=== PATIENT | male | born 1965 | race Caucasian/White ===

== ENCOUNTER → 2016-08-07 | Outpatient (CLI) | payer OTHER ==
--- NOTE | 2016-08-07 12:56 | XR ---
EXAMINATION TYPE: XR chest 2V DATE OF EXAM: 08/07/2016 12:43 PM COMPARISON: 04/26/2016 HISTORY: 51-year-old male cough and intermittent fever TECHNIQUE: Frontal and lateral views FINDINGS: The cardiomediastinal silhouette, aorta, and pulmonary vasculature are within normal limits. There is hyperinflation and interstitial prominence similar to prior. No consolidation or pleural effusion. IMPRESSION: COPD and chronic changes. No acute process identified.
== END | disposition home or self-care (01) ==
LOC: RADXRMAIN 12:29
PROVIDERS: ATTEND Family Medicine
DX: J44.9 Chronic obstructive pulmonary disease, unspecified (principal)
CPT/HCPCS: 71020; 87502

== ENCOUNTER → 2016-12-11 | Outpatient (CLI) | payer OTHER ==
--- NOTE | 2016-12-11 14:25 | CT ---
EXAMINATION TYPE: CT chest wo con DATE OF EXAM: 12/11/2016 2:07 PM COMPARISON: Previous study dated 04/01/2016 HISTORY: Solitary pulmonary nodule CT DLP: 141.3 mGycm Automated exposure control for dose reduction was used. FINDINGS: There are diffuse emphysematous changes throughout the lungs. No parenchymal nodules are se en. The right paratracheal mass previously described compressing the IVC is not seen with certainty on th is examination due to the lack of contrast. There is no significant axillary, mediastinal or hilar ad enopathy. There is no pleural or pericardial fluid. There is coronary artery calcification. The heart is not enlarged. There is a 3 mm nonobstructing calculus in the posterior lower pole calyx of the right kidney. Visual ized portions of the upper abdomen are otherwise unremarkable. No bony destructive lesion is seen. IMPRESSION: 1. DIFFUSE EMPHYSEMATOUS CHANGE. 2. NO DEFINITE PARENCHYMAL NODULE. 3. LIMITED ASSESSMENT OF THE PATIENT'S KNOWN RIGHT PARATRACHEAL MASS DUE TO LACK OF CONTRAST. 4. NONOBSTRUCTING RIGHT-SIDED NEPHROLITHIASIS.
== END | disposition home or self-care (01) ==
LOC: RADCTMAIN 13:49
PROVIDERS: ATTEND Internal Medicine Sleep Medicine
DX: J43.9 Emphysema, unspecified (principal)
CPT/HCPCS: 71250

== ENCOUNTER → 2017-01-09 | Outpatient (CLI) | payer OTHER ==
[2017-01-09 08:17] LABS: ALT 33 U/L (21-72); AST 28 U/L (17-59); Cholesterol 123 mg/dL (<200); HDL Cholesterol 46 mg/dL (40-60); Triglycerides 93 mg/dL (<150)
== END | disposition home or self-care (01) ==
LOC: LABWHC1 07:46
PROVIDERS: ATTEND Internal Medicine Cardiovascular Disease
DX: I25.10 Atherosclerotic heart disease of native coronary artery without angina pectoris (principal); E78.5 Hyperlipidemia, unspecified
CPT/HCPCS: 36415; 80061; 84450; 84460

== ENCOUNTER 2017-02-28 01:49 | Observation (INO) | payer OTHER ==
[2017-02-28] MEDS ORDERED: ONDANSETRON 4 MG/2 ML VIAL IVP STA (01:59)
[2017-02-28] MEDS ORDERED: ASPIRIN 81 MG CHEW PO STA (01:59)
[2017-02-28] MEDS ORDERED: SODIUM CHLORIDE 0.9% 500 ML IV STA (01:59)
--- NOTE | 2017-02-28 02:18 | ED ---
General Adult HPI - General Source: patient, RN notes reviewed Mode of arrival: ambulatory Limitations: no limitations <Nisreen Logan - Last Filed: 02/28/17 03:39> <Ian Norwood - Last Filed: 02/28/17 07:30> - General Chief complaint: Nausea/Vomiting/Diarrhea Stated complaint: low BP Time Seen by Provider: 02/28/17 01:56 - History of Present Illness Initial comments: 51-year-old male presents to the emergency department with a chief complaint of lightheadedness. Patient states earlier today he had some testing done and there was a low blood pressure of 70s over 50s. Patient states he went home did not take much of it. Then he was sitting at home and he had this episode where he felt like he might pass out while he was sitting down. Patient states he didn't started to feel nauseous. Patient states this time he just still continues to have the nausea. There is no chest pain chronically a shortness of breath no different than normal with this. Patient denies diaphoresis. Patient does admit to history of COPD as well as history of heart attack in the past but states that this does not feel like that either. Patient was concerned due to his symptoms so he thought that he should be seen. Patient denies any recent fever, chills, shortness of breath, chest pain, back pain, abdominal pain, vomiting, numbness or tingling, dysuria or hematuria, constipation or diarrhea, headaches or visual changes, or any other current symptoms. (Nisreen Logan) - Related Data Home Medications Medication Instructions Recorded Confirmed Albuterol Inhaler [Ventolin Hfa 2 puff INHALATION RT-Q6H PRN 09/08/14 02/28/17 Inhaler] Pramipexole [Mirapex] 0.5 mg PO DAILY 08/23/15 02/28/17 Acetaminophen Tab [Tylenol Tab] 1,000 mg PO Q6HR PRN 02/28/17 02/28/17 Atorvastatin [Lipitor] 40 mg PO HS 02/28/17 02/28/17 Previous Rx's Medication Instructions Recorded Aspirin 81 mg PO DAILY #30 chew 08/26/15 Clopidogrel [Plavix] 75 mg PO DAILY #30 tab 08/26/15 Metoprolol Tartrate [Lopressor] 25 mg PO BID #60 tab 08/26/15 Nitroglycerin Sl Tabs [Nitrostat] 0.4 mg SUBLINGUAL Q5M PRN #25 tab 08/26/15 Allergies Allergy/AdvReac Type Severity Reaction Status Date / Time iodine Allergy Swelling Verified 02/28/17 07:12 shellfish derived [Shellfish] Allergy Swelling Verified 02/28/17 07:12 venom-honey bee Allergy Swelling Verified 02/28/17 07:12 [bee venom (honey bee)] Review of Systems ROS Other: All systems not noted in ROS Statement are negative. <Nisreen Logan - Last Filed: 02/28/17 03:39> ROS Other: All systems not noted in ROS Statement are negative. <Ian Norwood - Last Filed: 02/28/17 07:30> ROS Statement: Those systems with pertinent positive or pertinent negative responses have been documented in the HPI. 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 Also had some enlargement to lymph nodes upper chest no bx done-dr watching it., psoriasis, restless leg syndrome, 2 herniated disc in neck, 2 in lower back, scoliosis, enlarged prostate, hx. kidney stones, 3 lung masses per pt. Last Myocardial Infarction Date:: Aug 2015 History of Any Multi-Drug Resistant Organisms: None Reported Past Surgical History: Heart Catheterization With Stent, Orthopedic Surgery, Tonsillectomy Additional Past Surgical History / Comment(s): rhinoplasty, left tibial cyst with bone graft from the pelvis to the tibia(pins/screws, orif lt hip (pins) Past Anesthesia/Blood Transfusion Reactions: No Reported Reaction Additional Past Anesthesia/Blood Transfusion Reaction / Comment(s): claustrophobic Date of Last Stent Placement:: Aug 2015 Past Psychological History: Anxiety, Depression Smoking Status: Former smoker Past Alcohol Use History: None Reported Past Drug Use History: None Reported - Past Family History Father Family Medical History: No Reported History Mother Family Medical History: COPD, CVA/TIA Additional Family Medical History / Comment(s): Mother is alive at age 73 Brother(s) Additional Family Medical History / Comment(s): She has 2 brothers, one has metal health issues, one is an addict on crack and other street drugs. Sister(s) Family Medical History: Cancer, Liver Disease Additional Family Medical History / Comment(s): Patient had 2 sisters, one from breast cancer, one from cirrhosis at the age of 19 with history of heavy alcohol use and Crohn's disease. <Nisreen Logan - Last Filed: 02/28/17 03:39> General Exam Limitations: no limitations <Nisreen Logan - Last Filed: 02/28/17 03:39> <Ian Norwood - Last Filed: 02/28/17 07:30> - General Exam Comments Initial Comments: General: The patient is awake and alert, in no distress, and does not appear acutely ill. Eye: Pupils are equal, round and reactive to light, extra-ocular movements are intact; there is normal conjunctiva bilaterally. No signs of icterus. Ears, nose, mouth and throat: There are moist mucous membranes and no oral lesions. Neck: The neck is supple, there is no tenderness. Cardiovascular: There is a regular rate and rhythm. No murmur, rub or gallop is appreciated. Respiratory: Lungs are clear to auscultation, respirations are non-labored, breath sounds are equal. No wheezes, stridor, rales, or rhonchi. Gastrointestinal: Soft, non-distended, non-tender abdomen without masses or organomegaly noted. There is no rebound or guarding present. No CVA tenderness. Bowel sounds are unremarkable. Back: There is no tenderness to palpation in the midline. There is no obvious deformity. No rashes noted. Musculoskeletal: Normal ROM, no tenderness, There is no pedal edema. There is no calf tenderness or swelling. Sensation intact. Pulses equal bilaterally 2+. Neurological: CN II-XII intact, There are no obvious motor or sensory deficits. Coordination appears grossly intact. Speech is normal. Skin: Skin is warm and dry and no rashes or lesions are noted. Psychiatric: Cooperative, appropriate mood & affect, normal judgment. (Nisreen Logan) EKG Findings - EKG Comments: EKG Findings:: normal sinus rhythm 65 bpm, normal axis, no atopy, no S-T depressions or elevations, <Nisreen Logan - Last Filed: 02/28/17 03:39> Medical Decision Making - Lab Data Result diagrams: 02/28/17 02:20 02/28/17 02:20 <Nisreen Logan - Last Filed: 02/28/17 03:39> - Lab Data Result diagrams: 02/28/17 02:20 02/28/17 02:20 <Ian Norwood - Last Filed: 02/28/17 07:30> - Medical Decision Making 51-year-old male presents for near-syncope with nausea. At this time due to patient's symptoms and cardiac history there is suspicion for for cardiac origin. We will admit the patient for cardiac rule out. This is discussed with the patient is in agreement the plan. (Nisreen Logan) I saw this patient in conjunction with the physician assistant store director. I performed independent history and physical exam. Agree with case management. (Ian Norwood) - Lab Data Lab Results 02/28/17 02/28/17 02/28/17 Range/Units 02:20 02:20 02:20 WBC 5.9 (3.8-10.6) k/uL RBC 4.54 (4.30-5.90) m/uL Hgb 13.9 (13.0-17.5) gm/dL Hct 42.4 (39.0-53.0) % MCV 93.2 (80.0-100.0) fL MCH 30.6 (25.0-35.0) pg MCHC 32.8 (31.0-37.0) g/dL RDW 13.4 (11.5-15.5) % Plt Count 148 L (150-450) k/uL Neutrophils % 57 % Lymphocytes % 31 % Monocytes % 7 % Eosinophils % 3 % Basophils % 1 % Neutrophils # 3.4 (1.3-7.7) k/uL Lymphocytes # 1.8 (1.0-4.8) k/uL Monocytes # 0.4 (0-1.0) k/uL Eosinophils # 0.2 (0-0.7) k/uL Basophils # 0.0 (0-0.2) k/uL PT (9.0-12.0) sec INR (<1.2) APTT (22.0-30.0) sec D-Dimer (<0.60) mg/L FEU Sodium 141 (137-145) mmol/L Potassium 4.0 (3.5-5.1) mmol/L Chloride 107 (98-107) mmol/L Carbon Dioxide 26 (22-30) mmol/L Anion Gap 8 mmol/L BUN 25 H (9-20) mg/dL Creatinine 1.10 (0.66-1.25) mg/dL Est GFR (MDRD) Af Amer >60 (>60 ml/min/1.73 sqM) Est GFR (MDRD) Non-Af >60 (>60 ml/min/1.73 sqM) Glucose 104 H (74-99) mg/dL Calcium 9.1 (8.4-10.2) mg/dL Magnesium 1.8 (1.6-2.3) mg/dL Total Bilirubin 0.3 (0.2-1.3) mg/dL AST 21 (17-59) U/L ALT 37 (21-72) U/L Alkaline Phosphatase 54 (38-126) U/L Total Creatine Kinase 106 (55-170) U/L CK-MB (CK-2) 1.6 (0.0-2.4) ng/mL CK-MB (CK-2) Rel Index 1.5 Troponin I <0.012 (0.000-0.034) ng/mL Total Protein 5.7 L (6.3-8.2) g/dL Albumin 3.8 (3.5-5.0) g/dL 02/28/17 Range/Units 02:20 WBC (3.8-10.6) k/uL RBC (4.30-5.90) m/uL Hgb (13.0-17.5) gm/dL Hct (39.0-53.0) % MCV (80.0-100.0) fL MCH (25.0-35.0) pg MCHC (31.0-37.0) g/dL RDW (11.5-15.5) % Plt Count (150-450) k/uL Neutrophils % % Lymphocytes % % Monocytes % % Eosinophils % % Basophils % % Neutrophils # (1.3-7.7) k/uL Lymphocytes # (1.0-4.8) k/uL Monocytes # (0-1.0) k/uL Eosinophils # (0-0.7) k/uL Basophils # (0-0.2) k/uL PT 10.7 (9.0-12.0) sec INR 1.1 (<1.2) APTT 25.0 (22.0-30.0) sec D-Dimer 0.18 (<0.60) mg/L FEU Sodium (137-145) mmol/L Potassium (3.5-5.1) mmol/L Chloride (98-107) mmol/L Carbon Dioxide (22-30) mmol/L Anion Gap mmol/L BUN (9-20) mg/dL Creatinine (0.66-1.25) mg/dL Est GFR (MDRD) Af Amer (>60 ml/min/1.73 sqM) Est GFR (MDRD) Non-Af (>60 ml/min/1.73 sqM) Glucose (74-99) mg/dL Calcium (8.4-10.2) mg/dL Magnesium (1.6-2.3) mg/dL Total Bilirubin (0.2-1.3) mg/dL AST (17-59) U/L ALT (21-72) U/L Alkaline Phosphatase (38-126) U/L Total Creatine Kinase (55-170) U/L CK-MB (CK-2) (0.0-2.4) ng/mL CK-MB (CK-2) Rel Index Troponin I (0.000-0.034) ng/mL Total Protein (6.3-8.2) g/dL Albumin (3.5-5.0) g/dL Disposition Time of Disposition: 03:40 Decision Date: 02/28/17 Decision Time: 03:40 <Nisreen Logan - Last Filed: 02/28/17 03:39> <Ian Norwood - Last Filed: 02/28/17 07:30> Clinical Impression: Nausea, Near syncope Disposition: ADMITTED IP TO THIS [facility] Condition: Stable
[2017-02-28 02:43] LABS: Basophils % (A) 1 %; CH 31.5; CHCM 33.9; Eosinophils # (A) 0.2 k/uL (0-0.7); Eosinophils % (A) 3 %; HCT 42.4 % (39.0-53.0); HDW 2.33; HGB 13.9 gm/dL (13.0-17.5); Luc # (Auto) 0.09; Luc % (Auto) 2; Lymphocytes # (A) 1.8 k/uL (1.0-4.8); Lymphocytes % (A) 31 %; MCH 30.6 pg (25.0-35.0); MCHC 32.8 g/dL (31.0-37.0); MCV 93.2 fL (80.0-100.0); Mean Platelet Volume 8.5; Monocytes # (A) 0.4 k/uL (0-1.0); Monocytes % (A) 7 %; Neutrophils # (A) 3.4 k/uL (1.3-7.7); Neutrophils % (A) 57 %; RBC 4.54 m/uL (4.30-5.90); RDW 13.4 % (11.5-15.5); WBC 5.9 k/uL (3.8-10.6); WBC (Perox) 5.93
[2017-02-28 02:50] LABS: ALT 37 U/L (21-72); AST 21 U/L (17-59); Alkaline Phosphatase 54 U/L (38-126); Anion Gap 8 mmol/L; Blood Urea Nitrogen 25 mg/dL (9-20); Calcium 9.1 mg/dL (8.4-10.2); Carbon Dioxide 26 mmol/L (22-30); Chloride 107 mmol/L (98-107); Glucose 104 mg/dL (74-99); Magnesium 1.8 mg/dL (1.6-2.3); Non-African American GFR(MDRD) >60 (>60 ml/min/1.73 sqM); Sodium 141 mmol/L (137-145); Total Bilirubin 0.3 mg/dL (0.2-1.3); Total Protein 5.7 g/dL (6.3-8.2)
[2017-02-28 02:54] LABS: INR 1.1 (<1.2); Prothrombin Time 10.7 sec (9.0-12.0)
[2017-02-28 03:02] LABS: Creatine Kinase 106 U/L (55-170)
[2017-02-28 03:14] LABS: Creatine Kinase MB 1.6 ng/mL (0.0-2.4); Troponin I <0.012 ng/mL (0.000-0.034)
--- NOTE | 2017-02-28 03:22 | XR ---
EXAM: XR Chest, 2 Views CLINICAL HISTORY: Chest Pain. TECHNIQUE: Frontal and lateral views of the chest. COMPARISON: No relevant prior studies available. FINDINGS: Lungs: Hyperinflated lungs. Mild prominence of interstitial lung markings without airspace consolidation. Pleural space: No significant pleural effusion. No pneumothorax. Heart: Normal cardiac silhouette. Mediastinum: Unremarkable. Bones/joints: Mild thoracic kyphosis. IMPRESSION: No acute findings. No significant interval change.
[2017-02-28] MEDS ORDERED: HEPARIN SODIUM,PORCINE 5,000 UNIT/ML 1 ML VIAL IV ONE (03:40)
[2017-02-28] MEDS ORDERED: NITROGLYCERIN SL TABS 0.4 MG TAB SUBLINGUAL PRN (03:40)
[2017-02-28] MEDS ORDERED: SODIUM CHLORIDE 0.9% 1,000 ML IV SCH (03:45)
[2017-02-28] MEDS ORDERED: HEPARIN SODIUM,PORCINE/D5W PMX 25,000 UNIT in DEXTROSE/WATER 1 500ML.BAG IV SCH (03:45)
[2017-02-28 09:49] LABS: Creatine Kinase 87 U/L (55-170)
[2017-02-28 10:02] LABS: Creatine Kinase MB 1.2 ng/mL (0.0-2.4); Troponin I <0.012 ng/mL (0.000-0.034)
[2017-02-28 12:18] VITALS: RESP 16; TEMP 97.6
[2017-02-28 12:31] VITALS: BP 126/77
[2017-02-28 12:38] VITALS: PULSE 66
--- NOTE | 2017-02-28 14:23 | P.CRDCN ---
History of Present Illness History of present illness: This is a 51-year-old male who presented to the emergency department with complaints of dizziness. He states he was at his neurologist office earlier in the day and was hypotensive 70s over 50s. He presented to the emergency room later in the evening after this persisted and he became mildly nauseous. He says symptoms have since resolved He has a significant history of coronary artery disease with a stent to the circumflex in 2016, hyperlipidemia, COPD, GERD and osteoarthritis. He denies chest pain, shortness of breath, palpitations or diaphoresis. Blood pressure upon arrival was 113/70 with a heart rate is 65. Lipid values were unremarkable with a hemoglobin 13.9, d- dimer 0.18, potassium 4.0, BUN 25, creatinine 1.10, magnesium 1.8 troponin negative 2. EKG shows a normal sinus mechanism. Review of Systems REVIEW OF SYSTEMS: Patient denies any chest discomfort. No shortness of breath. No diaphoresis. Denies headache, dizziness, blurred vision, double vision. No dyspnea on exertion. Patient denies any stomach discomfort. No nausea, vomiting. No hematochezia. No hematemesis. Denies any black stools or blood in his stools. No syncope. No palpitations. No cough. No recent fever or chills. Denies dysuria or hematuria. No muscle weakness or numbness. 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 kidney stones, 3 lung masses per pt. Last Myocardial Infarction Date:: Aug 2015 History of Any Multi-Drug Resistant Organisms: None Reported Past Surgical History: Heart Catheterization With Stent, Orthopedic Surgery, Tonsillectomy Additional Past Surgical History / Comment(s): rhinoplasty, left tibial cyst with bone graft from the pelvis to the tibia(pins/screws, orif lt hip (pins) Past Anesthesia/Blood Transfusion Reactions: No Reported Reaction Additional Past Anesthesia/Blood Transfusion Reaction / Comment(s): claustrophobic Date of Last Stent Placement:: Aug 2015 Smoking Status: Current every day smoker - Past Family History Father Family Medical History: No Reported History Mother Family Medical History: COPD, CVA/TIA Additional Family Medical History / Comment(s): Mother is alive as far as pt knows and should be age 74. Pt does not have much contact with mother. Brother(s) Additional Family Medical History / Comment(s): He has 2 brothers, one has metal health issues, one is an addict on crack and other street drugs. Sister(s) Family Medical History: Cancer, Liver Disease Additional Family Medical History / Comment(s): Patient had 2 sisters, one from breast cancer, one from cirrhosis at the age of 19 with history of heavy alcohol use and Crohn's disease. Medications and Allergies Home Medications Medication Instructions Recorded Confirmed Type Albuterol Inhaler [Ventolin Hfa 2 puff INHALATION RT-Q6H PRN 09/08/14 02/28/17 History Inhaler] Pramipexole [Mirapex] 0.5 mg PO DAILY 08/23/15 02/28/17 History Acetaminophen Tab [Tylenol Tab] 1,000 mg PO Q6HR PRN 02/28/17 02/28/17 History Atorvastatin [Lipitor] 40 mg PO HS 02/28/17 02/28/17 History Allergies Allergy/AdvReac Type Severity Reaction Status Date / Time iodine Allergy Swelling Verified 02/28/17 07:12 shellfish derived [Shellfish] Allergy Swelling Verified 02/28/17 07:12 venom-honey bee Allergy Swelling Verified 02/28/17 07:12 [bee venom (honey bee)] Physical Exam Vitals: Vital Signs Temp Pulse Pulse Pulse Pulse Pulse Resp 02/28/17 12:30 61 65 62 02/28/17 12:00 66 62 72 63 16 02/28/17 11:30 97.6 F 66 16 02/28/17 11:28 97.9 F 63 14 02/28/17 09:50 60 17 02/28/17 08:33 60 16 02/28/17 07:27 64 17 02/28/17 04:52 62 16 02/28/17 03:53 64 16 02/28/17 03:15 65 02/28/17 02:31 62 72 63 02/28/17 01:52 97.2 F L 59 L 18 BP BP BP BP BP Pulse Ox 02/28/17 12:30 127/82 127/72 126/77 02/28/17 12:00 02/28/17 11:30 115/64 98 02/28/17 11:28 120/62 97 02/28/17 09:50 112/76 98 02/28/17 08:33 116/70 98 02/28/17 07:27 116/73 99 02/28/17 04:52 112/77 97 02/28/17 03:53 107/71 97 02/28/17 03:15 113/70 95 02/28/17 02:31 116/75 130/84 118/75 02/28/17 01:52 133/77 98 Intake and Output 02/27/17 02/28/17 02/28/17 22:59 06:59 14:59 Other: Voiding Method Toilet Weight 54.431 kg 54.5 kg Patient Weight 03/01/17 06:59 Weight 54.5 kg GENERAL: Well-appearing, well-nourished and in no acute distress. NECK: Supple without JVD or thyromegaly. LUNGS: Breath sounds clear to auscultation bilaterally. Diminished air entry. No wheezes, rales or rhonchi. HEART: Regular rate and rhythm without murmurs, rubs or gallops. S1 and S2 heard. ABDOMEN: Soft, nontender, normoactive bowel sounds. EXTREMITIES: Normal range of motion, no edema. No clubbing or cyanosis. Peripheral pulses intact and strong. Results 02/28/17 02:20 02/28/17 02:20 Cardiac Enzymes 02/28/17 02/28/17 02/28/17 Range/Units 02:20 02:20 08:56 AST 21 (17-59) U/L CK-MB (CK-2) 1.6 1.2 (0.0-2.4) ng/mL Troponin I <0.012 <0.012 (0.000-0.034) ng/mL Coagulation 02/28/17 Range/Units 02:20 PT 10.7 (9.0-12.0) sec APTT 25.0 (22.0-30.0) sec CBC 02/28/17 Range/Units 02:20 WBC 5.9 (3.8-10.6) k/uL RBC 4.54 (4.30-5.90) m/uL Hgb 13.9 (13.0-17.5) gm/dL Hct 42.4 (39.0-53.0) % Plt Count 148 L (150-450) k/uL Comprehensive Metabolic Panel 02/28/17 Range/Units 02:20 Sodium 141 (137-145) mmol/L Potassium 4.0 (3.5-5.1) mmol/L Chloride 107 (98-107) mmol/L Carbon Dioxide 26 (22-30) mmol/L BUN 25 H (9-20) mg/dL Creatinine 1.10 (0.66-1.25) mg/dL Glucose 104 H (74-99) mg/dL Calcium 9.1 (8.4-10.2) mg/dL AST 21 (17-59) U/L ALT 37 (21-72) U/L Alkaline Phosphatase 54 (38-126) U/L Total Protein 5.7 L (6.3-8.2) g/dL Albumin 3.8 (3.5-5.0) g/dL Current Medications Generic Name Dose Route Start Last Admin Trade Name Freq PRN Reason Stop Dose Admin Aspirin 325 mg 03/01/17 09:00 Aspirin PO DAILY EMILIANO Sodium Chloride 1,000 mls @ 100 mls/hr 02/28/17 03:45 02/28/17 04:06 Saline 0.9% IV 100 mls/hr .Q10H EMILIANO Administration Nitroglycerin 0.4 mg 02/28/17 03:40 Nitrostat SUBLINGUAL Q5M PRN Chest Pain Intake and Output 02/27/17 02/28/17 02/28/17 22:59 06:59 14:59 Other: Voiding Method Toilet Weight 54.431 kg 54.5 kg Patient Weight 03/01/17 06:59 Weight 54.5 kg 02/28/17 02:20 02/28/17 02:20 - EKG Interpretation EKG: sinus rhythm, normal axis, normal QRS, normal ST/T, no acute changes Assessment and Plan Plan: ASSESSMENT 1. Dizziness secondary to dehydration. Patient showed improvement with IV hydration. PLAN Orthostatic vital signs performed after IV hydration and indicated no change in blood pressure lying, sitting and standing. From a cardiac standpoint patient is stable for discharge home to follow with Dr. Dr. Mcrae in one week. This plan has been discussed with the patient and he is in agreement. Nurse Practitioner note has been reviewed, I agree with a documented findings and plan of care. Patient was seen and examined.
[2017-02-28 15:47] LABS: Creatine Kinase 101 U/L (55-170)
--- NOTE | 2017-02-28 15:48 | P.HPIM ---
History of Present Illness Patient is a 51-year-old female came in with complaints of chest pain presently 1 x 10 in severity was 4 x 10 in severity in the past, constant not associated shortness of breath denied any lightheadedness denied any diaphoresis nonpruritic in nature. Patient underwent a CAT scan of the chest which showed pulmonary nodules about 8 mm bilateral. Patient was evaluated by cardiology underwent stress test which is questionable and suspicious for inducible ischemia. Cardiology reevaluated and recommending outpatient stress test. Patient denied any diaphoresis denied any cough patient doesn't have any pneumonia on the CAT scan. Patient appeared to be noncompliant. Does smoke. I consulted pulmonary for pulmonary nodules. Patient doesn't need to stay in the hospital for pulmonary evaluation will be discharged to follow up with pulmonary as an outpatient. Patient was cleared from a cardiology perspective. His chest pain is constant. Review of Systems REVIEW OF SYSTEMS: CONSTITUTIONAL: No fever, no malaise, no fatigue. HEENT: No recent visual problems or hearing problems. Denied any sore throat. CARDIOVASCULAR: No orthopnea, PND, no palpitations, no syncope. PULMONARY: No shortness of breath, no cough, no hemoptysis. GASTROINTESTINAL: No diarrhea, no nausea, no vomiting, no abdominal pain. Normoactive bowel sounds. NEUROLOGICAL: No headaches, no weakness, no numbness. HEMATOLOGICAL: Denies any bleeding or petechiae. GENITOURINARY: Denies any burning micturition, frequency, or urgency. MUSCULOSKELETAL/RHEUMATOLOGICAL: Denies any joint pain, swelling, or any muscle pain. ENDOCRINE: Denies any polyuria or polydipsia. The rest of the 14-point review of systems is negative. 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 kidney stones, 3 lung masses per pt. Last Myocardial Infarction Date:: Aug 2015 History of Any Multi-Drug Resistant Organisms: None Reported Past Surgical History: Heart Catheterization With Stent, Orthopedic Surgery, Tonsillectomy Additional Past Surgical History / Comment(s): rhinoplasty, left tibial cyst with bone graft from the pelvis to the tibia(pins/screws, orif lt hip (pins) Past Anesthesia/Blood Transfusion Reactions: No Reported Reaction Additional Past Anesthesia/Blood Transfusion Reaction / Comment(s): claustrophobic Date of Last Stent Placement:: Aug 2015 Smoking Status: Current every day smoker - Past Family History Father Family Medical History: No Reported History Mother Family Medical History: COPD, CVA/TIA Additional Family Medical History / Comment(s): Mother is alive as far as pt knows and should be age 74. Pt does not have much contact with mother. Brother(s) Additional Family Medical History / Comment(s): He has 2 brothers, one has metal health issues, one is an addict on crack and other street drugs. Sister(s) Family Medical History: Cancer, Liver Disease Additional Family Medical History / Comment(s): Patient had 2 sisters, one from breast cancer, one from cirrhosis at the age of 19 with history of heavy alcohol use and Crohn's disease. Medications and Allergies Home Medications Medication Instructions Recorded Confirmed Type Albuterol Inhaler [Ventolin Hfa 2 puff INHALATION RT-Q6H PRN 09/08/14 02/28/17 History Inhaler] Pramipexole [Mirapex] 0.5 mg PO DAILY 08/23/15 02/28/17 History Acetaminophen Tab [Tylenol Tab] 1,000 mg PO Q6HR PRN 02/28/17 02/28/17 History Atorvastatin [Lipitor] 40 mg PO HS 02/28/17 02/28/17 History Allergies Allergy/AdvReac Type Severity Reaction Status Date / Time iodine Allergy Swelling Verified 02/28/17 07:12 shellfish derived [Shellfish] Allergy Swelling Verified 02/28/17 07:12 venom-honey bee Allergy Swelling Verified 02/28/17 07:12 [bee venom (honey bee)] Physical Exam Vitals: Vital Signs Temp Pulse Pulse Pulse Pulse Pulse Resp 02/28/17 12:30 61 65 62 02/28/17 12:00 66 62 72 63 16 02/28/17 11:30 97.6 F 66 16 02/28/17 11:28 97.9 F 63 14 02/28/17 09:50 60 17 02/28/17 08:33 60 16 02/28/17 07:27 64 17 02/28/17 04:52 62 16 02/28/17 03:53 64 16 02/28/17 03:15 65 16 02/28/17 02:31 62 72 63 02/28/17 01:52 97.2 F L 59 L 18 BP BP BP BP BP Pulse Ox 02/28/17 12:30 127/82 127/72 126/77 02/28/17 12:00 02/28/17 11:30 115/64 98 02/28/17 11:28 120/62 97 02/28/17 09:50 112/76 98 02/28/17 08:33 116/70 98 02/28/17 07:27 116/73 99 02/28/17 04:52 112/77 97 02/28/17 03:53 107/71 97 02/28/17 03:15 113/70 95 02/28/17 02:31 116/75 130/84 118/75 02/28/17 01:52 133/77 98 Intake and Output 02/28/17 02/28/17 02/28/17 06:59 14:59 22:59 Other: Voiding Method Toilet Weight 54.431 kg 54.5 kg Patient Weight 03/01/17 06:59 Weight 54.5 kg PHYSICAL EXAMINATION: GENERAL: The patient is alert and oriented x3, not in any acute distress. Well developed, well nourished. HEENT: Pupils are round and equally reacting to light. EOMI. No scleral icterus. No conjunctival pallor. Normocephalic, atraumatic. No pharyngeal erythema. No thyromegaly. CARDIOVASCULAR: S1 and S2 present. No murmurs, rubs, or gallops. PULMONARY: Chest is clear to auscultation, no wheezing or crackles. ABDOMEN: Soft, nontender, nondistended, normoactive bowel sounds. No palpable organomegaly. MUSCULOSKELETAL: No joint swelling or deformity. EXTREMITIES: No cyanosis, clubbing, or pedal edema. NEUROLOGICAL: Gross neurological examination did not reveal any focal deficits. SKIN: No rashes. Results CBC & Chem 7: 02/28/17 02:20 02/28/17 02:20 Labs: Abnormal Lab Results - Last 24 Hours (Table) 02/28/17 02/28/17 Range/Units 02:20 02:20 Plt Count 148 L (150-450) k/uL BUN 25 H (9-20) mg/dL Glucose 104 H (74-99) mg/dL Total Protein 5.7 L (6.3-8.2) g/dL Thrombosis Risk Factor Assmnt - Choose All That Apply Any of the Below Risk Factors Present?: Yes Each Factor Represents 1 point: Age 41-60 years Other Risk Factors: No Other congenital or acquired thrombophilia - If yes, enter type in comment: No Thrombosis Risk Factor Assessment Total Risk Factor Score: 1 Thrombosis Risk Factor Assessment Level: Low Risk Assessment and Plan Plan: #1 chest pain: Rule out acute coronary syndromes and unstable angina. Stresses as mentioned above further management as mentioned above. #2 bilateral pulmonary nodules: Follow-up with pulmonology as an outpatient. #3 continued nicotine abuse counseling was provided #4 gastro-dysphagia liver disease.
--- NOTE | 2017-02-28 15:49 | P.DS ---
Providers Date of admission: 02/28/17 03:40 Attending physician: Siri Cuenca Consults: 02/28/17 03:41 Consult Physician Urgent Consulting Provider: Gilma Pope Consult Reason/Comments: near syncope Do you want consulting provider notified?: Yes Primary care physician: [facility] Course: Refer to HPI Patient Condition at Discharge: Stable Plan - Discharge Summary New Discharge Prescriptions: New Budesonide-Formot 160-4.5 Mcg [Symbicort 160-4.5 Mcg Inhaler] 2 puff INHALATION BID #1 inhaler No Action Albuterol Inhaler [Ventolin Hfa Inhaler] 2 puff INHALATION RT-Q6H PRN PRN Reason: Difficulty Breathing Pramipexole [Mirapex] 0.5 mg PO DAILY Aspirin 81 mg PO DAILY #30 chew Clopidogrel [Plavix] 75 mg PO DAILY #30 tab Metoprolol Tartrate [Lopressor] 25 mg PO BID #60 tab Nitroglycerin Sl Tabs [Nitrostat] 0.4 mg SUBLINGUAL Q5M PRN #25 tab PRN Reason: Chest Pain Acetaminophen Tab [Tylenol Tab] 1,000 mg PO Q6HR PRN PRN Reason: Pain Atorvastatin [Lipitor] 40 mg PO HS Discharge Medication List Albuterol Inhaler [Ventolin Hfa Inhaler] 2 puff INHALATION RT-Q6H PRN 09/08/14 [ History] Pramipexole [Mirapex] 0.5 mg PO DAILY 08/23/15 [History] Aspirin 81 mg PO DAILY #30 chew 08/26/15 [Rx] Clopidogrel [Plavix] 75 mg PO DAILY #30 tab 08/26/15 [Rx] Metoprolol Tartrate [Lopressor] 25 mg PO BID #60 tab 08/26/15 [Rx] Nitroglycerin Sl Tabs [Nitrostat] 0.4 mg SUBLINGUAL Q5M PRN #25 tab 08/26/15 [Rx ] Acetaminophen Tab [Tylenol Tab] 1,000 mg PO Q6HR PRN 02/28/17 [History] Atorvastatin [Lipitor] 40 mg PO HS 02/28/17 [History] Budesonide-Formot 160-4.5 Mcg [Symbicort 160-4.5 Mcg Inhaler] 2 puff INHALATION BID #1 inhaler 02/28/17 [Rx] Follow up Appointment(s)/Referral(s): Indy Allen MD [Primary Care Provider] - 3 Days Neal Mcrae MD [STAFF PHYSICIAN] - 1 Week Discharge Disposition: HOME SELF-CARE
[2017-02-28 15:59] LABS: Creatine Kinase MB 1.5 ng/mL (0.0-2.4); Troponin I <0.012 ng/mL (0.000-0.034)
[2017-03-01] MEDS ORDERED: ASPIRIN 325 MG TAB PO SCH (09:00)
== END 2017-02-28 15:48 | disposition home or self-care (01) ==
LOC: EC 01:49 → 3OBS 03:40
PROVIDERS: ADMIT Internal Medicine; ATTEND Internal Medicine
DX: R07.9 Chest pain, unspecified (principal); R91.8 Other nonspecific abnormal finding of lung field; F17.200 Nicotine dependence, unspecified, uncomplicated; R13.10 Dysphagia, unspecified; K76.9 Liver disease, unspecified; E86.0 Dehydration; I25.2 Old myocardial infarction; Z79.899 Other long term (current) drug therapy; Z88.3 Allergy status to other anti-infective agents; Z91.030 Bee allergy status; Z91.013 Allergy to seafood; Z95.5 Presence of coronary angioplasty implant and graft; Z82.5 Family history of asthma and other chronic lower respiratory diseases; G25.81 Restless legs syndrome; J44.9 Chronic obstructive pulmonary disease, unspecified; E78.5 Hyperlipidemia, unspecified; I25.10 Atherosclerotic heart disease of native coronary artery without angina pectoris
CPT/HCPCS: 96375 ×2; 96374; 99285; 36415; 93005; 85379; 80053; 82550; 82553; 83735; 84484; 85025; 85610; 85730; 71020; G0378; J1644 ×2; J2405

== ENCOUNTER → 2017-05-13 | Outpatient (CLI) | payer OTHER ==
--- NOTE | 2017-05-13 12:29 | XR ---
EXAMINATION TYPE: XR chest 2V DATE OF EXAM: 05/13/2017 COMPARISON: Chest x-ray February 28, 2017. CT chest December 11, 2016. HISTORY: Cough and COPD. TECHNIQUE: Frontal and lateral views of the chest are obtained. FINDINGS: There is chronic parenchymal change without suspicious focal air space opacity, pleural ef fusion, or pneumothorax seen. The cardiac silhouette size remains within normal limits. Slight pectu s deformity is redemonstrated. The osseous structures are intact. IMPRESSION: Chronic changes without acute pulmonary process.
== END | disposition home or self-care (01) ==
LOC: RADXRMAIN 12:08
PROVIDERS: ATTEND Family Medicine
DX: J98.4 Other disorders of lung (principal); R05 Cough; R06.2 Wheezing
CPT/HCPCS: 71020

== ENCOUNTER → 2017-10-01 | Outpatient (CLI) | payer OTHER ==
--- NOTE | 2017-10-01 12:29 | XR ---
EXAMINATION TYPE: XR lumbosacral spine min 4V DATE OF EXAM: 10/01/2017 COMPARISON: NONE HISTORY: 52-year-old male lumbago, low back pain TECHNIQUE: 5 views FINDINGS: 5 lumbar type vertebral bodies. No pars interarticularis defect. Moderate degenerative disc height lo ss with endplate spurring, sclerosis, and vacuum phenomenon at L5-S1. Mild endplate spondylosis lower thoracic spine. Mild facet arthropathy lower lumbar spine. Vertebral body heights are preserved and alignment is maintained. IMPRESSION: Moderate degenerative disc disease L5-S1. Additional mild facet arthropathy lower lumbar spine. No ve rtebral compression collapse or malalignment.
== END | disposition home or self-care (01) ==
LOC: RADXRMAIN 12:02
PROVIDERS: ATTEND Family Medicine
DX: M51.17 Intervertebral disc disorders with radiculopathy, lumbosacral region (principal); M46.96 Unspecified inflammatory spondylopathy, lumbar region
CPT/HCPCS: 72110

== ENCOUNTER → 2017-11-07 | Outpatient (CLI) | payer OTHER ==
--- NOTE | 2017-11-07 10:30 | CT ---
EXAMINATION TYPE: CT chest wo con DATE OF EXAM: 11/07/2017 COMPARISON: 12/11/2016 HISTORY: Follow up to lung nodule CT DLP: 155.[address] of the chest was performed with lung and mediastinal window settings submitted. The la ck of contrast limits evaluation of the vascular, mediastinal and parenchymal structures including th e upper abdomen. LUNGS: Again noted is moderate diffuse emphysematous change. No evidence for pulmonary nodule or mass . No evidence for focal consolidation or volume loss. MEDIASTINUM/TRIPP: Thoracic aorta is of normal caliber with limited evaluation given lack of contrast . The heart is not enlarged. Coronary artery calcifications seen. No evidence for mediastinal mass. No lymph nodes greater than 1cm. UPPER ABDOMEN: Nonobstructing calculus right kidney measures 2 mm. OTHER: No significant other abnormality. IMPRESSION: 1. Emphysematous changes. 2. No distinct pulmonary nodule. 3. Subcentimeter paratracheal lymph nodes.
== END ==
LOC: RADCTMAIN 09:41
PROVIDERS: ATTEND Internal Medicine Sleep Medicine
DX: J43.9 Emphysema, unspecified (principal)
CPT/HCPCS: 71250

== ENCOUNTER → 2017-12-13 | Outpatient (CLI) | payer OTHER ==
--- NOTE | 2017-12-13 13:55 | MR ---
EXAMINATION TYPE: MR lumbar spine wo con DATE OF EXAM: 12/13/2017 COMPARISON: NONE HISTORY: Lumbago with sciatica, right side TECHNIQUE: Multiplanar, multisequence images of the lumbar spine were acquired. FINDINGS: There is straightening of usual lumbar lordosis. This could be related to patient positioni ng or muscular sprain/spasm. Bone marrow signal is within normal limits. Multilevel disc desiccation is seen. Conus medullaris unremarkable terminating at L1. At the left lateral aspect of the distal co rd on sagittal T2 weighted nonfat sat series image 7 there is focal hyperintensity that may relate to artifact from adjacent CSF or abnormal cord signal. Thoracic MRI is recommended for further evaluati on. This is above the [id number] on axial images. L1-L2: Disc desiccation. No herniation, protrusion or disc bulging. No canal stenosis is present. Foramina are patent bilaterally. L2-L3: Small broad-based disc bulge without neural foraminal narrowing or spinal canal stenosis. Disc desiccation is seen. Minimal facet arthropathy is present. L3-L4: There is a broad-based disc bulge without neural foraminal narrowing or spinal canal stenosis. Mild facet arthropathy and ligamentum flavum buckling are noted. L4-L5: There is a broad-based disc bulge without spinal canal stenosis or neural foraminal narrowing. This is slightly left eccentric. L5-S1: There is a central disc herniation with 2 mm caudal migration of the disc (extrusion). This ab uts the ventral subarachnoid space but creates no spinal canal stenosis. This is superimposed upon a broad-based disc bulge that in combination with facet arthropathy creates severe right neural foramin al narrowing and moderate left neural foraminal narrowing. IMPRESSION: 1. Central disc herniation with 2 mm caudal migration at L5-S1 that in combination with degenerative changes create severe right neural foraminal narrowing and moderate left neural foraminal narrowing. No spinal canal stenosis. 2. Abnormal distal spinal cord signal versus artifact seen on sagittal T2 weighted image only. Thorac ic spine MR is recommended for further evaluation. 3. Multilevel mild degenerative disc disease without additional levels of spinal canal stenosis nor n eural foraminal narrowing.
== END ==
LOC: RADMRIMAIN 11:25
PROVIDERS: ATTEND Family Medicine
DX: M51.16 Intervertebral disc disorders with radiculopathy, lumbar region (principal); M99.73 Connective tissue and disc stenosis of intervertebral foramina of lumbar region; M47.26 Other spondylosis with radiculopathy, lumbar region; R93.7 Abnormal findings on diagnostic imaging of other parts of musculoskeletal system
CPT/HCPCS: 72148

== ENCOUNTER 2018-01-27 19:59 | Emergency (ER) | payer OTHER ==
[2018-01-27 20:27] LABS: Basophils % (A) 0 %; Eosinophils # (A) 0.2 k/uL (0-0.7); Eosinophils % (A) 2 %; HCT 45.3 % (39.0-53.0); HGB 15.2 gm/dL (13.0-17.5); Lymphocytes # (A) 0.6 k/uL (1.0-4.8); Lymphocytes % (A) 6 %; MCH 30.6 pg (25.0-35.0); MCHC 33.5 g/dL (31.0-37.0); MCV 91.2 fL (80.0-100.0); Monocytes # (A) 0.4 k/uL (0-1.0); Monocytes % (A) 4 %; Neutrophils # (A) 9.4 k/uL (1.3-7.7); Neutrophils % (A) 88 %; Platelet Count 167 k/uL (150-450); RBC 4.97 m/uL (4.30-5.90); RDW 12.9 % (11.5-15.5); WBC 10.7 k/uL (3.8-10.6)
[2018-01-27 20:38] LABS: ALT 43 U/L (21-72); AST 29 U/L (17-59); Albumin 4.5 g/dL (3.5-5.0); Alkaline Phosphatase 51 U/L (38-126); Anion Gap 13 mmol/L; Blood Urea Nitrogen 17 mg/dL (9-20); Calcium 9.6 mg/dL (8.4-10.2); Carbon Dioxide 23 mmol/L (22-30); Chloride 102 mmol/L (98-107); Glucose 107 mg/dL (74-99); Potassium 4.2 mmol/L (3.5-5.1); Sodium 138 mmol/L (137-145); Total Protein 6.7 g/dL (6.3-8.2)
[2018-01-27] MEDS ORDERED: SODIUM CHLORIDE 0.9% 1,000 ML IV STA (20:50)
[2018-01-27 20:59] LABS: INR 1.1 (<1.2); Partial Thromboplastin Time 23.5 sec (22.0-30.0); Prothrombin Time 10.8 sec (9.0-12.0)
[2018-01-27] MEDS ORDERED: AZITHROMYCIN 500 MG in DEXTROSE 5% IN WATER 250 ML IVPB STA ×2 (21:06)
[2018-01-27] MEDS ORDERED: cefTRIAXone IN SWFI 1,000 MG/10 ML SYRINGE IVP STA (21:06)
[2018-01-27] MEDS ORDERED: IPRATROPIUM 0.5 MG/2.5 ML NEBU INHALATION STA (21:17)
[2018-01-27] MEDS ORDERED: ALBUTEROL NEBULIZED 2.5 MG/3 ML INHALATION STA (21:17)
[2018-01-27] MEDS ORDERED: DEXAMETHASONE 4 MG TAB PO STA (21:17)
[2018-01-27] MEDS ORDERED: ACETAMINOPHEN TAB 500 MG TAB PO STA (21:18)
[2018-01-27 21:20] LABS: Amorphous Sediment,Urine Occasional /hpf; Appearance,Urine Clear (Clear); Bilirubin,Urine Negative (Negative); Blood,Urine Small (Negative); Color,Urine Yellow; Glucose,Urine (UA) Negative (Negative); Ketones,Urine Negative (Negative); Leukocyte Esterase,Urine Negative (Negative); Mucus,Urine Rare /hpf; Nitrite,Urine Negative (Negative); PH, Urine 7.5 (5.0-8.0); Protein,Urine Negative (Negative); RBC,Urine 2 /hpf (0-5); Specific Gravity,Urine 1.016 (1.001-1.035); Squamous Epithelial Cell,Urine <1 /hpf (0-4)
--- NOTE | 2018-01-27 21:31 | XR ---
EXAMINATION: XR chest 2V DATE AND TIME: 01/27/2018 8:59 PM ORDERING PROVIDER: Judah Jefferson DO CLINICAL INDICATION: Pain TECHNIQUE: PA and lateral COMPARISON: 05/13/2017 DESCRIPTION: There is hyperlucency in the upper lung zones, particularly on the right. The lungs appear to be clear. The pleural spaces are negative. The cardiac silhouette is not enlarged. The mediastinal and pleural silhouettes are unremarkable. The skeletal structures are intact without focal findings. The soft tissues are unremarkable. IMPRESSION: NO ACUTE PROCESS.
--- NOTE | 2018-01-27 22:11 | ED ---
General Adult HPI - General Chief complaint: Shortness of Breath Stated complaint: poss bronchitis Source: patient Mode of arrival: ambulatory Limitations: no limitations - History of Present Illness Initial comments: Dictation was produced using [employer] dictation software. please excuse any grammatical, word or spelling errors. Chief Complaint: 22-year-old male past medical history of COPD, GERD, coronary artery disease presents with shortness of breath and cough. History of Present Illness: He states his symptoms began yesterday. Patient has past medical history of COPD for which she takes steroid containing inhaler. Yesterday began having some shortness of breath and fever. Denies any chest pain at this time. Denies any nausea, vomiting, abdominal pain. He does report feeling hot however unsure if he's had fevers. Denies any chills or night sweats. The ROS documented in this emergency department record has been reviewed and confirmed by me. Those systems with pertinent positive or negative responses have been documented in the HPI. All other systems are other negative and/or noncontributory. Severity scale (1-10): 0 - Related Data Home Medications Medication Instructions Recorded Confirmed Albuterol Inhaler [Ventolin Hfa 2 puff INHALATION RT-BID PRN 09/08/14 01/27/18 Inhaler] Atorvastatin [Lipitor] 40 mg PO HS 02/28/17 01/27/18 Pramipexole [Mirapex] 0.25 mg PO HS 01/27/18 01/27/18 Previous Rx's Medication Instructions Recorded Aspirin 81 mg PO DAILY #30 chew 08/26/15 Clopidogrel [Plavix] 75 mg PO DAILY #30 tab 08/26/15 Metoprolol Tartrate [Lopressor] 25 mg PO BID #60 tab 08/26/15 Nitroglycerin Sl Tabs [Nitrostat] 0.4 mg SUBLINGUAL Q5M PRN #25 tab 08/26/15 Budesonide-Formot 160-4.5 Mcg 2 puff INHALATION BID #1 inhaler 02/28/17 [Symbicort 160-4.5 Mcg Inhaler] Levofloxacin [Levaquin] 750 mg PO DAILY 5 Days #5 tab 01/27/18 methylPREDNISolone Dose Pack 4 mg PO DIRECTED #21 package 01/27/18 [Medrol Dose Pack] Allergies Allergy/AdvReac Type Severity Reaction Status Date / Time iodine Allergy Swelling Verified 01/27/18 20:30 shellfish derived [Shellfish] Allergy Swelling Verified 01/27/18 20:30 venom-honey bee Allergy Swelling Verified 01/27/18 20:30 [bee venom (honey bee)] Review of Systems ROS Statement: Those systems with pertinent positive or pertinent negative responses have been documented in the HPI. ROS Other: All systems not noted in ROS Statement are negative. Past Medical History Past Medical History: Chest Pain / Angina, COPD, GERD/Reflux, Myocardial Infarction ([place]), Osteoarthritis (OA), Prostate Disorder Additional Past Medical History / Comment(s): giant cell tumor pelvic/lt femoral head pt stated unable to bx it, enlargement to lymph nodes upper chest no bx done-dr watching it., psoriasis, restless leg syndrome, 2 herniated disc in neck, 2 in lower back, scoliosis, enlarged prostate, hx. kidney stones, 3 lung masses per pt. Last Myocardial Infarction Date:: Aug 2015 History of Any Multi-Drug Resistant Organisms: None Reported Past Surgical History: Heart Catheterization With Stent, Orthopedic Surgery, Tonsillectomy Additional Past Surgical History / Comment(s): rhinoplasty, left tibial cyst with bone graft from the pelvis to the tibia(pins/screws, orif lt hip (pins) Past Anesthesia/Blood Transfusion Reactions: No Reported Reaction Additional Past Anesthesia/Blood Transfusion Reaction / Comment(s): claustrophobic Date of Last Stent Placement:: Aug 2015 Past Psychological History: No Psychological Hx Reported Smoking Status: Current some day smoker Past Alcohol Use History: None Reported Past Drug Use History: None Reported - Past Family History Father Family Medical History: No Reported History Mother Family Medical History: COPD, CVA/TIA Additional Family Medical History / Comment(s): Mother is alive as far as pt knows and should be age 74. Pt does not have much contact with mother. Brother(s) Additional Family Medical History / Comment(s): He has 2 brothers, one has metal health issues, one is an addict on crack and other street drugs. Sister(s) Family Medical History: Cancer, Liver Disease Additional Family Medical History / Comment(s): Patient had 2 sisters, one from breast cancer, one from cirrhosis at the age of 19 with history of heavy alcohol use and Crohn's disease. General Exam - General Exam Comments Initial Comments: PHYSICAL EXAM: General Impression: Alert and oriented x3, not in acute distress HEENT: Normocephalic atraumatic, extra-ocular movements intact, pupils equal and reactive to light bilaterally, mucous membranes moist. Cardiovascular: Heart regular rate and rhythm, S1&S2 audible, no murmurs, rubs or gallops Chest: Egophony noted the right lung base Abdomen: Bowel sounds present, abdomen soft, non-tender, non-distended, no organomegaly Musculoskeletal: Pulses present and equal in all extremities, no peripheral edema Motor: Power 5/5 bilaterally, no focal deficits noted Neurological: CN II-XII grossly intact, no focal motor or sensory deficits noted Skin: Intact with no visualized rashes Psych: Normal affect and mood Limitations: no limitations Course Vital Signs 01/27/18 01/27/18 01/27/18 20:00 20:42 21:17 Temperature 100.2 F H Pulse Rate 108 H Pulse Rate [ 95 Right Sitting Pulse Oximetery ] Respiratory 26 H 20 22 Rate Blood Pressure 114/78 Blood Pressure 124/77 [Right Arm Sitting] O2 Sat by Pulse 94 L Oximetry 01/27/18 01/27/18 21:28 21:42 Temperature Pulse Rate 95 94 Pulse Rate [ Right Sitting Pulse Oximetery ] Respiratory Rate Blood Pressure Blood Pressure [Right Arm Sitting] O2 Sat by Pulse Oximetry Medical Decision Making - Medical Decision Making ED course: 52-year-old male with multiple comorbidities presents with chief complaint of cough and shortness of breath. He has past nuchal history of COPD. Vital signs upon arrival shows low-grade temperature 100.2 this performed orally. Heart rate is 108. Respiratory rate of 26. Patient is satting 94 L on room air. Laboratory evaluation obtained. Mild leukocytosis of 10.7. Rest of labs are unremarkable. X-ray obtained showing no acute processes. EKG is benign. Rectal presentation is consistent with pneumonia. Patient given ceftriaxone and azithromycin to cover for community acquired pneumonia. Patient given the option to be admitted to the hospital for IV antibiotics. Patient states that he does not feel that sick and is okay with discharge with outpatient antibiotics. He does report having good follow-up with primary care physician. Patient be discharged with antibiotic he has Tylenol to take when necessary fever. Patient has 151 puffs left on his albuterol inhaler. EKG Interpretation: A 12 lead EKG was obtained. It was interpreted by myself and attending physician. There is a P wave before every QRS complex. Rate is 97. Rhythm is sinus rhythm, AK interval 146, QS 82, QTC 411. QT is not prolonged. No ST segment depression or elevation. Overall, this EKG is unremarkable - Lab Data Result diagrams: 01/27/18 20:17 01/27/18 20:17 Lab Results 01/27/18 01/27/18 01/27/18 Range/Units 20:17 20:17 20:17 WBC 10.7 H (3.8-10.6) k/uL RBC 4.97 (4.30-5.90) m/uL Hgb 15.2 (13.0-17.5) gm/dL Hct 45.3 (39.0-53.0) % MCV 91.2 (80.0-100.0) fL MCH 30.6 (25.0-35.0) pg MCHC 33.5 (31.0-37.0) g/dL RDW 12.9 (11.5-15.5) % Plt Count 167 (150-450) k/uL Neutrophils % 88 % Lymphocytes % 6 % Monocytes % 4 % Eosinophils % 2 % Basophils % 0 % Neutrophils # 9.4 H (1.3-7.7) k/uL Lymphocytes # 0.6 L (1.0-4.8) k/uL Monocytes # 0.4 (0-1.0) k/uL Eosinophils # 0.2 (0-0.7) k/uL Basophils # 0.0 (0-0.2) k/uL PT (9.0-12.0) sec INR (<1.2) APTT (22.0-30.0) sec Sodium 138 (137-145) mmol/L Potassium 4.2 (3.5-5.1) mmol/L Chloride 102 (98-107) mmol/L Carbon Dioxide 23 (22-30) mmol/L Anion Gap 13 mmol/L BUN 17 (9-20) mg/dL Creatinine 0.90 (0.66-1.25) mg/dL Est GFR (CKD-EPI)AfAm >90 (>60 ml/min/1.73 sqM) Est GFR (CKD-EPI)NonAf >90 (>60 ml/min/1.73 sqM) Glucose 107 H (74-99) mg/dL Plasma Lactic Acid Obdulio 0.7 (0.7-2.0) mmol/L Calcium 9.6 (8.4-10.2) mg/dL Magnesium (1.6-2.3) mg/dL Total Bilirubin 1.0 (0.2-1.3) mg/dL AST 29 (17-59) U/L ALT 43 (21-72) U/L Alkaline Phosphatase 51 (38-126) U/L Troponin I (0.000-0.034) ng/mL Total Protein 6.7 (6.3-8.2) g/dL Albumin 4.5 (3.5-5.0) g/dL Urine Color Urine Appearance (Clear) Urine pH (5.0-8.0) Ur Specific Sweet (1.001-1.035) Urine Protein (Negative) Urine Glucose (UA) (Negative) Urine Ketones (Negative) Urine Blood (Negative) Urine Nitrite (Negative) Urine Bilirubin (Negative) Urine Urobilinogen (<2.0) mg/dL Ur Leukocyte Esterase (Negative) Urine RBC (0-5) /hpf Ur Squamous Epith Cells (0-4) /hpf Amorphous Sediment (None) /hpf Urine Mucus (None) /hpf 01/27/18 01/27/18 01/27/18 Range/Units 20:17 20:17 21:02 WBC (3.8-10.6) k/uL RBC (4.30-5.90) m/uL Hgb (13.0-17.5) gm/dL Hct (39.0-53.0) % MCV (80.0-100.0) fL MCH (25.0-35.0) pg MCHC (31.0-37.0) g/dL RDW (11.5-15.5) % Plt Count (150-450) k/uL Neutrophils % % Lymphocytes % % Monocytes % % Eosinophils % % Basophils % % Neutrophils # (1.3-7.7) k/uL Lymphocytes # (1.0-4.8) k/uL Monocytes # (0-1.0) k/uL Eosinophils # (0-0.7) k/uL Basophils # (0-0.2) k/uL PT 10.8 (9.0-12.0) sec INR 1.1 (<1.2) APTT 23.5 (22.0-30.0) sec Sodium (137-145) mmol/L Potassium (3.5-5.1) mmol/L Chloride (98-107) mmol/L Carbon Dioxide (22-30) mmol/L Anion Gap mmol/L BUN (9-20) mg/dL Creatinine (0.66-1.25) mg/dL Est GFR (CKD-EPI)AfAm (>60 ml/min/1.73 sqM) Est GFR (CKD-EPI)NonAf (>60 ml/min/1.73 sqM) Glucose (74-99) mg/dL Plasma Lactic Acid Obdulio (0.7-2.0) mmol/L Calcium (8.4-10.2) mg/dL Magnesium 1.7 (1.6-2.3) mg/dL Total Bilirubin (0.2-1.3) mg/dL AST (17-59) U/L ALT (21-72) U/L Alkaline Phosphatase (38-126) U/L Troponin I <0.012 (0.000-0.034) ng/mL Total Protein (6.3-8.2) g/dL Albumin (3.5-5.0) g/dL Urine Color Urine Appearance (Clear) Urine pH (5.0-8.0) Ur Specific Sweet (1.001-1.035) Urine Protein (Negative) Urine Glucose (UA) (Negative) Urine Ketones (Negative) Urine Blood (Negative) Urine Nitrite (Negative) Urine Bilirubin (Negative) Urine Urobilinogen (<2.0) mg/dL Ur Leukocyte Esterase (Negative) Urine RBC (0-5) /hpf Ur Squamous Epith Cells (0-4) /hpf Amorphous Sediment (None) /hpf Urine Mucus (None) /hpf 01/27/18 Range/Units 21:02 WBC (3.8-10.6) k/uL RBC (4.30-5.90) m/uL Hgb (13.0-17.5) gm/dL Hct (39.0-53.0) % MCV (80.0-100.0) fL MCH (25.0-35.0) pg MCHC (31.0-37.0) g/dL RDW (11.5-15.5) % Plt Count (150-450) k/uL Neutrophils % % Lymphocytes % % Monocytes % % Eosinophils % % Basophils % % Neutrophils # (1.3-7.7) k/uL Lymphocytes # (1.0-4.8) k/uL Monocytes # (0-1.0) k/uL Eosinophils # (0-0.7) k/uL Basophils # (0-0.2) k/uL PT (9.0-12.0) sec INR (<1.2) APTT (22.0-30.0) sec Sodium (137-145) mmol/L Potassium (3.5-5.1) mmol/L Chloride (98-107) mmol/L Carbon Dioxide (22-30) mmol/L Anion Gap mmol/L BUN (9-20) mg/dL Creatinine (0.66-1.25) mg/dL Est GFR (CKD-EPI)AfAm (>60 ml/min/1.73 sqM) Est GFR (CKD-EPI)NonAf (>60 ml/min/1.73 sqM) Glucose (74-99) mg/dL Plasma Lactic Acid Obdulio (0.7-2.0) mmol/L Calcium (8.4-10.2) mg/dL Magnesium (1.6-2.3) mg/dL Total Bilirubin (0.2-1.3) mg/dL AST (17-59) U/L ALT (21-72) U/L Alkaline Phosphatase (38-126) U/L Troponin I (0.000-0.034) ng/mL Total Protein (6.3-8.2) g/dL Albumin (3.5-5.0) g/dL Urine Color Yellow Urine Appearance Clear (Clear) Urine pH 7.5 (5.0-8.0) Ur Specific Sweet 1.016 (1.001-1.035) Urine Protein Negative (Negative) Urine Glucose (UA) Negative (Negative) Urine Ketones Negative (Negative) Urine Blood Small H (Negative) Urine Nitrite Negative (Negative) Urine Bilirubin Negative (Negative) Urine Urobilinogen 4.0 (<2.0) mg/dL Ur Leukocyte Esterase Negative (Negative) Urine RBC 2 (0-5) /hpf Ur Squamous Epith Cells <1 (0-4) /hpf Amorphous Sediment Occasional H (None) /hpf Urine Mucus Rare H (None) /hpf Disposition Clinical Impression: Pneumonia Disposition: HOME SELF-CARE Condition: Fair Instructions: Community Acquired Pneumonia (ED) Prescriptions: Levofloxacin [Levaquin] 750 mg PO DAILY 5 Days #5 tab methylPREDNISolone Dose Pack [Medrol Dose Pack] 4 mg PO DIRECTED #21 package Is patient prescribed a controlled substance at d/c from ED?: No Referrals: Indy Allen MD [Primary Care Provider] - 1-2 days Time of Disposition: 22:14
[2018-01-27 22:17] VITALS: RESP 20
[2018-01-27 22:52] VITALS: BP 110/68; PULSE 106; TEMP 98.7
== END 2018-01-27 22:51 | disposition home or self-care (01) ==
LOC: EC 19:59
DX: J18.9 Pneumonia, unspecified organism (principal); J44.0 Chronic obstructive pulmonary disease with (acute) lower respiratory infection; G25.81 Restless legs syndrome; F17.200 Nicotine dependence, unspecified, uncomplicated; Z95.5 Presence of coronary angioplasty implant and graft; Z98.890 Other specified postprocedural states; Z79.899 Other long term (current) drug therapy; Z91.013 Allergy to seafood; Z91.030 Bee allergy status; Z91.048 Other nonmedicinal substance allergy status
CPT/HCPCS: 36415; 94644; 93005; 83880; 80053; 83605; 83735; 84484; 85025; 85610; 85730; 81001; 87040; 87086; 71046; 99285; 96365; 96375; 96361; J8540; J0456; J0696

== ENCOUNTER → 2018-03-12 | Outpatient (CLI) | payer OTHER ==
[2018-03-12 13:28] VITALS: BP 120/79; PULSE 65; RESP 18
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
== END | disposition home or self-care (01) ==
LOC: PNWHC3 13:06
PROVIDERS: ATTEND Specialist
DX: G89.29 Other chronic pain (principal); M51.36 Other intervertebral disc degeneration, lumbar region; M47.816 Spondylosis without myelopathy or radiculopathy, lumbar region; M46.96 Unspecified inflammatory spondylopathy, lumbar region; Z79.899 Other long term (current) drug therapy; Z79.82 Long term (current) use of aspirin; Z91.048 Other nonmedicinal substance allergy status; Z91.013 Allergy to seafood; Z91.030 Bee allergy status
CPT/HCPCS: 99211

== ENCOUNTER 2018-03-30 09:27 | Day surgery (SDC) | payer OTHER ==
[2018-03-24 15:20] VITALS: BMI 21.3
[~2018-03-30 09:27] MED LIST: LACTATED RINGERS 1,000 ML IV SCH
[2018-03-30 10:51] VITALS: TEMP 98
[2018-03-30] MEDS ORDERED: LIDOCAINE 1% 20 ML VIAL (10MG/ML) FOR IV START INTRADERMA ONE (11:10)
--- NOTE | 2018-03-30 12:03 | P.PCN ---
Date of Procedure: 03/30/18 Surgeon: Ajith Perez Pathology: none sent Condition: stable Disposition: PACU Description of Procedure: PREOPERATIVE DIAGNOSIS : 1- Lumbar spondylosis with Facet Arthropathy without myelopathy . 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 2- Lumber degenerative disc disease PROCEDURE: Diagnostic bilateral L3 -4 , L4 -5 , and L5-S1 medial branch block under fluoroscopy ANESTHESIA: Local with 1% lidocaine; IV sedation with Versed 2 mg . EBL: Negligible COMPLICATION: None. PROCEDURE INDICATION: Chronic low back pain secondary to Facet arthropathy unresponsive to conservative treatment. PROCEDURE DESCRIPTION: the patient was seen and identified in the preop holding area , risks and benefits and possible complications of the procedure and alternatives were discussed with the patient, and the patient agreed to proceed with the procedure and signed the consent. IV was started and vital signs monitored during the procedure and fluoroscopy was used to maximize the benefit and accuracy of the needle placement, sedation was given to decrease patient anxiety, patient was taken to the procedure room and placed in prone position vital signs monitored. The patient was brought into the procedure room and placed in prone position. Skin was prepped with Chloraprep and draped in a sterile manner. Lidocaine 1 % was used to numb the skin up at the target points that were chosen as follows : at the L5-S1 level which corresponds to the dorsal ramus of L5 the target points were at the superior medial aspect of the sacral ala on each side of the spine on the AP view of fluoroscopy, and for theL2, L3 and L4 medial branches the target points were the connection between the transverse process and the superior to go process of L3, L4 and L5 respectively on the oblique views of fluoroscopy. I used 25-gauge 3-1/2 inch Quincke spinal needles for this procedure and after contacting bone at the target points mentioned above I injected 1 mL of a mixture of Depo-Medrol 40 mg +5 MLS of ropivacaine 0.5% PF . Patient tolerated procedure well. At the end of the procedure the needles removed and a bandage applied after the skin was cleaned the cleaning solution. patient was then taken to the recovery room in stable condition and monitored in the recovery room for 20-30 minutes and discharged home in stable condition after discharge criteria met .
--- NOTE | 2018-03-30 12:10 | FL ---
EXAMINATION TYPE: FL guided pain mgmt statistic DATE OF EXAM: 03/30/2018 HISTORY: Pain adama facets 11 sec fl time used
[2018-03-30 12:21] VITALS: RESP 16
[2018-03-30 12:35] VITALS: BP 131/81; PULSE 71
[2018-03-30] MEDS ORDERED: IV FLUID CONTINUATION 1,000 ML IV ONE (12:35)
== END 2018-03-30 12:40 | disposition home or self-care (01) ==
LOC: ORPAIN 09:27
PROVIDERS: ATTEND Anesthesiology
DX: G89.29 Other chronic pain (principal); M47.816 Spondylosis without myelopathy or radiculopathy, lumbar region; M51.36 Other intervertebral disc degeneration, lumbar region; I25.10 Atherosclerotic heart disease of native coronary artery without angina pectoris; Z91.048 Other nonmedicinal substance allergy status
CPT/HCPCS: 64493; 64494; 64495; J1030

== ENCOUNTER 2018-04-02 18:58 | Emergency (ER) | payer OTHER ==
[2018-04-02] MEDS ORDERED: PROPARACAINE 0.5% OPHTH DROPS 15 ML BTL RIGHT EYE STA (19:07)
[2018-04-02] MEDS ORDERED: DIPH,PERTUS(ACELL)TETVAC-LF 0.5 ML VIAL IM ONE (19:10)
[2018-04-02 19:13] VITALS: RESP 16
[2018-04-02] MEDS ORDERED: ERYTHROMYCIN 5 MG/GM OPHTH OINT 3.5 GM TUBE RIGHT EYE STA (19:28)
[2018-04-02] MEDS ORDERED: CIPROFLOXACIN 0.3% OPHTH OINT 3.5 GM TUBE RIGHT EYE STA (19:29)
--- NOTE | 2018-04-02 19:39 | ED ---
Eye Problem HPI - General Chief complaint: Eye Problems Stated complaint: FB eye Time Seen by Provider: 04/02/18 19:06 Source: patient, RN notes reviewed Mode of arrival: ambulatory Limitations: no limitations - History of Present Illness Initial comments: This is a 52-year-old male who presents to the emergency department with chief complaint of right eye foreign body. Patient states that he was working in his shop at home yesterday. He states that he was grinding metal. He states he took off his safety eyeglasses to blow the particles from his workbench. He states that he accidentally blew a particle into his right eye. Patient states that he did present to [facility] today and was told that he had a foreign body but they were uncomfortable removing it so suggested he present to the emergency department. Patient reports blurred vision and foreign body sensation. Denies any significant pain. He reports excessive tearing. He has no other complaints. Denies recent fevers or chills, chest pain or shortness of breath, abdominal pain, nausea or vomiting, dizziness or headache. - Related Data Home Medications Medication Instructions Recorded Confirmed Albuterol Inhaler [Ventolin Hfa 2 puff INHALATION RT-BID PRN 09/08/14 04/02/18 Inhaler] Pramipexole [Mirapex] 0.25 mg PO HS 01/27/18 04/02/18 Sertraline [Zoloft] 1 tab PO HS 03/12/18 04/02/18 Aspirin [Adult Low Dose Aspirin EC] 81 mg PO DAILY 03/24/18 04/02/18 Previous Rx's Medication Instructions Recorded Clopidogrel [Plavix] 75 mg PO DAILY #30 tab 08/26/15 Metoprolol Tartrate [Lopressor] 25 mg PO BID #60 tab 08/26/15 Nitroglycerin Sl Tabs [Nitrostat] 0.4 mg SUBLINGUAL Q5M PRN #25 tab 08/26/15 Budesonide-Formot 160-4.5 Mcg 2 puff INHALATION BID #1 inhaler 02/28/17 [Symbicort 160-4.5 Mcg Inhaler] Allergies Allergy/AdvReac Type Severity Reaction Status Date / Time iodine Allergy Swelling Verified 04/02/18 19:17 shellfish derived [Shellfish] Allergy Swelling Verified 04/02/18 19:17 venom-honey bee Allergy Swelling Verified 04/02/18 19:17 [bee venom (honey bee)] Review of Systems ROS Statement: Those systems with pertinent positive or pertinent negative responses have been documented in the HPI. ROS Other: All systems not noted in ROS Statement are negative. Past Medical History Past Medical History: Chest Pain / Angina, COPD, GERD/Reflux, Myocardial Infarction ([place]), Osteoarthritis (OA), Prostate Disorder Additional Past Medical History / Comment(s): giant cell tumor pelvic/lt femoral head pt stated unable to bx it, enlargement to lymph nodes upper chest no bx done-dr watching it., psoriasis, restless leg syndrome, 2 herniated disc in neck, 2 in lower back, scoliosis, enlarged prostate, hx. kidney stones, 3 lung masses per pt. Last Myocardial Infarction Date:: Aug 2015 History of Any Multi-Drug Resistant Organisms: None Reported Past Surgical History: Heart Catheterization With Stent, Orthopedic Surgery, Tonsillectomy Additional Past Surgical History / Comment(s): rhinoplasty, left tibial cyst with bone graft from the pelvis to the tibia(pins/screws, orif lt hip (pins) Past Anesthesia/Blood Transfusion Reactions: No Reported Reaction Additional Past Anesthesia/Blood Transfusion Reaction / Comment(s): claustrophobic Date of Last Stent Placement:: Aug 2015 Past Psychological History: No Psychological Hx Reported Smoking Status: Current every day smoker - Past Family History Father Family Medical History: No Reported History Mother Family Medical History: COPD, CVA/TIA Additional Family Medical History / Comment(s): Mother is alive as far as pt knows and should be age 74. Pt does not have much contact with mother. Brother(s) Additional Family Medical History / Comment(s): He has 2 brothers, one has metal health issues, one is an addict on crack and other street drugs. Sister(s) Family Medical History: Cancer, Liver Disease Additional Family Medical History / Comment(s): Patient had 2 sisters, one from breast cancer, one from cirrhosis at the age of 19 with history of heavy alcohol use and Crohn's disease. General Exam - General Exam Comments Initial Comments: General: Awake and alert, well-developed; in no apparent distress. HEENT: Head atraumatic, normocephalic. Pupils are equal, round and reactive to light. Extraocular movements intact. Metallic corneal foreign body at approximately 1:00 in relation to the pupil. After removal, fluorescein staining reveals a circular corneal abrasion as well as a small rust ring. No other foreign bodies are identified. Negative Niyah's test. Oropharynx moist without erythema or exudate. Neck: Supple. Normal ROM. Cardiovascular: Regular rate and rhythm. No murmurs, rubs or gallops. Chest symmetrical. Respiratory: Lungs clear to auscultation bilaterally. No wheezes, rales or rhonchi. Normal respiratory effort with no use of accessory muscles. Musculoskeletal: Normal ROM, no tenderness bilateral upper and lower extremities. Ambulating normally. Skin: [place], warm and dry without rashes or lesions. Neurological: Alert and oriented x3. CN II-XII grossly intact. Speech is fluent and answers are appropriate. No focal neuro deficits. Psychiatric: Normal mood and affect. No overt signs of depression or anxiety noted. Limitations: no limitations Course Vital Signs 04/02/18 19:06 Temperature 98.0 F Pulse Rate 63 Respiratory 16 Rate Blood Pressure 132/74 O2 Sat by Pulse 99 Oximetry Medical Decision Making - Medical Decision Making This is a 52-year-old male who presents to the emergency department with chief complaint of right eye foreign body. A metallic object is identified within the cornea. Proparacaine was instilled into the right eye and foreign body removed with an 18-gauge needle. Patient did tolerate this well. A remaining rust ring was noted. [place] brush removed most of the rust ring successfully, however not all of it was removed. Negative Niyah's test. Recommended following up with ophthalmology tomorrow. Patient will be started on Cipro ophthalmic ointment. Denies contact lens use. He was made up-to-date with tetanus vaccination. Patient's vital signs are stable and he is in acute distress. He will be discharged home at this time. Patient is in agreement with plan and voices understanding. All questions were answered. Disposition Clinical Impression: Corneal foreign body Disposition: HOME SELF-CARE Condition: Good Instructions: Eye Foreign Body (ED), Ciprofloxacin (Into the eye) Additional Instructions: Please apply a quarter ribbon of ciprofloxacin ophthalmic ointment to the affected eye every 6 hours. Please follow up with ophthalmology, Dr. Moreira tomorrow. Please follow up with primary care provider within 1-2 days. Return to emergency department if symptoms should worsen or any concerns arise. Is patient prescribed a controlled substance at d/c from ED?: No Referrals: Indy Allen MD [Primary Care Provider] - 1-2 days iRcky Moreira MD [STAFF PHYSICIAN] - 1-2 days Time of Disposition: 19:39
[2018-04-02 19:48] VITALS: BP 130/74; PULSE 64; TEMP 97.8
== END 2018-04-02 19:47 | disposition home or self-care (01) ==
LOC: EC 18:58
DX: T15.01XA Foreign body in cornea, right eye, initial encounter (principal); Z23 Encounter for immunization; J44.9 Chronic obstructive pulmonary disease, unspecified; I25.2 Old myocardial infarction; F17.200 Nicotine dependence, unspecified, uncomplicated; Z79.82 Long term (current) use of aspirin; Z79.899 Other long term (current) drug therapy; Z91.048 Other nonmedicinal substance allergy status; Z91.013 Allergy to seafood; Z91.030 Bee allergy status; Z95.1 Presence of aortocoronary bypass graft
CPT/HCPCS: 90471; 90715; 99283

== ENCOUNTER 2018-04-20 07:39 | Day surgery (SDC) | payer OTHER ==
[2018-04-20] MEDS ORDERED: LIDOCAINE 1% 20 ML VIAL (10MG/ML) FOR IV START INTRADERMA ONE (08:27)
[2018-04-20 08:34] VITALS: TEMP 97.7
--- NOTE | 2018-04-20 09:22 | P.PCN ---
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 2- Lumber degenerative disc disease PROCEDURE: Diagnostic bilateral L3 -4 , L4 -5 , and L5-S1 medial branch block under fluoroscopy ANESTHESIA: Local with Ropivacain 0.5 % 6 ml , moderate sedation with intravenous Versed 1 mg and Fentanyl 50 mcg. EBL: Minimal COMPLICATION: None. IV FLUIDS: 100 mL of normal saline. PROCEDURE INDICATION: Chronic low back pain secondary to Facet arthropathy unresponsive to conservative treatment. PROCEDURE DESCRIPTION: the patient was seen and identified in the preop holding area , risks and benefits and possible complications of the procedure and alternative were discussed with the patient, and the patient agreed to proceed with the procedure and signed the consent IV was started and vital signs monitored during the procedure and fluoroscopy was used to maximize the benefit and accuracy of the needle placement, and sedation was given to decrease patient anxiety, patient was taken to the procedure room and placed in prone position vital signs monitored in the back prepped with chlorhexidine X3 then under strict sterile technique using a right oblique fluoroscopy ,the junction of the transverse process and the superior articulating process of the right L3- 4 , L4- 5, and L5-S1 vertebra which corresponding to the fluoroscopy image of the eye of the Leo dog on the block side for the medial branches and subsequently , after local infiltration of skin and subcu tissuies with Ropivacaine 0.5 % , one mL at each level , then 22-gauge Quincke-type needles , 3 needle was used , each one of them placed at the junction of the base of the transverse process and the superior articular process at the appropriate level, and the needle was advanced until the periosteum contacted, needle placement confirmed with AP oblique and lateral view and after appropriate needle placement confirmed, and after negative aspiration for heme and CSF and there was no paresthesia 1-1/2 mL of Ropivacaine 0.5% mixed with 40 mg Kenalog , then half mL injected at each level after negative aspiration the needle subsequently removed and the same procedure repeated for the left side at left side at L3-4, L4- 5 and L5-S1 levels. At the end of the procedure and the needles removed and a bandage applied after the skin was cleaned the cleaning solution patient taken to recovery room in stable condition and monitors in the recovery room for 20-30 minutes and discharged home in stable condition after discharge criteria met and patient will follow up with the pain clinic in 2-4 weeks
[2018-04-20 09:29] VITALS: RESP 18
[2018-04-20 09:49] VITALS: BP 124/80; PULSE 70
[2018-04-20] MEDS ORDERED: IV FLUID CONTINUATION 500 ML IV ONE (09:51)
--- NOTE | 2018-04-20 10:17 | FL ---
EXAMINATION TYPE: FL guided pain mgmt statistic DATE OF EXAM: 04/20/2018 HISTORY: Pain bi-lateral lumbar facet block, 6 seconds fluoro time, [address] Hoffmann
== END 2018-04-20 10:01 | disposition home or self-care (01) ==
LOC: ORPAIN 07:39
PROVIDERS: ATTEND Specialist
DX: G89.29 Other chronic pain (principal); M47.816 Spondylosis without myelopathy or radiculopathy, lumbar region; I25.10 Atherosclerotic heart disease of native coronary artery without angina pectoris; J44.9 Chronic obstructive pulmonary disease, unspecified; D49.89 Neoplasm of unspecified behavior of other specified sites; Z79.82 Long term (current) use of aspirin; Z79.02 Long term (current) use of antithrombotics/antiplatelets; Z91.041 Radiographic dye allergy status; Z91.013 Allergy to seafood; Z91.030 Bee allergy status
CPT/HCPCS: 64493; 64494; 64495; J2250; J3301; J3010; 99152

== ENCOUNTER 2018-04-29 14:51 | Observation (INO) | payer OTHER ==
[2018-04-29] MEDS ORDERED: ASPIRIN 81 MG PO STA (15:21)
[2018-04-29] MEDS ORDERED: NITROGLYCERIN OINT 1 INCH/GM PACKET TOPICAL STA (15:21)
--- NOTE | 2018-04-29 15:24 | ED ---
General Adult HPI - General Chief complaint: Chest Pain Stated complaint: Chest pain Time Seen by Provider: 04/29/18 15:13 Source: patient, EMS, RN notes reviewed Mode of arrival: EMS Limitations: no limitations - History of Present Illness Initial comments: Patient is a pleasant 52-year-old male presenting to the emergency Department with complaints of chest discomfort. Onset of symptoms was prior to arrival. Discomfort felt sharp and then pressure-like. Discomfort did start in the left chest and radiates towards the center. Chest discomfort did start to become severe and then patient took nitroglycerin, to which resolved his symptoms. Patient does have a history of similar symptoms previously associated with previous cardiac disease. Patient did have associated dyspnea, nausea, and sweating. The symptoms have all resolved. Patient is currently symptom-free. Patient also admits to having some increased stress recently. - Related Data Home Medications Medication Instructions Recorded Confirmed Albuterol Inhaler [Ventolin Hfa 2 puff INHALATION RT-BID PRN 09/08/14 04/29/18 Inhaler] Pramipexole [Mirapex] 0.25 mg PO HS 01/27/18 04/29/18 Sertraline [Zoloft] 1 tab PO HS 03/12/18 04/29/18 Aspirin [Adult Low Dose Aspirin EC] 81 mg PO DAILY 03/24/18 04/29/18 Difluprednate [Durezol] 1 drop RIGHT EYE DAILY 04/20/18 04/29/18 Atorvastatin Calcium [Lipitor] 40 mg PO DAILY 04/29/18 04/29/18 Budesonide-Formot 160-4.5 Mcg 2 puff INHALATION RT-BID 04/29/18 04/29/18 [Symbicort 160-4.5 Mcg Inhaler] Pramipexole [Mirapex] 0.75 mg PO HS 04/29/18 04/29/18 Previous Rx's Medication Instructions Recorded Clopidogrel [Plavix] 75 mg PO DAILY #30 tab 08/26/15 Metoprolol Tartrate [Lopressor] 25 mg PO BID #60 tab 08/26/15 Nitroglycerin Sl Tabs [Nitrostat] 0.4 mg SUBLINGUAL Q5M PRN #25 tab 08/26/15 Allergies Allergy/AdvReac Type Severity Reaction Status Date / Time iodine Allergy Swelling Verified 04/29/18 15:36 shellfish derived [Shellfish] Allergy Swelling Verified 04/29/18 15:36 venom-honey bee Allergy Swelling Verified 04/29/18 15:36 [bee venom (honey bee)] Review of Systems ROS Statement: Those systems with pertinent positive or pertinent negative responses have been documented in the HPI. ROS Other: All systems not noted in ROS Statement are negative. Constitutional: Denies: fever Eyes: Denies: eye pain ENT: Denies: ear pain Respiratory: Reports: dyspnea. Denies: cough Cardiovascular: Reports: as per HPI, chest pain Endocrine: Denies: fatigue Gastrointestinal: Reports: nausea. Denies: abdominal pain Genitourinary: Denies: dysuria Musculoskeletal: Denies: back pain Skin: Denies: rash Neurological: Denies: weakness Past Medical History Past Medical History: Chest Pain / Angina, COPD, GERD/Reflux, Myocardial Infarction ([place]), Osteoarthritis (OA), Prostate Disorder Additional Past Medical History / Comment(s): giant cell tumor pelvic/lt femoral head pt stated unable to bx it, enlargement to lymph nodes upper chest no bx done-dr watching it., psoriasis, restless leg syndrome, 2 herniated disc in neck, 2 in lower back, scoliosis, enlarged prostate, hx. kidney stones, 3 lung masses per pt., RIGHT EYE - METAL REMOVED Last Myocardial Infarction Date:: Aug 2015 History of Any Multi-Drug Resistant Organisms: None Reported Past Surgical History: Heart Catheterization With Stent, Orthopedic Surgery, Tonsillectomy Additional Past Surgical History / Comment(s): rhinoplasty, left tibial cyst with bone graft from the pelvis to the tibia(pins/screws, orif lt hip (pins) Past Anesthesia/Blood Transfusion Reactions: No Reported Reaction Additional Past Anesthesia/Blood Transfusion Reaction / Comment(s): claustrophobic Date of Last Stent Placement:: Aug 2015 Past Psychological History: No Psychological Hx Reported Smoking Status: Current every day smoker Past Alcohol Use History: None Reported Past Drug Use History: None Reported - Past Family History Father Family Medical History: No Reported History Mother Family Medical History: COPD, CVA/TIA Additional Family Medical History / Comment(s): Mother is alive as far as pt knows and should be age 74. Pt does not have much contact with mother. Brother(s) Additional Family Medical History / Comment(s): He has 2 brothers, one has metal health issues, one is an addict on crack and other street drugs. Sister(s) Family Medical History: Cancer, Liver Disease Additional Family Medical History / Comment(s): Patient had 2 sisters, one from breast cancer, one from cirrhosis at the age of 19 with history of heavy alcohol use and Crohn's disease. General Exam Limitations: no limitations General appearance: alert, in no apparent distress Head exam: Present: atraumatic Eye exam: Present: normal appearance, PERRL ENT exam: Present: normal oropharynx Neck exam: Present: normal inspection Respiratory exam: Present: normal lung sounds bilaterally. Absent: chest wall tenderness Cardiovascular Exam: Present: regular rate, normal rhythm Expanded Peripheral pulses: 2+: Radial (R), Radial (L), Dorsalis Pedis (R), Dorsalis Pedis (L) GI/Abdominal exam: Present: soft. Absent: tenderness Extremities exam: Present: normal inspection. Absent: pedal edema, calf tenderness Neurological exam: Present: alert Psychiatric exam: Present: normal affect, normal mood Skin exam: Present: normal color Course Vital Signs 04/29/18 04/29/18 14:59 15:29 Temperature 98.7 F Pulse Rate 70 63 Respiratory 18 18 Rate Blood Pressure 115/72 121/72 O2 Sat by Pulse 98 98 Oximetry EKG Findings - EKG Comments: EKG Findings:: Normal sinus rhythm 63. OR 158. QRS 84. QT 382. QTC 401. Normal axis. Normal QRS. No acute ST change. Medical Decision Making - Medical Decision Making Patient reevaluated and resting comfortably in bed. No discomfort at this time. Patient and family updated on results and plan. Dr. Atwood has been paged for Dr. Lizzy Atwood for admission. - Lab Data Result diagrams: 04/29/18 15:06 04/29/18 15:06 Lab Results 04/29/18 04/29/18 04/29/18 Range/Units 15:06 15:06 15:06 WBC 7.9 (3.8-10.6) k/uL RBC 4.46 (4.30-5.90) m/uL Hgb 14.0 (13.0-17.5) gm/dL Hct 41.5 (39.0-53.0) % MCV 93.0 (80.0-100.0) fL MCH 31.4 (25.0-35.0) pg MCHC 33.7 (31.0-37.0) g/dL RDW 12.8 (11.5-15.5) % Plt Count 179 (150-450) k/uL Neutrophils % 71 % Lymphocytes % 21 % Monocytes % 6 % Eosinophils % 2 % Basophils % 0 % Neutrophils # 5.6 (1.3-7.7) k/uL Lymphocytes # 1.6 (1.0-4.8) k/uL Monocytes # 0.4 (0-1.0) k/uL Eosinophils # 0.1 (0-0.7) k/uL Basophils # 0.0 (0-0.2) k/uL PT (9.0-12.0) sec INR (<1.2) APTT (22.0-30.0) sec Sodium 139 (137-145) mmol/L Potassium 4.3 (3.5-5.1) mmol/L Chloride 109 H (98-107) mmol/L Carbon Dioxide 23 (22-30) mmol/L Anion Gap 7 mmol/L BUN 26 H (9-20) mg/dL Creatinine 0.76 (0.66-1.25) mg/dL Est GFR (CKD-EPI)AfAm >90 (>60 ml/min/1.73 sqM) Est GFR (CKD-EPI)NonAf >90 (>60 ml/min/1.73 sqM) Glucose 120 H (74-99) mg/dL Calcium 8.4 (8.4-10.2) mg/dL Magnesium 2.0 (1.6-2.3) mg/dL Total Bilirubin 0.7 (0.2-1.3) mg/dL AST 28 (17-59) U/L ALT 19 L (21-72) U/L Alkaline Phosphatase 49 (38-126) U/L Total Creatine Kinase 88 (55-170) U/L CK-MB (CK-2) 1.6 (0.0-2.4) ng/mL CK-MB (CK-2) Rel Index 1.8 Troponin I <0.012 (0.000-0.034) ng/mL Total Protein 5.7 L (6.3-8.2) g/dL Albumin 3.3 L (3.5-5.0) g/dL 10/10/18 Range/Units 15:06 WBC (3.8-10.6) k/uL RBC (4.30-5.90) m/uL Hgb (13.0-17.5) gm/dL Hct (39.0-53.0) % MCV (80.0-100.0) fL MCH (25.0-35.0) pg MCHC (31.0-37.0) g/dL RDW (11.5-15.5) % Plt Count (150-450) k/uL Neutrophils % % Lymphocytes % % Monocytes % % Eosinophils % % Basophils % % Neutrophils # (1.3-7.7) k/uL Lymphocytes # (1.0-4.8) k/uL Monocytes # (0-1.0) k/uL Eosinophils # (0-0.7) k/uL Basophils # (0-0.2) k/uL PT 10.1 (9.0-12.0) sec INR 1.0 (<1.2) APTT 20.8 L (22.0-30.0) sec Sodium (137-145) mmol/L Potassium (3.5-5.1) mmol/L Chloride (98-107) mmol/L Carbon Dioxide (22-30) mmol/L Anion Gap mmol/L BUN (9-20) mg/dL Creatinine (0.66-1.25) mg/dL Est GFR (CKD-EPI)AfAm (>60 ml/min/1.73 sqM) Est GFR (CKD-EPI)NonAf (>60 ml/min/1.73 sqM) Glucose (74-99) mg/dL Calcium (8.4-10.2) mg/dL Magnesium (1.6-2.3) mg/dL Total Bilirubin (0.2-1.3) mg/dL AST (17-59) U/L ALT (21-72) U/L Alkaline Phosphatase (38-126) U/L Total Creatine Kinase (55-170) U/L CK-MB (CK-2) (0.0-2.4) ng/mL CK-MB (CK-2) Rel Index Troponin I (0.000-0.034) ng/mL Total Protein (6.3-8.2) g/dL Albumin (3.5-5.0) g/dL - Radiology Data Radiology results: image reviewed (Chest x-ray shows no acute process) Disposition Clinical Impression: Chest pain Disposition: ADMITTED IP TO THIS HOSP Is patient prescribed a controlled substance at d/c from ED?: No Referrals: Indy Allen MD [Primary Care Provider] - 1-2 days Decision Time: 16:11
[2018-04-29 15:32] LABS: Basophils % (A) 0 %; Eosinophils # (A) 0.1 k/uL (0-0.7); Eosinophils % (A) 2 %; HCT 41.5 % (39.0-53.0); Lymphocytes # (A) 1.6 k/uL (1.0-4.8); Lymphocytes % (A) 21 %; MCH 31.4 pg (25.0-35.0); MCHC 33.7 g/dL (31.0-37.0); Mean Platelet Volume 7.5; Monocytes # (A) 0.4 k/uL (0-1.0); Monocytes % (A) 6 %; Neutrophils # (A) 5.6 k/uL (1.3-7.7); Neutrophils % (A) 71 %; Platelet Count 179 k/uL (150-450); RBC 4.46 m/uL (4.30-5.90); RDW 12.8 % (11.5-15.5); WBC 7.9 k/uL (3.8-10.6)
[2018-04-29 15:44] LABS: ALT 19 U/L (21-72); AST 28 U/L (17-59); Albumin 3.3 g/dL (3.5-5.0); Alkaline Phosphatase 49 U/L (38-126); Anion Gap 7 mmol/L; Blood Urea Nitrogen 26 mg/dL (9-20); Calcium 8.4 mg/dL (8.4-10.2); Carbon Dioxide 23 mmol/L (22-30); Chloride 109 mmol/L (98-107); Creatine Kinase 88 U/L (55-170); Glucose 120 mg/dL (74-99); Potassium 4.3 mmol/L (3.5-5.1); Sodium 139 mmol/L (137-145); Total Bilirubin 0.7 mg/dL (0.2-1.3); Total Protein 5.7 g/dL (6.3-8.2)
[2018-04-29 15:48] LABS: Prothrombin Time 10.1 sec (9.0-12.0)
--- NOTE | 2018-04-29 15:48 | XR ---
EXAMINATION TYPE: XR chest 2V DATE OF EXAM: 04/29/2018 COMPARISON: 01/27/2018 HISTORY: Chest pain with history of COPD TECHNIQUE: Frontal and lateral views of the chest are obtained. FINDINGS: There is no focal air space opacity, pleural effusion, or pneumothorax seen. Pulmonary hyp erinflation with underlying COPD is noted as there is flattening of the diaphragms on the lateral ace ge and increased anterior posterior diameter of the chest. The cardiac silhouette size is within norm al limits. The osseous structures are intact. Mild multilevel degenerative changes of the thoracic spine are noted. IMPRESSION: No acute cardiopulmonary process.
[2018-04-29 15:49] LABS: Partial Thromboplastin Time 20.8 sec (22.0-30.0)
[2018-04-29 15:56] LABS: Creatine Kinase MB 1.6 ng/mL (0.0-2.4); Troponin I <0.012 ng/mL (0.000-0.034)
[2018-04-29] MEDS ORDERED: NITROGLYCERIN SL TABS 0.4 MG TAB SUBLINGUAL PRN ×2 (16:11→16:54)
[2018-04-29] MEDS ORDERED: IPRATROPIUM-ALBUTEROL 3 ML NEB INHALATION PRN (16:57)
--- NOTE | 2018-04-29 17:48 | P.HPIM ---
History of Present Illness 52-year-old pleasant gentleman came in with complains of a severe sharp pain in the retrosternal area radiating to the left side of the chest along with diaphoresis lightheadedness, improved with the second dose of for sublingual nitroglycerin EKG showed normal sinus rhythm troponin is negative patient had some pleuritic competent of the chest pain as well because of which are pending a d-dimer which was negative chest x-ray did not show any pneumonic process patient has been coughing greenish phlegm patient does smoke about a pack of cigarettes per day does have wheezing on exam. Patient did complain of shortness of breath associated with this. Patient is supposed to get a stress test. Patient had a coronary artery disease with stents that were placed to the clinic 2 years ago-patient is going to be depressed because of which started smoking again Review of Systems REVIEW OF SYSTEMS: CONSTITUTIONAL: No fever, no malaise, no fatigue. HEENT: No recent visual problems or hearing problems. Denied any sore throat. CARDIOVASCULAR: No orthopnea, PND, no palpitations, no syncope. PULMONARY: no hemoptysis. GASTROINTESTINAL: No diarrhea, no nausea, no vomiting, no abdominal pain. Normoactive bowel sounds. NEUROLOGICAL: No headaches, no weakness, no numbness. HEMATOLOGICAL: Denies any bleeding or petechiae. GENITOURINARY: Denies any burning micturition, frequency, or urgency. MUSCULOSKELETAL/RHEUMATOLOGICAL: Denies any joint pain, swelling, or any muscle pain. ENDOCRINE: Denies any polyuria or polydipsia. The rest of the 14-point review of systems is negative. 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 kidney stones, 3 lung masses per pt., RIGHT EYE - METAL REMOVED Last Myocardial Infarction Date:: Aug 2015 History of Any Multi-Drug Resistant Organisms: None Reported Past Surgical History: Heart Catheterization With Stent, Orthopedic Surgery, Tonsillectomy Additional Past Surgical History / Comment(s): rhinoplasty, left tibial cyst with bone graft from the pelvis to the tibia(pins/screws, orif lt hip (pins) Past Anesthesia/Blood Transfusion Reactions: No Reported Reaction Additional Past Anesthesia/Blood Transfusion Reaction / Comment(s): claustrophobic Date of Last Stent Placement:: Aug 2015 Past Psychological History: No Psychological Hx Reported Smoking Status: Current every day smoker Past Alcohol Use History: None Reported Past Drug Use History: None Reported - Past Family History Father Family Medical History: No Reported History Mother Family Medical History: COPD, CVA/TIA Additional Family Medical History / Comment(s): Mother is alive as far as pt knows and should be age 74. Pt does not have much contact with mother. Brother(s) Additional Family Medical History / Comment(s): He has 2 brothers, one has metal health issues, one is an addict on crack and other street drugs. Sister(s) Family Medical History: Cancer, Liver Disease Additional Family Medical History / Comment(s): Patient had 2 sisters, one from breast cancer, one from cirrhosis at the age of 19 with history of heavy alcohol use and Crohn's disease. Medications and Allergies Home Medications Medication Instructions Recorded Confirmed Type Albuterol Inhaler [Ventolin Hfa 2 puff INHALATION RT-BID PRN 09/08/14 04/29/18 History Inhaler] Clopidogrel [Plavix] 75 mg PO DAILY #30 tab 08/26/15 04/29/18 Rx Metoprolol Tartrate [Lopressor] 25 mg PO BID #60 tab 08/26/15 04/29/18 Rx Nitroglycerin Sl Tabs [Nitrostat] 0.4 mg SUBLINGUAL Q5M PRN #25 tab 08/26/1505/07 Rx Pramipexole [Mirapex] 0.25 mg PO DAILY 01/27/18 04/29/18 History Sertraline [Zoloft] 1 tab PO HS 03/12/18 04/29/18 History Aspirin [Adult Low Dose Aspirin EC] 81 mg PO DAILY 03/24/18 04/29/18 History Difluprednate [Durezol] 1 drop RIGHT EYE DAILY 04/20/18 04/29/18 History Atorvastatin Calcium [Lipitor] 40 mg PO DAILY 04/29/18 04/29/18 History Budesonide-Formot 160-4.5 Mcg 2 puff INHALATION RT-BID 04/29/18 04/29/18 History [Symbicort 160-4.5 Mcg Inhaler] Pramipexole [Mirapex] 0.75 mg PO HS 04/29/18 04/29/18 History Allergies Allergy/AdvReac Type Severity Reaction Status Date / Time iodine Allergy Swelling Verified 04/29/18 15:36 shellfish derived [Shellfish] Allergy Swelling Verified 04/29/18 15:36 venom-honey bee Allergy Swelling Verified 04/29/18 15:36 [bee venom (honey bee)] Physical Exam Vitals: Vital Signs Temp Pulse Resp BP Pulse Ox 04/29/18 17:10 98.3 F 75 18 102/59 96 04/29/18 15:29 63 18 121/72 98 04/29/18 14:59 98.7 F 70 18 115/72 98 Intake and Output 04/29/18 04/29/18 04/29/18 06:59 14:59 22:59 Other: Weight 58.967 kg PHYSICAL EXAMINATION: GENERAL: The patient is alert and oriented x3, not in any acute distress. Well developed, well nourished. HEENT: Pupils are round and equally reacting to light. EOMI. No scleral icterus. No conjunctival pallor. Normocephalic, atraumatic. No pharyngeal erythema. No thyromegaly. CARDIOVASCULAR: S1 and S2 present. No murmurs, rubs, or gallops. PULMONARY: Does have expiratory wheezing decreased air entry into bilateral lung wang ABDOMEN: Soft, nontender, nondistended, normoactive bowel sounds. No palpable organomegaly. MUSCULOSKELETAL: No joint swelling or deformity. EXTREMITIES: No cyanosis, clubbing, or pedal edema. NEUROLOGICAL: Gross neurological examination did not reveal any focal deficits. SKIN: No rashes. Results CBC & Chem 7: 04/29/18 15:06 04/29/18 15:06 Labs: Abnormal Lab Results - Last 24 Hours (Table) 04/29/18 04/29/18 Range/Units 15:06 15:06 APTT 20.8 L (22.0-30.0) sec Chloride 109 H (98-107) mmol/L BUN 26 H (9-20) mg/dL Glucose 120 H (74-99) mg/dL ALT 19 L (21-72) U/L Total Protein 5.7 L (6.3-8.2) g/dL Albumin 3.3 L (3.5-5.0) g/dL Assessment and Plan Plan: -Chest pain: Patient does have some typical features of cardiac chest pain will at least need a stress test patient will be admitted to rule out a concurrent syndromes cardiology will evaluated the patient decision regarding cardiac catheterization versus stress test as per cardiology. -Shortness of breath: Probably secondary to mild COPD exacerbation patient is wheezing on exam patient will be started on inhaled steroids and inhalational treatments if it doesn't improve patient will require oral steroids patient will be started on doxepin for bronchitis nicotine cessation counseling was provided -Hyperlipidemia -Coronary artery disease -Depression -Gastroesophageal reflux disease For above-mentioned chronic medical problems patient will be resumed on appropriate home medications.
[2018-04-29] MEDS: NICOTINE 21MG/24HR PATCH TRANSDERM SCH (18:05)
[2018-04-29] MEDS ORDERED: INFLUENZA VACCINE (6 MOS+) 60 MCG/0.5 ML SYRINGE IM ONE (18:23)
[2018-04-29] MEDS ORDERED: ACETAMINOPHEN TAB 325 MG TAB PO PRN (19:08)
[2018-04-29] MEDS: SYMBICORT 160-4.5 MCG INHALER INHALATION SCH (19:41)
[2018-04-29] MEDS: METOPROLOL TARTRATE 25 MG TAB PO SCH (20:08)
[2018-04-29] MEDS: DOXYCYCLINE 100 MG CAP PO SCH ×2 (20:08→20:09)
[2018-04-29] MEDS: NITROGLYCERIN OINT 1 INCH/GM PACKET TOPICAL SCH ×2 (20:23→20:24)
[2018-04-29] MEDS ORDERED: SERTRALINE 100 MG TAB PO SCH (21:00)
[2018-04-29] MEDS ORDERED: PRAMIPEXOLE 0.25 MG TAB PO SCH (21:00)
[2018-04-29 21:51] LABS: Creatine Kinase 78 U/L (55-170)
[2018-04-29 22:03] LABS: Creatine Kinase MB 1.7 ng/mL (0.0-2.4); Troponin I <0.012 ng/mL (0.000-0.034)
[2018-04-30] MEDS: NITROGLYCERIN OINT 1 INCH/GM PACKET TOPICAL SCH ×2 (03:21→11:33)
[2018-04-30 04:25] LABS: Cholesterol 112 mg/dL (<200); HDL Cholesterol 39 mg/dL (40-60); LDL Cholesterol,Calculated 65 mg/dL (0-99); Triglycerides 40 mg/dL (<150)
[2018-04-30 04:48] LABS: Creatine Kinase 66 U/L (55-170)
[2018-04-30 05:00] LABS: Creatine Kinase MB 1.4 ng/mL (0.0-2.4); Troponin I <0.012 ng/mL (0.000-0.034)
[2018-04-30 07:59] VITALS: RESP 18
[2018-04-30] MEDS: SYMBICORT 160-4.5 MCG INHALER INHALATION SCH (08:05)
[2018-04-30] MEDS: NICOTINE 21MG/24HR PATCH TRANSDERM SCH (08:36)
[2018-04-30] MEDS: METOPROLOL TARTRATE 25 MG TAB PO SCH (08:36)
[2018-04-30] MEDS: DOXYCYCLINE 100 MG CAP PO SCH (08:36)
[2018-04-30] MEDS ORDERED: ASPIRIN 325 MG TAB PO SCH (09:00)
[2018-04-30] MEDS ORDERED: NON-FORMULARY DRUG (Difluprednate [Durezol] 1 DROP) RIGHT EYE SCH (09:00)
[2018-04-30] MEDS ORDERED: ATORVASTATIN 40 MG TAB PO SCH (09:00)
[2018-04-30] MEDS ORDERED: PRAMIPEXOLE 0.25 MG TAB PO SCH (09:00)
[2018-04-30] MEDS ORDERED: CLOPIDOGREL 75 MG TAB PO SCH (09:00)
[2018-04-30 11:50] VITALS: BP 126/77; PULSE 65; TEMP 97.8
[2018-04-30] MEDS ORDERED: predniSONE 20 MG TAB PO STA (12:30)
--- NOTE | 2018-04-30 13:59 | CONS ---
CONSULTATION This is a 52-year-old gentleman with a known history of acute inferior OH, status post circumflex PCI performed in 2016. He sees Dr. Mcrae and seen him recently and is scheduled to have a stress test in about a week. He had developed an episode of chest tightness and pressure and came into the hospital. The quality of the pain is very atypical. However, he is smoking a pack a day and he also has some underlying reactive airway disease and he has some rhonchi on examination. His troponins are normal. His EKG does not reveal any acute changes. He is resting comfortably without symptoms. PAST MEDICAL HISTORY: 1. Hyperlipidemia. 2. CAD with prior OH and PCI of circumflex. 3. History of smoking and COPD. 4. Hyperlipidemia. PHYSICAL EXAMINATION: Blood pressure is 128/70, pulse rate is 70 per minute, regular. HEENT: Unremarkable. Fundus was not examined by me. Neck is supple. There is no JVD. I do not hear a carotid bruit. Heart exam reveals S1, S2 heard normally. No significant murmurs or gallops are noted. Lungs reveal bilateral scattered rhonchi. Abdomen is soft, nontender. Lower extremities reveal normal pulses. No edema. Central nervous system is normal. EKG revealed sinus mechanism, no acute changes. LABORATORY DATA: Revealed unremarkable troponins. IMPRESSION: 1. Atypical chest pain. 2. Smoking and chronic obstructive pulmonary disease with some reactive airway disease component. 3. Hyperlipidemia. 4. History of prior PCI of circumflex about 2-1/2 years ago. RECOMMENDATIONS: Given patient's atypical nature of chest pain and that he is already scheduled for stress test in one week, I am recommending, that he can be discharged after a breathing treatment with increased activity if he has no further symptoms and he will follow up with Dr. Mcrae in one week and he already has a stress test scheduled. I discussed my thoughts in detail with the patient and I also talked to Dr. Vaz. Patient can be discharged today. MMODL / IJN: [id number] /
--- NOTE | 2018-04-30 16:01 | P.DS ---
Providers Date of admission: 04/29/18 16:12 Attending physician: Mike Atwood Consults: 04/29/18 16:12 Consult Physician Urgent Consulting Provider: Neal Mcrae Consult Reason/Comments: cp Do you want consulting provider notified?: Yes Primary care physician: [facility] Hospital Course: 52-year-old pleasant gentleman came in with complains of a severe sharp pain in the retrosternal area radiating to the left side of the chest along with diaphoresis lightheadedness, improved with the second dose of for sublingual nitroglycerin EKG showed normal sinus rhythm troponin is negative patient had some pleuritic competent of the chest pain as well because of which are pending a d-dimer which was negative chest x-ray did not show any pneumonic process patient has been coughing greenish phlegm patient does smoke about a pack of cigarettes per day does have wheezing on exam. Patient did complain of shortness of breath associated with this. Patient is supposed to get a stress test. Patient had a coronary artery disease with stents that were placed to the clinic 2 years ago-patient is going to be depressed because of which started smoking again. 04/30/2018 Patient is still wheezing will discharge him a short course of prednisone patient will undergo stress test tomorrow please refer to cardiology dictation for further details patient's chest pain resolved patient is clinically doing well wanted to be discharged patient was given doxepin for bronchitis. We ruled out acute coronary syndromes patient will undergo stress us as an outpatient. PHYSICAL EXAMINATION: GENERAL: The patient is alert and oriented x3, not in any acute distress. Well developed, well nourished. HEENT: Pupils are round and equally reacting to light. EOMI. No scleral icterus. No conjunctival pallor. Normocephalic, atraumatic. No pharyngeal erythema. No thyromegaly. CARDIOVASCULAR: S1 and S2 present. No murmurs, rubs, or gallops. PULMONARY: Does have expiratory wheezing decreased air entry into bilateral lung wang ABDOMEN: Soft, nontender, nondistended, normoactive bowel sounds. No palpable organomegaly. MUSCULOSKELETAL: No joint swelling or deformity. EXTREMITIES: No cyanosis, clubbing, or pedal edema. NEUROLOGICAL: Gross neurological examination did not reveal any focal deficits. SKIN: No rashes. Assessment and Plan Plan: -Chest pain: Rule out acute Syndromes Stress Test As an Outpatient -Shortness of breath: Probably secondary to mild COPD exacerbation -Hyperlipidemia -Coronary artery disease -Depression -Gastroesophageal reflux disease Plan - Discharge Summary Discharge Rx Participant: Yes New Discharge Prescriptions: New predniSONE 10 mg PO DAILY #10 tab Doxycycline Monohydrate [Monodox] 100 mg PO BID 3 Days #6 cap No Action Albuterol Inhaler [Ventolin Hfa Inhaler] 2 puff INHALATION RT-BID PRN PRN Reason: Difficulty Breathing Clopidogrel [Plavix] 75 mg PO DAILY #30 tab Metoprolol Tartrate [Lopressor] 25 mg PO BID #60 tab Nitroglycerin Sl Tabs [Nitrostat] 0.4 mg SUBLINGUAL Q5M PRN #25 tab PRN Reason: Chest Pain Pramipexole [Mirapex] 0.25 mg PO DAILY Sertraline [Zoloft] 1 tab PO HS Aspirin [Adult Low Dose Aspirin EC] 81 mg PO DAILY Difluprednate [Durezol] 1 drop RIGHT EYE DAILY Budesonide-Formot 160-4.5 Mcg [Symbicort 160-4.5 Mcg Inhaler] 2 puff INHALATION RT-BID Pramipexole [Mirapex] 0.75 mg PO HS Atorvastatin Calcium [Lipitor] 40 mg PO DAILY Discharge Medication List Albuterol Inhaler [Ventolin Hfa Inhaler] 2 puff INHALATION RT-BID PRN 09/08/14 [ History] Clopidogrel [Plavix] 75 mg PO DAILY #30 tab 08/26/15 [Rx] Metoprolol Tartrate [Lopressor] 25 mg PO BID #60 tab 08/26/15 [Rx] Nitroglycerin Sl Tabs [Nitrostat] 0.4 mg SUBLINGUAL Q5M PRN #25 tab 08/26/15 [Rx ] Pramipexole [Mirapex] 0.25 mg PO DAILY 01/27/18 [History] Sertraline [Zoloft] 1 tab PO HS 03/12/18 [History] Aspirin [Adult Low Dose Aspirin EC] 81 mg PO DAILY 03/24/18 [History] Difluprednate [Durezol] 1 drop RIGHT EYE DAILY 04/20/18 [History] Atorvastatin Calcium [Lipitor] 40 mg PO DAILY 04/29/18 [History] Budesonide-Formot 160-4.5 Mcg [Symbicort 160-4.5 Mcg Inhaler] 2 puff INHALATION RT-BID 04/29/18 [History] Pramipexole [Mirapex] 0.75 mg PO HS 04/29/18 [History] Doxycycline Monohydrate [Monodox] 100 mg PO BID 3 Days #6 cap 04/30/18 [Rx] predniSONE 10 mg PO DAILY #10 tab 04/30/18 [Rx] Follow up Appointment(s)/Referral(s): Indy Allen MD [Primary Care Provider] - 3 Days (Office was closed please call and schedule an appointment.) Neal Mcrae MD [STAFF PHYSICIAN] - 05/07/18 3:30 pm (Stress test scheduled already for next week. ) Patient Instructions/Handouts: Influenza Virus Vaccine (By injection), Chest Pain (DC), How to Stop Smoking (DC) Activity/Diet/Wound Care/Special Instructions: Patient to have scheduled stress test with his patient relations representative in one week. Discharge Disposition: HOME SELF-CARE
== END 2018-04-30 13:21 | disposition home or self-care (01) ==
LOC: EC 14:51 → 3OBS 16:12
PROVIDERS: ADMIT Hospitalist; ATTEND Hospitalist
DX: R07.89 Other chest pain (principal); R11.0 Nausea; R61 Generalized hyperhidrosis; R42 Dizziness and giddiness; J40 Bronchitis, not specified as acute or chronic; J44.1 Chronic obstructive pulmonary disease with (acute) exacerbation; E78.5 Hyperlipidemia, unspecified; F32.9 Major depressive disorder, single episode, unspecified; K21.9 Gastro-esophageal reflux disease without esophagitis; I25.10 Atherosclerotic heart disease of native coronary artery without angina pectoris; F17.210 Nicotine dependence, cigarettes, uncomplicated; Z95.5 Presence of coronary angioplasty implant and graft; Z79.82 Long term (current) use of aspirin; Z79.899 Other long term (current) drug therapy; Z79.51 Long term (current) use of inhaled steroids; Z91.030 Bee allergy status; Z91.013 Allergy to seafood; Z91.048 Other nonmedicinal substance allergy status; I25.2 Old myocardial infarction; M19.90 Unspecified osteoarthritis, unspecified site; G25.81 Restless legs syndrome; Z87.442 Personal history of urinary calculi; Z82.3 Family history of stroke; Z81.8 Family history of other mental and behavioral disorders; Z80.3 Family history of malignant neoplasm of breast; Z81.1 Family history of alcohol abuse and dependence; Z83.79 Family history of other diseases of the digestive system; Z79.02 Long term (current) use of antithrombotics/antiplatelets; Z23 Encounter for immunization
CPT/HCPCS: 99285; 36415; 94640 ×3; 94760; 93005; 85379; 80061; 80053; 82550 ×2; 82553 ×2; 83735; 84484 ×2; 85025; 85610; 85730; 71046; 90686; G0378 ×2; G0008; S4990 ×2; J7512

== ENCOUNTER 2018-06-02 16:43 | Emergency (ER) | payer OTHER ==
[2018-06-02] MEDS ORDERED: KETOROLAC 60 MG/2 ML VIAL IM STA (19:13)
--- NOTE | 2018-06-02 20:25 | XR ---
PROCEDURE: XR lumbar spine - 3V DATE AND TIME: 06/02/2018 7:35 PM CLINICAL INDICATION: H Pain TECHNIQUE: Department protocol. COMPARISON: 10/01/2017 FINDINGS: There is no malalignment. The vertebral segments have normal morphology. The previously seen lumbosacral spine degenerative dis c and facet changes are redemonstrated, similar in appearance. There is no fracture or focal skeletal findings. The soft tissues are unremarkable. IMPRESSION: NO ACUTE PROCESS.
--- NOTE | 2018-06-02 20:51 | US ---
EXAMINATION TYPE: US venous doppler duplex LE DATE OF EXAM: 06/02/2018 8:33 PM COMPARISON: US 2013 CLINICAL HISTORY: Pain. Bilateral leg pain x 2 days, patient on blood thinners SIDE PERFORMED: Bilateral TECHNIQUE: The lower extremity deep venous system is examined utilizing real time linear array sonog bela with graded compression, doppler sonography and color-flow sonography. VESSELS IMAGED: External Iliac Vein (EIV) Common Femoral Vein Deep Femoral Vein Greater Saphenous Vein * Femoral Vein Popliteal Vein Small Saphenous Vein * Proximal Calf Veins (* superficial vessels) Findings: Grayscale, color doppler, spectral doppler imaging performed of the deep veins of the lowe r extremities. There is normal flow, compressibility, vascular waveforms. IMPRESSION: NEGATIVE FOR DVT BILATERAL LOWER EXTREMITIES.
[2018-06-02] MEDS ORDERED: DIAZEPAM 5 MG/ML 2 ML INJ IM ONE (20:54)
--- NOTE | 2018-06-02 21:37 | ED ---
General Adult HPI - General Chief complaint: Back Pain/Injury Stated complaint: Leg pain Source: patient, RN notes reviewed, old records reviewed Mode of arrival: ambulatory Limitations: no limitations - History of Present Illness Initial comments: 53 y/o male pt presents to ED w/ back pain. Patient has a long history of back pain, degenerative disc disease. Patient returned to work yesterday for the first time in over a year, was doing physical labor. Patient denies fall or trauma. Patient has lumbar back pain that radiates times both his legs, worse in his right leg. Patient additionally has separate complaint of pain behind his right calf. Patient was sent by his PCP to rule out a right DVT. Patient denies fever/chills, weakness in his lower extremities, saddle anesthesia, new paresthesias, loss of bowel or bladder control. Patient states that this pain is consistent with the back pain he has had no past. Patient denies any complaints including abdominal pain, chest pain, shortness of breath , heart palpitations. Systemic: Pt denies fatigue, myalgia, fever/chills, rash. Pt denies weakness, night sweats, weight loss. Neuro: Pt denies headache, visual disturbances, syncope or pre-syncope. HEENT: Pt denies ocular discharge or irritation, otalgia, rhinorrhea, pharyngitis or notable lymphadenopathy. Cardiopulmonary: Pt denies chest pain, SOB, heart palpitations, dyspnea on exertion. Abdominal/GI: Pt denies abdominal pain, n/v/d. : Pt denies dysuria, burning w/ urination, frequency/urgency. Denies new onset urinary or bowel incontinence. MSK: Pt denies myalgia, loss of strength or function in extremities. - Related Data Home Medications Medication Instructions Recorded Confirmed Albuterol Inhaler [Ventolin Hfa 2 puff INHALATION RT-BID PRN 09/08/14 06/02/18 Inhaler] Pramipexole [Mirapex] 0.25 mg PO DAILY 01/27/18 06/02/18 Sertraline [Zoloft] 1 tab PO HS 03/12/18 06/02/18 Aspirin [Adult Low Dose Aspirin EC] 81 mg PO DAILY 03/24/18 06/02/18 Difluprednate [Durezol] 1 drop RIGHT EYE DAILY 04/20/18 06/02/18 Atorvastatin Calcium [Lipitor] 40 mg PO DAILY 04/29/18 06/02/18 Budesonide-Formot 160-4.5 Mcg 2 puff INHALATION RT-BID 04/29/18 06/02/18 [Symbicort 160-4.5 Mcg Inhaler] Pramipexole [Mirapex] 0.75 mg PO HS 04/29/18 06/02/18 Previous Rx's Medication Instructions Recorded Clopidogrel [Plavix] 75 mg PO DAILY #30 tab 08/26/15 Metoprolol Tartrate [Lopressor] 25 mg PO BID #60 tab 08/26/15 Nitroglycerin Sl Tabs [Nitrostat] 0.4 mg SUBLINGUAL Q5M PRN #25 tab 08/26/15 Doxycycline Monohydrate [Monodox] 100 mg PO BID 3 Days #6 cap 04/30/18 predniSONE 10 mg PO DAILY #10 tab 04/30/18 Allergies Allergy/AdvReac Type Severity Reaction Status Date / Time iodine Allergy Swelling Verified 06/02/18 17:03 shellfish derived [Shellfish] Allergy Swelling Verified 06/02/18 17:03 venom-honey bee Allergy Swelling Verified 06/02/18 17:03 [bee venom (honey bee)] Review of Systems ROS Statement: Those systems with pertinent positive or pertinent negative responses have been documented in the HPI. ROS Other: All systems not noted in ROS Statement are negative. Past Medical History Past Medical History: Chest Pain / Angina, COPD, GERD/Reflux, Myocardial Infarction ([place]), Osteoarthritis ([place]), Prostate Disorder Additional Past Medical History / Comment(s): ?2005 giant cell tumor pelvic/lt femoral head pt stated unable to bx it, enlargement to lymph nodes upper chest no bx done-dr watching it., psoriasis, restless leg syndrome,ddd spondylosis, 2 herniated disc in neck, 2 in lower back, scoliosis, enlarged prostate, kidney stones, 3 lung masses per pt., RIGHT EYE - METAL REMOVED Last Myocardial Infarction Date:: Aug 2015 History of Any Multi-Drug Resistant Organisms: None Reported Past Surgical History: Heart Catheterization With Stent, Orthopedic Surgery, Tonsillectomy Additional Past Surgical History / Comment(s): rhinoplasty, left tibial cyst with bone graft from the pelvis to the tibia(pins/screws, orif lt hip (pins) Past Anesthesia/Blood Transfusion Reactions: No Reported Reaction Additional Past Anesthesia/Blood Transfusion Reaction / Comment(s): claustrophobic Date of Last Stent Placement:: Aug 2015 Past Psychological History: No Psychological Hx Reported Smoking Status: Current every day smoker Past Alcohol Use History: None Reported Past Drug Use History: None Reported - Past Family History Father Family Medical History: No Reported History Mother Family Medical History: COPD, CVA/TIA Additional Family Medical History / Comment(s): Mother is alive as far as pt knows and should be age 74. Pt does not have much contact with mother. Brother(s) Additional Family Medical History / Comment(s): He has 2 brothers, one has metal health issues, one is an addict on crack and other street drugs. Sister(s) Family Medical History: Cancer, Liver Disease Additional Family Medical History / Comment(s): Patient had 2 sisters, one from breast cancer, one from cirrhosis at the age of 19 with history of heavy alcohol use and Crohn's disease. General Exam - General Exam Comments Initial Comments: Constitutional: NAD, AOX3, Pt has pleasant affect. HEENT: NC/AT, trachea midline, neck supple, no lymphadenopathy. Posterior pharynx non erythematous, without exudates. External ears appear normal, without discharge. Mucous membranes moist. Eyes PERRLA, EOM intact. There is no scleral icterus. No pallor noted. Cardiopulmonary: RRR, no murmurs, rubs or gallops, no JVD noted. Lungs CTAB in anterior and posterior wang. No peripheral edema. Abdominal exam: Abdomen soft and non-distended. Abdomen non-tender to palpation in all 4 quadrants. Bowel sounds active in LLQ. No hepatosplenomegaly. Neuro: CN II-XII grossly intact. MSK: Flexion of back moderately decreased due to pain. Psoas and quadriceps strength 5 out of 5 bilaterally. Patient distal pulses are intact, posterior tibialis, dorsalis pedis pulse is 2 bilaterally. Patient sensation intact. No saddle anesthesia. Heel toe walking intact. Patellar and Achilles reflex 2 out of 4. Patient has full active range of motion and legs. Patient has moderate right paraspinal lumbar tenderness. No midline tenderness. Mild pain to palpation of right calf, Homans sign negative bilaterally left calf nontender to palpation. Limitations: no limitations Course Vital Signs 06/02/18 06/02/18 17:01 21:47 Temperature 98.3 F 97.5 F L Pulse Rate 80 69 Respiratory 20 18 Rate Blood Pressure 126/77 104/64 O2 Sat by Pulse 99 98 Oximetry Medical Decision Making - Medical Decision Making 51-year-old male patient presents to ED with back pain after doing physical exertion for first time in 1 year. Patient states that the back pain is similar to the back pain he has experienced in past. Patient does not have any alarm signs, no new weakness, no IV drug use, no saddle anesthesia, no loss of bowel/bladder control, intact reflexes, normal strength, heel toe walking intact. Patient did not have any trauma. Patient given Toradol in ED. Patient 's symptoms resolved after Toradol. Patient was no longer experiencing any back pain after receiving Toradol. Plain film of patient's lumbar spine did not display any acute fracture. Bilateral lower extremity ultrasound did not display any DVT. Patient declined by mouth analgesic and muscle relaxer. Patient states that he'll take nonsteroidal anti-inflammatories as needed for pain. Discussed with patient signs symptoms worsen return to the ED these include but not limited to, lower extremity weakness, new paresthesias, loss of bowel or bladder control, or any other new symptom. Pt to f/u with PCP in 1-2 days. Case discussed with Dr. Melara. Disposition Clinical Impression: Mechanical back pain Disposition: HOME SELF-CARE Condition: Good Instructions: Chronic Back Pain (ED) Additional Instructions: Patient to adhere to previously discussed treatment plan and will take medication(s) as directed. Patient to follow up with PCP in 1-2 days. Patient to return to ED if symptoms do not improve. Is patient prescribed a controlled substance at d/c from ED?: No Referrals: Indy Allen MD [Primary Care Provider] - 1-2 days Time of Disposition: 21:37
[2018-06-02 21:50] VITALS: BP 104/64; PULSE 69; RESP 18; TEMP 97.5
== END 2018-06-02 21:49 | disposition home or self-care (01) ==
LOC: EC 16:43
DX: M54.5 Low back pain (principal); M79.605 Pain in left leg; M79.604 Pain in right leg; J44.9 Chronic obstructive pulmonary disease, unspecified; I25.2 Old myocardial infarction; G25.81 Restless legs syndrome; M41.9 Scoliosis, unspecified; Z95.5 Presence of coronary angioplasty implant and graft; F17.200 Nicotine dependence, unspecified, uncomplicated; Z87.39 Personal history of other diseases of the musculoskeletal system and connective tissue; Z98.890 Other specified postprocedural states; Z53.29 Procedure and treatment not carried out because of patient's decision for other reasons; Z79.82 Long term (current) use of aspirin; Z79.51 Long term (current) use of inhaled steroids; Z79.899 Other long term (current) drug therapy; Z91.048 Other nonmedicinal substance allergy status; Z91.013 Allergy to seafood; Z91.030 Bee allergy status
CPT/HCPCS: 72100; 93970; 99284; 96372; J1885

== ENCOUNTER → 2018-06-15 | Outpatient (CLI) | payer OTHER ==
[2018-06-15 12:07] VITALS: BP 122/68; PULSE 72; RESP 18
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
== END | disposition home or self-care (01) ==
LOC: PNWHC3 11:52
PROVIDERS: ATTEND Specialist
DX: G89.29 Other chronic pain (principal); M54.5 Low back pain; M51.36 Other intervertebral disc degeneration, lumbar region; M47.816 Spondylosis without myelopathy or radiculopathy, lumbar region; M46.86 Other specified inflammatory spondylopathies, lumbar region; F17.200 Nicotine dependence, unspecified, uncomplicated; Z71.6 Tobacco abuse counseling; Z79.82 Long term (current) use of aspirin; Z79.899 Other long term (current) drug therapy
CPT/HCPCS: 99211

== ENCOUNTER → 2018-06-16 | Outpatient (CLI) | payer OTHER ==
--- NOTE | 2018-06-16 16:26 | MR ---
EXAMINATION TYPE: MR thoracic spine wo con DATE OF EXAM: 06/16/2018 COMPARISON: HISTORY: Abnormal MRI, lumbar spine CONTRAST: Performed utilizing 0 mL intravenous Gadavist gadolinium contrast. TECHNIQUE: Multiplanar, multiecho imaging on a 3.0 Anu magnet is performed through the thoracic spi ne. Spinal cord maintains normal signal through its visualized course. Vertebral body alignment is normal. Vertebral body heights are preserved. Disc heights are preserved. Disc hydration levels are preserved. No spinal canal stenosis is evident. Minimal right paracentral thecal sac compression from disc bulging may be present T9-T10 region. No c ord contact or spinal canal stenosis is present. There is a tiny T3-4 region Central disc protrusion with mild anterior thecal sac compression. This c lose approximation with the spinal cord. Cord deformity is not identified. No spinal canal stenosis p resent. IMPRESSIONS: 1. Tiny central protrusion in the region of T3-4 and tiny right paracentral disc bulge T9-T10 region. No stenosis or cord contact is evident.
== END ==
LOC: RADMRIMAIN 11:06
PROVIDERS: ATTEND Family Medicine
DX: R93.7 Abnormal findings on diagnostic imaging of other parts of musculoskeletal system (principal); M51.24 Other intervertebral disc displacement, thoracic region
CPT/HCPCS: 72146

== ENCOUNTER 2018-06-30 09:50 | Day surgery (SDC) | payer OTHER ==
[2018-06-29 08:54] VITALS: BMI 20.9
[~2018-06-30 09:50] MED LIST changes: -LACTATED RINGERS 1,000 ML IV SCH; +SODIUM CHLORIDE 0.9% 500 ML 500 ML IV SCH
[2018-06-30 10:47] VITALS: RESP 16; TEMP 98.4
[2018-06-30] MEDS ORDERED: LIDOCAINE 1% 20 ML VIAL (10MG/ML) FOR IV START INTRADERMA ONE (11:02)
[2018-06-30] MEDS ORDERED: IV FLUID CONTINUATION 1,000 ML IV ONE (11:02)
[2018-06-30] MEDS ORDERED: LACTATED RINGERS 1,000 ML IV ONE (11:02)
--- NOTE | 2018-06-30 12:16 | P.PCN ---
Date of Procedure: 06/30/18 Surgeon: Ajith Perez Pathology: none sent Condition: stable Disposition: PACU Description of Procedure: PREOPERATIVE DIAGNOSIS: Lumbar spondylosis without myelopathy, morbid obesity POSTOPERATIVE DIAGNOSIS: Lumbar spondylosis without myelopathy,morbid obesity PROCEDURES : Radiofrequency thermocoagulation L3-L4, L4-L5, and L5-S1 medial branch, with fluoroscopic guidance ANESTHESIA: IV moderate conscious sedation with versed and fentanyl and local infiltration with lidocaine 1% 5 ml EBL: Minimal PROCEDURE INDICATION: The patient with low back pain secondary to lumbar facet arthropathy who had more than 50% relief of her pain with previous diagnostic lumbar medial branch block with bupivacaine. PROCEDURE DESCRIPTION / TECHNIQUE: The patient was seen and identified in the preoperative area. Risks, benefits, complications, including but not limited to risk of infection ,bleeding , allergic reactions to the medications and no complete pain relief , and alternatives were discussed with the patient, the patient agreed to proceed with the procedure and signed the consent. IV was started. Vital signs remained stable throughout the procedure. Patient was taken to the OR and time out was completed. The patient was placed in the prone position on the procedure table. The lumber area was prepped and draped in the usual sterile fashion. . Vital signs were closely monitored during the procedure .IV sedation was used during the procedure to decrease patients anxiety. The target points were identified as follows: For the L5-S1 level which corresponds to the dorsal ramus of L5 the target point was at the superior medial aspect of the sacral ala on the -left--- side of the spine on the AP view of fluoroscopy and for the L2, L3, and L4 medial branches the target points were at the connection between the transverse process and the superior articular process of L3, L4, and L5 vertebra respectively on the ---left- oblique view of fluoroscopy. skin was marked, and localized with 1% lidocaineat these points. Subsequently, an 18 -gi radiofrequency needles with a 10 -mm curved active tips were advanced guided by fluoroscopy to each of the target points mentioned above in a superior medial direction to get the active tips as parallel as possible to the medial branches tracks. AP, oblique, and lateral views of fluoroscopy were used to verify needle tips position. Each level then underwent motor testing at 2.5 Hz and 0 to 3 volt with local stimulation, but no radicular symptoms down the legs. Thereafter radiofrequency thermocoagulation at 80 degrees celsius for 90 seconds after injecting 1 ml of PF Ropivacaine 0.5%(3 mls) with 40 mg of Kenalog. At the end of the procedure, the skin was cleansed and bandages were applied. COMPLICATIONS: No acute complications. DISPOSITION / PLANS: The patient was placed in a supine position and transferred to the recovery area in a stable condition for observation and was discharged from the recovery room after meeting discharge criteria. Home discharge instructions given to the patient by the staff. The patient was reexamined prior to discharge. The patient will schedule a follow up in the clinic in 2-4 weeks.
[2018-06-30] MEDS ORDERED: IV FLUID CONTINUATION 450 ML IV ONE (12:21)
[2018-06-30 12:40] VITALS: BP 131/73; PULSE 72
--- NOTE | 2018-06-30 12:54 | FL ---
EXAMINATION TYPE: FL guided pain mgmt statistic DATE OF EXAM: 06/30/2018 CLINICAL HISTORY: Low back pain. TECHNIQUE: Fluoroscopy. COMPARISON: None. FINDINGS: Fluoroscopic guidance was provided during pain relief procedure performed by Dr. Perez . A total of 18 seconds of fluoroscopic time was utilized during the procedure and two spot images ar e acquired. Images acquired shows needle localization at several levels in the lower lumbar spine of f the midline. IMPRESSION: As Above.
== END 2018-06-30 13:00 | disposition home or self-care (01) ==
LOC: ORPAIN 09:50
PROVIDERS: ATTEND Anesthesiology
DX: G89.29 Other chronic pain (principal); M47.816 Spondylosis without myelopathy or radiculopathy, lumbar region; E66.01 Morbid (severe) obesity due to excess calories; M51.36 Other intervertebral disc degeneration, lumbar region; Z68.43 Body mass index [BMI] 50.0-59.9, adult; F17.200 Nicotine dependence, unspecified, uncomplicated; Z79.02 Long term (current) use of antithrombotics/antiplatelets; Z79.82 Long term (current) use of aspirin; Z79.52 Long term (current) use of systemic steroids; Z79.899 Other long term (current) drug therapy
CPT/HCPCS: 64635; 64636 ×2; J2250; J3301; J3010; 99152

== ENCOUNTER 2018-07-27 09:37 | Day surgery (SDC) | payer OTHER ==
[2018-07-27 09:53] VITALS: TEMP 97.2
[2018-07-27] MEDS ORDERED: LACTATED RINGERS 1,000 ML IV ONE (09:57)
--- NOTE | 2018-07-27 10:35 | P.PCN ---
Date of Procedure: 07/27/18 Procedure(s) Performed: PREOPERATIVE DIAGNOSIS: 1-Lumbar Spondylosis with Facet Arthropathy without myelopathy. POSTOPERATIVE DIAGNOSIS: 1- Lumbar Spondylosis with Facet Arthropathy without myelopathy. PROCEDURES : Right Radiofrequency thermocoagulation, L3-L4, L4-L5, and L5-S1 medial branch, with fluoroscopic guidance ANESTHESIA: Moderate sedation with intravenous versed 1 mg and fentaneyl 100 mcg, and local infiltration with Ropivacaine 0.5 % . EBL: Minimal PROCEDURE INDICATION: The patient with low back pain secondary to lumbar facet arthropathy who had more than 50% relief of her pain with previous diagnostic lumbar medial branch block with bupivacaine. PROCEDURE DESCRIPTION / TECHNIQUE: The patient was seen and identified in the preoperative area. Risks, benefits, complications, including but not limited to risk of infection ,bleeding , allergic reactions to the medications and no complete pain releife , and alternatives were discussed with the patient, the patient agreed to proceed with the procedure and signed the consent. IV was started. Vital signs remained stable throughout the procedure. Patient was taken to the OR and time out was completed. The patient was placed in the prone position on the procedure table. The lumber area was prepped and draped in the usual sterile fashion. . Vital signs were closely monitored during the procedure .IV sedation was used during the procedure to decrease patients anxiety. Using AP and then oblique fluoroscopy, the ``eye of the Leo dog corresponding to the connection between the superior and transverse articular processes of right L3, L4, and L5 were identified, marked, and localized with 1% lidocaine. Subsequently, a 18 [id number] radiofrequency cannula with a 10- mm active tip was advanced guided by fluoroscopy to each of the``eyes of the Leo dog at right L3, L4, and L5. Each site then underwent sensory testing at 50 Hz and 0 to 1 volt and motor testing at 2.5 Hz and 0 to 3 volt with local stimulation, but no radicular symptoms down the legs. Thereafter the right L3-4, L4-5, and L5-S1 sites underwent radiofrequency thermocoagulation at 80 degrees celsius for 90 seconds after injecting 0.5 ml of PF Ropivacaine 1ml, then after the thermocoagulation done , 1 ml of the block solution containing Kenalog 40 mg and 3 ml of Ropivacaine 0.5% was injected at the right L3-4 , L4-5 , and L5-S1, levels after negative aspiration of CSF and blood and with no paresthesias. Cannulas were retracted while injecting lidocaine 1% until the needle is out. At the end of the procedure, the skin was cleansed and bandages were applied. COMPLICATIONS: No acute complications. DISPOSITION / PLANS: The patient was placed in a supine position and transferred to the recovery area in a stable condition for observation and was discharged from the recovery room after meeting discharge criteria. Home discharge instructions given to the patient by the staff. The patient was reexamined prior to discharge. The patient will schedule a follow up in the clinic in 2-4 weeks.
[2018-07-27] MEDS ORDERED: IV FLUID CONTINUATION 1,000 ML IV ONE (10:38)
[2018-07-27 10:40] VITALS: RESP 16
--- NOTE | 2018-07-27 10:41 | FL ---
EXAMINATION TYPE: FL guided pain mgmt statistic DATE OF EXAM: 07/27/2018 CLINICAL HISTORY: Low back pain. TECHNIQUE: Fluoroscopy. COMPARISON: None. FINDINGS: Fluoroscopic guidance was provided during pain relief procedure performed by Dr. Hoffmann . A total of 11 seconds of fluoroscopic time was utilized during the procedure and 3 spot images are acquired. Images acquired shows needle localization off the midline in the lower lumbar spine at se veral levels. IMPRESSION: As Above.
[2018-07-27 10:52] VITALS: BP 112/63; PULSE 78
== END 2018-07-27 11:05 | disposition home or self-care (01) ==
LOC: ORPAIN 09:37
PROVIDERS: ATTEND Specialist
DX: M47.816 Spondylosis without myelopathy or radiculopathy, lumbar region (principal); I25.10 Atherosclerotic heart disease of native coronary artery without angina pectoris; G25.81 Restless legs syndrome; D48.9 Neoplasm of uncertain behavior, unspecified; Z79.02 Long term (current) use of antithrombotics/antiplatelets; Z91.030 Bee allergy status; Z91.041 Radiographic dye allergy status
CPT/HCPCS: 64635; 64636 ×2; J2250; J1030; J3010; 99152

== ENCOUNTER 2018-10-01 16:00 | Emergency (ER) | payer OTHER ==
[2018-10-01] MEDS ORDERED: methylPREDNISolone SOD SUCCI 125 MG/2 ML VIAL IV STA (16:25)
[2018-10-01] MEDS ORDERED: SODIUM CHLORIDE 0.9% 500 ML 500 ML IV STA (16:25)
[2018-10-01] MEDS ORDERED: IPRATROPIUM-ALBUTEROL 3 ML NEB INHALATION STA (16:26)
--- NOTE | 2018-10-01 16:40 | ED ---
General Adult HPI - General Chief complaint: Upper Respiratory Infection Stated complaint: pneumonia Time Seen by Provider: 10/01/18 16:18 Source: patient, RN notes reviewed Mode of arrival: ambulatory Limitations: no limitations - History of Present Illness Initial comments: 53-year-old male presents to the emergency department for chief of cough and s hortness of breath 2 days. Patient states he saw his primary care provider yesterday and was put on steroids and antibiotics but it is not helping. Patient states he has a history of COPD and this is consistent with previous episodes of pneumonia and COPD exacerbations. Patient also complaining of a productive cough with green mucus. He admits to feeling febrile and having body aches. Patient does admit to continued smoking history. Patient has no other complaints at this time including abdominal pain, nausea or vomiting, headache, or visual changes. - Related Data Home Medications Medication Instructions Recorded Confirmed Albuterol Inhaler [Ventolin Hfa 2 puff INHALATION RT-BID PRN 09/08/14 10/01/18 Inhaler] Sertraline [Zoloft] 100 mg PO DAILY 03/12/18 10/01/18 Aspirin [Adult Low Dose Aspirin EC] 81 mg PO DAILY 03/24/18 10/01/18 Atorvastatin Calcium [Lipitor] 40 mg PO DAILY 04/29/18 10/01/18 Budesonide-Formot 160-4.5 Mcg 2 puff INHALATION RT-BID 04/29/18 10/01/18 [Symbicort 160-4.5 Mcg Inhaler] Albuterol Nebulized [Ventolin 2.5 mg INHALATION RT-BID PRN 10/01/18 10/01/18 Nebulized] Amoxic-Pot Clav 875-125Mg 1 tab PO BID 10/01/18 10/01/18 [Augmentin 875-125] Magnesium(Unknown) 1 tab PO DAILY 10/01/18 10/01/18 Vitamin D3(Unknown) 1 tab PO DAILY 10/01/18 10/01/18 predniSONE 10 mg PO BID 10/01/18 10/01/18 rOPINIRole HCL [Requip] 0.25 mg PO HS 10/01/18 10/01/18 Previous Rx's Medication Instructions Recorded Clopidogrel [Plavix] 75 mg PO DAILY #30 tab 08/26/15 Metoprolol Tartrate [Lopressor] 25 mg PO BID #60 tab 08/26/15 Nitroglycerin Sl Tabs [Nitrostat] 0.4 mg SUBLINGUAL Q5M PRN #25 tab 08/26/15 Oseltamivir [Tamiflu] 75 mg PO Q12HR #10 cap 10/01/18 Allergies Allergy/AdvReac Type Severity Reaction Status Date / Time iodine Allergy Swelling Verified 10/01/18 17:00 shellfish derived [Shellfish] Allergy Swelling Verified 10/01/18 17:00 venom-honey bee Allergy Swelling Verified 10/01/18 17:00 [bee venom (honey bee)] Review of Systems ROS Statement: Those systems with pertinent positive or pertinent negative responses have been documented in the HPI. ROS Other: All systems not noted in ROS Statement are negative. 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 bx it, enlargement to lymph nodes upper chest no bx done-dr watching it., psoriasis, restless leg syndrome,ddd spondylosis, 2 herniated disc in neck, 2 in lower back, scoliosis, enlarged prostate, kidney stones, 3 lung masses per pt., RIGHT EYE - METAL REMOVED Last Myocardial Infarction Date:: Aug 2015 History of Any Multi-Drug Resistant Organisms: None Reported Past Surgical History: Heart Catheterization With Stent, Orthopedic Surgery, Tonsillectomy Additional Past Surgical History / Comment(s): rhinoplasty, left tibial cyst with bone graft from the pelvis to the tibia(pins/screws, orif lt hip (pins) Past Anesthesia/Blood Transfusion Reactions: No Reported Reaction Additional Past Anesthesia/Blood Transfusion Reaction / Comment(s): claustrophobic Date of Last Stent Placement:: Aug 2015 Past Psychological History: No Psychological Hx Reported Smoking Status: Current every day smoker - Past Family History Father Family Medical History: No Reported History Mother Family Medical History: COPD, CVA/TIA Additional Family Medical History / Comment(s): Mother is alive as far as pt knows and should be age 74. Pt does not have much contact with mother. Brother(s) Additional Family Medical History / Comment(s): He has 2 brothers, one has metal health issues, one is an addict on crack and other street drugs. Sister(s) Family Medical History: Cancer, Liver Disease Additional Family Medical History / Comment(s): Patient had 2 sisters, one from breast cancer, one from cirrhosis at the age of 19 with history of heavy alcohol use and Crohn's disease. General Exam Limitations: no limitations General appearance: alert, in no apparent distress Head exam: Present: atraumatic, normocephalic, normal inspection Eye exam: Present: normal appearance, PERRL, EOMI. Absent: scleral icterus, conjunctival injection, periorbital swelling ENT exam: Present: normal exam, mucous membranes moist Course Vital Signs 10/01/18 10/01/18 10/01/18 16:09 16:34 16:52 Temperature 99.9 F H Pulse Rate 69 99 102 H Respiratory 20 20 20 Rate Blood Pressure 104/66 O2 Sat by Pulse 95 Oximetry 10/01/18 10/01/18 17:38 17:45 Temperature 100.1 F H Pulse Rate 85 Respiratory 22 22 Rate Blood Pressure 120/78 O2 Sat by Pulse 98 Oximetry - Reevaluation(s) Reevaluation #1: 10/01/18 16:40 Counseled patient for greater than 3 minutes on smoking cessation Medical Decision Making - Medical Decision Making 63-year-old male with a past medical history of angina, COPD, GERD, GA presents to the emergency department for a chief complaint of productive cough 2 days. Patient was also short of breath. Patient was given steroids and antibiotics by his primary care provider 2 days ago. Patient is also febrile with a temperature of 99.9, heart rate within acceptable limits. Mildly tachycardic at times likely due to fever. CBC CMP unremarkable. Troponin negative. EKG unchanged. Chest x-ray shows emphysematous changes. Influenza A is positive. Patient was given 2 breathing treatments and steroids, feeling much better at this time. Shortness of breath has improved significantly. Discussed with patient and he would rather go home then be admitted. He states he will return if he develops shortness of breath again. He will take Tamiflu as he has had symptoms for less than 48 hours. He will return here if he has any worsening symptoms. - Lab Data Result diagrams: 10/01/18 16:30 10/01/18 16:30 Lab Results 10/01/18 10/01/18 10/01/18 Range/Units 16:30 16:30 16:30 WBC 6.6 (3.8-10.6) k/uL RBC 4.98 (4.30-5.90) m/uL Hgb 14.8 (13.0-17.5) gm/dL Hct 46.4 (39.0-53.0) % MCV 93.2 (80.0-100.0) fL MCH 29.7 (25.0-35.0) pg MCHC 31.9 (31.0-37.0) g/dL RDW 12.9 (11.5-15.5) % Plt Count 180 (150-450) k/uL Neutrophils % 76 % Lymphocytes % 12 % Monocytes % 9 % Eosinophils % 1 % Basophils % 0 % Neutrophils # 5.0 (1.3-7.7) k/uL Lymphocytes # 0.8 L (1.0-4.8) k/uL Monocytes # 0.6 (0-1.0) k/uL Eosinophils # 0.1 (0-0.7) k/uL Basophils # 0.0 (0-0.2) k/uL PT (9.0-12.0) sec INR (<1.2) APTT (22.0-30.0) sec Sodium 138 (137-145) mmol/L Potassium 4.0 (3.5-5.1) mmol/L Chloride 104 (98-107) mmol/L Carbon Dioxide 26 (22-30) mmol/L Anion Gap 8 mmol/L BUN 17 (9-20) mg/dL Creatinine 0.95 (0.66-1.25) mg/dL Est GFR (CKD-EPI)AfAm >90 (>60 ml/min/1.73 sqM) Est GFR (CKD-EPI)NonAf >90 (>60 ml/min/1.73 sqM) Glucose 103 H (74-99) mg/dL Plasma Lactic Acid Obdulio (0.7-2.0) mmol/L Calcium 8.7 (8.4-10.2) mg/dL Magnesium 1.8 (1.6-2.3) mg/dL Total Bilirubin 0.4 (0.2-1.3) mg/dL AST 26 (17-59) U/L ALT 40 (21-72) U/L Alkaline Phosphatase 39 (38-126) U/L Troponin I (0.000-0.034) ng/mL NT-Pro-B Natriuret Pep 239 pg/mL Total Protein 6.2 L (6.3-8.2) g/dL Albumin 3.9 (3.5-5.0) g/dL Influenza Type A RNA (Not Detectd) Influenza Type B (PCR) (Not Detectd) 10/01/18 10/01/18 10/01/18 Range/Units 16:30 16:30 17:05 WBC (3.8-10.6) k/uL RBC (4.30-5.90) m/uL Hgb (13.0-17.5) gm/dL Hct (39.0-53.0) % MCV (80.0-100.0) fL MCH (25.0-35.0) pg MCHC (31.0-37.0) g/dL RDW (11.5-15.5) % Plt Count (150-450) k/uL Neutrophils % % Lymphocytes % % Monocytes % % Eosinophils % % Basophils % % Neutrophils # (1.3-7.7) k/uL Lymphocytes # (1.0-4.8) k/uL Monocytes # (0-1.0) k/uL Eosinophils # (0-0.7) k/uL Basophils # (0-0.2) k/uL PT 9.9 (9.0-12.0) sec INR 0.9 (<1.2) APTT 24.4 (22.0-30.0) sec Sodium (137-145) mmol/L Potassium (3.5-5.1) mmol/L Chloride (98-107) mmol/L Carbon Dioxide (22-30) mmol/L Anion Gap mmol/L BUN (9-20) mg/dL Creatinine (0.66-1.25) mg/dL Est GFR (CKD-EPI)AfAm (>60 ml/min/1.73 sqM) Est GFR (CKD-EPI)NonAf (>60 ml/min/1.73 sqM) Glucose (74-99) mg/dL Plasma Lactic Acid Obdulio (0.7-2.0) mmol/L Calcium (8.4-10.2) mg/dL Magnesium (1.6-2.3) mg/dL Total Bilirubin (0.2-1.3) mg/dL AST (17-59) U/L ALT (21-72) U/L Alkaline Phosphatase (38-126) U/L Troponin I <0.012 (0.000-0.034) ng/mL NT-Pro-B Natriuret Pep pg/mL Total Protein (6.3-8.2) g/dL Albumin (3.5-5.0) g/dL Influenza Type A RNA Detected H (Not Detectd) Influenza Type B (PCR) Not Detected (Not Detectd) 10/01/18 Range/Units 17:20 WBC (3.8-10.6) k/uL RBC (4.30-5.90) m/uL Hgb (13.0-17.5) gm/dL Hct (39.0-53.0) % MCV (80.0-100.0) fL MCH (25.0-35.0) pg MCHC (31.0-37.0) g/dL RDW (11.5-15.5) % Plt Count (150-450) k/uL Neutrophils % % Lymphocytes % % Monocytes % % Eosinophils % % Basophils % % Neutrophils # (1.3-7.7) k/uL Lymphocytes # (1.0-4.8) k/uL Monocytes # (0-1.0) k/uL Eosinophils # (0-0.7) k/uL Basophils # (0-0.2) k/uL PT (9.0-12.0) sec INR (<1.2) APTT (22.0-30.0) sec Sodium (137-145) mmol/L Potassium (3.5-5.1) mmol/L Chloride (98-107) mmol/L Carbon Dioxide (22-30) mmol/L Anion Gap mmol/L BUN (9-20) mg/dL Creatinine (0.66-1.25) mg/dL Est GFR (CKD-EPI)AfAm (>60 ml/min/1.73 sqM) Est GFR (CKD-EPI)NonAf (>60 ml/min/1.73 sqM) Glucose (74-99) mg/dL Plasma Lactic Acid Obdulio 1.2 (0.7-2.0) mmol/L Calcium (8.4-10.2) mg/dL Magnesium (1.6-2.3) mg/dL Total Bilirubin (0.2-1.3) mg/dL AST (17-59) U/L ALT (21-72) U/L Alkaline Phosphatase (38-126) U/L Troponin I (0.000-0.034) ng/mL NT-Pro-B Natriuret Pep pg/mL Total Protein (6.3-8.2) g/dL Albumin (3.5-5.0) g/dL Influenza Type A RNA (Not Detectd) Influenza Type B (PCR) (Not Detectd) Disposition Clinical Impression: Influenza A Disposition: HOME SELF-CARE Condition: Good Instructions (If sedation given, give patient instructions): Influenza (ED) Additional Instructions: Please take Tamiflu as directed. Continue medications from your primary care provider in 1-2 days. Follow-up with primary care in 1-2 days. Return here immediately to the emergency department if you develop worsening shortness of breath Prescriptions: Oseltamivir [Tamiflu] 75 mg PO Q12HR #10 cap Is patient prescribed a controlled substance at d/c from ED?: No Referrals: Indy Allen MD [Primary Care Provider] - 1-2 days Time of Disposition: 18:06
[2018-10-01] MEDS ORDERED: ACETAMINOPHEN TAB 500 MG TAB PO STA (16:41)
[2018-10-01 16:50] LABS: Basophils % (A) 0 %; Eosinophils # (A) 0.1 k/uL (0-0.7); Eosinophils % (A) 1 %; HCT 46.4 % (39.0-53.0); HGB 14.8 gm/dL (13.0-17.5); Lymphocytes # (A) 0.8 k/uL (1.0-4.8); Lymphocytes % (A) 12 %; MCH 29.7 pg (25.0-35.0); MCHC 31.9 g/dL (31.0-37.0); MCV 93.2 fL (80.0-100.0); Mean Platelet Volume 7.3; Monocytes # (A) 0.6 k/uL (0-1.0); Monocytes % (A) 9 %; Neutrophils % (A) 76 %; Platelet Count 180 k/uL (150-450); RBC 4.98 m/uL (4.30-5.90); RDW 12.9 % (11.5-15.5); WBC 6.6 k/uL (3.8-10.6)
[2018-10-01 16:59] LABS: INR 0.9 (<1.2); Partial Thromboplastin Time 24.4 sec (22.0-30.0); Prothrombin Time 9.9 sec (9.0-12.0)
[2018-10-01 17:00] LABS: ALT 40 U/L (21-72); AST 26 U/L (17-59); Albumin 3.9 g/dL (3.5-5.0); Alkaline Phosphatase 39 U/L (38-126); Anion Gap 8 mmol/L; Blood Urea Nitrogen 17 mg/dL (9-20); Calcium 8.7 mg/dL (8.4-10.2); Carbon Dioxide 26 mmol/L (22-30); Chloride 104 mmol/L (98-107); Glucose 103 mg/dL (74-99); Sodium 138 mmol/L (137-145); Total Bilirubin 0.4 mg/dL (0.2-1.3); Total Protein 6.2 g/dL (6.3-8.2)
--- NOTE | 2018-10-01 17:02 | XR ---
EXAMINATION TYPE: XR chest 2V DATE OF EXAM: 10/01/2018 COMPARISON: 04/29/2018 HISTORY: Chest pain TECHNIQUE: Frontal and lateral views of the chest are obtained. FINDINGS: There is no heart failure nor confluent pneumonic infiltrate. Costophrenic angles are bentley r. There is mild pulmonary hyperinflation. There are emphysematous changes in the right upper lobe. B jairon thorax is intact. IMPRESSION: Emphysema. No acute lung disease. No change.
[2018-10-01 17:16] LABS: Magnesium 1.8 mg/dL (1.6-2.3)
[2018-10-01 17:46] VITALS: TEMP 100.1
[2018-10-01] MEDS ORDERED: OSELTAMIVIR 75 MG CAP PO STA (18:05)
[2018-10-01 18:31] VITALS: BP 100/64; PULSE 89; RESP 20
[2018-10-01] MEDS ORDERED: OSELTAMIVIR 75 MG CAP PO SCH (21:00)
== END 2018-10-01 18:31 | disposition home or self-care (01) ==
LOC: EC 16:00
DX: J10.1 Influenza due to other identified influenza virus with other respiratory manifestations (principal); R00.0 Tachycardia, unspecified; J44.9 Chronic obstructive pulmonary disease, unspecified; I25.2 Old myocardial infarction; I20.9 Angina pectoris, unspecified; G25.81 Restless legs syndrome; Z71.6 Tobacco abuse counseling; F17.200 Nicotine dependence, unspecified, uncomplicated; Z87.442 Personal history of urinary calculi; Z95.5 Presence of coronary angioplasty implant and graft; Z98.890 Other specified postprocedural states; Z79.51 Long term (current) use of inhaled steroids; Z79.52 Long term (current) use of systemic steroids; Z79.82 Long term (current) use of aspirin; Z79.899 Other long term (current) drug therapy; Z91.013 Allergy to seafood; Z91.030 Bee allergy status; Z91.048 Other nonmedicinal substance allergy status
CPT/HCPCS: 36415; 94640; 93005; 83880; 80053; 83605; 83735; 84484; 85025; 85610; 85730; 87040; 87502; 71046; 99285; 96374; 96361; 99406; J2930

== ENCOUNTER → 2019-01-06 | Outpatient (CLI) | payer OTHER ==
--- NOTE | 2019-01-06 14:49 | US ---
EXAMINATION TYPE: US venous doppler duplex LE DATE OF EXAM: 01/06/2019 2:34 PM COMPARISON: US CLINICAL HISTORY: R25.2 Juancho lateral leg pain, R20.0 Numbness of legs. Pt states bilateral leg pain an d swelling SIDE PERFORMED: Bilateral TECHNIQUE: The lower extremity deep venous system is examined utilizing real time linear array sonog bela with graded compression, doppler sonography and color-flow sonography. VESSELS IMAGED: External Iliac Vein (EIV) Common Femoral Vein Deep Femoral Vein Greater Saphenous Vein * Femoral Vein Popliteal Vein Small Saphenous Vein * Proximal Calf Veins (* superficial vessels) Right Leg: Negative for DVT Left Leg: Negative for DVT Results called to Dr. Putnam at time of exam IMPRESSION: 1. No diagnostic evidence of DVT
== END | disposition home or self-care (01) ==
LOC: RADUSWWP 14:11
PROVIDERS: ATTEND Family Medicine
DX: R25.2 Cramp and spasm (principal); R20.0 Anesthesia of skin
CPT/HCPCS: 93970

== ENCOUNTER → 2019-01-28 | Outpatient (CLI) | payer OTHER ==
[2019-01-28 14:03] VITALS: BP 123/78; PULSE 69; RESP 16
--- NOTE | 2019-01-29 12:56 | P.PAINPG ---
Subjective Progress Note Date: 01/28/19 This is a follow-up visit for this 53 years old male who we last saw in July 2018 when he underwent a right lumbar radiofrequency ablation. He had undergone a left lumbar radiofrequency ablation in June 2018. He reports ongoing benefit from these procedures, and his primary pain complaint today is his bilateral calves. This has been ongoing for about 2 months. He describes this pain as a constant dull ache and notes pulsating in bilateral heels. Pain is worse with standing, walking better with putting his feet up. He is been evaluated by his PCP and underwent a lower extremity ultrasound which did not show any evidence of DVT. His primary care physician recommended that he follow up with us to rule out lumbar cause for his pain. He is also scheduled to be evaluated by a fern cutter within a week to rule out a vascular cause for his pain. Of note, the patient states that this pain does not originate in his lumbar spine, and is confined to his calves. He is a long-time smoker. GENERAL: Well appearing, in no acute distress PSYCH: Mood and affect is appropriate. Awake, alert, and oriented SKIN: Skin color, texture, turgor normal, no rashes or lesions HEENT: Normocephalic, atraumatic. EOM intact CV: No pedal edema RESP: Respirations are unlabored, no audible wheezing GI: Abdomen non-distended MUSCULOSKELETAL: Bilateral upper and lower extremity strength is normal and symmetric. No atrophy or tone abnormalities are noted. Lumbar spine: Straight leg raising in the sitting position is positive for radicular pain bilaterally, however does not reproduce current pain complaint. No pain to palpation over the lumbar spine and paraspinous muscles. Positive for pain with facet loading and back extension/rotation. Buttocks: No pain to palpation over the PSIS, Aga test is positive on right Extremities: Peripheral joint ROM is full and pain free without obvious instability or laxity in all four extremities. No edema or skin discolorations noted. Deep palpation of bilateral calves reproduces current pain complaint. Gait: Gait is normal NEUR: Bilateral lower extremity coordination and muscle stretch reflexes are physiologic and symmetric. Negative clonus. No loss of sensation is noted. Cranial nerves are grossly intact. Results Comments: MRI of the lumbar spine done 12/13/2017 at [facility]= multilevel bulging disc disease and multilevel facet arthropathy, moderate to severe bilateral neural foraminal narrowing at L5-S1. Assessment and Plan Plan: Assessment and plan= Bilateral calf pain without associated low back pain. This could be claudication due to vascular compromise as patient is a long-time smoker or neurogenic claudication due to lumbar spinal canal stenosis, although this is less likely due to absence of back pain. Patient was counseled extensively on importance of smoking cessation as it relates to Gen. health and chronic pain. We will obtain MRI lumbar spine to rule out spinal canal stenosis. Patient was instructed to follow up with fern cutter and bring the fern cutter's report with him to his next visit. Follow-up will be in 2 weeks following MRI and cardiology visit. Patient also has a component of lumbar radiculopathy as evidenced by positive straight leg raising on physical exam and MRI evidence of moderate to severe neuroforaminal narrowing. Patient has a history of chronic severe low back pain secondary to lumbar spondylosis with lumbar facet arthropathy, lumbar degenerative disc disease Patient has continued pain relief from prior lumbar radiofrequency ablation. Objective - Vital Signs Vital signs: Vital Signs Temp Pulse 69 01/28/19 13:56 Resp 16 01/28/19 13:56 BP 123/78 01/28/19 13:56 Pulse Ox 98 01/28/19 13:56 Intake & Output 01/28/19 01/29/19 01/29/19 18:59 06:59 18:59 Weight 53.07 kg PQRS Measure Charge Sheet Measure #130: Documentation of Current Meds in Medical Chart: Patient's medications documented in chart Measure #226: Tobacco Use: Screen & Cessation Intervention: Pt screened for tobacco use AND intervention given Measure #47: Advance Care Plan: Advance care planning discussed & documented, pt chose/unable to give Measure #412: Opioid Treatment Agreement: No documentation of signed opioid treatment agreement Measure #317: Preventitive Care & Scrn High Bld Press & F/U: Normal blood pressure, f/u not required Measure #131: Pain Assessment & Follow-up: Pain positive & plan documented, Follow-up scheduled Measure #431: Unhealthy Alcohol Use Preventative Care & Scrn: Patient not identified as an unhealthy alcohol user PQRS Narrative: Smoking Status Current every day smoker Blood Pressure 123/78 Pain Intensity [Calf] 5 Scale Used Numeric (1 - 10) Hx Alcohol Use (MH) Yes Home Medications: Ambulatory Orders Albuterol Inhaler [Ventolin Hfa Inhaler] 2 puff INHALATION RT-BID PRN 09/08/14 Clopidogrel [Plavix] 75 mg PO DAILY #30 tab 08/26/15 Metoprolol Tartrate [Lopressor] 25 mg PO BID #60 tab 08/26/15 Nitroglycerin Sl Tabs [Nitrostat] 0.4 mg SUBLINGUAL Q5M PRN #25 tab 08/26/15 Sertraline [Zoloft] 100 mg PO DAILY 03/12/18 Aspirin [Adult Low Dose Aspirin EC] 81 mg PO DAILY 03/24/18 Atorvastatin Calcium [Lipitor] 40 mg PO DAILY 04/29/18 Budesonide-Formot 160-4.5 Mcg [Symbicort 160-4.5 Mcg Inhaler] 2 puff INHALATION RT-BID 04/29/18 Albuterol Nebulized [Ventolin Nebulized] 2.5 mg INHALATION RT-BID PRN 10/01/18 Amoxic-Pot Clav 875-125Mg [Augmentin 875-125] 1 tab PO BID 10/01/18 Magnesium(Unknown) 1 tab PO DAILY 10/01/18 Oseltamivir [Tamiflu] 75 mg PO Q12HR #10 cap 10/01/18 Vitamin D3(Unknown) 1 tab PO DAILY 10/01/18 predniSONE 10 mg PO BID 10/01/18 rOPINIRole HCL [Requip] 0.25 mg PO HS 10/01/18 Controlled Substance Measures - Controlled Substance Measures Is patient prescribed a controlled substance at discharge?: No
== END ==
LOC: PNWHC3 01-20 14:21
PROVIDERS: ATTEND Anesthesiology
DX: G89.29 Other chronic pain (principal); M79.662 Pain in left lower leg; M79.661 Pain in right lower leg; M51.36 Other intervertebral disc degeneration, lumbar region; M46.96 Unspecified inflammatory spondylopathy, lumbar region; F17.200 Nicotine dependence, unspecified, uncomplicated; Z79.899 Other long term (current) drug therapy; Z79.82 Long term (current) use of aspirin; Z79.2 Long term (current) use of antibiotics
CPT/HCPCS: 99211

== ENCOUNTER → 2019-02-09 | Outpatient (CLI) | payer OTHER ==
--- NOTE | 2019-02-11 08:08 | MR ---
EXAMINATION TYPE: MR lumbar spine wo con DATE OF EXAM: 02/09/2019 COMPARISON: 12/13/2017 HISTORY: 53-year-old male Lumbar radiculopathy TECHNIQUE: Multiplanar, multisequence images of the lumbar spine were acquired. FINDINGS: Vertebral body heights are preserved and alignment is maintained. Mild heterogeneity of marrow signal without suspicious bone marrow replacement. There is Modic type I edematous endplate change towards the right at L5-S1 associated with degenerative disc disease. Additional Modic type I endplate change anteriorly at T12-L1 similar to prior. Conus medullaris is normal. No prevertebral or paravertebral soft tissue abnormality. At T12-L1, no spinal canal or foraminal stenosis. At L1-L2, no spinal canal or foraminal stenosis. At L2-L3, no spinal canal or foraminal stenosis. At L3-L4, minimal bulging disc and mild facet arthropathy. No significant canal or foraminal stenosis . At L4-L5, mild facet arthropathy. No significant canal or foraminal stenosis. At L5-S1, redemonstrated facet arthropathy and diffuse disc bulge eccentric towards the right. Change s continue to cause moderate to severe right and [id number] left neural foraminal stenosis. Dis c material also closely approaches and may abut the bilateral traversing S1 nerve roots at this level . No significant change from prior exam. No spinal canal stenosis. IMPRESSION: 1. Redemonstrated moderate to advanced degenerative disc disease at L5-S1 with bulging disc eccentric towards the right and associated edematous Modic type I endplate change. 2. Findings result in similar moderate to severe right and [id number] left neuroforaminal steno sis. Disc material also closely approaches and may abut the bilateral traversing S1 nerve roots at th is level. 3. No spinal canal stenosis.
== END | disposition home or self-care (01) ==
LOC: RADMRIMAIN 11:26
PROVIDERS: ATTEND Anesthesiology
DX: M48.061 Spinal stenosis, lumbar region without neurogenic claudication (principal); M51.16 Intervertebral disc disorders with radiculopathy, lumbar region; M47.26 Other spondylosis with radiculopathy, lumbar region; M51.86 Other intervertebral disc disorders, lumbar region
CPT/HCPCS: 72148

== ENCOUNTER → 2019-03-01 | Outpatient (CLI) | payer OTHER | END | disposition home or self-care (01) | LOC: LABWHC1 10:55 | PROVIDERS: ATTEND Nurse Practitioner Family | DX: G25.0 Essential tremor (principal) | CPT/HCPCS: 36415; 82542 ==

== ENCOUNTER 2019-04-07 16:06 | Emergency (ER) | payer OTHER ==
[2019-04-07 16:17] VITALS: RESP 18
[2019-04-07] MEDS ORDERED: PROPARACAINE 0.5% OPHTH DROPS 15 ML BTL BOTH EYES STA (16:36)
--- NOTE | 2019-04-07 17:46 | ED ---
General Adult HPI - General Chief complaint: Eye Problems Stated complaint: FB in eye Time Seen by Provider: 04/07/19 16:20 Source: patient, RN notes reviewed, old records reviewed Mode of arrival: ambulatory Limitations: no limitations - History of Present Illness Initial comments: 53-year-old male patient presents to ED chief complaint of possible stye in left eye. Patient reports that feels similar to when he sat a stye in the past. Patient was worse he has a foreign body sensation left eye. Patient has a secondary complaint of a possible new floater in his right eye. Patient reports that he has had floaters, reports that he has what appears be a new floater in his right eye which is translucent and close his wang of vision. Patient reports that his visual acuity is otherwise at baseline. Patient reports that he does not having glasses currently. Patient denies any pain in his right eye, patient denies any flashes of light. Patient denies acute onset of many floaters in either eye. Systemic: Pt denies fatigue, fever/chills, rash. Pt denies weakness, night sweats, weight loss. Neuro: Pt denies headache, visual disturbances, syncope or pre-syncope. HEENT: Pt denies rhinorrhea, pharyngitis or notable lymphadenopathy. Cardiopulmonary: Pt denies chest pain, SOB, heart palpitations, dyspnea on exertion. Abdominal/GI: Pt denies abdominal pain, n/v/d. : Pt denies dysuria, burning w/ urination, frequency/urgency. Denies new onset urinary or bowel incontinence. MSK: Pt denies myalgia, loss of strength or function in extremities. Neuro: Pt denies new onset weakness, paresthesias. - Related Data Home Medications Medication Instructions Recorded Confirmed Albuterol Inhaler [Ventolin Hfa 2 puff INHALATION RT-BID PRN 09/08/14 01/28/19 Inhaler] Sertraline [Zoloft] 100 mg PO DAILY 03/12/18 01/28/19 Aspirin [Adult Low Dose Aspirin EC] 81 mg PO DAILY 03/24/18 01/28/19 Atorvastatin Calcium [Lipitor] 40 mg PO DAILY 04/29/18 01/28/19 Budesonide-Formot 160-4.5 Mcg 2 puff INHALATION RT-BID 04/29/18 01/28/19 [Symbicort 160-4.5 Mcg Inhaler] Albuterol Nebulized [Ventolin 2.5 mg INHALATION RT-BID PRN 10/01/18 01/28/19 Nebulized] Amoxic-Pot Clav 875-125Mg 1 tab PO BID 10/01/18 01/28/19 [Augmentin 875-125] Magnesium(Unknown) 1 tab PO DAILY 10/01/18 01/28/19 Vitamin D3(Unknown) 1 tab PO DAILY 10/01/18 01/28/19 predniSONE 10 mg PO BID 10/01/18 01/28/19 rOPINIRole HCL [Requip] 0.25 mg PO HS 10/01/18 01/28/19 Previous Rx's Medication Instructions Recorded Clopidogrel [Plavix] 75 mg PO DAILY #30 tab 08/26/15 Metoprolol Tartrate [Lopressor] 25 mg PO BID #60 tab 08/26/15 Nitroglycerin Sl Tabs [Nitrostat] 0.4 mg SUBLINGUAL Q5M PRN #25 tab 08/26/15 Oseltamivir [Tamiflu] 75 mg PO Q12HR #10 cap 10/01/18 Erythromycin Ophth Oint [Romycin 1 applic LEFT EYE QID 5 Days #1 04/07/19 Ophth Oint] tube Allergies Allergy/AdvReac Type Severity Reaction Status Date / Time iodine Allergy Swelling Verified 04/07/19 16:14 shellfish derived [Shellfish] Allergy Swelling Verified 04/07/19 16:14 venom-honey bee Allergy Swelling Verified 04/07/19 16:14 [bee venom (honey bee)] Review of Systems ROS Statement: Those systems with pertinent positive or pertinent negative responses have been documented in the HPI. ROS Other: All systems not noted in ROS Statement are negative. 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 pt stated unable to bx it, enlargement to lymph nodes upper chest no bx done-dr watching it., psoriasis, restless leg syndrome,ddd spondylosis, 2 herniated disc in neck, 2 in lower back, scoliosis, enlarged prostate, kidney stones, 3 lung masses per pt., RIGHT EYE - METAL REMOVED Last Myocardial Infarction Date:: Aug 2015 History of Any Multi-Drug Resistant Organisms: None Reported Past Surgical History: Heart Catheterization With Stent, Orthopedic Surgery, Tonsillectomy Additional Past Surgical History / Comment(s): rhinoplasty, left tibial cyst with bone graft from the pelvis to the tibia(pins/screws, orif lt hip (pins) Past Anesthesia/Blood Transfusion Reactions: No Reported Reaction Additional Past Anesthesia/Blood Transfusion Reaction / Comment(s): claustrophobic Date of Last Stent Placement:: Aug 2015 Past Psychological History: No Psychological Hx Reported Smoking Status: Current every day smoker Past Alcohol Use History: None Reported Past Drug Use History: None Reported - Past Family History Father Family Medical History: No Reported History Mother Family Medical History: COPD, CVA/TIA Additional Family Medical History / Comment(s): Mother is alive as far as pt knows and should be age 74. Pt does not have much contact with mother. Brother(s) Additional Family Medical History / Comment(s): He has 2 brothers, one has metal health issues, one is an addict on crack and other street drugs. Sister(s) Family Medical History: Cancer, Liver Disease Additional Family Medical History / Comment(s): Patient had 2 sisters, one from breast cancer, one from cirrhosis at the age of 19 with history of h eavy alcohol use and Crohn's disease. General Exam - General Exam Comments Initial Comments: Constitutional: NAD, AOX3, Pt has pleasant affect. HEENT: NC/AT, trachea midline, neck supple, no lymphadenopathy. Posterior pharynx non erythematous, without exudates. External ears appear normal, without discharge. Mucous membranes moist. Eyes PERRLA, EOM intact. There is no scleral icterus. Hordeolum noted in left upper lid. Intraocular pressure average of 14 bilaterally. Fluorescein stain did not reveal any corneal abrasions bilaterally. No pallor noted. Cardiopulmonary: RRR, no murmurs, rubs or gallops, no JVD noted. Lungs CTAB in anterior and posterior wang. No peripheral edema. Abdominal exam: Abdomen soft and non-distended. Abdomen non-tender to palpation in all 4 quadrants. Bowel sounds active in LLQ. No hepatosplenomegaly. No ecchymosis Neuro: CN II-XII grossly intact. No nuchal rigidity. No raccon eyes, no zimmerman sign, no hemotympanum. No cervical spinal tenderness. MSK: No posterior calf tenderness bilaterally, homans sign negative bilaterally. Posterior tibialis and radial pulse +2 bilaterally. Sensation intact in upper and lower extremities. Full active ROM in upper and lower extremities, 5/5 stregnth. Limitations: no limitations Course Vital Signs 04/07/19 16:14 Temperature 97.5 F L Pulse Rate 63 Respiratory 18 Rate Blood Pressure 134/84 O2 Sat by Pulse 100 Oximetry Medical Decision Making - Medical Decision Making 53-year-old male patient presents to ED chief complaint of possible stye in left eye. Patient reports that feels similar to when he sat a stye in the past. Patient was worse he has a foreign body sensation left eye. Patient has a secondary complaint of a possible new floater in his right eye. Patient reports that he has had floaters, reports that he has what appears be a new floater in his right eye which is translucent and close his wang of vision. Patient reports that his visual acuity is otherwise at baseline. Patient reports that he does not having glasses currently. Patient denies any pain in his right eye, patient denies any flashes of light. Patient denies acute onset of many floaters in either eye. Pt VSS, afebrile. Physical exam displayed: Eyes PERRLA, EOM intact. There is no scleral icterus. Hordeolum noted in left upper lid. Intraocular pressure average of 14 bilaterally. Fluorescein stain did not reveal any corneal abrasions bilaterally. Visual acuity decreased slightly secondary to not wearing glasses. Patient is not a contact lens user. Patient discharged with erythromycin for left hordeolum. Patient will follow-up with camera repair technician tomorrow. Return precautions discussed. Pt advised to have ride home due to decreased visual acuity and not having glasses. Case discussed with Dr. Lyle. Disposition Clinical Impression: Hordeolum externum (stye) Disposition: HOME SELF-CARE Condition: Stable Instructions (If sedation given, give patient instructions): Stye (ED) Additional Instructions: Patient to adhere to previously discussed treatment plan and will take medication(s) as directed. Patient to follow up with PCP in 1-2 days. Patient to return to ED if symptoms do not improve. Take antibiotics as directed. Follow-up with camera repair technician tomorrow. Return to ER if condition worsens. Prescriptions: Erythromycin Ophth Oint [Romycin Ophth Oint] 1 applic LEFT EYE QID 5 Days #1 tube Is patient prescribed a controlled substance at d/c from ED?: No Referrals: Indy Allen MD [Primary Care Provider] - 1-2 days Ricky Moreira MD [STAFF PHYSICIAN] - 1-2 days
[2019-04-07 17:52] VITALS: BP 158/90; PULSE 64; TEMP 97.2
== END 2019-04-07 17:50 | disposition home or self-care (01) ==
LOC: EC 16:06
DX: H00.016 Hordeolum externum left eye, unspecified eyelid (principal); J44.9 Chronic obstructive pulmonary disease, unspecified; I25.2 Old myocardial infarction; M19.90 Unspecified osteoarthritis, unspecified site; N40.0 Benign prostatic hyperplasia without lower urinary tract symptoms; F17.200 Nicotine dependence, unspecified, uncomplicated; Z79.51 Long term (current) use of inhaled steroids; Z79.52 Long term (current) use of systemic steroids; Z79.82 Long term (current) use of aspirin; Z79.899 Other long term (current) drug therapy; Z91.013 Allergy to seafood; Z91.041 Radiographic dye allergy status; Z91.030 Bee allergy status; Z87.821 Personal history of retained foreign body fully removed; Z95.5 Presence of coronary angioplasty implant and graft
CPT/HCPCS: 99283

== ENCOUNTER → 2019-05-11 | Outpatient (CLI) | payer OTHER ==
--- NOTE | 2019-05-11 14:35 | CT ---
EXAMINATION TYPE: CT chest wo con DATE OF EXAM: 05/11/2019 COMPARISON: 11/07/2017 HISTORY: 53-year-old male Pulmonary nodule TECHNIQUE: Contiguous axial scanning of the chest without IV contrast. Coronal and sagittal reconstru ctions performed. CT DLP: 174.1 mGycm Automated exposure control for dose reduction was used. FINDINGS: Heart normal size without pericardial effusion. Scattered coronary vessel calcifications are present. Aorta normal caliber with conventional arch vessel branching anatomy. Stable prominent but nonenlarge d 8 mm precarinal lymph node. No thoracic lymphadenopathy by CT size criteria. Moderate to advanced centrilobular emphysema. Mild diffuse bronchial wall thickening. Strandy scarrin g at the posterior left base and within the basilar right middle lobe. No consolidation or pleural effusion. No suspicious pulmonary nodule or mass. Visualized upper abdomen shows no gross abnormality by noncontrast CT. Bones: No osseous destructive process. IMPRESSION: 1. COPD WITH MODERATE TO ADVANCED EMPHYSEMA. 2. NO SUSPICIOUS PULMONARY NODULE OR MASS.
== END | disposition home or self-care (01) ==
LOC: RADCTMAIN 12:05
PROVIDERS: ATTEND Internal Medicine Sleep Medicine
DX: J43.9 Emphysema, unspecified (principal); R91.1 Solitary pulmonary nodule
CPT/HCPCS: 71250

== ENCOUNTER → 2019-05-18 | Outpatient (CLI) | payer OTHER ==
[~2019-05-18] MED LIST changes: +IODINE/POTASS IOD (LUGOLS) 8 ML BTL TOPICAL ONE; -SODIUM CHLORIDE 0.9% 500 ML 500 ML IV SCH
--- NOTE | 2019-05-18 15:55 | NM ---
EXAMINATION TYPE: NM DatScan Brain SPECT DATE OF EXAM: 05/18/2019 COMPARISON: NONE HISTORY: Tremor TECHNIQUE: 10 drops of Lugol's solution was administered 1 hour prior to injection as a thyroid bloc shady agent. After the administration of 4.56 mCi I-123 Ioflupane DaTscan. Images obtained 3 hours p ost injection. SPECT images of the brain were acquired with axial and coronal reconstructions. FINDINGS: The DaTSCAN demonstrates normal uptake of tracer throughout the striata. Consequently there is no lyndon dence of loss of the pre-synaptic dopaminergic terminals on this investigation. IMPRESSION: This normal appearance is against a diagnosis of idiopathic Parkinson's?s disease (PD) or a Parkinson janell syndrome (PS) and is seen in healthy individuals and also patients with essential tremor (ET), drug induced parkinsonism, and vascular pseudo-parkinsonism.
== END ==
LOC: RADNMMAIN 10:21
PROVIDERS: ATTEND Psychiatry & Neurology Neurology
DX: G21.19 Other drug induced secondary parkinsonism (principal); G20 Parkinson's disease; G25.0 Essential tremor
CPT/HCPCS: 78607; A9584

== ENCOUNTER 2019-08-04 19:04 | Emergency (ER) | payer OTHER ==
[2019-08-04 19:08] VITALS: TEMP 97.5
[2019-08-04] MEDS ORDERED: IPRATROPIUM-ALBUTEROL 3 ML NEB INHALATION STA (19:19)
[2019-08-04] MEDS ORDERED: methylPREDNISolone SOD SUCCI 125 MG/2 ML VIAL IV STA (19:33)
--- NOTE | 2019-08-04 19:36 | ED ---
General Adult HPI - General Chief complaint: Shortness of Breath Stated complaint: Dyspnea Time Seen by Provider: 08/04/19 19:30 Source: patient, RN notes reviewed Mode of arrival: ambulatory Limitations: no limitations - History of Present Illness Initial comments: Patient is a pleasant 54-year-old male presenting to the emergency Department with complaints of dyspnea. Onset of symptoms was today. Symptoms has worsened throughout the day. Patient does have history of similar symptoms previously associated with COPD. Patient does have cough and chest congestion. Cough is been nonproductive however. Patient questions if he had a fever today. No leg pain or leg swelling. Patient also has some associated chest tightness that has resolved with nebulizer treatment in the emergency department. Patient does have previous chest tightness associated with his COPD as well. - Related Data Home Medications Medication Instructions Recorded Confirmed Albuterol Inhaler [Ventolin Hfa 2 puff INHALATION RT-BID PRN 09/08/14 01/28/19 Inhaler] Sertraline [Zoloft] 100 mg PO DAILY 03/12/18 01/28/19 Aspirin [Adult Low Dose Aspirin EC] 81 mg PO DAILY 03/24/18 01/28/19 Atorvastatin Calcium [Lipitor] 40 mg PO DAILY 04/29/18 01/28/19 Budesonide-Formot 160-4.5 Mcg 2 puff INHALATION RT-BID 04/29/18 01/28/19 [Symbicort 160-4.5 Mcg Inhaler] Albuterol Nebulized [Ventolin 2.5 mg INHALATION RT-BID PRN 10/01/18 01/28/19 Nebulized] Amoxic-Pot Clav 875-125Mg 1 tab PO BID 10/01/18 01/28/19 [Augmentin 875-125] Magnesium(Unknown) 1 tab PO DAILY 10/01/18 01/28/19 Vitamin D3(Unknown) 1 tab PO DAILY 10/01/18 01/28/19 predniSONE 10 mg PO BID 10/01/18 01/28/19 rOPINIRole HCL [Requip] 0.25 mg PO HS 10/01/18 01/28/19 Previous Rx's Medication Instructions Recorded Clopidogrel [Plavix] 75 mg PO DAILY #30 tab 08/26/15 Metoprolol Tartrate [Lopressor] 25 mg PO BID #60 tab 08/26/15 Nitroglycerin Sl Tabs [Nitrostat] 0.4 mg SUBLINGUAL Q5M PRN #25 tab 08/26/15 Oseltamivir [Tamiflu] 75 mg PO Q12HR #10 cap 10/01/18 Erythromycin Ophth Oint [Romycin 1 applic LEFT EYE QID 5 Days #1 04/07/19 Ophth Oint] tube Azithromycin [Zithromax Z-pack] 250 mg PO DIRECTED #6 tab 08/04/19 predniSONE 20 mg PO BID #10 tab 08/04/19 Allergies Allergy/AdvReac Type Severity Reaction Status Date / Time iodine Allergy Swelling Verified 08/04/19 19:08 shellfish derived [Shellfish] Allergy Swelling Verified 08/04/19 19:08 venom-honey bee Allergy Swelling Verified 08/04/19 19:08 [bee venom (honey bee)] Review of Systems ROS Statement: Those systems with pertinent positive or pertinent negative responses have been documented in the HPI. ROS Other: All systems not noted in ROS Statement are negative. 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 pt stated unable to bx it, enlargement to lymph nodes upper chest no bx done-dr watching it., psoriasis, restless leg syndrome,ddd spondylosis, 2 herniated disc in neck, 2 in lower back, scoliosis, enlarged prostate, kidney stones, 3 lung masses per pt., RIGHT EYE - METAL REMOVED Last Myocardial Infarction Date:: Aug 2015 History of Any Multi-Drug Resistant Organisms: None Reported Past Surgical History: Heart Catheterization With Stent, Orthopedic Surgery, Tonsillectomy Additional Past Surgical History / Comment(s): rhinoplasty, left tibial cyst with bone graft from the pelvis to the tibia(pins/screws, orif lt hip (pins) Past Anesthesia/Blood Transfusion Reactions: No Reported Reaction Additional Past Anesthesia/Blood Transfusion Reaction / Comment(s): claustrophobic Date of Last Stent Placement:: Aug 2015 Past Psychological History: No Psychological Hx Reported Smoking Status: Current every day smoker Past Alcohol Use History: None Reported Past Drug Use History: None Reported - Past Family History Father Family Medical History: No Reported History Mother Family Medical History: COPD, CVA/TIA Additional Family Medical History / Comment(s): Mother is alive as far as pt knows and should be age 74. Pt does not have much contact with mother. Brother(s) Additional Family Medical History / Comment(s): He has 2 brothers, one has metal health issues, one is an addict on crack and other street drugs. Sister(s) Family Medical History: Cancer, Liver Disease Additional Family Medical History / Comment(s): Patient had 2 sisters, one from breast cancer, one from cirrhosis at the age of 19 with history of heavy alcohol use and Crohn's disease. General Exam Limitations: no limitations General appearance: alert Head exam: Present: normocephalic Eye exam: Present: normal appearance, PERRL ENT exam: Present: normal oropharynx Neck exam: Present: normal inspection Respiratory exam: Present: wheezes, decreased breath sounds Cardiovascular Exam: Present: regular rate, normal rhythm Expanded Peripheral pulses: 2+: Dorsalis Pedis (R), Dorsalis Pedis (L) GI/Abdominal exam: Present: soft. Absent: tenderness Extremities exam: Present: normal inspection. Absent: pedal edema, calf tenderness Back exam: Present: normal inspection Neurological exam: Present: alert Psychiatric exam: Present: normal affect, normal mood Skin exam: Present: normal color Course Vital Signs 08/04/19 08/04/19 08/04/19 19:06 19:20 19:24 Temperature 97.5 F L Pulse Rate 86 88 Respiratory 20 33 H Rate Blood Pressure 121/56 O2 Sat by Pulse 99 Oximetry 08/04/19 08/04/19 08/04/19 19:40 20:18 20:56 Temperature Pulse Rate 77 97 96 Respiratory 16 20 Rate Blood Pressure 129/87 119/89 O2 Sat by Pulse 99 98 Oximetry EKG Findings - EKG Comments: EKG Findings:: Normal sinus rhythm 80. VA 16. QRS 82. QT 352. QTC 45. Normal axis. Normal QRS. No acute ST change. Medical Decision Making - Medical Decision Making Patient reevaluated and resting comfortably in bed, symptom-free. Mild wheezin g. Patient able to ambulate without difficulty, pulse ox following this was 98%. Patient offered admission however refuses. Patient requests discharge. - Lab Data Result diagrams: 08/04/19 20:12 08/04/19 20:12 Lab Results 08/04/19 08/04/19 08/04/19 Range/Units 20:12 20:12 20:12 WBC 7.0 (3.8-10.6) k/uL RBC 4.87 (4.30-5.90) m/uL Hgb 15.1 (13.0-17.5) gm/dL Hct 44.5 (39.0-53.0) % MCV 91.4 (80.0-100.0) fL MCH 31.0 (25.0-35.0) pg MCHC 33.9 (31.0-37.0) g/dL RDW 12.5 (11.5-15.5) % Plt Count 161 (150-450) k/uL Neutrophils % 65 % Lymphocytes % 24 % Monocytes % 6 % Eosinophils % 2 % Basophils % 2 % Neutrophils # 4.6 (1.3-7.7) k/uL Lymphocytes # 1.7 (1.0-4.8) k/uL Monocytes # 0.5 (0-1.0) k/uL Eosinophils # 0.1 (0-0.7) k/uL Basophils # 0.1 (0-0.2) k/uL PT 10.5 (9.0-12.0) sec INR 1.0 (<1.2) APTT 23.5 (22.0-30.0) sec Sodium 138 (137-145) mmol/L Potassium 4.2 (3.5-5.1) mmol/L Chloride 105 (98-107) mmol/L Carbon Dioxide 26 (22-30) mmol/L Anion Gap 7 mmol/L BUN 16 (9-20) mg/dL Creatinine 0.90 (0.66-1.25) mg/dL Est GFR (CKD-EPI)AfAm >90 (>60 ml/min/1.73 sqM) Est GFR (CKD-EPI)NonAf >90 (>60 ml/min/1.73 sqM) Glucose 96 (74-99) mg/dL Calcium 9.2 (8.4-10.2) mg/dL Total Bilirubin 0.8 (0.2-1.3) mg/dL AST 27 (17-59) U/L ALT 21 (4-49) U/L Alkaline Phosphatase 51 (38-126) U/L Creatine Kinase 181 H (55-170) U/L Troponin I (0.000-0.034) ng/mL Total Protein 6.5 (6.3-8.2) g/dL Albumin 4.2 (3.5-5.0) g/dL 08/04/19 Range/Units 20:12 WBC (3.8-10.6) k/uL RBC (4.30-5.90) m/uL Hgb (13.0-17.5) gm/dL Hct (39.0-53.0) % MCV (80.0-100.0) fL MCH (25.0-35.0) pg MCHC (31.0-37.0) g/dL RDW (11.5-15.5) % Plt Count (150-450) k/uL Neutrophils % % Lymphocytes % % Monocytes % % Eosinophils % % Basophils % % Neutrophils # (1.3-7.7) k/uL Lymphocytes # (1.0-4.8) k/uL Monocytes # (0-1.0) k/uL Eosinophils # (0-0.7) k/uL Basophils # (0-0.2) k/uL PT (9.0-12.0) sec INR (<1.2) APTT (22.0-30.0) sec Sodium (137-145) mmol/L Potassium (3.5-5.1) mmol/L Chloride (98-107) mmol/L Carbon Dioxide (22-30) mmol/L Anion Gap mmol/L BUN (9-20) mg/dL Creatinine (0.66-1.25) mg/dL Est GFR (CKD-EPI)AfAm (>60 ml/min/1.73 sqM) Est GFR (CKD-EPI)NonAf (>60 ml/min/1.73 sqM) Glucose (74-99) mg/dL Calcium (8.4-10.2) mg/dL Total Bilirubin (0.2-1.3) mg/dL AST (17-59) U/L ALT (4-49) U/L Alkaline Phosphatase (38-126) U/L Creatine Kinase (55-170) U/L Troponin I <0.012 (0.000-0.034) ng/mL Total Protein (6.3-8.2) g/dL Albumin (3.5-5.0) g/dL - Radiology Data Radiology results: image reviewed (X-ray shows COPD) Disposition Clinical Impression: Acute exacerbation of chronic obstructive pulmonary disease Disposition: HOME SELF-CARE Condition: Stable Instructions (If sedation given, give patient instructions): COPD (Chronic Obstructive Pulmonary Disease) (ED) Additional Instructions: Prescriptions sent to [facility] pharmacy. Please follow-up with primary care physician in the next day or 2 for recheck. Return for difficulty in breathing, chest pain, fevers, worsening symptoms or other concerns. Prescriptions: predniSONE 20 mg PO BID #10 tab Azithromycin [Zithromax Z-pack] 250 mg PO DIRECTED #6 tab Is patient prescribed a controlled substance at d/c from ED?: No Referrals: Indy Allen MD [Primary Care Provider] - 1-2 days Time of Disposition: 20:59
[2019-08-04 20:25] LABS: Basophils # (A) 0.1 k/uL (0-0.2); Basophils % (A) 2 %; Eosinophils # (A) 0.1 k/uL (0-0.7); Eosinophils % (A) 2 %; HCT 44.5 % (39.0-53.0); HGB 15.1 gm/dL (13.0-17.5); Lymphocytes # (A) 1.7 k/uL (1.0-4.8); Lymphocytes % (A) 24 %; MCHC 33.9 g/dL (31.0-37.0); MCV 91.4 fL (80.0-100.0); Mean Platelet Volume 8.4; Monocytes # (A) 0.5 k/uL (0-1.0); Monocytes % (A) 6 %; Neutrophils # (A) 4.6 k/uL (1.3-7.7); Neutrophils % (A) 65 %; Platelet Count 161 k/uL (150-450); RBC 4.87 m/uL (4.30-5.90); RDW 12.5 % (11.5-15.5)
[2019-08-04 20:30] LABS: ALT 21 U/L (4-49); AST 27 U/L (17-59); African American GFR (CKD) >90 (>60 ml/min/1.73 sqM); Albumin 4.2 g/dL (3.5-5.0); Alkaline Phosphatase 51 U/L (38-126); Anion Gap 7 mmol/L; Blood Urea Nitrogen 16 mg/dL (9-20); Calcium 9.2 mg/dL (8.4-10.2); Carbon Dioxide 26 mmol/L (22-30); Chloride 105 mmol/L (98-107); Creatine Kinase 181 U/L (55-170); Glucose 96 mg/dL (74-99); Non-African American GFR(CKD) >90 (>60 ml/min/1.73 sqM); Potassium 4.2 mmol/L (3.5-5.1); Sodium 138 mmol/L (137-145); Total Bilirubin 0.8 mg/dL (0.2-1.3); Total Protein 6.5 g/dL (6.3-8.2)
[2019-08-04 20:34] LABS: Partial Thromboplastin Time 23.5 sec (22.0-30.0); Prothrombin Time 10.5 sec (9.0-12.0)
--- NOTE | 2019-08-04 20:36 | XR ---
EXAMINATION TYPE: XR chest 2V DATE OF EXAM: 08/04/2019 COMPARISON: 10/01/2018 HISTORY: Cough TECHNIQUE: 2 views FINDINGS: Heart and mediastinum are normal. Lungs are clear of infiltrate. There is some flattening o f the diaphragm. There are no hilar masses. Bony thorax is intact. IMPRESSION: There is some COPD. Right upper lobe emphysema. No change compared to old exam.
[2019-08-04 20:57] VITALS: BP 119/89; PULSE 96; RESP 20
== END 2019-08-04 21:06 | disposition home or self-care (01) ==
LOC: EC 19:04
DX: J44.1 Chronic obstructive pulmonary disease with (acute) exacerbation (principal); I20.9 Angina pectoris, unspecified; I25.2 Old myocardial infarction; M19.90 Unspecified osteoarthritis, unspecified site; G25.81 Restless legs syndrome; F17.200 Nicotine dependence, unspecified, uncomplicated; Z91.013 Allergy to seafood; Z91.030 Bee allergy status; Z91.048 Other nonmedicinal substance allergy status; Z79.51 Long term (current) use of inhaled steroids; Z79.52 Long term (current) use of systemic steroids; Z79.82 Long term (current) use of aspirin; Z79.899 Other long term (current) drug therapy; Z95.5 Presence of coronary angioplasty implant and graft; Z90.89 Acquired absence of other organs; Z87.2 Personal history of diseases of the skin and subcutaneous tissue; Z82.5 Family history of asthma and other chronic lower respiratory diseases; Z53.20 Procedure and treatment not carried out because of patient's decision for unspecified reasons
CPT/HCPCS: 36415; 94640; 93005; 80053; 82550; 84484; 85025; 85610; 85730; 87502; 71046; 99285; 96374; J2930

== ENCOUNTER 2019-09-29 18:43 | Emergency (ER) | payer OTHER ==
[2019-09-29] MEDS ORDERED: methylPREDNISolone SOD SUCCI 125 MG/2 ML VIAL IV STA (19:46)
[2019-09-29] MEDS ORDERED: IPRATROPIUM-ALBUTEROL 3 ML NEB INHALATION STA (19:46)
[2019-09-29] MEDS ORDERED: SODIUM CHLORIDE 0.9% 500 ML 500 ML IV STA (20:07)
--- NOTE | 2019-09-29 20:49 | XR ---
EXAMINATION TYPE: XR chest 2V DATE OF EXAM: 09/29/2019 COMPARISON: Prior chest x-ray 08/04/2019 HISTORY: Difficulty breathing TECHNIQUE: Frontal and lateral views of the chest are obtained. FINDINGS: There is no focal air space opacity, pleural effusion, or pneumothorax seen. The cardiac silhouette size is within normal limits. There are prominent lung volumes. The osseous structures ar e intact. There are overlying cardiac leads. IMPRESSION: No acute cardiopulmonary process. Emphysema.
[2019-09-29 21:08] LABS: Basophils % (A) 1 %; Eosinophils # (A) 0.1 k/uL (0-0.7); Eosinophils % (A) 3 %; HGB 14.9 gm/dL (13.0-17.5); Lymphocytes # (A) 1.8 k/uL (1.0-4.8); Lymphocytes % (A) 43 %; MCH 29.9 pg (25.0-35.0); MCV 90.5 fL (80.0-100.0); Mean Platelet Volume 9.3; Monocytes # (A) 0.3 k/uL (0-1.0); Monocytes % (A) 7 %; Neutrophils # (A) 1.9 k/uL (1.3-7.7); Neutrophils % (A) 45 %; Platelet Count 111 k/uL (150-450); RBC 4.98 m/uL (4.30-5.90); RDW 12.5 % (11.5-15.5); WBC 4.3 k/uL (3.8-10.6)
[2019-09-29 21:14] LABS: ALT 29 U/L (4-49); AST 31 U/L (17-59); African American GFR (CKD) >90 (>60 ml/min/1.73 sqM); Albumin 4.2 g/dL (3.5-5.0); Alkaline Phosphatase 51 U/L (38-126); Anion Gap 6 mmol/L; Blood Urea Nitrogen 26 mg/dL (9-20); Calcium 8.7 mg/dL (8.4-10.2); Carbon Dioxide 27 mmol/L (22-30); Chloride 104 mmol/L (98-107); Glucose 87 mg/dL (74-99); Magnesium 2.1 mg/dL (1.6-2.3); Non-African American GFR(CKD) 89 (>60 ml/min/1.73 sqM); Potassium 4.3 mmol/L (3.5-5.1); Sodium 137 mmol/L (137-145); Total Bilirubin 0.6 mg/dL (0.2-1.3); Total Protein 6.6 g/dL (6.3-8.2)
[2019-09-29 21:15] LABS: INR 0.9 (<1.2); Partial Thromboplastin Time 26.2 sec (22.0-30.0); Prothrombin Time 9.8 sec (9.0-12.0)
[2019-09-29 21:46] VITALS: BP 119/77; PULSE 78; RESP 18; TEMP 97.5
--- NOTE | 2019-09-29 21:53 | ED ---
General Adult HPI - General Chief complaint: Shortness of Breath Stated complaint: fever, SOB Time Seen by Provider: 09/29/19 19:43 Source: patient, RN notes reviewed Mode of arrival: ambulatory Limitations: no limitations - History of Present Illness Initial comments: 54-year-old male with a complicated past medical history including COPD with a [id number] smoking history presents for shortness of breath. Patient states that for the past 5 days he has had a cough and shortness of breath. States this feels like a COPD flare. Patient does state that he tried his breathing treatment one time today but has not taken it otherwise. Patient states he feels warm at home but has not checked for a fever. Patient denies any chest pain associated with this.Patient has no other complaints at this time including chest pain, abdominal pain, nausea or vomiting, headache, or visual changes. - Related Data Home Medications Medication Instructions Recorded Confirmed Albuterol Inhaler [Ventolin Hfa 2 puff INHALATION RT-BID PRN 09/08/14 01/28/19 Inhaler] Sertraline [Zoloft] 100 mg PO DAILY 03/12/18 01/28/19 Aspirin [Adult Low Dose Aspirin EC] 81 mg PO DAILY 03/24/18 01/28/19 Atorvastatin Calcium [Lipitor] 40 mg PO DAILY 04/29/18 01/28/19 Budesonide-Formot 160-4.5 Mcg 2 puff INHALATION RT-BID 04/29/18 01/28/19 [Symbicort 160-4.5 Mcg Inhaler] Albuterol Nebulized [Ventolin 2.5 mg INHALATION RT-BID PRN 10/01/18 01/28/19 Nebulized] Amoxic-Pot Clav 875-125Mg 1 tab PO BID 10/01/18 01/28/19 [Augmentin 875-125] Magnesium(Unknown) 1 tab PO DAILY 10/01/18 01/28/19 Vitamin D3(Unknown) 1 tab PO DAILY 10/01/18 01/28/19 predniSONE 10 mg PO BID 10/01/18 01/28/19 rOPINIRole HCL [Requip] 0.25 mg PO HS 10/01/18 01/28/19 Previous Rx's Medication Instructions Recorded Clopidogrel [Plavix] 75 mg PO DAILY #30 tab 08/26/15 Metoprolol Tartrate [Lopressor] 25 mg PO BID #60 tab 08/26/15 Nitroglycerin Sl Tabs [Nitrostat] 0.4 mg SUBLINGUAL Q5M PRN #25 tab 08/26/15 Oseltamivir [Tamiflu] 75 mg PO Q12HR #10 cap 10/01/18 Erythromycin Ophth Oint [Romycin 1 applic LEFT EYE QID 5 Days #1 04/07/19 Ophth Oint] tube Azithromycin [Zithromax Z-pack] 250 mg PO DIRECTED #6 tab 08/04/19 predniSONE [Deltasone] 20 mg PO BID #10 tab 08/04/19 Albuterol Inhaler [Ventolin Hfa 1 - 2 puff INHALATION Q6HR PRN #1 09/29/19 Inhaler] inhaler Azithromycin [Zithromax Z-pack] 250 mg PO DIRECTED #6 tab 09/29/19 predniSONE 50 mg PO DAILY #5 tablet 09/29/19 Allergies Allergy/AdvReac Type Severity Reaction Status Date / Time iodine Allergy Swelling Verified 08/04/19 19:08 shellfish derived [Shellfish] Allergy Swelling Verified 08/04/19 19:08 venom-honey bee Allergy Swelling Verified 08/04/19 19:08 [bee venom (honey bee)] Review of Systems ROS Statement: Those systems with pertinent positive or pertinent negative responses have been documented in the HPI. ROS Other: All systems not noted in ROS Statement are negative. 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 pt stated unable to bx it, enlargement to lymph nodes upper chest no bx done-dr watching it., psoriasis, restless leg syndrome,ddd spondylosis, 2 herniated disc in neck, 2 in lower back, scoliosis, enlarged prostate, kidney stones, 3 lung masses per pt., RIGHT EYE - METAL REMOVED Last Myocardial Infarction Date:: Aug 2015 History of Any Multi-Drug Resistant Organisms: None Reported Past Surgical History: Heart Catheterization With Stent, Orthopedic Surgery, Tonsillectomy Additional Past Surgical History / Comment(s): rhinoplasty, left tibial cyst with bone graft from the pelvis to the tibia(pins/screws, orif lt hip (pins) Past Anesthesia/Blood Transfusion Reactions: No Reported Reaction Additional Past Anesthesia/Blood Transfusion Reaction / Comment(s): claustrophobic Date of Last Stent Placement:: Aug 2015 Past Psychological History: No Psychological Hx Reported Smoking Status: Current every day smoker Past Alcohol Use History: None Reported Past Drug Use History: None Reported - Past Family History Father Family Medical History: No Reported History Mother Family Medical History: COPD, CVA/TIA Additional Family Medical History / Comment(s): Mother is alive as far as pt knows and should be age 74. Pt does not have much contact with mother. Brother(s) Additional Family Medical History / Comment(s): He has 2 brothers, one has metal health issues, one is an addict on crack and other street drugs. Sister(s) Family Medical History: Cancer, Liver Disease Additional Family Medical History / Comment(s): Patient had 2 sisters, one from breast cancer, one from cirrhosis at the age of 19 with history of heavy alcohol use and Crohn's disease. General Exam Limitations: no limitations General appearance: alert, in no apparent distress Head exam: Present: atraumatic, normocephalic, normal inspection Eye exam: Present: normal appearance, PERRL, EOMI. Absent: scleral icterus, conjunctival injection, periorbital swelling ENT exam: Present: normal exam, normal oropharynx, mucous membranes moist, normal external ear exam Neck exam: Present: normal inspection, full ROM. Absent: tenderness, meningismus, lymphadenopathy Respiratory exam: Present: wheezes (Wheezing noted bilaterally), decreased breath sounds (Diminished breath sounds bilaterally). Absent: accessory muscle use (No accessory muscle use) Cardiovascular Exam: Present: regular rate, normal rhythm, normal heart sounds. Absent: systolic murmur, diastolic murmur, rubs, gallop, clicks GI/Abdominal exam: Present: soft, normal bowel sounds. Absent: distended, tenderness, guarding, rebound, rigid Course Vital Signs 09/29/19 09/29/19 09/29/19 19:14 20:03 20:10 Temperature 97.8 F Pulse Rate 61 59 L Respiratory 20 24 Rate Blood Pressure 126/72 O2 Sat by Pulse 97 Oximetry 09/29/19 20:25 Temperature Pulse Rate 71 Respiratory Rate Blood Pressure O2 Sat by Pulse Oximetry EKG Findings - EKG Comments: EKG Findings:: Normal sinus rhythm, ventricular rate 61, MA interval 144, QTC 420, no evidence of ST elevation or depression. Also reviewed by Dr. Norwood. Procedures - Smoking Cessation Time Spent Discussing Smoking Cessation w/Patient (Minutes): 3 Patient Acknowledges Need for Cessation: Yes Medical Decision Making - Medical Decision Making Vitals are stable. Patient is satting between 97-98% on room air when I am in and out of the room. EKG shows a normal sinus rhythm without ST elevation or depression. CBC CMP unremarkable. Mild dehydration, patient given fluids. Influenza negative. Chest x-ray shows no acute pulmonary process. Emphysema is evident. Patient was given 2 breathing treatments and steroids. He did have significant improvement in symptoms. He does still have wheezing however he is moving much more air. I did discuss admission with patient however he prefers to go home. I directed him to use his nebulizer every 4 hours and to take steroid as directed. He will also be given rescue inhaler. He is instructed to return for any worsening symptoms. I discussed this case with attending Dr. Norwood who agrees with this assessment and treatment plan. - Lab Data Result diagrams: 09/29/19 20:23 09/29/19 20:23 Lab Results 09/29/19 09/29/19 09/29/19 Range/Units 20:23 20:23 20:23 WBC 4.3 (3.8-10.6) k/uL RBC 4.98 (4.30-5.90) m/uL Hgb 14.9 (13.0-17.5) gm/dL Hct 45.0 (39.0-53.0) % MCV 90.5 (80.0-100.0) fL MCH 29.9 (25.0-35.0) pg MCHC 33.0 (31.0-37.0) g/dL RDW 12.5 (11.5-15.5) % Plt Count 111 L (150-450) k/uL Neutrophils % 45 % Lymphocytes % 43 % Monocytes % 7 % Eosinophils % 3 % Basophils % 1 % Neutrophils # 1.9 (1.3-7.7) k/uL Lymphocytes # 1.8 (1.0-4.8) k/uL Monocytes # 0.3 (0-1.0) k/uL Eosinophils # 0.1 (0-0.7) k/uL Basophils # 0.0 (0-0.2) k/uL PT 9.8 (9.0-12.0) sec INR 0.9 (<1.2) APTT 26.2 (22.0-30.0) sec Sodium 137 (137-145) mmol/L Potassium 4.3 (3.5-5.1) mmol/L Chloride 104 (98-107) mmol/L Carbon Dioxide 27 (22-30) mmol/L Anion Gap 6 mmol/L BUN 26 H (9-20) mg/dL Creatinine 0.98 (0.66-1.25) mg/dL Est GFR (CKD-EPI)AfAm >90 (>60 ml/min/1.73 sqM) Est GFR (CKD-EPI)NonAf 89 (>60 ml/min/1.73 sqM) Glucose 87 (74-99) mg/dL Plasma Lactic Acid Obdulio (0.7-2.0) mmol/L Calcium 8.7 (8.4-10.2) mg/dL Magnesium 2.1 (1.6-2.3) mg/dL Total Bilirubin 0.6 (0.2-1.3) mg/dL AST 31 (17-59) U/L ALT 29 (4-49) U/L Alkaline Phosphatase 51 (38-126) U/L Troponin I (0.000-0.034) ng/mL Total Protein 6.6 (6.3-8.2) g/dL Albumin 4.2 (3.5-5.0) g/dL Influenza Type A RNA (Not Detectd) Influenza Type B (PCR) (Not Detectd) 09/29/19 09/29/19 09/29/19 Range/Units 20:23 20:23 20:23 WBC (3.8-10.6) k/uL RBC (4.30-5.90) m/uL Hgb (13.0-17.5) gm/dL Hct (39.0-53.0) % MCV (80.0-100.0) fL MCH (25.0-35.0) pg MCHC (31.0-37.0) g/dL RDW (11.5-15.5) % Plt Count (150-450) k/uL Neutrophils % % Lymphocytes % % Monocytes % % Eosinophils % % Basophils % % Neutrophils # (1.3-7.7) k/uL Lymphocytes # (1.0-4.8) k/uL Monocytes # (0-1.0) k/uL Eosinophils # (0-0.7) k/uL Basophils # (0-0.2) k/uL PT (9.0-12.0) sec INR (<1.2) APTT (22.0-30.0) sec Sodium (137-145) mmol/L Potassium (3.5-5.1) mmol/L Chloride (98-107) mmol/L Carbon Dioxide (22-30) mmol/L Anion Gap mmol/L BUN (9-20) mg/dL Creatinine (0.66-1.25) mg/dL Est GFR (CKD-EPI)AfAm (>60 ml/min/1.73 sqM) Est GFR (CKD-EPI)NonAf (>60 ml/min/1.73 sqM) Glucose (74-99) mg/dL Plasma Lactic Acid Obdulio 0.9 (0.7-2.0) mmol/L Calcium (8.4-10.2) mg/dL Magnesium (1.6-2.3) mg/dL Total Bilirubin (0.2-1.3) mg/dL AST (17-59) U/L ALT (4-49) U/L Alkaline Phosphatase (38-126) U/L Troponin I <0.012 (0.000-0.034) ng/mL Total Protein (6.3-8.2) g/dL Albumin (3.5-5.0) g/dL Influenza Type A RNA Not Detected (Not Detectd) Influenza Type B (PCR) Not Detected (Not Detectd) Disposition Clinical Impression: COPD (chronic obstructive pulmonary disease) Disposition: HOME SELF-CARE Condition: Good Instructions (If sedation given, give patient instructions): COPD (Chronic Obstructive Pulmonary Disease) (ED) Additional Instructions: Please use nebulizer every 4 hours. Take steroid as directed. Take antibiotic as directed. Follow-up with primary care in 1 - 2 days. If you have any worsening symptoms whatsoever return to the emergency department. Prescriptions: predniSONE 50 mg PO DAILY #5 tablet Albuterol Inhaler [Ventolin Hfa Inhaler] 1 - 2 puff INHALATION Q6HR PRN #1 inhaler PRN Reason: Shortness Of Breath Azithromycin [Zithromax Z-pack] 250 mg PO DIRECTED #6 tab Is patient prescribed a controlled substance at d/c from ED?: No Referrals: Indy Allen MD [Primary Care Provider] - 1-2 days Time of Disposition: 21:50
== END 2019-09-29 21:58 | disposition home or self-care (01) ==
LOC: EC 18:43
DX: J43.9 Emphysema, unspecified (principal); E86.0 Dehydration; I20.9 Angina pectoris, unspecified; I25.2 Old myocardial infarction; M19.90 Unspecified osteoarthritis, unspecified site; G25.81 Restless legs syndrome; F17.210 Nicotine dependence, cigarettes, uncomplicated; Z91.013 Allergy to seafood; Z91.030 Bee allergy status; Z91.048 Other nonmedicinal substance allergy status; Z79.51 Long term (current) use of inhaled steroids; Z79.52 Long term (current) use of systemic steroids; Z79.82 Long term (current) use of aspirin; Z79.899 Other long term (current) drug therapy; Z95.5 Presence of coronary angioplasty implant and graft; Z90.89 Acquired absence of other organs; Z96.698 Presence of other orthopedic joint implants; Z82.5 Family history of asthma and other chronic lower respiratory diseases
CPT/HCPCS: 36415; 94640; 93005; 80053; 83605; 83735; 84484; 85025; 85610; 85730; 87040; 87502; 71046; 99285; 96374; 96361; J2930

== ENCOUNTER 2020-02-07 16:58 | Emergency (ER) | payer OTHER ==
[2020-02-07 17:06] VITALS: RESP 18
--- NOTE | 2020-02-07 18:07 | XR ---
EXAMINATION TYPE: XR elbow complete RT DATE OF EXAM: 02/07/2020 COMPARISON: NONE HISTORY: Elbow pain TECHNIQUE: 3 views FINDINGS: I see no fracture nor dislocation. Joint spaces are normal. There is no sign of elbow joint effusion. IMPRESSION: Negative right elbow exam.
--- NOTE | 2020-02-07 18:11 | ED ---
Extremity Problem HPI - General Chief complaint: Extremity Problem,Nontraumatic Stated complaint: Rt Arm problem Time Seen by Provider: 02/07/20 17:13 Source: patient Mode of arrival: ambulatory Limitations: no limitations - History of Present Illness Initial comments: 54-year-old male presenting today for chief complaint of right lateral elbow pain he states it feels similar to a sedative denies the past denies any redness he was sent pain to palpation and raised area. He denies any ventral aspect pain, denies hand or forearm swelling. Denies history of DVT. Patient denies fevers, general malaise or swellin gat the elbow joint. Denies decreased ROM. patient has no additional complaints. appears well on arrival. - Related Data Home Medications Medication Instructions Recorded Confirmed Albuterol Inhaler (Mhu) [Ventolin 2 puff INHALATION RT-BID PRN 09/08/14 01/28/19 Hfa Inhaler (Mhu)] Sertraline [Zoloft] 100 mg PO DAILY 03/12/18 01/28/19 Aspirin [Adult Low Dose Aspirin EC] 81 mg PO DAILY 03/24/18 01/28/19 Atorvastatin Calcium [Lipitor] 40 mg PO DAILY 04/29/18 01/28/19 Budesonide-Formot 160-4.5 Mcg 2 puff INHALATION RT-BID 04/29/18 01/28/19 [Symbicort 160-4.5 Mcg Inhaler] Albuterol Nebulized [Ventolin 2.5 mg INHALATION RT-BID PRN 10/01/18 01/28/19 Nebulized] Amoxic-Pot Clav 875-125Mg 1 tab PO BID 10/01/18 01/28/19 [Augmentin 875-125] Magnesium(Unknown) 1 tab PO DAILY 10/01/18 01/28/19 Vitamin D3(Unknown) 1 tab PO DAILY 10/01/18 01/28/19 predniSONE 10 mg PO BID 10/01/18 01/28/19 rOPINIRole HCL [Requip] 0.25 mg PO HS 10/01/18 01/28/19 Previous Rx's Medication Instructions Recorded Clopidogrel [Plavix] 75 mg PO DAILY #30 tab 08/26/15 Metoprolol Tartrate [Lopressor] 25 mg PO BID #60 tab 08/26/15 Nitroglycerin Sl Tabs [Nitrostat] 0.4 mg SUBLINGUAL Q5M PRN #25 tab 08/26/15 Oseltamivir [Tamiflu] 75 mg PO Q12HR #10 cap 10/01/18 Erythromycin Ophth Oint [Romycin 1 applic LEFT EYE QID 5 Days #1 04/07/19 Ophth Oint] tube Azithromycin [Zithromax Z-pack] 250 mg PO DIRECTED #6 tab 08/04/19 predniSONE [Deltasone] 20 mg PO BID #10 tab 08/04/19 Albuterol Inhaler (Mhu) [Ventolin 1 - 2 puff INHALATION Q6HR PRN #1 09/29/19 Hfa Inhaler (Mhu)] inhaler Azithromycin [Zithromax Z-pack] 250 mg PO DIRECTED #6 tab 09/29/19 predniSONE 50 mg PO DAILY #5 tablet 09/29/19 Allergies Allergy/AdvReac Type Severity Reaction Status Date / Time iodine Allergy Swelling Verified 02/07/20 17:06 shellfish derived [Shellfish] Allergy Swelling Verified 02/07/20 17:06 venom-honey bee Allergy Swelling Verified 02/07/20 17:06 [bee venom (honey bee)] Review of Systems ROS Statement: Those systems with pertinent positive or pertinent negative responses have been documented in the HPI. ROS Other: All systems not noted in ROS Statement are negative. 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 pt stated unable to bx it, enlargement to lymph nodes upper chest no bx done-dr watching it., psoriasis, restless leg syndrome,ddd spondylosis, 2 herniated disc in neck, 2 in lower back, scoliosis, enlarged prostate, kidney stones, 3 lung masses per pt., RIGHT EYE - METAL REMOVED Last Myocardial Infarction Date:: Aug 2015 History of Any Multi-Drug Resistant Organisms: None Reported Past Surgical History: Heart Catheterization With Stent, Orthopedic Surgery, Tonsillectomy Additional Past Surgical History / Comment(s): rhinoplasty, left tibial cyst with bone graft from the pelvis to the tibia(pins/screws, orif lt hip (pins) Past Anesthesia/Blood Transfusion Reactions: No Reported Reaction Additional Past Anesthesia/Blood Transfusion Reaction / Comment(s): claustrophobic Date of Last Stent Placement:: Aug 2015 Past Psychological History: No Psychological Hx Reported Past Alcohol Use History: None Reported Past Drug Use History: None Reported - Past Family History Father Family Medical History: No Reported History Mother Family Medical History: COPD, CVA/TIA Additional Family Medical History / Comment(s): Mother is alive as far as pt knows and should be age 74. Pt does not have much contact with mother. Brother(s) Additional Family Medical History / Comment(s): He has 2 brothers, one has metal health issues, one is an addict on crack and other street drugs. Sister(s) Family Medical History: Cancer, Liver Disease Additional Family Medical History / Comment(s): Patient had 2 sisters, one from breast cancer, one from cirrhosis at the age of 19 with history of heavy alcohol use and Crohn's disease. General Exam - General Exam Comments Initial Comments: General: The patient is awake and alert, in no distress, and does not appear acutely ill. Eye: Pupils are equal, round and reactive to light, extra-ocular movements are intact. No nystagmus. There is normal conjunctiva bilaterally. No signs of icterus. Musculoskeletal: Upon inspection of the upper aspect laterally there is pain t o palpation with flexion/extension of the wrist at the elbow. Full and Normal ROM, with some mild tenderness on the lateral external aspect of elbow. Strength 5/5. Sensation intact. No swelling of forearm/hand. no ventral pain. Radial pulses equal bilaterally 2+. Neurological: A&O x 3. CN II-XII intact grossly, There are no obvious motor or sensory deficits. Coordination appears grossly intact. Speech is normal. Skin: Skin is warm and dry and no rashes or lesions are noted. Psychiatric: Cooperative, appropriate mood & affect, normal judgment. Limitations: no limitations Course Vital Signs 02/07/20 17:02 Temperature 98.2 F Pulse Rate 73 Respiratory 18 Rate Blood Pressure 117/68 O2 Sat by Pulse 98 Oximetry Medical Decision Making - Medical Decision Making findings consistent for a tendonitis on PE and XR/ Patient has had this in the past and states symptoms are identical. No redness no pain in the joint. Patient is a jarquin to this correlates clinically at this time feel he stated for discharge with rest icing and NSAIDs. Patient is agreeable to this Plan discharge at this time discussed case attempt by Dr. Andrade who is also agreeable to Plan discharge Disposition Clinical Impression: Right elbow pain Disposition: HOME SELF-CARE Condition: Good Instructions (If sedation given, give patient instructions): Tennis Elbow (ED), Tendinitis (ED) Additional Instructions: Please use medication as discussed. Please follow-up with family doctor in the next 2 days. REST, ICE elbow. Please return to emergency room if the symptoms increase or worsen or for any other concerns. Is patient prescribed a controlled substance at d/c from ED?: No Referrals: Indy Allen MD [Primary Care Provider] - 1-2 days Time of Disposition: 18:11
[2020-02-07 18:41] VITALS: BP 119/99; PULSE 72; TEMP 97.4
== END 2020-02-07 18:39 | disposition home or self-care (01) ==
LOC: EC 16:58
DX: M25.521 Pain in right elbow (principal); I25.2 Old myocardial infarction; J44.9 Chronic obstructive pulmonary disease, unspecified; M19.90 Unspecified osteoarthritis, unspecified site; G25.81 Restless legs syndrome; N40.0 Benign prostatic hyperplasia without lower urinary tract symptoms; Z79.02 Long term (current) use of antithrombotics/antiplatelets; Z79.51 Long term (current) use of inhaled steroids; Z79.82 Long term (current) use of aspirin; Z79.899 Other long term (current) drug therapy; Z91.048 Other nonmedicinal substance allergy status; Z91.013 Allergy to seafood; Z91.030 Bee allergy status; Z95.5 Presence of coronary angioplasty implant and graft
CPT/HCPCS: 99283

== ENCOUNTER 2020-03-02 15:55 | Emergency (ER) | payer OTHER ==
[2020-03-02 16:03] VITALS: BP 110/67; PULSE 68; RESP 18; TEMP 98.3
--- NOTE | 2020-03-02 16:17 | ED ---
Wound/Laceration HPI - General Chief Complaint: Wound/Laceration Stated Complaint: Finger Injury Time Seen by Provider: 03/02/20 16:04 Source: patient Mode of arrival: ambulatory Limitations: no limitations - History of Present Illness Initial Comments: Patient is 54-year-old male presenting to emergency department with chief complaint of a finger injury. Patient states she was using a drill and accidentally controlled to his left index finger. Patient reports there is minimal plain. States he has continues bleeding because he is on a novel antic oagulant. Patient reports his tetanus is up-to-date. States the pain is minimal. He states there is full range of motion in his left second digit. Denies any numbness or tingling. - Related Data Home Medications Medication Instructions Recorded Confirmed Albuterol Inhaler (Mhu) [Ventolin 2 puff INHALATION RT-BID PRN 09/08/14 01/28/19 Hfa Inhaler (Mhu)] Sertraline [Zoloft] 100 mg PO DAILY 03/12/18 01/28/19 Aspirin [Adult Low Dose Aspirin EC] 81 mg PO DAILY 03/24/18 01/28/19 Atorvastatin Calcium [Lipitor] 40 mg PO DAILY 04/29/18 01/28/19 Budesonide-Formot 160-4.5 Mcg 2 puff INHALATION RT-BID 04/29/18 01/28/19 [Symbicort 160-4.5 Mcg Inhaler] Albuterol Nebulized [Ventolin 2.5 mg INHALATION RT-BID PRN 10/01/18 01/28/19 Nebulized] Amoxic-Pot Clav 875-125Mg 1 tab PO BID 10/01/18 01/28/19 [Augmentin 875-125] Magnesium(Unknown) 1 tab PO DAILY 10/01/18 01/28/19 Vitamin D3(Unknown) 1 tab PO DAILY 10/01/18 01/28/19 predniSONE 10 mg PO BID 10/01/18 01/28/19 rOPINIRole HCL [Requip] 0.25 mg PO HS 10/01/18 01/28/19 Previous Rx's Medication Instructions Recorded Clopidogrel [Plavix] 75 mg PO DAILY #30 tab 08/26/15 Metoprolol Tartrate [Lopressor] 25 mg PO BID #60 tab 08/26/15 Nitroglycerin Sl Tabs [Nitrostat] 0.4 mg SUBLINGUAL Q5M PRN #25 tab 08/26/15 Oseltamivir [Tamiflu] 75 mg PO Q12HR #10 cap 10/01/18 Erythromycin Ophth Oint [Romycin 1 applic LEFT EYE QID 5 Days #1 04/07/19 Ophth Oint] tube Azithromycin [Zithromax Z-pack] 250 mg PO DIRECTED #6 tab 08/04/19 predniSONE [Deltasone] 20 mg PO BID #10 tab 08/04/19 Albuterol Inhaler (Mhu) [Ventolin 1 - 2 puff INHALATION Q6HR PRN #1 09/29/19 Hfa Inhaler (Mhu)] inhaler Azithromycin [Zithromax Z-pack] 250 mg PO DIRECTED #6 tab 09/29/19 predniSONE 50 mg PO DAILY #5 tablet 09/29/19 Allergies Allergy/AdvReac Type Severity Reaction Status Date / Time iodine Allergy Swelling Verified 03/02/20 16:04 shellfish derived [Shellfish] Allergy Swelling Verified 03/02/20 16:04 venom-honey bee Allergy Swelling Verified 03/02/20 16:04 [bee venom (honey bee)] Review of Systems ROS Statement: Those systems with pertinent positive or pertinent negative responses have been documented in the HPI. ROS Other: All systems not noted in ROS Statement are negative. 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 pt stated unable to bx it, enlargement to lymph nodes upper chest no bx done-dr watching it., psoriasis, restless leg syndrome,ddd spondylosis, 2 herniated disc in neck, 2 in lower back, scoliosis, enlarged prostate, kidney stones, 3 lung masses per pt., RIGHT EYE - METAL REMOVED Last Myocardial Infarction Date:: Aug 2015 History of Any Multi-Drug Resistant Organisms: None Reported Past Surgical History: Heart Catheterization With Stent, Orthopedic Surgery, Tonsillectomy Additional Past Surgical History / Comment(s): rhinoplasty, left tibial cyst with bone graft from the pelvis to the tibia(pins/screws, orif lt hip (pins) Past Anesthesia/Blood Transfusion Reactions: No Reported Reaction Additional Past Anesthesia/Blood Transfusion Reaction / Comment(s): claustrophobic Date of Last Stent Placement:: Aug 2015 Past Psychological History: Anxiety, Depression Smoking Status: Current every day smoker Past Alcohol Use History: None Reported Past Drug Use History: None Reported - Past Family History Father Family Medical History: No Reported History Mother Family Medical History: COPD, CVA/TIA Additional Family Medical History / Comment(s): Mother is alive as far as pt knows and should be age 74. Pt does not have much contact with mother. Brother(s) Additional Family Medical History / Comment(s): He has 2 brothers, one has metal health issues, one is an addict on crack and other street drugs. Sister(s) Family Medical History: Cancer, Liver Disease Additional Family Medical History / Comment(s): Patient had 2 sisters, one from breast cancer, one from cirrhosis at the age of 19 with history of heavy alcohol use and Crohn's disease. General Exam Limitations: no limitations General appearance: alert, in no apparent distress Head exam: Present: atraumatic, normocephalic, normal inspection Eye exam: Present: normal appearance, PERRL, EOMI Pupils: Present: normal accommodation ENT exam: Present: normal exam, normal oropharynx Neck exam: Present: normal inspection, full ROM Respiratory exam: Present: normal lung sounds bilaterally. Absent: respiratory distress, wheezes Cardiovascular Exam: Present: regular rate, normal rhythm, normal heart sounds Extremities exam: Present: full ROM, tenderness (Very mild tenderness at the site of injury), normal capillary refill. Absent: normal inspection (Puncture wound approximately 5 mm in diameter on the palmar aspect of the left distal second digit.), pedal edema, joint swelling, calf tenderness Back exam: Present: normal inspection, full ROM Neurological exam: Present: alert, oriented X3 Psychiatric exam: Present: normal affect, normal mood Skin exam: Present: warm, dry, intact, normal color Course Vital Signs 03/02/20 16:00 Temperature 98.3 F Pulse Rate 68 Respiratory 18 Rate Blood Pressure 110/67 O2 Sat by Pulse 100 Oximetry Medical Decision Making - Medical Decision Making Patient is a 54-year-old male presenting to emergency Department with chief complaint of a laceration. His tetanus is up-to-date. On exam patient has a small puncture wound palmar aspect of his digit. X-rays unremarkable. Some bleeding from the region. Gelfoam applied with tube gauze. Patient advised to follow-up with primary care physician. Case discussed with physician. Disposition Clinical Impression: Laceration Disposition: HOME SELF-CARE Condition: Stable Instructions (If sedation given, give patient instructions): Laceration (DC) Additional Instructions: Return to emergency department if symptoms worsen. Is patient prescribed a controlled substance at d/c from ED?: No Referrals: Indy Allen MD [Primary Care Provider] - 1-2 days Time of Disposition: 17:17
[2020-03-02] MEDS ORDERED: GELATIN SPONGE,ABSORB (SMALL) 1 EACH SPONGE TOPICAL STA (16:24)
--- NOTE | 2020-03-02 16:29 | XR ---
EXAMINATION TYPE: XR finger LT DATE OF EXAM: 03/02/2020 Comparison: None Clinical History: 54-year-old male left index finger TECHNIQUE: 3 views coned down left index finger Findings: No radiopaque foreign body material is identified. No underlying acute fracture, subluxation, or disl ocation seen. Impression: No acute osseous abnormality identified involving the left index finger.
== END 2020-03-02 17:31 | disposition home or self-care (01) ==
LOC: EC 15:55
DX: S61.231A Puncture wound without foreign body of left index finger without damage to nail, initial encounter (principal); F17.200 Nicotine dependence, unspecified, uncomplicated; F41.9 Anxiety disorder, unspecified; F32.9 Major depressive disorder, single episode, unspecified; J44.9 Chronic obstructive pulmonary disease, unspecified; I25.2 Old myocardial infarction; M19.90 Unspecified osteoarthritis, unspecified site; I20.9 Angina pectoris, unspecified; G25.81 Restless legs syndrome; Z79.51 Long term (current) use of inhaled steroids; Z79.82 Long term (current) use of aspirin; Z79.899 Other long term (current) drug therapy; Z91.013 Allergy to seafood; Z91.030 Bee allergy status; Z91.041 Radiographic dye allergy status; Z95.5 Presence of coronary angioplasty implant and graft; W31.0XXA Contact with mining and earth-drilling machinery, initial encounter; Y93.89 Activity, other specified
CPT/HCPCS: 99283

== ENCOUNTER 2020-04-10 10:28 | Emergency (ER) | payer OTHER ==
[2020-04-10] MEDS ORDERED: methylPREDNISolone SOD SUCCI 125 MG/2 ML VIAL IV STA (10:38)
[2020-04-10] MEDS ORDERED: IPRATROPIUM-ALBUTEROL 3 ML NEB INHALATION STA (10:38)
[2020-04-10 11:00] LABS: Basophils # (A) 0.1 k/uL (0-0.2); Basophils % (A) 1 %; Eosinophils # (A) 0.2 k/uL (0-0.7); Eosinophils % (A) 3 %; HCT 46.1 % (39.0-53.0); HGB 15.1 gm/dL (13.0-17.5); Lymphocytes # (A) 1.9 k/uL (1.0-4.8); Lymphocytes % (A) 26 %; MCH 30.2 pg (25.0-35.0); MCHC 32.7 g/dL (31.0-37.0); MCV 92.3 fL (80.0-100.0); Mean Platelet Volume 8.1; Monocytes # (A) 0.4 k/uL (0-1.0); Monocytes % (A) 5 %; Neutrophils # (A) 4.6 k/uL (1.3-7.7); Neutrophils % (A) 64 %; Platelet Count 172 k/uL (150-450); RBC 4.99 m/uL (4.30-5.90); RDW 12.2 % (11.5-15.5); WBC 7.3 k/uL (3.8-10.6)
[2020-04-10 11:06] LABS: Partial Thromboplastin Time 24.7 sec (22.0-30.0); Prothrombin Time 10.3 sec (9.0-12.0)
--- NOTE | 2020-04-10 11:55 | XR ---
EXAMINATION TYPE: XR chest 2V DATE OF EXAM: 04/10/2020 COMPARISON: 09/29/2019 HISTORY: 54-year-old male with chest pain and difficulty breathing. TECHNIQUE: PA and lateral views FINDINGS: Heart normal size. Aorta and pulmonary vasculature within normal limits. Upper lung lucencies and hyp erinflation with flattening of hemidiaphragms. Similar blunting posterior costophrenic angle suggesti ng pleural parenchymal scarring. Some focal left perihilar opacity appears increased. Otherwise, no a cute consolidation or pleural effusion. IMPRESSION: COPD. Increased left perihilar opacity, possible early pneumonia. Follow-up after treatment or in 6-8 weeks to assess for clearance and exclude underlying nodule.
[2020-04-10 12:05] LABS: Albumin 4.2 g/dL (3.5-5.0); Calcium 9.1 mg/dL (8.4-10.2); Magnesium 1.8 mg/dL (1.6-2.3); Potassium 4.5 mmol/L (3.5-5.1); Total Bilirubin 0.8 mg/dL (0.2-1.3); Total Protein 6.3 g/dL (6.3-8.2)
[2020-04-10] MEDS ORDERED: cefTRIAXone IN SWFI 1,000 MG/10 ML SYRINGE IVP STA (12:23)
--- NOTE | 2020-04-10 12:23 | ED ---
General Adult HPI - General Chief complaint: Chest Pain Stated complaint: SOB/chest tightness Time Seen by Provider: 04/10/20 10:34 Source: patient, RN notes reviewed Mode of arrival: wheelchair Limitations: no limitations - History of Present Illness Initial comments: This a 54-year-old male presents emergency Department chief complaint of shortness breath, chest tightness. 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 Patient states that he uses inhaler which helped some. Patient states has not have chest pain. Patient denies any fevers or chills no headache no dizziness no back pain no abdominal pain. - Related Data Home Medications Medication Instructions Recorded Confirmed Albuterol Inhaler (Mhu) [Ventolin 2 puff INHALATION RT-BID PRN 09/08/14 01/28/19 Hfa Inhaler (Mhu)] Sertraline [Zoloft] 100 mg PO DAILY 03/12/18 01/28/19 Aspirin [Adult Low Dose Aspirin EC] 81 mg PO DAILY 03/24/18 01/28/19 Atorvastatin Calcium [Lipitor] 40 mg PO DAILY 04/29/18 01/28/19 Budesonide-Formot 160-4.5 Mcg 2 puff INHALATION RT-BID 04/29/18 01/28/19 [Symbicort 160-4.5 Mcg Inhaler] Albuterol Nebulized [Ventolin 2.5 mg INHALATION RT-BID PRN 10/01/18 01/28/19 Nebulized] Amoxic-Pot Clav 875-125Mg 1 tab PO BID 10/01/18 01/28/19 [Augmentin 875-125] Magnesium(Unknown) 1 tab PO DAILY 10/01/18 01/28/19 Vitamin D3(Unknown) 1 tab PO DAILY 10/01/18 01/28/19 predniSONE 10 mg PO BID 10/01/18 01/28/19 rOPINIRole HCL [Requip] 0.25 mg PO HS 10/01/18 01/28/19 Previous Rx's Medication Instructions Recorded Clopidogrel [Plavix] 75 mg PO DAILY #30 tab 08/26/15 Metoprolol Tartrate [Lopressor] 25 mg PO BID #60 tab 08/26/15 Nitroglycerin Sl Tabs [Nitrostat] 0.4 mg SUBLINGUAL Q5M PRN #25 tab 08/26/15 Oseltamivir [Tamiflu] 75 mg PO Q12HR #10 cap 10/01/18 Erythromycin Ophth Oint [Romycin 1 applic LEFT EYE QID 5 Days #1 04/07/19 Ophth Oint] tube Azithromycin [Zithromax Z-pack] 250 mg PO DIRECTED #6 tab 08/04/19 predniSONE [Deltasone] 20 mg PO BID #10 tab 08/04/19 Albuterol Inhaler (Mhu) [Ventolin 1 - 2 puff INHALATION Q6HR PRN #1 09/29/19 Hfa Inhaler (Mhu)] inhaler Azithromycin [Zithromax Z-pack] 250 mg PO DIRECTED #6 tab 09/29/19 predniSONE 50 mg PO DAILY #5 tablet 09/29/19 Azithromycin [Zithromax Z-pack] 0 mg PO DIRECTED #1 pack 04/10/20 predniSONE 50 mg PO DAILY #5 tab 04/10/20 Allergies Allergy/AdvReac Type Severity Reaction Status Date / Time iodine Allergy Swelling Verified 04/10/20 10:31 shellfish derived [Shellfish] Allergy Swelling Verified 04/10/20 10:31 venom-honey bee Allergy Swelling Verified 04/10/20 10:31 [bee venom (honey bee)] Review of Systems ROS Statement: Those systems with pertinent positive or pertinent negative responses have been documented in the HPI. ROS Other: All systems not noted in ROS Statement are negative. 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 pt stated unable to bx it, enlargement to lymph nodes upper chest no bx done-dr watching it., psoriasis, restless leg syndrome,ddd spondylosis, 2 herniated disc in neck, 2 in lower back, scoliosis, enlarged prostate, kidney stones, 3 lung masses per pt., RIGHT EYE - METAL REMOVED Last Myocardial Infarction Date:: Aug 2015 History of Any Multi-Drug Resistant Organisms: None Reported Past Surgical History: Heart Catheterization With Stent, Orthopedic Surgery, Tonsillectomy Additional Past Surgical History / Comment(s): rhinoplasty, left tibial cyst with bone graft from the pelvis to the tibia(pins/screws, orif lt hip (pins) Past Anesthesia/Blood Transfusion Reactions: No Reported Reaction Additional Past Anesthesia/Blood Transfusion Reaction / Comment(s): claustrophobic Date of Last Stent Placement:: Aug 2015 Past Psychological History: Anxiety, Depression Smoking Status: Current every day smoker Past Alcohol Use History: None Reported Past Drug Use History: None Reported - Past Family History Father Family Medical History: No Reported History Mother Family Medical History: COPD, CVA/TIA Additional Family Medical History / Comment(s): Mother is alive as far as pt knows and should be age 74. Pt does not have much contact with mother. Brother(s) Additional Family Medical History / Comment(s): He has 2 brothers, one has metal health issues, one is an addict on crack and other street drugs. Sister(s) Family Medical History: Cancer, Liver Disease Additional Family Medical History / Comment(s): Patient had 2 sisters, one from breast cancer, one from cirrhosis at the age of 19 with history of heavy alcohol use and Crohn's disease. General Exam Limitations: no limitations General appearance: alert, in no apparent distress Head exam: Present: atraumatic, normocephalic, normal inspection Eye exam: Present: normal appearance, PERRL, EOMI. Absent: scleral icterus, conjunctival injection, periorbital swelling ENT exam: Present: normal exam, mucous membranes moist Neck exam: Present: normal inspection, full ROM. Absent: tenderness, meningismus, lymphadenopathy Respiratory exam: Present: respiratory distress (Mild), wheezes (Diffuse), decreased breath sounds. Absent: normal lung sounds bilaterally, rales, rhonchi, stridor Cardiovascular Exam: Present: regular rate, normal rhythm, normal heart sounds. Absent: systolic murmur, diastolic murmur, rubs, gallop, clicks Neurological exam: Present: alert, oriented X3 Skin exam: Present: warm, dry, intact, normal color. Absent: rash Course Vital Signs 04/10/20 04/10/20 04/10/20 10:31 11:05 11:22 Temperature 97.4 F L Pulse Rate 74 69 68 Respiratory 16 Rate Blood Pressure 131/77 O2 Sat by Pulse 99 Oximetry EKG Findings - EKG Comments: EKG Findings:: EKG performed at 10:52 normal sinus rhythm rate of 68 WA 164 QRS 80 QT/QTC 378/401 Medical Decision Making - Medical Decision Making Patient's labs, EKG and chest x-ray were reviewed. There is possible early pneumonia. Patient will given Rocephin, discharged on azithromycin. I did offer and recommend patient be admitted for IV steroids, breathing complaints, antibiotics and transformer builder evaluation. Patient states that he is comfortable being discharged from for first be discharged follow-up with with his PCP and transformer builder Dr. Jasso. Return parameters were discussed. - Lab Data Result diagrams: 04/10/20 10:47 04/10/20 10:47 Lab Results 04/10/20 04/10/20 04/10/20 Range/Units 10:47 10:47 10:47 WBC 7.3 (3.8-10.6) k/uL RBC 4.99 (4.30-5.90) m/uL Hgb 15.1 (13.0-17.5) gm/dL Hct 46.1 (39.0-53.0) % MCV 92.3 (80.0-100.0) fL MCH 30.2 (25.0-35.0) pg MCHC 32.7 (31.0-37.0) g/dL RDW 12.2 (11.5-15.5) % Plt Count 172 (150-450) k/uL Neutrophils % 64 % Lymphocytes % 26 % Monocytes % 5 % Eosinophils % 3 % Basophils % 1 % Neutrophils # 4.6 (1.3-7.7) k/uL Lymphocytes # 1.9 (1.0-4.8) k/uL Monocytes # 0.4 (0-1.0) k/uL Eosinophils # 0.2 (0-0.7) k/uL Basophils # 0.1 (0-0.2) k/uL PT 10.3 (9.0-12.0) sec INR 1.0 (<1.2) APTT 24.7 (22.0-30.0) sec Sodium 137 (137-145) mmol/L Potassium 4.5 (3.5-5.1) mmol/L Chloride 106 (98-107) mmol/L Carbon Dioxide 25 (22-30) mmol/L Anion Gap 6 mmol/L BUN 21 H (9-20) mg/dL Creatinine 1.33 H (0.66-1.25) mg/dL Est GFR (CKD-EPI)AfAm 71 (>60 ml/min/1.73 sqM) Est GFR (CKD-EPI)NonAf 61 (>60 ml/min/1.73 sqM) Glucose 97 (74-99) mg/dL Calcium 9.1 (8.4-10.2) mg/dL Magnesium 1.8 (1.6-2.3) mg/dL Total Bilirubin 0.8 (0.2-1.3) mg/dL AST 30 (17-59) U/L ALT 26 (4-49) U/L Alkaline Phosphatase 46 (38-126) U/L Troponin I (0.000-0.034) ng/mL NT-Pro-B Natriuret Pep pg/mL Total Protein 6.3 (6.3-8.2) g/dL Albumin 4.2 (3.5-5.0) g/dL 04/10/20 04/10/20 Range/Units 10:47 10:47 WBC (3.8-10.6) k/uL RBC (4.30-5.90) m/uL Hgb (13.0-17.5) gm/dL Hct (39.0-53.0) % MCV (80.0-100.0) fL MCH (25.0-35.0) pg MCHC (31.0-37.0) g/dL RDW (11.5-15.5) % Plt Count (150-450) k/uL Neutrophils % % Lymphocytes % % Monocytes % % Eosinophils % % Basophils % % Neutrophils # (1.3-7.7) k/uL Lymphocytes # (1.0-4.8) k/uL Monocytes # (0-1.0) k/uL Eosinophils # (0-0.7) k/uL Basophils # (0-0.2) k/uL PT (9.0-12.0) sec INR (<1.2) APTT (22.0-30.0) sec Sodium (137-145) mmol/L Potassium (3.5-5.1) mmol/L Chloride (98-107) mmol/L Carbon Dioxide (22-30) mmol/L Anion Gap mmol/L BUN (9-20) mg/dL Creatinine (0.66-1.25) mg/dL Est GFR (CKD-EPI)AfAm (>60 ml/min/1.73 sqM) Est GFR (CKD-EPI)NonAf (>60 ml/min/1.73 sqM) Glucose (74-99) mg/dL Calcium (8.4-10.2) mg/dL Magnesium (1.6-2.3) mg/dL Total Bilirubin (0.2-1.3) mg/dL AST (17-59) U/L ALT (4-49) U/L Alkaline Phosphatase (38-126) U/L Troponin I <0.012 (0.000-0.034) ng/mL NT-Pro-B Natriuret Pep 127 pg/mL Total Protein (6.3-8.2) g/dL Albumin (3.5-5.0) g/dL Disposition Clinical Impression: COPD (chronic obstructive pulmonary disease) Disposition: HOME SELF-CARE Condition: Stable Instructions (If sedation given, give patient instructions): COPD (Chronic Obstructive Pulmonary Disease) ([place]) Additional Instructions: Continue breathing treatment as directed.Please return to the Emergency Department if symptoms worsen or any other concerns. Prescriptions: predniSONE 50 mg PO DAILY #5 tab Azithromycin [Zithromax Z-pack] 0 mg PO DIRECTED #1 pack Is patient prescribed a controlled substance at d/c from ED?: No Referrals: Indy Allen MD [Primary Care Provider] - 1-2 days Time of Disposition: 12:23
[2020-04-10 12:33] VITALS: BP 118/75; PULSE 75; RESP 18; TEMP 98
== END 2020-04-10 12:31 | disposition home or self-care (01) ==
LOC: EC 10:28
DX: J44.9 Chronic obstructive pulmonary disease, unspecified (principal); K21.9 Gastro-esophageal reflux disease without esophagitis; I25.2 Old myocardial infarction; M19.90 Unspecified osteoarthritis, unspecified site; F41.9 Anxiety disorder, unspecified; I20.9 Angina pectoris, unspecified; N40.0 Benign prostatic hyperplasia without lower urinary tract symptoms; G25.81 Restless legs syndrome; F32.9 Major depressive disorder, single episode, unspecified; Z79.51 Long term (current) use of inhaled steroids; F17.200 Nicotine dependence, unspecified, uncomplicated; Z79.82 Long term (current) use of aspirin; Z79.899 Other long term (current) drug therapy; Z95.5 Presence of coronary angioplasty implant and graft; Z91.013 Allergy to seafood; Z91.030 Bee allergy status; Z91.041 Radiographic dye allergy status
CPT/HCPCS: 36415; 94640; 93005; 83880; 80053; 83735; 84484; 85025; 85610; 85730; 71046; 99285; 96374; J2930

== ENCOUNTER 2020-04-16 10:13 | Emergency (ER) | payer OTHER ==
[2020-04-16 11:28] LABS: Appearance,Urine Clear (Clear); Bilirubin,Urine Negative (Negative); Blood,Urine Negative (Negative); Color,Urine Yellow; Glucose,Urine (UA) Negative (Negative); Ketones,Urine Negative (Negative); Leukocyte Esterase,Urine Negative (Negative); Nitrite,Urine Negative (Negative); PH, Urine 6.5 (5.0-8.0); Protein,Urine Negative (Negative); Specific Gravity,Urine 1.018 (1.001-1.035)
--- NOTE | 2020-04-16 11:32 | ED ---
Male Urogenital HPI - General Chief complaint: Urogenital Stated complaint: Possible hernia Time Seen by Provider: 04/16/20 10:29 Source: patient Mode of arrival: ambulatory Limitations: no limitations - History of Present Illness Initial comments: 54-year-old male presenting today for chief complaint of left groin pain he states that increases with coughing. Patient denies any pain at rest. He denies any nausea vomiting diarrhea constipation bloody or dark stools. Patient states he noticed some darker color to his urine this morning he states is now normally is not sure if his blood. Denies any back or flank pain denies history of kidney stones. Denies leg swelling chest pain short of breath or abdominal pain. Patient is no additional combines upon arrival he appears well nontoxic in no acute distress - Related Data Home Medications Medication Instructions Recorded Confirmed Albuterol Inhaler (Mhu) [Ventolin 2 puff INHALATION RT-BID PRN 09/08/14 01/28/19 Hfa Inhaler (Mhu)] Sertraline [Zoloft] 100 mg PO DAILY 03/12/18 01/28/19 Aspirin [Adult Low Dose Aspirin EC] 81 mg PO DAILY 03/24/18 01/28/19 Atorvastatin Calcium [Lipitor] 40 mg PO DAILY 04/29/18 01/28/19 Budesonide-Formot 160-4.5 Mcg 2 puff INHALATION RT-BID 04/29/18 01/28/19 [Symbicort 160-4.5 Mcg Inhaler] Albuterol Nebulized [Ventolin 2.5 mg INHALATION RT-BID PRN 10/01/18 01/28/19 Nebulized] Amoxic-Pot Clav 875-125Mg 1 tab PO BID 10/01/18 01/28/19 [Augmentin 875-125] Magnesium(Unknown) 1 tab PO DAILY 10/01/18 01/28/19 Vitamin D3(Unknown) 1 tab PO DAILY 10/01/18 01/28/19 predniSONE 10 mg PO BID 10/01/18 01/28/19 rOPINIRole HCL [Requip] 0.25 mg PO HS 10/01/18 01/28/19 Previous Rx's Medication Instructions Recorded Clopidogrel [Plavix] 75 mg PO DAILY #30 tab 08/26/15 Metoprolol Tartrate [Lopressor] 25 mg PO BID #60 tab 08/26/15 Nitroglycerin Sl Tabs [Nitrostat] 0.4 mg SUBLINGUAL Q5M PRN #25 tab 08/26/15 Oseltamivir [Tamiflu] 75 mg PO Q12HR #10 cap 10/01/18 Erythromycin Ophth Oint [Romycin 1 applic LEFT EYE QID 5 Days #1 04/07/19 Ophth Oint] tube Azithromycin [Zithromax Z-pack (6 250 mg PO DIRECTED #6 tab 08/04/19 tabs)] predniSONE [Deltasone] 20 mg PO BID #10 tab 08/04/19 Albuterol Inhaler (Mhu) [Ventolin 1 - 2 puff INHALATION Q6HR PRN #1 09/29/19 Hfa Inhaler (Mhu)] inhaler Azithromycin [Zithromax Z-pack (6 250 mg PO DIRECTED #6 tab 09/29/19 tabs)] predniSONE 50 mg PO DAILY #5 tablet 09/29/19 Azithromycin [Zithromax Z-pack (6 0 mg PO DIRECTED #1 pack 04/10/20 tabs)] predniSONE 50 mg PO DAILY #5 tab 04/10/20 Allergies Allergy/AdvReac Type Severity Reaction Status Date / Time iodine Allergy Swelling Verified 04/16/20 10:18 shellfish derived [Shellfish] Allergy Swelling Verified 04/16/20 10:18 venom-honey bee Allergy Swelling Verified 04/16/20 10:18 [bee venom (honey bee)] Review of Systems ROS Statement: Those systems with pertinent positive or pertinent negative responses have been documented in the HPI. ROS Other: All systems not noted in ROS Statement are negative. 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 pt stated unable to bx it, enlargement to lymph nodes upper chest no bx done-dr watching it., psoriasis, restless leg syndrome,ddd spondylosis, 2 herniated disc in neck, 2 in lower back, scoliosis, enlarged prostate, kidney stones, 3 lung masses per pt., RIGHT EYE - METAL REMOVED Last Myocardial Infarction Date:: Aug 2015 History of Any Multi-Drug Resistant Organisms: None Reported Past Surgical History: Heart Catheterization With Stent, Orthopedic Surgery, Tonsillectomy Additional Past Surgical History / Comment(s): rhinoplasty, left tibial cyst with bone graft from the pelvis to the tibia(pins/screws, orif lt hip (pins) Past Anesthesia/Blood Transfusion Reactions: No Reported Reaction Additional Past Anesthesia/Blood Transfusion Reaction / Comment(s): claustrophobic Date of Last Stent Placement:: Aug 2015 Past Psychological History: Anxiety, Depression Smoking Status: Current every day smoker Past Alcohol Use History: None Reported Past Drug Use History: None Reported - Past Family History Father Family Medical History: No Reported History Mother Family Medical History: COPD, CVA/TIA Additional Family Medical History / Comment(s): Mother is alive as far as pt knows and should be age 74. Pt does not have much contact with mother. Brother(s) Additional Family Medical History / Comment(s): He has 2 brothers, one has metal health issues, one is an addict on crack and other street drugs. Sister(s) Family Medical History: Cancer, Liver Disease Additional Family Medical History / Comment(s): Patient had 2 sisters, one from breast cancer, one from cirrhosis at the age of 19 with history of heavy alcohol use and Crohn's disease. General Exam - General Exam Comments Initial Comments: General: The patient is awake and alert, in no distress Eye: Pupils are equal, round and reactive to light, extra-ocular movements are intact. No nystagmus. There is normal conjunctiva bilaterally. No signs of icterus. Cardiovascular: There is a regular rate and rhythm. No murmur, rub or gallop is appreciated. Respiratory: Lungs are clear to auscultation, respirations are non-labored, breath sounds are equal. No wheezes, stridor, rales, or rhonchi. Gastrointestinal: Soft, non-distended, non-tender abdomen without masses or organomegaly noted. There is no rebound or guarding present : No scrotal swelling or pain. There is a palpable reducible left inguinal hernia. Minimal pain to palpation. Musculoskeletal: Normal ROM, no tenderness. Strength 5/5. Sensation intact. Radial pulses equal bilaterally 2+. Neurological: A&O x 3. CN II-XII intact grossly, There are no obvious motor or sensory deficits. Coordination appears grossly intact. Speech is normal. Skin: Skin is warm and dry and no rashes or lesions are noted. Psychiatric: Cooperative, appropriate mood & affect, normal judgment. Limitations: no limitations Course Vital Signs 04/16/20 04/16/20 04/16/20 10:15 11:18 11:53 Temperature 97.8 F 97.6 F Pulse Rate 65 67 Respiratory 16 18 18 Rate Blood Pressure 145/80 130/88 O2 Sat by Pulse 98 98 Oximetry Medical Decision Making - Medical Decision Making Exam reducible inguinal hernia. Minimal pain. Pain increases wtih cough. UA no RBC. Patient appears well nontoxic no current tenderness. Discussed weight lifting/activity restrictions, risk/symptoms of incarceration/strangulation. Patient verbalized understanding and was discharged appearing well. - Lab Data Lab Results 04/16/20 Range/Units 10:41 Urine Color Yellow Urine Appearance Clear (Clear) Urine pH 6.5 (5.0-8.0) Ur Specific [place] 1.018 (1.001-1.035) Urine Protein Negative (Negative) Urine Glucose (UA) Negative (Negative) Urine Ketones Negative (Negative) Urine Blood Negative (Negative) Urine Nitrite Negative (Negative) Urine Bilirubin Negative (Negative) Urine Urobilinogen 2.0 (<2.0) mg/dL Ur Leukocyte Esterase Negative (Negative) Disposition Clinical Impression: Inguinal hernia, left Disposition: HOME SELF-CARE Condition: Good Instructions (If sedation given, give patient instructions): Inguinal Hernia (ED) Additional Instructions: Please use medication as discussed. Please follow-up with family doctor in the next 2 days, please follow-up with general surgery Please return to emergency room if the symptoms increase or worsen or for any other concerns. Is patient prescribed a controlled substance at d/c from ED?: No Referrals: Indy Allen MD [Primary Care Provider] - 1-2 days Galen Crockett DO [Doctor of Osteopathic Medicine] - 1-2 days Time of Disposition: 11:32
[2020-04-16 11:44] VITALS: RESP 18
[2020-04-16 11:54] VITALS: BP 130/88; PULSE 67; TEMP 97.6
== END 2020-04-16 11:54 | disposition home or self-care (01) ==
LOC: EC 10:13
DX: K40.90 Unilateral inguinal hernia, without obstruction or gangrene, not specified as recurrent (principal); F32.9 Major depressive disorder, single episode, unspecified; F41.9 Anxiety disorder, unspecified; F17.200 Nicotine dependence, unspecified, uncomplicated; J44.9 Chronic obstructive pulmonary disease, unspecified; I25.2 Old myocardial infarction; M19.90 Unspecified osteoarthritis, unspecified site; G25.81 Restless legs syndrome; I20.9 Angina pectoris, unspecified; Z79.51 Long term (current) use of inhaled steroids; Z79.82 Long term (current) use of aspirin; Z79.899 Other long term (current) drug therapy; Z91.013 Allergy to seafood; Z91.030 Bee allergy status; Z91.041 Radiographic dye allergy status; Z95.5 Presence of coronary angioplasty implant and graft
CPT/HCPCS: 81003; 99283

== ENCOUNTER → 2020-05-11 | Outpatient (CLI) | payer OTHER ==
--- NOTE | 2020-05-11 18:10 | CT ---
EXAMINATION TYPE: CT abdomen pelvis w con DATE OF EXAM: 05/11/2020 COMPARISON: NONE HISTORY: 54-year-old male Cramping/spasm, ripping sensation when coughing. Possible hernia TECHNIQUE: Contiguous axial scanning of the abdomen and pelvis following administration of 100 ml Iso abraham 300 IV contrast. Delayed images through the kidneys and coronal/sagittal reconstructions perform ed. CT DLP: 609 mGycm Automated exposure control for dose reduction was used. FINDINGS: Heart normal size without pericardial effusion. Some scattered emphysematous change in the visualized lower lungs. No pleural effusion. No focal liver lesion or biliary ductal dilatation. Portal venous system is patent. Gallbladder, adrenal glands, left kidney, spleen, and pancreas appear within normal limits. Punctate 3 mm nonobstructive right lower pole renal calculus. No dilated small bowel, free fluid, or free air. No mesenteric or retroperitoneal lymphadenopathy. Scattered mild stool. No pericolonic inflammatory change. Oral contrast has progressed to the hepatic flexure of the colon. Bladder is prominently urine distended. Prostate gland measures enlarged at 5.2 cm wide. No abnormal fluid collection in the pelvis or pelvic lymphadenopathy. Bones: Mild degenerative change at the right hip and right SI joint. Moderate degenerative disc disea se L5-S1. Facet arthropathy in the lower lumbar spine. There may be moderate to severe neuroforaminal stenoses on both sides at L5-S1. IMPRESSION: 1. A PUNCTATE 3 MM NONOBSTRUCTIVE RIGHT RENAL CALCULUS. 2. SOME SCATTERED EMPHYSEMATOUS CHANGE IN THE VISUALIZED LOWER LUNGS. 3. NO ABDOMINAL WALL HERNIA.
== END | disposition home or self-care (01) ==
LOC: RADCTMAIN 15:44
PROVIDERS: ATTEND Family Medicine
DX: N20.0 Calculus of kidney (principal)
CPT/HCPCS: 74177; Q9967

== ENCOUNTER → 2020-05-15 | Outpatient (CLI) | payer OTHER ==
--- NOTE | 2020-05-17 13:38 | P.ARTDOP ---
Arterial Doppler LOWER EXTREMITY ARTERIAL DOPPLER: DATE OF SERVICE: 05/15/2020 Reason for study: Bilateral leg pain. Doppler waveforms: Multiphasic bilaterally throughout.. Pulse volume recording: []. Pressure gradients: Minimal gradients at the toe level. Ankle-brachial indices: Greater than 1 bilaterally. Toe brachial indices: 0.65 on the right, 0.50 on the left Impression: Normal study. Suspect decreased toe pressures related to vasospastic phenomenon..
== END | disposition home or self-care (01) ==
LOC: RADUSWWP 12:08
PROVIDERS: ATTEND Family Medicine
DX: R25.2 Cramp and spasm (principal)
CPT/HCPCS: 93922; 93923

== ENCOUNTER 2020-05-27 21:55 | Emergency (ER) | payer OTHER ==
--- NOTE | 2020-05-27 22:24 | ED ---
Abdominal Pain HPI - General Chief Complaint: Abdominal Pain Stated Complaint: Groin Pain,Hernia Time Seen by Provider: 05/27/20 22:04 Source: patient Mode of arrival: ambulatory Limitations: no limitations - History of Present Illness Initial Comments: 's patient is a [id number] with history of left inguinal hernia, who presents with a flareup of the pain associated with his hernia. The patient states that he had a coughing spell and then felt like maybe something tore in that location. He has had some pain that is somewhat sharp, somewhat burning since that time. Patient states that he is able to reduce the hernia himself, but was told that he should be reevaluated if he has increased pain. He did have some nausea earlier. No vomiting. No change in bowel movements or urination. No testicular or scrotal pain or mass MD Complaint: abdominal pain -: week(s) Location: LLQ Radiation: none Migration to: no migration Severity: moderate Quality: sharp, burning Consistency: constant Improves With: nothing Worsens With: other (cough) - Related Data Home Medications Medication Instructions Recorded Confirmed Aspirin [Adult Low Dose Aspirin EC] 81 mg PO DAILY 03/24/18 05/27/20 Atorvastatin Calcium [Lipitor] 40 mg PO DAILY 04/29/18 05/27/20 Albuterol Inhaler [Ventolin Hfa 1 - 2 puff INHALATION RT-Q4H PRN 05/27/20 05/27/20 Inhaler] Fluticasone/Salmeterol 1 puff INHALATION RT-BID 05/27/20 05/27/20 [Fluticasone-Salmeterol 113-14] Ipratropium-Albuterol Nebulize 3 ml INHALATION RT-TID PRN 05/27/20 05/27/20 [Duoneb 0.5 mg-3 mg/3 ml Soln] Losartan [Cozaar] 25 mg PO DAILY 05/27/20 05/27/20 Montelukast Sodium [Singulair] 10 mg PO HS 05/27/20 05/27/20 Pramipexole [Mirapex] 0.125 mg PO HS 05/27/20 05/27/20 Previous Rx's Medication Instructions Recorded Clopidogrel [Plavix] 75 mg PO DAILY #30 tab 08/26/15 Metoprolol Tartrate [Lopressor] 25 mg PO BID #60 tab 08/26/15 Allergies Allergy/AdvReac Type Severity Reaction Status Date / Time iodine Allergy Swelling Verified 05/27/20 23:00 shellfish derived [Shellfish] Allergy Swelling Verified 05/27/20 23:00 venom-honey bee Allergy Swelling Verified 05/27/20 23:00 [bee venom (honey bee)] Review of Systems ROS Statement: Those systems with pertinent positive or pertinent negative responses have been documented in the HPI. ROS Other: All systems not noted in ROS Statement are negative. Constitutional: Denies: fever, chills Respiratory: Denies: cough, dyspnea Cardiovascular: Denies: chest pain, palpitations, edema Gastrointestinal: Reports: as per HPI, abdominal pain, nausea. 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 pt stated unable to bx it, enlargement to lymph nodes upper chest no bx done-dr watching it., psoriasis, restless leg syndrome,ddd spondylosis, 2 herniated disc in neck, 2 in lower back, scoliosis, enlarged prostate, kidney stones, 3 lung masses per pt., RIGHT EYE - METAL REMOVED Last Myocardial Infarction Date:: Aug 2015 History of Any Multi-Drug Resistant Organisms: None Reported Past Surgical History: Heart Catheterization With Stent, Orthopedic Surgery, Tonsillectomy Additional Past Surgical History / Comment(s): rhinoplasty, left tibial cyst with bone graft from the pelvis to the tibia(pins/screws, orif lt hip (pins) Past Anesthesia/Blood Transfusion Reactions: No Reported Reaction Additional Past Anesthesia/Blood Transfusion Reaction / Comment(s): claustrophobic Date of Last Stent Placement:: Aug 2015 Past Psychological History: Anxiety, Depression Smoking Status: Current every day smoker Past Alcohol Use History: Occasional Past Drug Use History: None Reported - Past Family History Father Family Medical History: No Reported History Mother Family Medical History: COPD, CVA/TIA Additional Family Medical History / Comment(s): Mother is alive as far as pt knows and should be age 74. Pt does not have much contact with mother. Brother(s) Additional Family Medical History / Comment(s): He has 2 brothers, one has metal health issues, one is an addict on crack and other street drugs. Sister(s) Family Medical History: Cancer, Liver Disease Additional Family Medical History / Comment(s): Patient had 2 sisters, one from breast cancer, one from cirrhosis at the age of 19 with history of heavy alcohol use and Crohn's disease. General Exam Limitations: no limitations General appearance: alert, in no apparent distress Head exam: Present: atraumatic, normocephalic Eye exam: Present: normal appearance. Absent: scleral icterus, conjunctival injection ENT exam: Present: normal oropharynx Neck exam: Present: normal inspection Respiratory exam: Present: normal lung sounds bilaterally. Absent: respiratory distress, wheezes, rales, rhonchi, stridor Cardiovascular Exam: Present: regular rate, normal rhythm, normal heart sounds. Absent: systolic murmur, diastolic murmur, rubs, gallop GI/Abdominal exam: Present: soft, tenderness (left inguinal), normal bowel sounds, hernia (there is a left inguinal hernia which is easily reduced. The a bdominal wall at that location is mildly tender). Absent: distended, guarding, rebound, rigid, mass, pulsatile mass Extremities exam: Present: normal inspection, normal capillary refill. Absent: pedal edema, calf tenderness Back exam: Present: normal inspection. Absent: CVA tenderness (R), CVA tenderness (L) Neurological exam: Present: alert Skin exam: Present: warm, dry, intact, normal color. Absent: rash Course Vital Signs 05/27/20 21:58 Temperature 97 F L Pulse Rate 72 Respiratory 20 Rate Blood Pressure 130/80 O2 Sat by Pulse 99 Oximetry Medical Decision Making - Medical Decision Making shouldn't is 55-year-old man with episode of abdominal pain that has resolved. There is no further tenderness. He states that he feels well and does want to go home. He did request to have follow-up information for a different surgeon,so that he may obtain a second opinion. - Lab Data Result diagrams: 05/27/20 22:34 05/27/20 22:34 Lab Results 05/27/20 05/27/20 05/27/20 Range/Units 22:34 22:34 22:34 WBC 7.2 (3.8-10.6) k/uL RBC 4.78 (4.30-5.90) m/uL Hgb 15.0 (13.0-17.5) gm/dL Hct 45.5 (39.0-53.0) % MCV 95.3 (80.0-100.0) fL MCH 31.3 (25.0-35.0) pg MCHC 32.9 (31.0-37.0) g/dL RDW 12.4 (11.5-15.5) % Plt Count 163 (150-450) k/uL Neutrophils % 55 % Lymphocytes % 33 % Monocytes % 6 % Eosinophils % 4 % Basophils % 1 % Neutrophils # 4.0 (1.3-7.7) k/uL Lymphocytes # 2.4 (1.0-4.8) k/uL Monocytes # 0.4 (0-1.0) k/uL Eosinophils # 0.3 (0-0.7) k/uL Basophils # 0.1 (0-0.2) k/uL Sodium 136 L (137-145) mmol/L Potassium 4.3 (3.5-5.1) mmol/L Chloride 105 (98-107) mmol/L Carbon Dioxide 25 (22-30) mmol/L Anion Gap 6 mmol/L BUN 28 H (9-20) mg/dL Creatinine 0.86 (0.66-1.25) mg/dL Est GFR (CKD-EPI)AfAm >90 (>60 ml/min/1.73 sqM) Est GFR (CKD-EPI)NonAf >90 (>60 ml/min/1.73 sqM) Glucose 104 H (74-99) mg/dL Plasma Lactic Acid Obdulio (0.7-2.0) mmol/L Calcium 9.3 (8.4-10.2) mg/dL Total Bilirubin 0.5 (0.2-1.3) mg/dL AST 25 (17-59) U/L ALT 24 (4-49) U/L Alkaline Phosphatase 51 (38-126) U/L Total Protein 6.3 (6.3-8.2) g/dL Albumin 4.0 (3.5-5.0) g/dL Amylase 35 (30-110) U/L Lipase 113 (23-300) U/L Urine Color Yellow Urine Appearance Clear (Clear) Urine pH 6.0 (5.0-8.0) Ur Specific [place] 1.024 (1.001-1.035) Urine Protein Negative (Negative) Urine Glucose (UA) Negative (Negative) Urine Ketones Negative (Negative) Urine Blood Trace H (Negative) Urine Nitrite Negative (Negative) Urine Bilirubin Negative (Negative) Urine Urobilinogen 6.0 (<2.0) mg/dL Ur Leukocyte Esterase Negative (Negative) Urine RBC 5 (0-5) /hpf Urine WBC 1 (0-5) /hpf 05/27/20 Range/Units 22:34 WBC (3.8-10.6) k/uL RBC (4.30-5.90) m/uL Hgb (13.0-17.5) gm/dL Hct (39.0-53.0) % MCV (80.0-100.0) fL MCH (25.0-35.0) pg MCHC (31.0-37.0) g/dL RDW (11.5-15.5) % Plt Count (150-450) k/uL Neutrophils % % Lymphocytes % % Monocytes % % Eosinophils % % Basophils % % Neutrophils # (1.3-7.7) k/uL Lymphocytes # (1.0-4.8) k/uL Monocytes # (0-1.0) k/uL Eosinophils # (0-0.7) k/uL Basophils # (0-0.2) k/uL Sodium (137-145) mmol/L Potassium (3.5-5.1) mmol/L Chloride (98-107) mmol/L Carbon Dioxide (22-30) mmol/L Anion Gap mmol/L BUN (9-20) mg/dL Creatinine (0.66-1.25) mg/dL Est GFR (CKD-EPI)AfAm (>60 ml/min/1.73 sqM) Est GFR (CKD-EPI)NonAf (>60 ml/min/1.73 sqM) Glucose (74-99) mg/dL Plasma Lactic Acid Obdulio 0.8 (0.7-2.0) mmol/L Calcium (8.4-10.2) mg/dL Total Bilirubin (0.2-1.3) mg/dL AST (17-59) U/L ALT (4-49) U/L Alkaline Phosphatase (38-126) U/L Total Protein (6.3-8.2) g/dL Albumin (3.5-5.0) g/dL Amylase (30-110) U/L Lipase (23-300) U/L Urine Color Urine Appearance (Clear) Urine pH (5.0-8.0) Ur Specific [place] (1.001-1.035) Urine Protein (Negative) Urine Glucose (UA) (Negative) Urine Ketones (Negative) Urine Blood (Negative) Urine Nitrite (Negative) Urine Bilirubin (Negative) Urine Urobilinogen (<2.0) mg/dL Ur Leukocyte Esterase (Negative) Urine RBC (0-5) /hpf Urine WBC (0-5) /hpf Disposition Clinical Impression: Hernia Disposition: HOME SELF-CARE Condition: Good Instructions (If sedation given, give patient instructions): Inguinal Hernia (ED) Additional Instructions: as we discussed, there were a few red blood cells and your urine, follow-up to ensure that that resolves. Is patient prescribed a controlled substance at d/c from ED?: No Referrals: Indy Allen MD [Primary Care Provider] - 1-2 days Stephan Valdes MD [STAFF PHYSICIAN] - 1-2 days
[2020-05-27 22:45] LABS: Appearance,Urine Clear (Clear); Basophils # (A) 0.1 k/uL (0-0.2); Basophils % (A) 1 %; Bilirubin,Urine Negative (Negative); Blood,Urine Trace (Negative); Color,Urine Yellow; Eosinophils # (A) 0.3 k/uL (0-0.7); Eosinophils % (A) 4 %; Glucose,Urine (UA) Negative (Negative); HCT 45.5 % (39.0-53.0); Ketones,Urine Negative (Negative); Leukocyte Esterase,Urine Negative (Negative); Lymphocytes # (A) 2.4 k/uL (1.0-4.8); Lymphocytes % (A) 33 %; MCH 31.3 pg (25.0-35.0); MCHC 32.9 g/dL (31.0-37.0); MCV 95.3 fL (80.0-100.0); Mean Platelet Volume 8.4; Monocytes # (A) 0.4 k/uL (0-1.0); Monocytes % (A) 6 %; Neutrophils % (A) 55 %; Nitrite,Urine Negative (Negative); Platelet Count 163 k/uL (150-450); Protein,Urine Negative (Negative); RBC 4.78 m/uL (4.30-5.90); RBC,Urine 5 /hpf (0-5); RDW 12.4 % (11.5-15.5); Specific Gravity,Urine 1.024 (1.001-1.035); WBC 7.2 k/uL (3.8-10.6); WBC,Urine 1 /hpf (0-5)
[2020-05-27 22:51] LABS: ALT 24 U/L (4-49); AST 25 U/L (17-59); African American GFR (CKD) >90 (>60 ml/min/1.73 sqM); Alkaline Phosphatase 51 U/L (38-126); Amylase 35 U/L (30-110); Anion Gap 6 mmol/L; Blood Urea Nitrogen 28 mg/dL (9-20); Calcium 9.3 mg/dL (8.4-10.2); Carbon Dioxide 25 mmol/L (22-30); Chloride 105 mmol/L (98-107); Glucose 104 mg/dL (74-99); Lipase 113 U/L (23-300); Non-African American GFR(CKD) >90 (>60 ml/min/1.73 sqM); Potassium 4.3 mmol/L (3.5-5.1); Sodium 136 mmol/L (137-145); Total Bilirubin 0.5 mg/dL (0.2-1.3); Total Protein 6.3 g/dL (6.3-8.2)
[2020-05-27 23:31] VITALS: BP 121/75; PULSE 71; RESP 18; TEMP 98.2
== END 2020-05-27 23:31 | disposition home or self-care (01) ==
LOC: EC 21:55
DX: K40.90 Unilateral inguinal hernia, without obstruction or gangrene, not specified as recurrent (principal); G25.81 Restless legs syndrome; M19.90 Unspecified osteoarthritis, unspecified site; J44.9 Chronic obstructive pulmonary disease, unspecified; I20.9 Angina pectoris, unspecified; I25.2 Old myocardial infarction; F17.200 Nicotine dependence, unspecified, uncomplicated; Z79.51 Long term (current) use of inhaled steroids; Z79.899 Other long term (current) drug therapy; Z79.82 Long term (current) use of aspirin; Z91.048 Other nonmedicinal substance allergy status; Z91.013 Allergy to seafood; Z91.030 Bee allergy status; Z87.442 Personal history of urinary calculi
CPT/HCPCS: 36415; 80053; 81001; 82150; 83605; 83690; 85025; 99284

== ENCOUNTER 2020-07-17 12:01 | Observation (INO) | payer OTHER ==
[2020-07-17] MEDS ORDERED: ACETAMINOPHEN TAB 500 MG TAB PO PRN (12:23)
[2020-07-17] MEDS ORDERED: ACETAMINOPHEN TAB 500 MG TAB PO STA (12:23)
[2020-07-17] MEDS ORDERED: ALBUTEROL HFA INHALER INHALATION STA (12:23)
[2020-07-17] MEDS ORDERED: ALBUTEROL HFA INHALER INHALATION PRN (12:23)
--- NOTE | 2020-07-17 12:26 | ED ---
General Adult HPI - General Chief complaint: Shortness of Breath Stated complaint: SOB Time Seen by Provider: 07/17/20 12:10 Source: patient, RN notes reviewed Mode of arrival: ambulatory Limitations: no limitations - History of Present Illness Initial comments: Patient is a pleasant 55-year-old male presenting to the emergency Department with complaints of shortness of breath. Onset of symptoms was just the past hour or 2. Patient does have history of similar symptoms previously associated with COPD and bronchitis. Patient does have cough with occasional white sputum. Patient does feel warm. No leg pain or leg swelling. No specific trigger for his dyspnea today. - Related Data Home Medications Medication Instructions Recorded Confirmed Aspirin [Adult Low Dose Aspirin EC] 81 mg PO DAILY 03/24/18 07/17/20 Atorvastatin Calcium [Lipitor] 40 mg PO DAILY 04/29/18 07/17/20 Albuterol Inhaler [Ventolin Hfa 1 - 2 puff INHALATION RT-Q4H PRN 05/27/20 07/17/20 Inhaler] Fluticasone/Salmeterol 1 puff INHALATION RT-BID 05/27/20 07/17/20 [Fluticasone-Salmeterol 113-14] Ipratropium-Albuterol Nebulize 3 ml INHALATION RT-TID PRN 05/27/20 07/17/20 [Duoneb 0.5 mg-3 mg/3 ml Soln] Losartan [Cozaar] 25 mg PO DAILY 05/27/20 07/17/20 Montelukast Sodium [Singulair] 10 mg PO HS 05/27/20 07/17/20 Pramipexole [Mirapex] 0.125 mg PO HS 05/27/20 07/17/20 Previous Rx's Medication Instructions Recorded Clopidogrel [Plavix] 75 mg PO DAILY #30 tab 08/26/15 Metoprolol Tartrate [Lopressor] 25 mg PO BID #60 tab 08/26/15 Allergies Allergy/AdvReac Type Severity Reaction Status Date / Time iodine Allergy Swelling Verified 07/17/20 13:36 salmon oil Allergy Unknown Verified 07/17/20 13:36 shellfish derived [Shellfish] Allergy Swelling Verified 07/17/20 13:36 venom-honey bee Allergy Swelling Verified 07/17/20 13:36 [bee venom (honey bee)] Review of Systems ROS Statement: Those systems with pertinent positive or pertinent negative responses have been documented in the HPI. ROS Other: All systems not noted in ROS Statement are negative. 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 unable to bx it, enlargement to lymph nodes upper chest no bx done-dr watching it., psoriasis, restless leg syndrome,ddd spondylosis, 2 herniated disc in neck, 2 in lower back, scoliosis, enlarged prostate, kidney stones, 3 lung masses per pt., RIGHT EYE - METAL REMOVED Last Myocardial Infarction Date:: Aug 2015 History of Any Multi-Drug Resistant Organisms: None Reported Past Surgical History: Heart Catheterization With Stent, Orthopedic Surgery, Tonsillectomy Additional Past Surgical History / Comment(s): rhinoplasty, left tibial cyst with bone graft from the pelvis to the tibia(pins/screws, orif lt hip (pins) Past Anesthesia/Blood Transfusion Reactions: No Reported Reaction Additional Past Anesthesia/Blood Transfusion Reaction / Comment(s): claustrophobic Date of Last Stent Placement:: Aug 2015 Past Psychological History: Anxiety, Depression Smoking Status: Current every day smoker Past Alcohol Use History: Occasional Past Drug Use History: None Reported - Past Family History Father Family Medical History: No Reported History Mother Family Medical History: COPD, CVA/TIA Additional Family Medical History / Comment(s): Mother is alive as far as pt knows and should be age 74. Pt does not have much contact with mother. Brother(s) Additional Family Medical History / Comment(s): He has 2 brothers, one has metal health issues, one is an addict on crack and other street drugs. Sister(s) Family Medical History: Cancer, Liver Disease Additional Family Medical History / Comment(s): Patient had 2 sisters, one from breast cancer, one from cirrhosis at the age of 19 with history of heavy alcohol use and Crohn's disease. General Exam Limitations: no limitations General appearance: alert, in no apparent distress Head exam: Present: normocephalic Eye exam: Present: normal appearance Neck exam: Present: normal inspection Respiratory exam: Present: rhonchi Cardiovascular Exam: Present: regular rate, normal rhythm GI/Abdominal exam: Present: soft. Absent: tenderness Extremities exam: Present: normal inspection. Absent: pedal edema, calf tenderness Neurological exam: Present: alert Psychiatric exam: Present: normal affect, normal mood Skin exam: Present: normal color Course Vital Signs 07/17/20 07/17/20 07/17/20 12:03 12:05 12:33 Temperature 97.6 F Pulse Rate 61 75 Respiratory 22 18 16 Rate Blood Pressure 112/72 100/69 O2 Sat by Pulse 94 L 98 Oximetry 07/17/20 13:54 Temperature Pulse Rate 82 Respiratory 16 Rate Blood Pressure 114/82 O2 Sat by Pulse 99 Oximetry EKG Findings - EKG Comments: EKG Findings:: Normal sinus rhythm 66. OH 160. QRS 80. QT 386. QTc 404. Normal axis. Normal QRS. No acute ST change. Medical Decision Making - Medical Decision Making Patient reevaluated and still has some accessory muscle use. Lung sounds have improved. Patient updated on results and plan. Case was discussed with Dr. sampson, who will admit covering for Dr. Hastings. - Lab Data Result diagrams: 07/17/20 12:26 07/17/20 12:25 Lab Results 07/17/20 07/17/20 07/17/20 Range/Units 12:25 12:25 12:25 WBC (3.8-10.6) k/uL RBC (4.30-5.90) m/uL Hgb (13.0-17.5) gm/dL Hct (39.0-53.0) % MCV (80.0-100.0) fL MCH (25.0-35.0) pg MCHC (31.0-37.0) g/dL RDW (11.5-15.5) % Plt Count (150-450) k/uL MPV Neutrophils % % Lymphocytes % % Monocytes % % Eosinophils % % Basophils % % Neutrophils # (1.3-7.7) k/uL Lymphocytes # (1.0-4.8) k/uL Monocytes # (0-1.0) k/uL Eosinophils # (0-0.7) k/uL Basophils # (0-0.2) k/uL PT 10.9 (9.0-12.0) sec INR 1.1 (<1.2) APTT 24.9 (22.0-30.0) sec Sodium 137 (137-145) mmol/L Potassium 5.1 (3.5-5.1) mmol/L Chloride 105 (98-107) mmol/L Carbon Dioxide 28 (22-30) mmol/L Anion Gap 4 mmol/L BUN 22 H (9-20) mg/dL Creatinine 0.95 (0.66-1.25) mg/dL Est GFR (CKD-EPI)AfAm >90 (>60 ml/min/1.73 sqM) Est GFR (CKD-EPI)NonAf >90 (>60 ml/min/1.73 sqM) Glucose 98 (74-99) mg/dL Plasma Lactic Acid Obdulio 0.8 (0.7-2.0) mmol/L Calcium 9.8 (8.4-10.2) mg/dL Magnesium 1.8 (1.6-2.3) mg/dL Total Bilirubin 0.8 (0.2-1.3) mg/dL AST 33 (17-59) U/L ALT 38 (4-49) U/L Alkaline Phosphatase 47 (38-126) U/L Lactate Dehydrogenase 432 (313-618) U/L C-Reactive Protein <5.0 (<10.0) mg/L Total Protein 7.4 (6.3-8.2) g/dL Albumin 4.8 (3.5-5.0) g/dL Coronavirus (PCR) (Not Detectd) 07/17/20 07/17/20 Range/Units 12:26 12:26 WBC 8.0 (3.8-10.6) k/uL RBC 5.33 (4.30-5.90) m/uL Hgb 16.9 (13.0-17.5) gm/dL Hct 49.2 (39.0-53.0) % MCV 92.3 (80.0-100.0) fL MCH 31.6 (25.0-35.0) pg MCHC 34.3 (31.0-37.0) g/dL RDW 12.3 (11.5-15.5) % Plt Count 193 (150-450) k/uL MPV 7.7 Neutrophils % 65 % Lymphocytes % 25 % Monocytes % 5 % Eosinophils % 2 % Basophils % 1 % Neutrophils # 5.2 (1.3-7.7) k/uL Lymphocytes # 2.0 (1.0-4.8) k/uL Monocytes # 0.4 (0-1.0) k/uL Eosinophils # 0.2 (0-0.7) k/uL Basophils # 0.1 (0-0.2) k/uL PT (9.0-12.0) sec INR (<1.2) APTT (22.0-30.0) sec Sodium (137-145) mmol/L Potassium (3.5-5.1) mmol/L Chloride (98-107) mmol/L Carbon Dioxide (22-30) mmol/L Anion Gap mmol/L BUN (9-20) mg/dL Creatinine (0.66-1.25) mg/dL Est GFR (CKD-EPI)AfAm (>60 ml/min/1.73 sqM) Est GFR (CKD-EPI)NonAf (>60 ml/min/1.73 sqM) Glucose (74-99) mg/dL Plasma Lactic Acid Obdulio (0.7-2.0) mmol/L Calcium (8.4-10.2) mg/dL Magnesium (1.6-2.3) mg/dL Total Bilirubin (0.2-1.3) mg/dL AST (17-59) U/L ALT (4-49) U/L Alkaline Phosphatase (38-126) U/L Lactate Dehydrogenase (313-618) U/L C-Reactive Protein (<10.0) mg/L Total Protein (6.3-8.2) g/dL Albumin (3.5-5.0) g/dL Coronavirus (PCR) Not Detected (Not Detectd) - Radiology Data Radiology results: image reviewed (Chest x-ray reported as no acute process. I have some concern for increased interstitial markings.) Disposition Clinical Impression: COPD (chronic obstructive pulmonary disease) Disposition: ADMITTED IP TO THIS HOSP Is patient prescribed a controlled substance at d/c from ED?: No Referrals: Indy Allen MD [Primary Care Provider] - 1-2 days Decision Time: 15:06
[2020-07-17 12:36] LABS: Basophils # (A) 0.1 k/uL (0-0.2); Basophils % (A) 1 %; Eosinophils # (A) 0.2 k/uL (0-0.7); Eosinophils % (A) 2 %; HCT 49.2 % (39.0-53.0); HGB 16.9 gm/dL (13.0-17.5); Lymphocytes % (A) 25 %; MCH 31.6 pg (25.0-35.0); MCHC 34.3 g/dL (31.0-37.0); MCV 92.3 fL (80.0-100.0); Mean Platelet Volume 7.7; Monocytes # (A) 0.4 k/uL (0-1.0); Monocytes % (A) 5 %; Neutrophils # (A) 5.2 k/uL (1.3-7.7); Neutrophils % (A) 65 %; Platelet Count 193 k/uL (150-450); RBC 5.33 m/uL (4.30-5.90); RDW 12.3 % (11.5-15.5)
[2020-07-17 12:48] LABS: ALT 38 U/L (4-49); AST 33 U/L (17-59); African American GFR (CKD) >90 (>60 ml/min/1.73 sqM); Albumin 4.8 g/dL (3.5-5.0); Alkaline Phosphatase 47 U/L (38-126); Anion Gap 4 mmol/L; Blood Urea Nitrogen 22 mg/dL (9-20); C Reactive Protein <5.0 mg/L (<10.0); Calcium 9.8 mg/dL (8.4-10.2); Carbon Dioxide 28 mmol/L (22-30); Chloride 105 mmol/L (98-107); Glucose 98 mg/dL (74-99); LDH 432 U/L (313-618); Magnesium 1.8 mg/dL (1.6-2.3); Non-African American GFR(CKD) >90 (>60 ml/min/1.73 sqM); Potassium 5.1 mmol/L (3.5-5.1); Sodium 137 mmol/L (137-145); Total Bilirubin 0.8 mg/dL (0.2-1.3); Total Protein 7.4 g/dL (6.3-8.2)
--- NOTE | 2020-07-17 12:50 | XR ---
EXAMINATION TYPE: XR chest 1V portable DATE OF EXAM: 07/17/2020 COMPARISON: CXR from 04/10/2020. HISTORY: History of COPD with cough and shortness of breath. TECHNIQUE: Single frontal view of the chest is obtained. FINDINGS: There is chronic emphysematous change without suspicious new focal air space opacity, pleu ral effusion, or pneumothorax seen bilaterally. The cardiac silhouette size remains within normal li mits. The osseous structures are intact. IMPRESSION: Chronic emphysematous changes without acute pulmonary process.
[2020-07-17 12:56] LABS: INR 1.1 (<1.2); Partial Thromboplastin Time 24.9 sec (22.0-30.0); Prothrombin Time 10.9 sec (9.0-12.0)
[2020-07-17] MEDS: ALBUTEROL HFA INHALER INHALATION SCH ×3 (13:18→20:16)
[2020-07-17] MEDS ORDERED: IPRATROPIUM-ALBUTEROL 3 ML NEB INHALATION STA (15:04)
[2020-07-17] MEDS ORDERED: IPRATROPIUM-ALBUTEROL 3 ML NEB INHALATION PRN (15:07)
[2020-07-17] MEDS ORDERED: methylPREDNISolone SOD SUCCI 125 MG/2 ML VIAL IV STA (15:07)
[2020-07-17] MEDS: IPRATROPIUM-ALBUTEROL 3 ML NEB INHALATION SCH ×2 (15:38→20:16)
[2020-07-17] MEDS: methylPREDNISolone SOD SUCCI 125 MG/2 ML VIAL IV SCH ×2 (17:11→23:48)
--- NOTE | 2020-07-17 17:38 | P.HPIM ---
History of Present Illness This is a pleasant 55 years old male with past medical history of COPD and he follows up with Dr. Jasso wax specialist, GERD, hyperlipidemia, hypertension, osteoarthritis, herniated cervical disc, scoliosis, BPH, kidney stone, psoriasi s, restless legs syndrome. He is a patient of Dr. kaufman. Also he follows up with Dr. Gomez for his CAD status post 2 stents and hypertension. Also goes up with the patient positioned. patient presents because of progressive dyspnea of one-day duration associated with cough and white phlegm but no chest pain Yesterday he had diarrhea but not stopped He is not on home oxygen, and he does not use steroids chronically Patient smokes about 4-6 cigarettes per day occasional alcohol use drugs. Vitas looks stable and he is saturating 98% and 2 L/m of oxygen. Labs are unremarkable CBC, INR, BMP, liver enzymes. Cardiovascular detected. Inflammatory markers/lactate dehydrogenase and C- reactive protein are unremarkable and negative. EKG showing normal sinus rhythm at [address]-T changes. Physical showing chronic emphysematous changes without acute pulmonary process. By radiologist Review of Systems CONSTITUTIONAL: No fever, no malaise, no fatigue. HEENT: No recent visual problems or hearing problems. Denied any sore throat. CARDIOVASCULAR: No orthopnea, PND, no palpitations, no syncope. PULMONARY: No chest wall tenderness, no hemoptysis. GASTROINTESTINAL: No diarrhea, no nausea, no vomiting, no abdominal pain. Normoactive bowel sounds. NEUROLOGICAL: No headaches, no weakness, no numbness. HEMATOLOGICAL: Denies any bleeding or petechiae. GENITOURINARY: Denies any burning micturition, frequency, or urgency. MUSCULOSKELETAL/RHEUMATOLOGICAL: Denies any joint pain, swelling, or any muscle pain. ENDOCRINE: Denies any polyuria or polydipsia. 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, enlarged lymph nodes in chest, pt states he has 3 masses in between lungs that were monitored for years-no change, bronchitis, DDD, spondylosis, 2 herniated cervical discs, 2 lumbar herniated discs, scoliosis, BPH, kidney stones, psoriasis, RLS Last Myocardial Infarction Date:: Aug 2015 History of Any Multi-Drug Resistant Organisms: None Reported Past Surgical History: Heart Catheterization With Stent, Orthopedic Surgery, Tonsillectomy Additional Past Surgical History / Comment(s): ORIF L hip/pins, L tibial cyst removed/bone graft from pelvis to tibia, pain clinic procedures, rhinoplasty, colonoscopy, Past Anesthesia/Blood Transfusion Reactions: No Reported Reaction Additional Past Anesthesia/Blood Transfusion Reaction / Comment(s): claust rophobic Date of Last Stent Placement:: Aug 2015 Smoking Status: Current every day smoker - Past Family History Father History Unknown: Yes Family Medical History: No Reported History Additional Family Medical History / Comment(s): Pt does not know his father. Mother Family Medical History: COPD, CVA/TIA Additional Family Medical History / Comment(s): Mother is 80yrs old. Pt does not have much contact with mother. Brother(s) Additional Family Medical History / Comment(s): He has 2 brothers, one has metal health issues, one is an addict on crack and other street drugs. Sister(s) Family Medical History: Cancer, Liver Disease Additional Family Medical History / Comment(s): Patient had 2 sisters, one from breast cancer, one from cirrhosis at the age of 19 with history of heavy alcohol use and Crohn's disease. Medications and Allergies Home Medications Medication Instructions Recorded Confirmed Type Clopidogrel [Plavix] 75 mg PO DAILY #30 tab 08/26/15 07/17/20 Rx Metoprolol Tartrate [Lopressor] 25 mg PO BID #60 tab 08/26/15 07/17/20 Rx Aspirin [Adult Low Dose Aspirin EC] 81 mg PO DAILY 03/24/18 07/17/20 History Atorvastatin Calcium [Lipitor] 40 mg PO DAILY 04/29/18 07/17/20 History Albuterol Inhaler [Ventolin Hfa 1 - 2 puff INHALATION RT-Q4H PRN 05/27/20 07/17/20 History Inhaler] Fluticasone/Salmeterol 1 puff INHALATION RT-BID 05/27/20 07/17/20 History [Fluticasone-Salmeterol 113-14] Ipratropium-Albuterol Nebulize 3 ml INHALATION RT-TID PRN 05/27/20 07/17/20 History [Duoneb 0.5 mg-3 mg/3 ml Soln] Losartan [Cozaar] 25 mg PO DAILY 05/27/20 07/17/20 History Montelukast Sodium [Singulair] 10 mg PO HS 05/27/20 07/17/20 History Pramipexole [Mirapex] 0.125 mg PO HS 05/27/20 07/17/20 History Allergies Allergy/AdvReac Type Severity Reaction Status Date / Time iodine Allergy Swelling Verified 07/17/20 13:36 salmon oil Allergy Unknown Verified 07/17/20 13:36 shellfish derived [Shellfish] Allergy Swelling Verified 07/17/20 13:36 venom-honey bee Allergy Swelling Verified 07/17/20 13:36 [bee venom (honey bee)] Physical Exam Vitals: Vital Signs Temp Pulse Resp BP Pulse Ox 07/17/20 15:26 73 16 116/73 98 07/17/20 13:54 82 16 114/82 99 07/17/20 12:33 75 16 100/69 98 07/17/20 12:05 97.6 F 61 18 112/72 94 L 07/17/20 12:03 22 Intake and Output 07/17/20 07/17/20 07/17/20 06:59 14:59 22:59 Other: # Voids 1 Weight 56.245 kg 56.245 kg GENERAL: The patient is alert and oriented x3, not in any acute distress. Well developed, well nourished. HEENT: Pupils are round and equally reacting to light. EOMI. No scleral icterus. No conjunctival pallor. Normocephalic, atraumatic. No pharyngeal erythema. No thyromegaly. CARDIOVASCULAR: S1 and S2 present. No murmurs, rubs, or gallops. -PULMONARY: Chest is clear to auscultation, bilateral expiratory wheezing wheezing with harsh breath sounds. ABDOMEN: Soft, nontender, nondistended, normoactive bowel sounds. No palpable organomegaly. MUSCULOSKELETAL: No joint swelling or deformity. EXTREMITIES: No cyanosis, clubbing, or pedal edema. NEUROLOGICAL: Gross neurological examination did not reveal any focal deficits. SKIN: No rashes. No petechiae Results CBC & Chem 7: 07/17/20 12:26 12/28/20 12:25 Labs: Abnormal Lab Results - Last 24 Hours (Table) 07/17/20 Range/Units 12:25 BUN 22 H (9-20) mg/dL Thrombosis Risk Factor Assmnt - Choose All That Apply Any of the Below Risk Factors Present?: Yes Each Factor Represents 1 point: Abnormal pulmonary function (COPD), Age 41-60 years Other Risk Factors: No Other congenital or acquired thrombophilia - If yes, enter type in comment: No Thrombosis Risk Factor Assessment Total Risk Factor Score: 2 Thrombosis Risk Factor Assessment Level: Low Risk Assessment and Plan Assessment: Acute COPD exacerbation Hypertension Hyperlipidemia History of coronary artery disease Osteoarthritis History of GERD The prostatic hypertrophy History of spondylosis History of herniated cervical and lumbar disc Scoliosis History of kidney stones History of psoriasis Restless leg syndrome Plan: This is a pleasant 55 years old male who presents with acute COPD exacerbation. Continue with antibiotic, steroids, bronchodilators, oxygen as needed. Pulmonary consult with Dr. Jasso Labs and medication were reviewed.. Continue same treatment. Continue with symptomatic treatment. Resume home medication. Monitor lytes and vitals. DVT and GI prophylaxis. Further recommendations depends on the clinical course of the patient DVT prophylaxis: Subcutaneous heparin GI Prophylaxis: Pepcid
[2020-07-17] MEDS ORDERED: MONTELUKAST 10 MG TAB PO SCH (21:00)
[2020-07-17] MEDS ORDERED: PRAMIPEXOLE 0.125 MG TAB PO SCH (21:00)
[2020-07-17] MEDS: METOPROLOL TARTRATE 25 MG TAB PO SCH (21:02)
[2020-07-17] MEDS: FAMOTIDINE 20 MG/2 ML VIAL IV SCH (21:03)
[2020-07-17] MEDS: HEPARIN SODIUM,PORCINE 5,000 UNIT/ML 1 ML VIAL SQ SCH (21:03)
[2020-07-18] MEDS: ALBUTEROL HFA INHALER INHALATION SCH ×3 (01:14→11:50)
[2020-07-18] MEDS: methylPREDNISolone SOD SUCCI 125 MG/2 ML VIAL IV SCH (05:11)
[2020-07-18] MEDS: FAMOTIDINE 20 MG/2 ML VIAL IV SCH (08:42)
[2020-07-18] MEDS: METOPROLOL TARTRATE 25 MG TAB PO SCH (08:42)
[2020-07-18] MEDS: HEPARIN SODIUM,PORCINE 5,000 UNIT/ML 1 ML VIAL SQ SCH (08:42)
[2020-07-18 08:46] VITALS: BP 106/56; PULSE 73; RESP 20; TEMP 97.4
[2020-07-18] MEDS ORDERED: CLOPIDOGREL 75 MG TAB PO SCH (09:00)
[2020-07-18] MEDS ORDERED: LOSARTAN 25 MG TAB PO SCH (09:00)
[2020-07-18] MEDS ORDERED: AZITHROMYCIN 500 MG TAB PO SCH (09:00)
[2020-07-18] MEDS ORDERED: ASPIRIN 81 MG PO SCH (09:00)
[2020-07-18] MEDS ORDERED: ATORVASTATIN 40 MG TAB PO SCH (09:00)
--- NOTE | 2020-07-19 09:09 | P.DS ---
Providers Date of admission: 07/17/20 15:07 Expected date of discharge: 07/18/20 Attending physician: Will Gotti MD Consults: 07/17/20 17:38 Consult Physician Routine Consulting Provider: Fazal Jasso Consult Reason/Comments: COPD Do you want consulting provider notified?: Yes [facility] Course: Final diagnosis Acute COPD exacerbation Covid 19 ruled out, testing was negative Hypertension Hyperlipidemia History of coronary artery disease Osteoarthritis History of GERD The prostatic hypertrophy History of spondylosis History of herniated cervical and lumbar disc Scoliosis History of kidney stones History of psoriasis Restless leg syndrome DVT prophylaxis GI prophylaxis Discharge disposition Patient is being discharged in a stable condition with guarded prognosis to home. Patient will follow-up with Dr. Allen in the outpatient setting upon discharge. Patient will continue with oral antibiotics in the form of Zithromax IV 100 mg daily for the next 5 days to complete the course along with a prednisone taper. Total time taken is greater than 35 minutes. History of present illness This is a 55-year-old male who was recently admitted with worsening shortness of breath along with cough and sputum production and was being closely monitored. Patient does have a history of COPD and follows with Dr. Jasso in the outpatient setting. Patient continues to use tobacco as well and is on room air at home. Upon admission patient was placed on 2 L of oxygen although saturating well and bronchodilators along with IV steroids and Zithromax. Covid 19 testing was found to be negative. Patient will continue with Zithromax 500 mg daily for the next 5 days to complete the course along with a prednisone taper. Patient instructed to follow-up with primary care provider along with Dr. Jasso pulmonary in the outpatient setting. Educated the patient on avoiding tobacco use. Currently no reports of chest pain, worsening shortness of breath, or palpitations. Patient is afebrile. No reports of nausea or vomiting and patient is tolerating diet. Patient will be discharged today. On exam vital signs are stable. Temp is 97.4F, pulse is 73, respirations are 20, blood pressure is 106/56, oxygen saturation is 99% on room air. Cardio S1, S2 are muffled. Respiratory system shows diminished breath sounds at the bases with no wheezing or rhonchi noted. Abdomen is soft and nontender. Nervous system shows no focal deficits. Please refer to medication reconciliation sheet for a list of medications. Patient Condition at Discharge: Good Plan - Discharge Summary Discharge Rx Participant: No New Discharge Prescriptions: New Ipratropium-Albuterol Nebulize [Duoneb 0.5 mg-3 mg/3 ml Soln] 3 ml INHALATION RT-Q4H PRN 30 Days #120 ml PRN Reason: Shortness Of Breath Or Wheezing predniSONE 10 mg PO DIRECTED #30 tab Acetaminophen Tab [Tylenol] 1,000 mg PO Q6HR PRN tab PRN Reason: Fever>101 Azithromycin [Zithromax] 500 mg PO DAILY 5 Days #5 tab Continue Clopidogrel [Plavix] 75 mg PO DAILY #30 tab Metoprolol Tartrate [Lopressor] 25 mg PO BID #60 tab Aspirin [Adult Low Dose Aspirin EC] 81 mg PO DAILY Atorvastatin Calcium [Lipitor] 40 mg PO DAILY Pramipexole [Mirapex] 0.125 mg PO HS Montelukast Sodium [Singulair] 10 mg PO HS Losartan [Cozaar] 25 mg PO DAILY Ipratropium-Albuterol Nebulize [Duoneb 0.5 mg-3 mg/3 ml Soln] 3 ml INHALATION RT-TID PRN PRN Reason: Shortness Of Breath Fluticasone/Salmeterol [Fluticasone-Salmeterol 113-14] 1 puff INHALATION RT- BID Albuterol Inhaler [Ventolin Hfa Inhaler] 1 - 2 puff INHALATION RT-Q4H PRN PRN Reason: Shortness Of Breath Discharge Medication List Clopidogrel [Plavix] 75 mg PO DAILY #30 tab 08/26/15 [Rx] Metoprolol Tartrate [Lopressor] 25 mg PO BID #60 tab 08/26/15 [Rx] Aspirin [Adult Low Dose Aspirin EC] 81 mg PO DAILY 03/24/18 [History] Atorvastatin Calcium [Lipitor] 40 mg PO DAILY 04/29/18 [History] Albuterol Inhaler [Ventolin Hfa Inhaler] 1 - 2 puff INHALATION RT-Q4H PRN 05/27/20 [History] Fluticasone/Salmeterol [Fluticasone-Salmeterol 113-14] 1 puff INHALATION RT-BID 05/27/20 [History] Ipratropium-Albuterol Nebulize [Duoneb 0.5 mg-3 mg/3 ml Soln] 3 ml INHALATION RT-TID PRN 05/27/20 [History] Losartan [Cozaar] 25 mg PO DAILY 05/27/20 [History] Montelukast Sodium [Singulair] 10 mg PO HS 05/27/20 [History] Pramipexole [Mirapex] 0.125 mg PO HS 05/27/20 [History] Acetaminophen Tab [Tylenol] 1,000 mg PO Q6HR PRN tab 07/18/20 [Rx] Azithromycin [Zithromax] 500 mg PO DAILY 5 Days #5 tab 07/18/20 [Rx] Ipratropium-Albuterol Nebulize [Duoneb 0.5 mg-3 mg/3 ml Soln] 3 ml INHALATION RT-Q4H PRN 30 Days #120 ml 07/18/20 [Rx] predniSONE 10 mg PO DIRECTED #30 tab 07/18/20 [Rx] Follow up Appointment(s)/Referral(s): Indy Allen MD [Primary Care Provider] - 08/01/20 2:30 pm Activity/Diet/Wound Care/Special Instructions: Activity Limited until follow-up Follow-up with primary care provider upon discharge Continue current diet Continue with antibiotics for the next 5 days Continue with prednisone taper Discharge Disposition: HOME SELF-CARE
== END 2020-07-18 12:28 | disposition home or self-care (01) ==
LOC: EC 12:01 → 4SSUR 15:07 → INTOOBSV 15:07 → 4SSUR 15:46
PROVIDERS: ADMIT Internal Medicine; ATTEND Internal Medicine
DX: J44.1 Chronic obstructive pulmonary disease with (acute) exacerbation (principal); I10 Essential (primary) hypertension; E78.5 Hyperlipidemia, unspecified; I25.10 Atherosclerotic heart disease of native coronary artery without angina pectoris; M19.90 Unspecified osteoarthritis, unspecified site; K21.9 Gastro-esophageal reflux disease without esophagitis; N40.0 Benign prostatic hyperplasia without lower urinary tract symptoms; M47.899 Other spondylosis, site unspecified; M50.20 Other cervical disc displacement, unspecified cervical region; M51.27 Other intervertebral disc displacement, lumbosacral region; M41.9 Scoliosis, unspecified; L40.9 Psoriasis, unspecified; G25.81 Restless legs syndrome; I25.2 Old myocardial infarction; R59.0 Localized enlarged lymph nodes; M51.9 Unspecified thoracic, thoracolumbar and lumbosacral intervertebral disc disorder; F40.240 Claustrophobia; F41.9 Anxiety disorder, unspecified; F32.9 Major depressive disorder, single episode, unspecified; F17.210 Nicotine dependence, cigarettes, uncomplicated; R91.8 Other nonspecific abnormal finding of lung field; Z20.828 Contact with and (suspected) exposure to other viral communicable diseases; Z79.82 Long term (current) use of aspirin; Z79.899 Other long term (current) drug therapy; Z79.51 Long term (current) use of inhaled steroids; Z79.02 Long term (current) use of antithrombotics/antiplatelets; Z91.048 Other nonmedicinal substance allergy status; Z91.013 Allergy to seafood; Z91.030 Bee allergy status; Z87.09 Personal history of other diseases of the respiratory system; Z87.442 Personal history of urinary calculi; Z87.828 Personal history of other (healed) physical injury and trauma; Z98.890 Other specified postprocedural states; Z95.5 Presence of coronary angioplasty implant and graft; Z90.89 Acquired absence of other organs; Z87.39 Personal history of other diseases of the musculoskeletal system and connective tissue; Z87.81 Personal history of (healed) traumatic fracture; Z87.01 Personal history of pneumonia (recurrent); Z86.018 Personal history of other benign neoplasm; Z82.5 Family history of asthma and other chronic lower respiratory diseases; Z82.3 Family history of stroke; Z81.8 Family history of other mental and behavioral disorders; Z81.3 Family history of other psychoactive substance abuse and dependence; Z80.3 Family history of malignant neoplasm of breast; Z81.1 Family history of alcohol abuse and dependence; Z83.79 Family history of other diseases of the digestive system
CPT/HCPCS: 96376 ×2; 96372 ×2; 96374; 96375; 99285; 36415; 94640 ×4; 93005; 80053; 82728; 83605; 83615; 83735; 85025; 85610; 85730; 86140; 84145; 87635; 71045; G0378 ×2; J1644 ×2; J2930 ×2

== ENCOUNTER → 2020-11-14 | Outpatient (CLI) | payer OTHER | END | disposition home or self-care (01) | LOC: LABWHC1 15:33 | PROVIDERS: ATTEND Family Medicine | DX: Z20.822 Contact with and (suspected) exposure to COVID-19 (principal); J44.9 Chronic obstructive pulmonary disease, unspecified; R05 Cough | CPT/HCPCS: U0003; C9803; U0005 ==

== ENCOUNTER 2020-11-22 14:28 | Emergency (ER) | payer OTHER ==
[2020-11-22 14:46] VITALS: BP 128/83; PULSE 74; RESP 16; TEMP 98.3
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
--- NOTE | 2020-11-22 15:41 | XR ---
EXAMINATION TYPE: XR shoulder complete LT, XR humerus LT DATE OF EXAM: 11/22/2020 CLINICAL HISTORY: Injury with pain. TECHNIQUE: Three views of the left shoulder are obtained. 2 views left humerus. COMPARISON: None. FINDINGS: There is no acute fracture/dislocation evident in the left shoulder. The acromioclavicula r and glenohumeral joint spaces appear within normal limits. The visualized ribs are intact and unre markable. Images of the left humerus show no acute fracture or dislocation. Visualized left elbow joint appears within normal limits. Overlying soft tissue is unremarkable. IMPRESSION: There is no acute fracture or dislocation in the left humerus or shoulder.
== END 2020-11-22 16:08 | disposition home or self-care (01) ==
LOC: EC 14:28
DX: S46.912A Strain of unspecified muscle, fascia and tendon at shoulder and upper arm level, left arm, initial encounter (principal); J44.9 Chronic obstructive pulmonary disease, unspecified; E78.5 Hyperlipidemia, unspecified; K21.9 Gastro-esophageal reflux disease without esophagitis; M19.90 Unspecified osteoarthritis, unspecified site; I10 Essential (primary) hypertension; I25.2 Old myocardial infarction; F41.9 Anxiety disorder, unspecified; F32.9 Major depressive disorder, single episode, unspecified; F17.200 Nicotine dependence, unspecified, uncomplicated; Z79.52 Long term (current) use of systemic steroids; Z79.02 Long term (current) use of antithrombotics/antiplatelets; Z79.82 Long term (current) use of aspirin; Z79.51 Long term (current) use of inhaled steroids; W22.8XXA Striking against or struck by other objects, initial encounter
CPT/HCPCS: 99283

== ENCOUNTER → 2021-01-29 | Outpatient (CLI) | payer OTHER ==
[2021-01-29 11:45] LABS: Chol/HDL Ratio 2.4; LDL Cholesterol,Calculated 58.8 mg/dL (0.0-131.0); VLDL Calculation 14.2 mg/dL (5.00-40.00)
== END | disposition home or self-care (01) ==
LOC: LABWHC1 07:38
PROVIDERS: ATTEND Internal Medicine Cardiovascular Disease
DX: E78.5 Hyperlipidemia, unspecified (principal); I25.10 Atherosclerotic heart disease of native coronary artery without angina pectoris
CPT/HCPCS: 36415; 80061; 84450; 84460

== ENCOUNTER 2021-02-19 06:56 | Day surgery (SDC) | payer OTHER ==
[2021-02-16 08:38] VITALS: BMI 19.8
--- NOTE | 2021-02-18 11:15 | P.GSHP ---
History of Present Illness H&P Date: 02/19/21 Chief Complaint: Left inguinal hernia 55-year-old male last seen in July. Patient had been told he had bilateral hernias at one point. Notices a bulge in the left groin. Mild pain at time. Increasing size over the last year and a half or so. 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, enlarged lymph nodes in chest, pt state s he has 3 masses in between lungs that were monitored for years-no change, bronchitis, DDD, spondylosis, 2 herniated cervical discs, 2 lumbar herniated discs, scoliosis, BPH, kidney stones, psoriasis, RLS Last Myocardial Infarction Date:: Aug 2015 History of Any Multi-Drug Resistant Organisms: None Reported Past Surgical History: Heart Catheterization With Stent, Orthopedic Surgery, Tonsillectomy Additional Past Surgical History / Comment(s): ORIF L hip/pins, L tibial cyst removed/bone graft from pelvis to tibia, pain clinic procedures, rhinoplasty, colonoscopy, Past Anesthesia/Blood Transfusion Reactions: No Reported Reaction Additional Past Anesthesia/Blood Transfusion Reaction / Comment(s): claustrophobic Date of Last Stent Placement:: Aug 2015 Smoking Status: Current every day smoker - Past Family History Father History Unknown: Yes Family Medical History: No Reported History Additional Family Medical History / Comment(s): Pt does not know his father. Mother Family Medical History: COPD, CVA/TIA Additional Family Medical History / Comment(s): Mother is 80yrs old. Pt does not have much contact with mother. Brother(s) Additional Family Medical History / Comment(s): He has 2 brothers, one has metal health issues, one is an addict on crack and other street drugs. Sister(s) Family Medical History: Cancer, Liver Disease Additional Family Medical History / Comment(s): Patient had 2 sisters, one from breast cancer, one from cirrhosis at the age of 19 with history of heavy alcohol use and Crohn's disease. Medications and Allergies Home Medications Medication Instructions Recorded Confirmed Type Metoprolol Tartrate [Lopressor] 25 mg PO BID #60 tab 08/26/15 02/16/21 Rx Aspirin [Adult Low Dose Aspirin EC] 81 mg PO DAILY 03/24/18 02/16/21 History Atorvastatin Calcium [Lipitor] 40 mg PO DAILY 04/29/18 02/16/21 History Albuterol Inhaler [Ventolin Hfa 1 - 2 puff INHALATION RT-Q4H PRN 05/27/20 02/16/21 History Inhaler] Fluticasone/Salmeterol 1 puff INHALATION RT-BID 05/27/20 02/16/21 History [Fluticasone-Salmeterol 113-14] Ipratropium-Albuterol Nebulize 3 ml INHALATION RT-TID PRN 05/27/20 02/16/21 History [Duoneb 0.5 mg-3 mg/3 ml Soln] Losartan [Cozaar] 25 mg PO DAILY 05/27/20 02/16/21 History Pramipexole [Mirapex] 0.125 mg PO HS 05/27/20 02/16/21 History Acetaminophen Tab [Tylenol] 1,000 mg PO Q6HR PRN tab 07/18/20 02/16/21 Rx Ipratropium-Albuterol Nebulize 3 ml INHALATION RT-Q4H PRN 30 Days 07/18/20 02/16/21 Rx [Duoneb 0.5 mg-3 mg/3 ml Soln] #120 ml Nicotine 14Mg/24Hr Patch [Habitrol 1 patch TRANSDERM DAILY 02/16/21 02/16/21 History 14Mg/24Hr Patch] Allergies Allergy/AdvReac Type Severity Reaction Status Date / Time iodine Allergy Swelling Verified 02/16/21 08:17 salmon oil Allergy Unknown Verified 02/16/21 08:17 shellfish derived [Shellfish] Allergy Swelling Verified 02/16/21 08:17 venom-honey bee Allergy Swelling Verified 02/16/21 08:17 [bee venom (honey bee)] Surgical - Exam Physical exam: General: Well-developed, well-nourished HEENT: Normocephalic, sclerae nonicteric Abdomen: Nontender, nondistended, small to moderate sized reducible left inguinal hernia, no palpable hernia on right Extremities: No edema Neuro: Alert and oriented Assessment and Plan (1) Left inguinal hernia Narrative/Plan: Will proceed with laparoscopic da Kristyn assisted repair left inguinal hernia with mesh, possible open, possible bilateral. Risks of bleeding, infection, recurrence, bladder and bowel injury, numbness, nerve injury, conversion to an open procedure were discussed with the patient. The patient understands and wishes to proceed. Status: Acute Code(s): K40.90 - UNIL INGUINAL HERNIA, W/O OBST OR GANGR, NOT SPCF RECUR OMED Code(s): 688880568
[~2021-02-19 06:56] MED LIST changes: +ACETAMINOPHEN TAB 500 MG TAB PO PRN; +DEXAMETHASONE SOD PHOSPHATE 4 MG/ML 1 ML VIAL IV ONE; +HEPARIN SODIUM,PORCINE/PF 5,000 UNIT/0.5 ML SYRINGE SQ PRN; -IODINE/POTASS IOD (LUGOLS) 8 ML BTL TOPICAL ONE; +LACTATED RINGERS 1,000 ML IV SCH; +MIDAZOLAM 2 MG/2 ML VIAL IV PRN; +ONDANSETRON 4 MG/2 ML VIAL IVP ONE; +SCOPOLAMINE 1.5MG/72HR PATCH TRANSDERM ONE
[2021-02-19] MEDS ORDERED: HYDROmorphone 0.5 MG/0.5 ML SYRINGE IVP PRN (07:00)
[2021-02-19] MEDS ORDERED: LIDOCAINE 1% (10MG/ML) FOR IV START INTRADERMA ONE (07:25)
[2021-02-19 07:54] LABS: HCT 44.5 % (39.0-53.0); HGB 15.4 gm/dL (13.0-17.5); MCH 32.3 pg (25.0-35.0); MCHC 34.7 g/dL (31.0-37.0); MCV 93.2 fL (80.0-100.0); Mean Platelet Volume 7.9; Platelet Count 178 k/uL (150-450); RBC 4.78 m/uL (4.30-5.90); RDW 12.6 % (11.5-15.5); WBC 7.2 k/uL (3.8-10.6)
[2021-02-19] MEDS ORDERED: ROCURONIUM 10 MG/ML (5 ML VIAL) IV ONE (08:12)
[2021-02-19] MEDS ORDERED: PHENYLEPHRINE-0.9% NACL SYG 1,000 MCG/10 ML SYRINGE ONE (08:12)
[2021-02-19] MEDS ORDERED: PROPOFOL 10 MG/ML 20 ML VIAL IV ONE (08:12)
[2021-02-19] MEDS ORDERED: NEOSTIGMINE 1 MG/ML 10 ML VIAL ONE (08:12)
[2021-02-19] MEDS ORDERED: LIDOCAINE 1% INJ 10MG/ML (20 ML MDV) ONE (08:12)
[2021-02-19] MEDS ORDERED: fentaNYL (PF) 50 MCG/ML 2 ML AMP ONE (08:12)
[2021-02-19] MEDS ORDERED: GLYCOPYRROLATE 0.2 MG/ML 2 ML VIAL ONE (08:12)
[2021-02-19] MEDS ORDERED: MIDAZOLAM 2 MG/2 ML VIAL ONE (08:12)
[2021-02-19] MEDS ORDERED: SUCCINYLCHOLINE CHLORIDE 100 MG/5 ML SYR IV ONE (08:12)
[2021-02-19] MEDS ORDERED: LIDOCAINE 1%-EPI 1:100,000 20 ML VIAL SQ ONE (08:36)
[2021-02-19] MEDS ORDERED: LACTATED RINGERS 1,000 ML IV ONE (08:57)
--- NOTE | 2021-02-19 10:23 | P.OP ---
Date of Procedure: 02/19/21 Procedure(s) Performed: PREOPERATIVE DIAGNOSIS: Left inguinal hernia POSTOPERATIVE DIAGNOSIS: Left indirect inguinal and right femoral hernia PROCEDURE: Laparoscopic da Kristyn assisted repair bilateral inguinal hernia with mesh SURGEON: Dr. Santiago ANESTHESIA: General OPERATIVE PROCEDURE DETAILS: Patient was placed in the operating table in the supine position. The patient was placed under general anesthesia. The abdomen was prepped and draped in usual sterile fashion. A small curvilinear supraumbilical incision was made. The fascia was retracted anteriorly with Penn forceps. The Veress needle was inserted. The saline drop test was normal. Insufflation took place to 15 mmHg. An 8 mm trocar was placed into the peritoneal cavity. 2 additional 8 mm trochars were placed in the right upper quadrant and left upper quadrant under visualization. The robotic arms were then brought in and docked into place. The fenestrated bipolar was used in the left arm and the laparoscopic camelia was utilized in the right arm. A 30 8 mm scope was used in the up position. The peritoneal cavity was inspected. The patient had a moderate sized left indirect inguinal hernia. On the right side the patient had what was initially thought to represent a direct inguinal hernia however during our preperitoneal dissection turned out to be a femoral hernia. The right side was first addressed. The peritoneum was incised in a horizontal fashion cephalad to the internal inguinal ring. Following that careful dissection of the preperitoneal space took place. This took place using both electrocautery, sharp dissection but primarily blunt dissection. Visualization of the pubic tubercle and Te's ligament took place medially. Full dissection took place laterally as well. The femoral hernia sac was fully dissected. The left side was then addressed in an identical fashion. A peritoneal incision was again created. The preperitoneal space was fully dissected dissecting out the large indirect hernia sac. Once we had adequate space the extra-large Bard 3-D mid mesh was advanced into the preperitoneal space and flattened out appropriately to cover all potential hernia sites bilaterally. No sutures were used. The peritoneal defect was then closed bilaterally using a absorbable 2-0 VLok suture. The hernia sacs were incorporated into the peritoneal closure to help prevent future recurrence. The pneumoperitoneum was then evacuated. The skin of all 3 sites was closed using a 4-0 Monocryl stitch. Skin glue was then applied. TYPE OF MESH USED: Bard XL 3-D mesh LOCATION OF MESH: Preperitoneal/sub-lay FIXATION: None DISPOSITION: Stable to recovery room
[2021-02-19 11:04] VITALS: TEMP 98.1
[2021-02-19 11:07] VITALS: RESP 16
[2021-02-19 11:52] VITALS: BP 118/74; PULSE 74
[2021-02-19] MEDS ORDERED: ACETAMINOPHEN TAB 325 MG TAB PO SCH (12:00)
[2021-02-19] MEDS ORDERED: IBUPROFEN 600 MG TAB PO SCH (15:00)
== END 2021-02-19 12:39 | disposition home or self-care (01) ==
LOC: OR 06:56
PROVIDERS: ATTEND Surgery
DX: K40.90 Unilateral inguinal hernia, without obstruction or gangrene, not specified as recurrent (principal); K41.90 Unilateral femoral hernia, without obstruction or gangrene, not specified as recurrent; I25.2 Old myocardial infarction; I20.9 Angina pectoris, unspecified; I10 Essential (primary) hypertension; E78.5 Hyperlipidemia, unspecified; J44.9 Chronic obstructive pulmonary disease, unspecified; F17.200 Nicotine dependence, unspecified, uncomplicated; M51.36 Other intervertebral disc degeneration, lumbar region; K21.9 Gastro-esophageal reflux disease without esophagitis; Z79.82 Long term (current) use of aspirin
CPT/HCPCS: 49650; S2900; 85027

== ENCOUNTER 2021-03-03 20:50 | Emergency (ER) | payer OTHER ==
[2021-03-03 20:56] VITALS: BP 123/78; PULSE 71; RESP 20; TEMP 98.6
[2021-03-03] MEDS ORDERED: FAMOTIDINE 20 MG TAB PO STA (21:35)
[2021-03-03] MEDS ORDERED: hydrOXYzine HCL 25 MG TAB PO STA (21:35)
[2021-03-03] MEDS ORDERED: DEXAMETHASONE SOD PHOSPHATE 10 MG/ML 1 ML VIAL IM STA (21:35)
--- NOTE | 2021-03-03 21:41 | ED ---
Skin/Abscess/FB HPI - General Chief complaint: Skin/Abscess/Foreign Body Stated complaint: Bee sting reaction Time Seen by Provider: 03/03/21 21:10 Source: patient, RN notes reviewed, old records reviewed Mode of arrival: ambulatory Limitations: no limitations - History of Present Illness Initial comments: This is a 55-year-old male who presents today for evaluation regards to significant right upper extremity pain and swelling right hand swelling and right forearm swelling. She does have full range of motion of the hand and arm but does have bee sting with noted area with OB bit him. Patient does have a history of ALLERGIC reactions to bees has no other complaints or shortness of breath no swelling of his throat. Patient has medical history significant for COPD high blood pressure VT multiple other comorbidities MD complaint: rash, insect bite/sting -: hour(s) Tetanus Up to Date: unsure Location: R hand Severity: moderate Severity scale (1-10): 7 Quality: burning, other (Itching) Consistency: constant Improves with: none Worsens with: none Context: witnessed insect bite Associated symptoms: denies other symptoms Treatments Prior to Arrival: none - Related Data Home Medications Medication Instructions Recorded Confirmed Aspirin [Adult Low Dose Aspirin EC] 81 mg PO DAILY 03/24/18 02/19/21 Atorvastatin Calcium [Lipitor] 40 mg PO DAILY 04/29/18 02/16/21 Albuterol Inhaler [Ventolin Hfa 1 - 2 puff INHALATION RT-Q4H PRN 05/27/20 02/16/21 Inhaler] Fluticasone/Salmeterol 1 puff INHALATION RT-BID 05/27/20 02/16/21 [Fluticasone-Salmeterol 113-14] Ipratropium-Albuterol Nebulize 3 ml INHALATION RT-TID PRN 05/27/20 02/16/21 [Duoneb 0.5 mg-3 mg/3 ml Soln] Losartan [Cozaar] 25 mg PO DAILY 05/27/20 02/16/21 Pramipexole [Mirapex] 0.125 mg PO HS 05/27/20 02/16/21 Nicotine 14Mg/24Hr Patch [Habitrol 1 patch TRANSDERM DAILY 02/16/21 02/16/21 14Mg/24Hr Patch] Previous Rx's Medication Instructions Recorded Metoprolol Tartrate [Lopressor] 25 mg PO BID #60 tab 08/26/15 Acetaminophen Tab [Tylenol] 1,000 mg PO Q6HR PRN tab 07/18/20 Ipratropium-Albuterol Nebulize 3 ml INHALATION RT-Q4H PRN 30 Days 07/18/20 [Duoneb 0.5 mg-3 mg/3 ml Soln] #120 ml oxyCODONE HCL [OxyIR] 5 mg PO Q6H PRN 3 Days #6 tab 02/19/21 Famotidine [Pepcid] 40 mg PO BID #28 tablet 03/03/21 hydrOXYzine HCL [Atarax] 25 mg PO TID PRN #15 tab 03/03/21 predniSONE 50 mg PO DAILY #5 tab 03/03/21 Allergies Allergy/AdvReac Type Severity Reaction Status Date / Time iodine Allergy Swelling Verified 03/03/21 20:56 salmon oil Allergy Swelling Verified 03/03/21 20:56 shellfish derived [Shellfish] Allergy Swelling Verified 03/03/21 20:56 venom-honey bee Allergy Swelling Verified 03/03/21 20:56 [bee venom (honey bee)] Review of Systems ROS Statement: Those systems with pertinent positive or pertinent negative responses have been documented in the HPI. ROS Other: All systems not noted in ROS Statement are negative. 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, enlarged lymph nodes in chest, pt states he has 3 masses in between lungs that were monitored for years-no change, bronchitis, DDD, spondylosis, 2 herniated cervical discs, 2 lumbar herniated discs, scoliosis, BPH, kidney stones, psoriasis, RLS Last Myocardial Infarction Date:: Aug 2015 History of Any Multi-Drug Resistant Organisms: None Reported Past Surgical History: Heart Catheterization With Stent, Hernia Repair, Orthopedic Surgery, Tonsillectomy Additional Past Surgical History / Comment(s): ORIF L hip/pins, L tibial cyst removed/bone graft from pelvis to tibia, pain clinic procedures, rhinoplasty, co lonoscopy, Past Anesthesia/Blood Transfusion Reactions: No Reported Reaction Additional Past Anesthesia/Blood Transfusion Reaction / Comment(s): artur trophobic Date of Last Stent Placement:: Aug 2015 Past Psychological History: Anxiety, Depression Smoking Status: Current every day smoker Past Alcohol Use History: None Reported Past Drug Use History: None Reported - Past Family History Father History Unknown: Yes Family Medical History: No Reported History Additional Family Medical History / Comment(s): Pt does not know his father. Mother Family Medical History: COPD, CVA/TIA Additional Family Medical History / Comment(s): Mother is 80yrs old. Pt does not have much contact with mother. Brother(s) Additional Family Medical History / Comment(s): He has 2 brothers, one has metal health issues, one is an addict on crack and other street drugs. Sister(s) Family Medical History: Cancer, Liver Disease Additional Family Medical History / Comment(s): Patient had 2 sisters, one from breast cancer, one from cirrhosis at the age of 19 with history of heavy alcohol use and Crohn's disease. General Exam Limitations: no limitations General appearance: alert, in no apparent distress Head exam: Present: atraumatic, normocephalic, normal inspection Eye exam: Present: normal appearance, PERRL, EOMI. Absent: scleral icterus, conjunctival injection, periorbital swelling ENT exam: Present: normal exam, mucous membranes moist Neck exam: Present: normal inspection. Absent: tenderness, meningismus, lymphadenopathy Respiratory exam: Present: normal lung sounds bilaterally. Absent: respiratory distress, wheezes, rales, rhonchi, stridor Cardiovascular Exam: Present: regular rate, normal rhythm, normal heart sounds. Absent: systolic murmur, diastolic murmur, rubs, gallop, clicks GI/Abdominal exam: Present: soft, normal bowel sounds. Absent: distended, tenderness, guarding, rebound, rigid Extremities exam: Present: normal inspection, full ROM, normal capillary refill, other (Right hand and forearm are significant for swollen erythematous). Absent: tenderness, pedal edema, joint swelling, calf tenderness Back exam: Present: normal inspection Neurological exam: Present: alert, oriented X3, CN II-XII intact Psychiatric exam: Present: normal affect, normal mood Skin exam: Present: warm, dry, intact, normal color. Absent: rash Course Vital Signs 03/03/21 20:53 Temperature 98.6 F Pulse Rate 71 Respiratory 20 Rate Blood Pressure 123/78 O2 Sat by Pulse 99 Oximetry - Reevaluation(s) Reevaluation #1: 03/04/21 00:02 Medical record is reviewed Reevaluation #2: 03/04/21 00:02 Patient symptoms are improved Reevaluation #3: 03/04/21 00:02 Patient is informed of results and questions have been answered Medical Decision Making - Medical Decision Making 25 male to the ER for evaluation of bee sting. Patient has history of ALLERGIC reaction to be, the swelling is significant and has been spreading but he is without shortness of breath or other complaint. Patient given treatment for bee sting and can be discharged home Disposition Clinical Impression: Bee sting, Hymenoptera reaction, Swelling of right hand Disposition: HOME SELF-CARE Condition: Good Instructions (If sedation given, give patient instructions): Insect Bite or Sting (ED) Prescriptions: hydrOXYzine HCL [Atarax] 25 mg PO TID PRN #15 tab PRN Reason: Itching Famotidine [Pepcid] 40 mg PO BID #28 tablet predniSONE 50 mg PO DAILY #5 tab Is patient prescribed a controlled substance at d/c from ED?: No Referrals: Indy Allen MD [Primary Care Provider] - 1-2 days
== END 2021-03-03 22:06 | disposition home or self-care (01) ==
LOC: EC 20:50
DX: T63.441A Toxic effect of venom of bees, accidental (unintentional), initial encounter (principal); I10 Essential (primary) hypertension; I25.2 Old myocardial infarction; J44.9 Chronic obstructive pulmonary disease, unspecified; E78.5 Hyperlipidemia, unspecified; K21.9 Gastro-esophageal reflux disease without esophagitis; M19.90 Unspecified osteoarthritis, unspecified site; F41.9 Anxiety disorder, unspecified; F32.9 Major depressive disorder, single episode, unspecified; F17.200 Nicotine dependence, unspecified, uncomplicated; Z79.51 Long term (current) use of inhaled steroids; Z79.52 Long term (current) use of systemic steroids; Z79.82 Long term (current) use of aspirin; Z79.899 Other long term (current) drug therapy; Z80.3 Family history of malignant neoplasm of breast
CPT/HCPCS: 96372; 99282; J1100

== ENCOUNTER 2021-03-15 21:54 | Emergency (ER) | payer OTHER ==
[2021-03-15 22:18] VITALS: TEMP 98.4
[2021-03-15] MEDS ORDERED: MORPHINE SULFATE 4 MG/ML SYRINGE IV STA (22:55)
--- NOTE | 2021-03-15 23:00 | ED ---
Abdominal Pain HPI - General Chief Complaint: Abdominal Pain Stated Complaint: ABD Pain Time Seen by Provider: 03/15/21 22:34 Source: patient Mode of arrival: ambulatory Limitations: no limitations - History of Present Illness Initial Comments: This patient is a 55-year-old man who presents with complaint of left groin pain is been going on for the past few weeks, worse tonight. He does report having bilateral inguinal hernia repair on February 19 of this year, Dr. Santiago. The patient had routine follow-up and at that point was noted to have a hematoma at the left groin. The patient states that he started having pain a couple of days ago and it has worsened. He phoned his physician and was told to come emergency department if worsened. The pain has worsened over the course of the past few hours. Patient denies straining though he did have some constipation following surgery that resolved with magnesium citrate. The patient states that he does smoke and does have chronic smoker's cough. MD Complaint: abdominal pain -: days(s) Location: LLQ Radiation: none Migration to: no migration Severity: severe Quality: aching, sharp Consistency: constant Improves With: nothing Worsens With: nothing Associated Symptoms: denies other symptoms - Related Data Home Medications Medication Instructions Recorded Confirmed Aspirin [Adult Low Dose Aspirin EC] 81 mg PO DAILY 03/24/18 03/15/21 Atorvastatin Calcium [Lipitor] 40 mg PO DAILY 04/29/18 03/15/21 Albuterol Inhaler [Ventolin Hfa 1 - 2 puff INHALATION RT-Q4H PRN 05/27/20 03/15/21 Inhaler] Losartan [Cozaar] 25 mg PO DAILY 05/27/20 03/15/21 Nicotine 14Mg/24Hr Patch [Habitrol 1 patch TRANSDERM DAILY PRN 02/16/21 03/15/21 14Mg/24Hr Patch] Budesonide/Formoterol Fumarate 2 puff INHALATION RT-BID 03/15/21 03/15/21 [Symbicort 160-4.5 Mcg Inhaler] Pramipexole [Mirapex] 1 mg PO HS 03/15/21 03/15/21 Previous Rx's Medication Instructions Recorded Metoprolol Tartrate [Lopressor] 25 mg PO BID #60 tab 08/26/15 Acetaminophen Tab [Tylenol] 1,000 mg PO Q6HR PRN tab 07/18/20 traMADol HCl [Ultram] 50 mg PO Q6H PRN #20 tab 03/16/21 Allergies Allergy/AdvReac Type Severity Reaction Status Date / Time iodine Allergy Swelling Verified 03/15/21 23:18 salmon oil Allergy Swelling Verified 03/15/21 23:18 shellfish derived [Shellfish] Allergy Swelling Verified 03/15/21 23:18 venom-honey bee Allergy Swelling Verified 03/15/21 23:18 [bee venom (honey bee)] Review of Systems ROS Statement: Those systems with pertinent positive or pertinent negative responses have been documented in the HPI. ROS Other: All systems not noted in ROS Statement are negative. Constitutional: Denies: fever, chills Respiratory: Reports: as per HPI, cough. Denies: dyspnea, wheezes Cardiovascular: Denies: chest pain, palpitations, edema Gastrointestinal: Reports: as per HPI, abdominal pain. Denies: nausea, vomiting, diarrhea, constipation, hematemesis Genitourinary: Reports: testicular pain. 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, enlarged lymph nodes in chest, pt states he has 3 masses in between lungs that were monitored for years-no change, bronchitis, DDD, spondylosis, 2 herniated cervical discs, 2 lumbar herniated discs, scoliosis, BPH, kidney stones, psoriasis, RLS Last Myocardial Infarction Date:: Aug 2015 History of Any Multi-Drug Resistant Organisms: None Reported Past Surgical History: Heart Catheterization With Stent, Hernia Repair, Orthopedic Surgery, Tonsillectomy Additional Past Surgical History / Comment(s): ORIF L hip/pins, L tibial cyst removed/bone graft from pelvis to tibia, pain clinic procedures, rhinoplasty, colonoscopy, Past Anesthesia/Blood Transfusion Reactions: No Reported Reaction Additional Past Anesthesia/Blood Transfusion Reaction / Comment(s): claustrophobic Date of Last Stent Placement:: Aug 2015 Past Psychological History: Anxiety, Depression Smoking Status: Current every day smoker Past Alcohol Use History: None Reported Past Drug Use History: None Reported - Past Family History Father History Unknown: Yes Family Medical History: No Reported History Additional Family Medical History / Comment(s): Pt does not know his father. Mother Family Medical History: COPD, CVA/TIA Additional Family Medical History / Comment(s): Mother is 80yrs old. Pt does not have much contact with mother. Brother(s) Additional Family Medical History / Comment(s): He has 2 brothers, one has metal health issues, one is an addict on crack and other street drugs. Sister(s) Family Medical History: Cancer, Liver Disease Additional Family Medical History / Comment(s): Patient had 2 sisters, one from breast cancer, one from cirrhosis at the age of 19 with history of heavy alcohol use and Crohn's disease. General Exam Limitations: no limitations General appearance: alert, in no apparent distress Head exam: Present: atraumatic, normocephalic Eye exam: Present: normal appearance. Absent: scleral icterus, conjunctival injection Neck exam: Present: normal inspection Respiratory exam: Present: wheezes (Trace expiratory wheeze.), other (Relatively frequent cough, nonproductive). Absent: respiratory distress, rales, rhonchi, stridor, accessory muscle use, decreased breath sounds Cardiovascular Exam: Present: regular rate, normal rhythm, normal heart sounds. Absent: systolic murmur, diastolic murmur, rubs, gallop GI/Abdominal exam: Present: soft. Absent: distended, tenderness, guarding, rebound, rigid, mass Extremities exam: Present: normal inspection, normal capillary refill. Absent: pedal edema, calf tenderness Back exam: Present: normal inspection. Absent: CVA tenderness (R), CVA tenderness (L) Neurological exam: Present: alert Skin exam: Present: warm, dry, intact, normal color. Absent: rash Course Vital Signs 03/15/21 22:16 Temperature 98.4 F Pulse Rate 70 Respiratory 18 Rate Blood Pressure 130/82 O2 Sat by Pulse 99 Oximetry Medical Decision Making - Lab Data Result diagrams: 03/15/21 22:43 03/15/21 22:43 Lab Results 03/15/21 03/15/21 03/15/21 Range/Units 22:43 22:43 22:43 WBC 9.3 (3.8-10.6) k/uL RBC 4.65 (4.30-5.90) m/uL Hgb 15.2 (13.0-17.5) gm/dL Hct 45.2 (39.0-53.0) % MCV 97.1 (80.0-100.0) fL MCH 32.6 (25.0-35.0) pg MCHC 33.5 (31.0-37.0) g/dL RDW 13.4 (11.5-15.5) % Plt Count 201 (150-450) k/uL MPV 7.8 Neutrophils % 60 % Lymphocytes % 29 % Monocytes % 6 % Eosinophils % 4 % Basophils % 1 % Neutrophils # 5.6 (1.3-7.7) k/uL Lymphocytes # 2.7 (1.0-4.8) k/uL Monocytes # 0.5 (0-1.0) k/uL Eosinophils # 0.3 (0-0.7) k/uL Basophils # 0.1 (0-0.2) k/uL Sodium 136 L (137-145) mmol/L Potassium 4.0 (3.5-5.1) mmol/L Chloride 106 (98-107) mmol/L Carbon Dioxide 25 (22-30) mmol/L Anion Gap 5 mmol/L BUN 21 H (9-20) mg/dL Creatinine 0.84 (0.66-1.25) mg/dL Est GFR (CKD-EPI)AfAm >90 (>60 ml/min/1.73 sqM) Est GFR (CKD-EPI)NonAf >90 (>60 ml/min/1.73 sqM) Glucose 121 H (74-99) mg/dL Calcium 9.4 (8.4-10.2) mg/dL Total Bilirubin 0.3 (0.2-1.3) mg/dL AST 25 (17-59) U/L ALT 21 (4-49) U/L Alkaline Phosphatase 52 (38-126) U/L Total Protein 6.1 L (6.3-8.2) g/dL Albumin 4.0 (3.5-5.0) g/dL Amylase 40 (30-110) U/L Lipase 92 (23-300) U/L Urine Color Yellow Urine Appearance Clear (Clear) Urine pH 5.5 (5.0-8.0) Ur Specific Maxwell 1.020 (1.001-1.035) Urine Protein Negative (Negative) Urine Glucose (UA) Negative (Negative) Urine Ketones Negative (Negative) Urine Blood Small H (Negative) Urine Nitrite Negative (Negative) Urine Bilirubin Negative (Negative) Urine Urobilinogen 2.0 (<2.0) mg/dL Ur Leukocyte Esterase Negative (Negative) Urine RBC 3 (0-5) /hpf Urine WBC <1 (0-5) /hpf Urine Mucus Rare H (None) /hpf Disposition Clinical Impression: Seroma after procedure Disposition: HOME SELF-CARE Condition: Good Instructions (If sedation given, give patient instructions): Seroma (DC) Prescriptions: traMADol HCl [Ultram] 50 mg PO Q6H PRN #20 tab PRN Reason: Pain Is patient prescribed a controlled substance at d/c from ED?: No Referrals: Indy Allen MD [Primary Care Provider] - 1-2 days Martínez Santiago MD [Medical Doctor] - 1-2 days
[2021-03-15 23:12] LABS: Appearance,Urine Clear (Clear); Basophils # (A) 0.1 k/uL (0-0.2); Basophils % (A) 1 %; Bilirubin,Urine Negative (Negative); Blood,Urine Small (Negative); Color,Urine Yellow; Eosinophils # (A) 0.3 k/uL (0-0.7); Eosinophils % (A) 4 %; Glucose,Urine (UA) Negative (Negative); HCT 45.2 % (39.0-53.0); HGB 15.2 gm/dL (13.0-17.5); Ketones,Urine Negative (Negative); Leukocyte Esterase,Urine Negative (Negative); Lymphocytes # (A) 2.7 k/uL (1.0-4.8); Lymphocytes % (A) 29 %; MCH 32.6 pg (25.0-35.0); MCHC 33.5 g/dL (31.0-37.0); MCV 97.1 fL (80.0-100.0); Mean Platelet Volume 7.8; Monocytes # (A) 0.5 k/uL (0-1.0); Monocytes % (A) 6 %; Mucus,Urine Rare /hpf; Neutrophils # (A) 5.6 k/uL (1.3-7.7); Neutrophils % (A) 60 %; Nitrite,Urine Negative (Negative); PH, Urine 5.5 (5.0-8.0); Platelet Count 201 k/uL (150-450); Protein,Urine Negative (Negative); RBC 4.65 m/uL (4.30-5.90); RBC,Urine 3 /hpf (0-5); RDW 13.4 % (11.5-15.5); WBC 9.3 k/uL (3.8-10.6); WBC,Urine <1 /hpf (0-5)
[2021-03-15 23:23] LABS: ALT 21 U/L (4-49); AST 25 U/L (17-59); African American GFR (CKD) >90 (>60 ml/min/1.73 sqM); Alkaline Phosphatase 52 U/L (38-126); Amylase 40 U/L (30-110); Anion Gap 5 mmol/L; Blood Urea Nitrogen 21 mg/dL (9-20); Calcium 9.4 mg/dL (8.4-10.2); Carbon Dioxide 25 mmol/L (22-30); Chloride 106 mmol/L (98-107); Glucose 121 mg/dL (74-99); Lipase 92 U/L (23-300); Non-African American GFR(CKD) >90 (>60 ml/min/1.73 sqM); Sodium 136 mmol/L (137-145); Total Bilirubin 0.3 mg/dL (0.2-1.3); Total Protein 6.1 g/dL (6.3-8.2)
[2021-03-15] MEDS ORDERED: diphenhydrAMINE 50 MG/ML 1 ML VIAL IVP STA (23:30)
[2021-03-15] MEDS ORDERED: FAMOTIDINE 20 MG/2 ML VIAL IV STA (23:30)
--- NOTE | 2021-03-16 00:08 | CT ---
EXAMINATION TYPE: CT abdomen pelvis wo con DATE OF EXAM: 03/15/2021 COMPARISON: 05/11/2020 HISTORY: bilateral inguial surgery. pt now has left side pain with hematoma CT DLP: 337.9 mGycm Automated exposure control for dose reduction was used. There are some emphysematous changes at the lung bases. Heart size is normal. There is no pericardial effusion. Liver spleen stomach pancreas gallbladder appear normal. The bile ducts are not dilated. There is no adrenal mass. Kidneys have normal size. There is 3 mm calculus posterior right kidney. Th ere is no hydronephrosis. Ureters are not dilated. There is no retroperitoneal adenopathy. The bladde r distends smoothly. There is sharply marginated rounded low-density fluid collection measuring 4.7 x 3.5 cm in the left inguinal region. The location of the left testicle is not clear. This has density of 17 and consistent with fluid. There is no free fluid in the pelvis. There is no mesenteric edema. There is no ascites or free air. There is no evidence of a bowel obstruction. There is probably 1 mm calculus in the left kidney. Appe ndix appears normal. There is narrowing at L5-S1 disc space. Lumbar vertebra have normal alignment. There is no compressio n fracture. The bony pelvis is intact. Hip joints are intact. IMPRESSION: Left inguinal and upper scrotal rounded fluid collection appears new compared to old exam. This could be a hematoma or seroma. This does not appear to contain any bowel. There is no surrounding inflamma tion seen. This appears new compared to old exam.
[2021-03-16 00:46] VITALS: BP 125/77; PULSE 83; RESP 16
== END 2021-03-16 01:09 | disposition home or self-care (01) ==
LOC: EC 21:54
DX: K91.872 Postprocedural seroma of a digestive system organ or structure following a digestive system procedure (principal); N50.819 Testicular pain, unspecified; I10 Essential (primary) hypertension; E78.5 Hyperlipidemia, unspecified; K21.9 Gastro-esophageal reflux disease without esophagitis; J44.9 Chronic obstructive pulmonary disease, unspecified; I25.2 Old myocardial infarction; N40.0 Benign prostatic hyperplasia without lower urinary tract symptoms; M19.90 Unspecified osteoarthritis, unspecified site; F32.9 Major depressive disorder, single episode, unspecified; F41.9 Anxiety disorder, unspecified; F17.200 Nicotine dependence, unspecified, uncomplicated; Z79.51 Long term (current) use of inhaled steroids; Z79.82 Long term (current) use of aspirin
CPT/HCPCS: 36415; 80053; 82150; 83690; 85025; 81001; 74176; 99284; 96374; J2270

== ENCOUNTER 2021-05-22 08:57 | Day surgery (SDC) | payer OTHER ==
[2021-05-22 09:28] VITALS: TEMP 98.4
[2021-05-22 11:23] VITALS: BP 137/83; PULSE 69; RESP 18
--- NOTE | 2021-05-22 11:49 | US ---
EXAMINATION TYPE: US guided soft tissue drainage DATE OF EXAM: 05/22/2021 HISTORY: Seroma left groin FINDINGS: Maximal barrier technique was utilized. The skin overlying a suitable path to the fluid wa s localized with ultrasound and the overlying skin prepped and draped. Lidocaine was used for local anesthesia. A skin summer made with a scalpel. Access was gained under direct ultrasound guidance to the fluid with a 21-gauge needle. Ultrasound was utilized using sterile technique. A 0.018 inch wire was advanced. Access site was dilated and a 6-Icelandic catheter advanced into the seroma. Sanguinous serous fluid returned. Catheter fixed to the skin. Hemostasis achieved. No immediate complication and the patient remained in stable condition. IMPRESSION: STATUS POST ULTRASOUND GUIDED SEROMA DRAINAGE, THIS PROCEDURE WAS PERFORMED BY THE UNDERS IGNED.
== END 2021-05-22 11:05 | disposition home or self-care (01) ==
LOC: RADPROMAIN 08:57
PROVIDERS: ATTEND Surgery
DX: T79.2XXA Traumatic secondary and recurrent hemorrhage and seroma, initial encounter (principal)
CPT/HCPCS: 10030; 76942

== ENCOUNTER 2021-07-04 22:34 | Emergency (ER) | payer OTHER ==
[2021-07-04 22:39] VITALS: TEMP 98.4
[2021-07-04] MEDS ORDERED: ASPIRIN 81 MG PO STA (23:11)
[2021-07-04] MEDS ORDERED: NITROGLYCERIN SL TABS 0.4 MG TAB SUBLINGUAL STA (23:11)
--- NOTE | 2021-07-04 23:12 | ED ---
Chest Pain HPI - General Chief Complaint: Chest Pain Stated Complaint: Chest Pain Time Seen by Provider: 07/04/21 22:46 Source: patient Mode of arrival: wheelchair Limitations: no limitations - History of Present Illness Initial Comments: Jamil is a 56-year-old male with a history of coronary artery disease status post stenting 6 years ago. Patient presents to ER today for evaluation of sudden onset of retrosternal chest pain radiating to the right side of his neck. Pain began while he was driving. Pain was associated with some lightheadedness and diaphoresis. No nausea or vomiting. No shortness of breath. Patient went home and laid down hoping that this pain would past but it persisted which prompted him come to the ER for evaluation. - Related Data Home Medications Medication Instructions Recorded Confirmed Aspirin [Adult Low Dose Aspirin EC] 81 mg PO HS 03/24/18 07/04/21 Atorvastatin Calcium [Lipitor] 40 mg PO HS 04/29/18 07/04/21 Albuterol Inhaler [Ventolin Hfa 1 - 2 puff INHALATION RT-Q4H PRN 05/27/20 07/04/21 Inhaler] Losartan [Cozaar] 25 mg PO HS 05/27/20 07/04/21 Pramipexole [Mirapex] 1 mg PO HS 03/15/21 07/04/21 Fluticasone/Umeclidin/Vilanter 1 puff INHALATION RT-BID 05/11/21 07/04/21 [Trelegy Ellipta 200-62.5-25] Fluticasone Nasal [place] [Flonase 1 spray EA NOSTRIL DAILY 07/04/21 07/04/21 Nasal [place]] Previous Rx's Medication Instructions Recorded Metoprolol Tartrate [Lopressor] 25 mg PO BID #60 tab 08/26/15 Allergies Allergy/AdvReac Type Severity Reaction Status Date / Time iodine Allergy Swelling Verified 07/04/21 23:23 salmon oil Allergy Swelling Verified 07/04/21 23:23 shellfish derived [Shellfish] Allergy Swelling Verified 07/04/21 23:23 venom-honey bee Allergy Swelling Verified 07/04/21 23:23 [bee venom (honey bee)] Review of Systems ROS Statement: Those systems with pertinent positive or pertinent negative responses have been documented in the HPI. ROS Other: All systems not noted in ROS Statement are negative. EKG Findings - EKG Comments: EKG Findings:: EKG was obtained due to chest pain, EKG was obtained at 2243, rate 70 to rhythm sinus there is normal axis, there are normal intervals are no acute ST elevations or depressions are no evidence of ischemia or infarction Past Medical History Past Medical History: Chest Pain / Angina, COPD, GERD/Reflux, Hyperlipidemia, Hypertension, Myocardial Infarction (DE), Osteoarthritis (OA), Pneumonia, Prostate Disorder, Skin Disorder Additional Past Medical History / Comment(s): 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, enlarged lymph nodes in chest, pt states he has 3 masses in between lungs that were monitored for years-no change, bronchitis, DDD, spondylosis, 2 herniated cervical discs, 2 lumbar herniated discs, scoliosis, BPH, RLS Last Myocardial Infarction Date:: Aug 2015 History of Any Multi-Drug Resistant Organisms: None Reported Past Surgical History: Heart Catheterization With Stent, Hernia Repair, Orthopedic Surgery, Tonsillectomy Additional Past Surgical History / Comment(s): ORIF L hip/pins, L tibial cyst removed/bone graft from pelvis to tibia, pain clinic procedures, rhinoplasty, colonoscopy, Past Anesthesia/Blood Transfusion Reactions: No Reported Reaction Additional Past Anesthesia/Blood Transfusion Reaction / Comment(s): claustrophobic Date of Last Stent Placement:: Aug 2015 Past Psychological History: Anxiety, Depression Smoking Status: Current every day smoker Past Alcohol Use History: None Reported Past Drug Use History: None Reported - Past Family History Father History Unknown: Yes Family Medical History: No Reported History Additional Family Medical History / Comment(s): Pt does not know his father. Mother Family Medical History: COPD, CVA/TIA Additional Family Medical History / Comment(s): Mother is 80yrs old. Pt does not have much contact with mother. Brother(s) Additional Family Medical History / Comment(s): He has 2 brothers, one has metal health issues, one is an addict on crack and other street drugs. Sister(s) Family Medical History: Cancer, Liver Disease Additional Family Medical History / Comment(s): Patient had 2 sisters, one from breast cancer, one from cirrhosis at the age of 19 with history of heavy alcohol use and Crohn's disease. General Exam - General Exam Comments Initial Comments: Physical Exam GENERAL: Patient is well-developed and well-nourished. Patient is nontoxic and well- hydrated and is in no distress. HENT: Normocephalic, Atraumatic. EYES: PERRL, EOMI PULMONARY: Unlabored respirations. No audible rales rhonchi or wheezing was noted. CARDIOVASCULAR: There is a regular rate and rhythm without any murmurs gallops or rubs. ABDOMEN: Soft and nontender with normal bowel sounds. SKIN: Skin is clear with no lesions or rashes and otherwise unremarkable. : Deferred NEUROLOGIC: Patient is alert and oriented x3. Moving all extremities spontaneously MUSCULOSKELETAL: Normal extremities with adequate strength and full range of motion. No lower extremity swelling or edema. No calf tenderness. PSYCHIATRIC: Normal psychiatric evaluation. Limitations: no limitations Course Vital Signs 07/04/21 07/04/21 07/05/21 22:37 23:28 01:32 Temperature 98.4 F Pulse Rate 72 71 72 Respiratory 20 17 17 Rate Blood Pressure 112/69 120/72 96/42 O2 Sat by Pulse 97 99 99 Oximetry Chest Pain MDM - MDM The patient was seen and evaluated upon arrival, patient with high risk cardiac history presenting with chest pain worse seems to be cardiac in nature, she'll EKG nonischemic, patient was given aspirin and nitro had some improvement in his discomfort. Labs were unremarkable. Given the patient's significant history recommend admission to the hospital. Initially the patient was agreeable and this plan was discussed with Soledad Cortes practitioner for [facility], however patient then decided he did not want to remain in the hospital due to concern about exposure to COVID-19. Patient for discharge home. Patient states that he will contact Dr. Mcrae in the morning for follow- up. Did discuss with the patient and my recommendation is that he stay, choosing to leave will be leaving AGAINST MEDICAL ADVICE The patient has decided to leave against medical advice because concern for exposure to COVID The patient has adequate capacity to make medical decisions. The patient refuses hospital admission and wants to be discharged. The risks have been explained to the patient, including heart attack, worsening illness, chronic pain, permanent disability and . The benefits of workup/admission have also been explained, including the availability and proximity of nurses, physicians, monitoring, diagnostic testing, treatment and evaluation by cardiology The patient was able to understand and state the risks and benefits of hospital admission. This was witnessed by nurse Faviola and me. The patient the opportunity to ask questions about their medical condition. The patient was treated to the extent that they would allow and knows that they may return for care at any time. Disposition Clinical Impression: Chest pain Disposition: Left Against Medical Advice Condition: Stable Is patient prescribed a controlled substance at d/c from ED?: No
--- NOTE | 2021-07-04 23:17 | XR ---
EXAMINATION TYPE: XR chest 2V DATE OF EXAM: 07/04/2021 COMPARISON: 07/17/2020 HISTORY: Chest pain TECHNIQUE: FINDINGS: Heart and mediastinum are normal. Lungs are clear. Diaphragm is normal. Bony thorax is inta ct. There are chest leads. There is pulmonary hyperinflation and flattening of the diaphragm. IMPRESSION: No active cardiopulmonary disease. Normal heart. No adverse change. There is probably EXPLOSION WELDER D.
[2021-07-04 23:28] VITALS: RESP 17
[2021-07-04 23:47] LABS: Basophils # (A) 0.1 k/uL (0-0.2); Basophils % (A) 1 %; Eosinophils # (A) 0.3 k/uL (0-0.7); Eosinophils % (A) 3 %; HCT 45.9 % (39.0-53.0); HGB 14.9 gm/dL (13.0-17.5); Lymphocytes # (A) 2.4 k/uL (1.0-4.8); Lymphocytes % (A) 29 %; MCH 30.2 pg (25.0-35.0); MCHC 32.5 g/dL (31.0-37.0); MCV 92.9 fL (80.0-100.0); Mean Platelet Volume 8.5; Monocytes # (A) 0.5 k/uL (0-1.0); Monocytes % (A) 6 %; Neutrophils % (A) 60 %; Platelet Count 207 k/uL (150-450); RBC 4.94 m/uL (4.30-5.90); RDW 12.1 % (11.5-15.5); WBC 8.3 k/uL (3.8-10.6)
[2021-07-04 23:59] LABS: INR 0.9 (<1.2); Partial Thromboplastin Time 23.5 sec (22.0-30.0); Prothrombin Time 10.1 sec (9.0-12.0)
[2021-07-05 00:23] LABS: ALT 20 U/L (4-49); AST 23 U/L (17-59); African American GFR (CKD) >90 (>60 ml/min/1.73 sqM); Alkaline Phosphatase 48 U/L (38-126); Anion Gap 8 mmol/L; Blood Urea Nitrogen 20 mg/dL (9-20); Calcium 9.1 mg/dL (8.4-10.2); Carbon Dioxide 26 mmol/L (22-30); Chloride 101 mmol/L (98-107); Glucose 118 mg/dL (74-99); Non-African American GFR(CKD) >90 (>60 ml/min/1.73 sqM); Potassium 4.2 mmol/L (3.5-5.1); Sodium 135 mmol/L (137-145); Total Bilirubin 0.2 mg/dL (0.2-1.3); Total Protein 6.4 g/dL (6.3-8.2)
[2021-07-05] MEDS ORDERED: NITROGLYCERIN SL TABS 0.4 MG TAB SUBLINGUAL PRN (00:37)
[2021-07-05] MEDS ORDERED: METOPROLOL TARTRATE 25 MG TAB PO SCH (01:30)
[2021-07-05 01:34] VITALS: BP 96/42; PULSE 72
[2021-07-05] MEDS ORDERED: IPRATROPIUM 0.5 MG/2.5 ML NEBU INHALATION SCH (08:00)
[2021-07-05] MEDS ORDERED: SYMBICORT 80-4.5 MCG INHALER INHALATION SCH (08:00)
[2021-07-05] MEDS ORDERED: FLUTICASONE 50MCG/SPRAY NASAL 16GM EA NOSTRIL SCH (09:00)
[2021-07-05] MEDS ORDERED: PRAMIPEXOLE 1 MG TAB PO SCH (21:00)
[2021-07-05] MEDS ORDERED: ASPIRIN 81 MG PO SCH (21:00)
[2021-07-05] MEDS ORDERED: LOSARTAN 25 MG TAB PO SCH (21:00)
[2021-07-05] MEDS ORDERED: ATORVASTATIN 40 MG TAB PO SCH (21:00)
[2021-07-06] MEDS ORDERED: ASPIRIN 325 MG TAB PO SCH (09:00)
== END 2021-07-05 01:33 | disposition left against medical advice (07) ==
LOC: EC 22:34 → 6NMEDSUR 07-05 00:37 → UNDOADMOB 07-05 00:37
DX: R07.89 Other chest pain (principal); I10 Essential (primary) hypertension; I25.2 Old myocardial infarction; E78.5 Hyperlipidemia, unspecified; J44.9 Chronic obstructive pulmonary disease, unspecified; K21.9 Gastro-esophageal reflux disease without esophagitis; M19.90 Unspecified osteoarthritis, unspecified site; F32.A Depression, unspecified; F41.9 Anxiety disorder, unspecified; F17.200 Nicotine dependence, unspecified, uncomplicated; Z79.82 Long term (current) use of aspirin; Z79.51 Long term (current) use of inhaled steroids; Z79.899 Other long term (current) drug therapy; Z95.5 Presence of coronary angioplasty implant and graft
CPT/HCPCS: 36415; 71046; 80053; 83735; 83880; 84484; 85025; 85610; 85730; 93005; 99285

== ENCOUNTER 2021-12-24 07:27 | Observation (INO) | payer OTHER ==
[2021-12-24] MEDS ORDERED: NITROGLYCERIN OINT 1 INCH/GM PACKET TOPICAL STA (07:43)
[2021-12-24] MEDS ORDERED: ASPIRIN 81 MG PO STA (07:43)
[2021-12-24 08:08] LABS: Partial Thromboplastin Time 23.6 sec (22.0-30.0); Prothrombin Time 10.5 sec (9.0-12.0)
[2021-12-24 08:13] LABS: ALT 22 U/L (4-49); AST 26 U/L (17-59); African American GFR (CKD) >90 (>60 ml/min/1.73 sqM); Albumin 4.5 g/dL (3.5-5.0); Alkaline Phosphatase 48 U/L (38-126); Anion Gap 7 mmol/L; Blood Urea Nitrogen 22 mg/dL (9-20); Calcium 9.1 mg/dL (8.4-10.2); Carbon Dioxide 27 mmol/L (22-30); Chloride 103 mmol/L (98-107); Glucose 101 mg/dL (74-99); Magnesium 1.9 mg/dL (1.6-2.3); Non-African American GFR(CKD) 87 (>60 ml/min/1.73 sqM); Potassium 3.9 mmol/L (3.5-5.1); Sodium 137 mmol/L (137-145); Total Bilirubin 0.8 mg/dL (0.2-1.3); Total Protein 6.9 g/dL (6.3-8.2)
[2021-12-24 08:22] LABS: Basophils # (A) 0.1 k/uL (0-0.2); Basophils % (A) 1 %; Eosinophils # (A) 0.1 k/uL (0-0.7); Eosinophils % (A) 2 %; HCT 49.6 % (39.0-53.0); HGB 16.2 gm/dL (13.0-17.5); Lymphocytes # (A) 1.7 k/uL (1.0-4.8); Lymphocytes % (A) 22 %; MCH 31.5 pg (25.0-35.0); MCHC 32.7 g/dL (31.0-37.0); MCV 96.3 fL (80.0-100.0); Monocytes # (A) 0.5 k/uL (0-1.0); Monocytes % (A) 7 %; Neutrophils # (A) 5.1 k/uL (1.3-7.7); Neutrophils % (A) 67 %; Platelet Count 204 k/uL (150-450); RBC 5.15 m/uL (4.30-5.90); RDW 12.8 % (11.5-15.5); WBC 7.7 k/uL (3.8-10.6)
--- NOTE | 2021-12-24 08:24 | XR ---
EXAMINATION TYPE: XR chest 2V DATE OF EXAM: 12/24/2021 COMPARISON: 08/16/2021 HISTORY: 56-year-old male with chest pain TECHNIQUE: PA and lateral views FINDINGS: Heart normal size. Aorta and pulmonary vasculature within normal limits. Hyperinflation. Mild interst itial prominence mid and lower lungs unchanged. No increasing consolidation or pleural effusion. IMPRESSION: COPD with hyperinflation. Chronic appearing interstitial change. No definite acute process.
[2021-12-24] MEDS ORDERED: NITROGLYCERIN SL TABS 0.4 MG TAB SUBLINGUAL PRN (08:43)
--- NOTE | 2021-12-24 08:43 | ED ---
Chest Pain HPI - General Chief Complaint: Chest Pain Stated Complaint: chest pain Time Seen by Provider: 12/24/21 07:34 Source: patient, RN notes reviewed Mode of arrival: ambulatory Limitations: no limitations - History of Present Illness Initial Comments: 56-year-old male presents emergency Department chief complaint chest pain. Patient states that overnight. Patient states nitro which alleviated his symptoms. It sharp pain and some pressure. He does have a 9 COPD. Patient states that he has to prior cardiac stents, hyperlipidemia, hypertension. Patient states he does have a mild cough. - Related Data Home Medications Medication Instructions Recorded Confirmed Aspirin [Adult Low Dose Aspirin EC] 81 mg PO HS 03/24/18 07/04/21 Atorvastatin Calcium [Lipitor] 40 mg PO HS 04/29/18 07/04/21 Albuterol Inhaler [Ventolin Hfa 1 - 2 puff INHALATION RT-Q4H PRN 05/27/20 07/04/21 Inhaler] Losartan [Cozaar] 25 mg PO HS 05/27/20 07/04/21 Pramipexole [Mirapex] 1 mg PO HS 03/15/21 07/04/21 Fluticasone/Umeclidin/Vilanter 1 puff INHALATION RT-BID 05/11/21 07/04/21 [Trelegy Ellipta 200-62.5-25] Fluticasone Nasal [place] [Flonase 1 spray EA NOSTRIL DAILY 07/04/21 07/04/21 Nasal [place]] Previous Rx's Medication Instructions Recorded Metoprolol Tartrate [Lopressor] 25 mg PO BID #60 tab 08/26/15 Albuterol Inhaler [Ventolin Hfa 2 puff INHALATION Q4HR PRN #8 gm 08/16/21 Inhaler] predniSONE 60 mg PO DAILY #30 tab 08/16/21 Allergies Allergy/AdvReac Type Severity Reaction Status Date / Time iodine Allergy Swelling Verified 07/04/21 23:23 salmon oil Allergy Swelling Verified 07/04/21 23:23 shellfish derived [Shellfish] Allergy Swelling Verified 07/04/21 23:23 venom-honey bee Allergy Swelling Verified 07/04/21 23:23 [bee venom (honey bee)] Review of Systems ROS Statement: Those systems with pertinent positive or pertinent negative responses have been documented in the HPI. ROS Other: All systems not noted in ROS Statement are negative. 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, enlarged lymph nodes in chest, pt states he has 3 masses in between lungs that were monitored for years-no change, bronchitis, DDD, spondylosis, 2 herniated cervical discs, 2 lumbar herniated discs, scoliosis, BPH, RLS Last Myocardial Infarction Date:: Aug 2015 History of Any Multi-Drug Resistant Organisms: None Reported Past Surgical History: Heart Catheterization With Stent, Hernia Repair, Orthopedic Surgery, Tonsillectomy Additional Past Surgical History / Comment(s): ORIF L hip/pins, L tibial cyst removed/bone graft from pelvis to tibia, pain clinic procedures, rhinoplasty, colonoscopy, Past Anesthesia/Blood Transfusion Reactions: No Reported Reaction Additional Past Anesthesia/Blood Transfusion Reaction / Comment(s): claustrophobic Date of Last Stent Placement:: Aug 2015 Past Psychological History: Anxiety, Depression Smoking Status: Current every day smoker Past Alcohol Use History: None Reported Past Drug Use History: None Reported - Past Family History Father History Unknown: Yes Family Medical History: No Reported History Additional Family Medical History / Comment(s): Pt does not know his father. Mother Family Medical History: COPD, CVA/TIA Additional Family Medical History / Comment(s): Mother is 80yrs old. Pt does not have much contact with mother. Brother(s) Additional Family Medical History / Comment(s): He has 2 brothers, one has metal health issues, one is an addict on crack and other street drugs. Sister(s) Family Medical History: Cancer, Liver Disease Additional Family Medical History / Comment(s): Patient had 2 sisters, one from breast cancer, one from cirrhosis at the age of 19 with history of heavy alcohol use and Crohn's disease. General Exam Limitations: no limitations General appearance: alert, in no apparent distress Head exam: Present: atraumatic, normocephalic, normal inspection Eye exam: Present: normal appearance, PERRL, EOMI. Absent: scleral icterus, conjunctival injection, periorbital swelling ENT exam: Present: normal exam, mucous membranes moist Neck exam: Present: normal inspection. Absent: tenderness, meningismus, lymphadenopathy Respiratory exam: Present: normal lung sounds bilaterally. Absent: respiratory distress, wheezes, rales, rhonchi, stridor Cardiovascular Exam: Present: regular rate, normal rhythm, normal heart sounds. Absent: systolic murmur, diastolic murmur, rubs, gallop, clicks Course Vital Signs 12/24/21 07:29 Temperature 98.1 F Pulse Rate 75 Respiratory 18 Rate Blood Pressure 111/66 O2 Sat by Pulse 100 Oximetry Chest Pain MDM - MDM 56-year-old presented for chest pain. Patient symptomatically relief with nitro. Patient does have significant history will be admitted for cardiac rule out. Disposition Clinical Impression: Chest pain Disposition: ADMITTED IP TO THIS HOSP Referrals: Indy Allen MD [Primary Care Provider] - 1-2 days Time of Disposition: 08:43
[2021-12-24] MEDS ORDERED: CAFFEINE CITRATE 60 MG/3 ML VIAL IV PRN (12:51)
[2021-12-24] MEDS ORDERED: AMINOPHYLLINE 500 MG/20 ML VIAL IV PRN (12:51)
--- NOTE | 2021-12-24 12:53 | P.CRDCN ---
History of Present Illness Consult date: 12/24/21 History of present illness: HISTORY OF PRESENT ILLNESS: This is a 56-year-old male with a past medical history significant for coronary artery disease with previous stenting to the RCA and circumflex, hypertension, hyperlipidemia, COPD, and nicotine dependence. Patient follows in the office with Dr. Mcrae. We have been asked to see the patient in consultation for chest pain. Patient examined at the bedside. Patient states he woke up at 5am and was having mild chest discomfort. He also report having SOB. He decided to come to the ER for further evaluation. He received nitro paste which he states helped his pain. He currently denies chest pain at the time of examination. * EKG reveals sinus mechanism with no signs of acute ischemia * Chest xray COPD with hyperinflation. Chronic appearing interstitial changes. No definite acute process. * Laboratory data: CBC 7.7. Hemoglobin 16.2. Platelet count 204. Sodium 137. Potassium 3.9. BUN 22. Creatinine 0.97. Magnesium 1.9. Troponin negative 2. * Current home cardiac medications include aspirin 81 mg daily, Lipitor 40 mg daily, Cozaar 25 mg daily, metoprolol tartrate 25 mg twice a day * Most recent echocardiogram obtained in August 2019 revealed ejection fraction 55%, mild mitral regurgitation, [id number] tricuspid regurgitation * Patient underwent Areli scan in July 2018 which was negative for ischemia * Cardiac catheterization history: August 2015 with stenting of the mid circumflex in the setting of an acute inferior [place] REVIEW OF SYSTEMS: At the time of my exam: CONSTITUTIONAL: Denies fever or chills. HEENT: Denies blurred vision, vision changes, or eye pain. Denies hemoptysis CARDIOVASCULAR: Denies chest pain. Denies orthopnea. Denies PND. Denies palpitations RESPIRATORY: Denies shortness of breath. GASTROINTESTINAL: Denies abdominal pain. Denies nausea or vomiting. HEMATOLOGIC: Denies bleeding disorders. GENITOURINARY: Denies any blood in urine. SKIN: Denies pruitis. Denies rash. PHYSICAL EXAM: VITAL SIGNS: Reviewed. GENERAL: Well-developed in no acute distress. HEENT: Head is normocephalic. Pupils are equal, round. Sclerae anicteric. Mucous membranes of the mouth are moist. Neck supple. No JVD or thyromegaly LUNGS: Respirations even and unlabored. Lungs essentially clear to auscultation bilaterally. HEART: Regular rate and rhythm. S1 and S2 heard. ABDOMEN: Soft. Nondistended. Nontender. EXTREMITIES: Normal range of motion. No clubbing or cyanosis. Peripheral pulses intact. No lower extremity edema NEUROLOGIC: Awake and alert. Oriented x 3. ASSESSMENT: Chest pain Coronary artery disease with previous PCI Hypertension Hyperlipidemia COPD Nicotine dependence PLAN: An acute coronary event has been ruled out Resume home cardiac medications Obtain 2-D echo to assess cardiac structure and function Patient to undergo Areli scan tomorrow. NPO at midnight. Further recommendations pending patient's course Nurse practitioner note has been reviewed by physician. Signing provider agrees with the documented findings, assessment, and plan of care. Past Medical History Past Medical History: Chest Pain / Angina, COPD, GERD/Reflux, Hyperlipidemia, Hypertension, Myocardial Infarction ([place]), Osteoarthritis (OA), Pneumonia, Prostate Disorder, Skin Disorder Additional Past Medical History / Comment(s): Giant cell tumor in pelviv/L femor al head at age 13 yrs with surgery, enlarged lymph nodes in chest, pt states he has 3 masses in between lungs that were monitored for years-no change, bronchitis, DDD, spondylosis, 2 herniated cervical discs, 2 lumbar herniated discs, scoliosis, BPH, RLS Last Myocardial Infarction Date:: Aug 2015 History of Any Multi-Drug Resistant Organisms: None Reported Past Surgical History: Heart Catheterization With Stent, Hernia Repair, Orthopedic Surgery, Tonsillectomy Additional Past Surgical History / Comment(s): ORIF L hip/pins, L tibial cyst removed/bone graft from pelvis to tibia, pain clinic procedures, rhinoplasty, colonoscopy, Past Anesthesia/Blood Transfusion Reactions: No Reported Reaction Additional Past Anesthesia/Blood Transfusion Reaction / Comment(s): claustrophobic Date of Last Stent Placement:: Aug 2015 Past Psychological History: Anxiety, Depression Smoking Status: Current every day smoker Past Alcohol Use History: None Reported Past Drug Use History: None Reported - Past Family History Father History Unknown: Yes Family Medical History: No Reported History Additional Family Medical History / Comment(s): Pt does not know his father. Mother Family Medical History: COPD, CVA/TIA Additional Family Medical History / Comment(s): Mother is 80yrs old. Pt does not have much contact with mother. Brother(s) Additional Family Medical History / Comment(s): He has 2 brothers, one has metal health issues, one is an addict on crack and other street drugs. Sister(s) Family Medical History: Cancer, Liver Disease Additional Family Medical History / Comment(s): Patient had 2 sisters, one from breast cancer, one from cirrhosis at the age of 19 with history of heavy alcohol use and Crohn's disease. Medications and Allergies Home Medications Medication Instructions Recorded Confirmed Type Metoprolol Tartrate [Lopressor] 25 mg PO BID #60 tab 08/26/15 12/24/21 Rx Aspirin [Adult Low Dose Aspirin EC] 81 mg PO HS 03/24/18 12/24/21 History Atorvastatin Calcium [Lipitor] 40 mg PO DAILY 04/29/18 12/24/21 History Albuterol Inhaler [Ventolin Hfa 1 - 2 puff INHALATION RT-Q4H PRN 05/27/20 12/24/21 History Inhaler] Losartan [Cozaar] 25 mg PO DAILY 05/27/20 12/24/21 History Pramipexole [Mirapex] 1 mg PO HS 03/15/21 12/24/21 History Fluticasone/Umeclidin/Vilanter 1 puff INHALATION RT-DAILY 05/11/21 12/24/21 History [Trelegy Ellipta 200-62.5-25] Nitroglycerin Sl Tabs [Nitrostat] 0.4 mg SUBLINGUAL Q5M PRN 12/24/21 12/24/21 History busPIRone HCl [Buspar] 10 mg PO BID 12/24/21 12/24/21 History Allergies Allergy/AdvReac Type Severity Reaction Status Date / Time iodine Allergy Swelling Verified 12/24/21 09:15 salmon oil Allergy Swelling Verified 12/24/21 09:15 shellfish derived [Shellfish] Allergy Swelling Verified 12/24/21 09:15 venom-honey bee Allergy Swelling Verified 12/24/21 09:15 [bee venom (honey bee)] Physical Exam Vitals: Vital Signs Temp Pulse Pulse Resp BP BP Pulse Ox 12/24/21 09:53 97.8 F 66 18 112/75 99 12/24/21 08:33 72 16 112/81 99 12/24/21 07:29 98.1 F 75 18 111/66 100 Intake and Output 12/23/21 12/24/21 12/24/21 22:59 06:59 14:59 Other: Weight 55.792 kg Results 12/24/21 07:46 12/24/21 07:46 Cardiac Enzymes 12/24/21 12/24/21 12/24/21 Range/Units 07:46 07:46 10:27 AST 26 (17-59) U/L Troponin I <0.012 <0.012 (0.000-0.034) ng/mL Coagulation 12/24/21 Range/Units 07:46 PT 10.5 (9.0-12.0) sec APTT 23.6 (22.0-30.0) sec CBC 12/24/21 Range/Units 07:46 WBC 7.7 (3.8-10.6) k/uL RBC 5.15 (4.30-5.90) m/uL Hgb 16.2 (13.0-17.5) gm/dL Hct 49.6 (39.0-53.0) % Plt Count 204 (150-450) k/uL Comprehensive Metabolic Panel 12/24/21 Range/Units 07:46 Sodium 137 (137-145) mmol/L Potassium 3.9 (3.5-5.1) mmol/L Chloride 103 (98-107) mmol/L Carbon Dioxide 27 (22-30) mmol/L BUN 22 H (9-20) mg/dL Creatinine 0.98 (0.66-1.25) mg/dL Glucose 101 H (74-99) mg/dL Calcium 9.1 (8.4-10.2) mg/dL AST 26 (17-59) U/L ALT 22 (4-49) U/L Alkaline Phosphatase 48 (38-126) U/L Total Protein 6.9 (6.3-8.2) g/dL Albumin 4.5 (3.5-5.0) g/dL Current Medications Generic Name Dose Route Start Last Admin Trade Name Freq PRN Reason Stop Dose Admin Aspirin 325 mg 12/25/21 09:00 Aspirin 325 Mg Tab PO DAILY EMILIANO Atorvastatin Calcium 40 mg 12/24/21 21:00 Atorvastatin 40 Mg Tab PO HS [facility] Budesonide/Formoterol Fumarate 2 puff 12/25/21 08:00 Symbicort 80-4.5 Mcg Inhaler INHALATION RT-BID [facility] Buspirone HCl 10 mg 12/24/21 09:30 Buspirone Hcl 10 Mg Tab PO BID [facility] Ipratropium [place] 0.5 mg 12/25/21 08:00 Ipratropium 0.5 Mg/2.5 Ml Nebu INHALATION RT-QID [facility] Losartan Potassium 25 mg 12/24/21 21:00 Losartan 25 Mg Tab PO HS [facility] Metoprolol Tartrate 25 mg 12/24/21 09:00 Metoprolol Tartrate 25 Mg Tab PO BID [facility] Nitroglycerin 0.4 mg 12/24/21 08:43 Nitroglycerin Sl Tabs 0.4 Mg Tab SUBLINGUAL Q5M PRN Chest Pain Nitroglycerin 1 inch 12/24/21 12:00 Nitroglycerin Oint 1 Inch/Gm Packet TOPICAL Q6HR [facility] Pramipexole Dihydrochloride 1 mg 12/24/21 21:00 Pramipexole 1 Mg Tab PO [facility] Intake and Output 12/23/21 12/24/21 12/24/21 22:59 06:59 14:59 Other: Weight 55.792 kg Patient Weight 12/25/21 06:59 Weight 55.792 kg 12/24/21 07:46 12/24/21 07:46
[2021-12-24] MEDS: METOPROLOL TARTRATE 25 MG TAB PO SCH ×2 (12:57→20:19)
[2021-12-24] MEDS: busPIRone HCl 10 MG TAB PO SCH ×2 (12:57→20:19)
[2021-12-24] MEDS: NITROGLYCERIN OINT 1 INCH/GM PACKET TOPICAL SCH ×2 (15:19→20:21)
[2021-12-24] MEDS ORDERED: IPRATROPIUM 0.5 MG/2.5 ML NEBU INHALATION ONE (15:20)
[2021-12-24] MEDS: IPRATROPIUM 0.5 MG/2.5 ML NEBU INHALATION SCH (15:31)
[2021-12-24] MEDS ORDERED: ACETAMINOPHEN TAB 325 MG TAB PO PRN (15:43)
[2021-12-24] MEDS ORDERED: IPRATROPIUM-ALBUTEROL 3 ML NEB INHALATION PRN (17:19)
--- NOTE | 2021-12-24 17:26 | P.HPIM ---
History of Present Illness H&P Date: 12/24/21 History of Presenting Illness: Patient is a very [id number] male with a past medical history of hypertension, hyperlipidemia, anxiety, COPD with ongoing tobacco dependence and CAD with previous [place] and status post 2 stents. He presented to the emergency department with a chief complaint of chest pain. Patient reports these symptoms began upon awakening this morning. Patient reports he awoke and as a typical morning that up and let his dog outside. Patient reports he was walking back to make some coffee when he suddenly felt winded and short of breath, patient states this made him feel anxious and he began having some chest pain/pressure to left anterior chest radiating into his left shoulder. Patient reports he tried to sit down thinking this would make things better, but this did not work. Patient reports taking a nitro relieving the pain. Currently patient states chest pain remains resolved and he denies having any headache, lightheadedness, dizziness, fevers, chills, palpitations, shortness of breath, dyspnea with exertion, cough or congestion, abdominal pain, nausea, vomiting, or experiencing any numbness/tingling/weakness in his extremities. Patient underwent full evaluation in the emergency department. CBC, coags, and CMP were unremarkable. Troponin negative at less than 0.012. Covid PCR negative. EKG showing normal sinus rhythm at 72 bpm with no noted T-wave or ST abnormalities showing no signs of ischemia. Chest x-ray revealing COPD with hyperinflation, chronic appearing interstitial changes with no noted acute cardiopulmonary process. Patient admitted under our services with consultation to cardiology. Review of systems: Pertinent positives and negatives as discussed in HPI, a complete review of systems was performed and all other systems are negative. Physical exam: Vital signs reviewed and stable. General: Nontoxic, no distress and appears stated age. Derm: Skin warm and dry, normal coloration for ethnicity. Head: Atraumatic, normocephalic and symmetric. Eyes: EOMs intact, no lid lag, and anicteric sclera Mouth: no lip lesions, mucus membranes moist Cardiovascular: regular rate and rhythm with normal S1S2, no murmur, positive posterior tibial pulses bilaterally, and cap refill < 2 seconds. Lungs: Respirations even, regular, and unlabored on room air. Lungs CTA bilaterally, no rhonchi, no rales, no wheezing, and no accessory muscle usage. Abdominal: soft, nontender to palpation, no guarding, no appreciable organomegaly Ext: ROM intact. No gross muscle atrophy, no edema, no contractures Neuro: Speech clear, face symmetrical and CN II-XII grossly intact with no noted focal neuro deficits Psych: Alert and oriented to person, place, time, and situation. Appropriate and pleasant affect. Assessment and Plan of Care: Chest pain, rule out acute coronary event History of CAD with previous stenting 2 -Cardiology consult, appreciate further recommendations -Telemetry monitoring -Trend troponins -Cardiac diet, NPO at midnight -Aspirin, atorvastatin, and metoprolol -Lipid profile with a.m. labs. -Echocardiogram Hypertension Monitor vital signs and continue daily medication regimen with losartan and metoprolol. Hyperlipidemia Continue daily medication regimen with atorvastatin. COPD with ongoing nicotine dependence Encourage smoking cessation and continue to educate patient on risks associated with continued use. Nicotine patch The patient is admitted with an anticipated less than 2 midnight stay for evaluation of chest pain CODE STATUS: Full code DVT prophylaxis: Heparin Discussed with: Pt and RN Anticipated discharge date: tomorrow Anticipated discharge place: Home A total of 42 minutes was spent on the care of this complex patient more than 50% of the time was spent in counseling and care coordination. 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, enlarged lymph nodes in chest, pt states he has 3 masses in between lungs that were monitored for years-no change, bronchitis, DDD, spondylosis, 2 herniated cervical discs, 2 lumbar herniated discs, scoliosis, BPH, RLS Last Myocardial Infarction Date:: Aug 2015 History of Any Multi-Drug Resistant Organisms: None Reported Past Surgical History: Heart Catheterization With Stent, Hernia Repair, Orthopedic Surgery, Tonsillectomy Additional Past Surgical History / Comment(s): ORIF L hip/pins, L tibial cyst removed/bone graft from pelvis to tibia, pain clinic procedures, rhinoplasty, colonoscopy, Past Anesthesia/Blood Transfusion Reactions: No Reported Reaction Additional Past Anesthesia/Blood Transfusion Reaction / Comment(s): claustrophobic Date of Last Stent Placement:: Aug 2015 Past Psychological History: Anxiety, Depression Smoking Status: Current every day smoker Past Alcohol Use History: None Reported Past Drug Use History: None Reported - Past Family History Father History Unknown: Yes Family Medical History: No Reported History Additional Family Medical History / Comment(s): Pt does not know his father. Mother Family Medical History: COPD, CVA/TIA Additional Family Medical History / Comment(s): Mother is 80yrs old. Pt does not have much contact with mother. Brother(s) Additional Family Medical History / Comment(s): He has 2 brothers, one has metal health issues, one is an addict on crack and other street drugs. Sister(s) Family Medical History: Cancer, Liver Disease Additional Family Medical History / Comment(s): Patient had 2 sisters, one from breast cancer, one from cirrhosis at the age of 19 with history of heavy alcohol use and Crohn's disease. Medications and Allergies Home Medications Medication Instructions Recorded Confirmed Type Metoprolol Tartrate [Lopressor] 25 mg PO BID #60 tab 08/26/15 12/24/21 Rx Aspirin [Adult Low Dose Aspirin EC] 81 mg PO HS 03/24/18 12/24/21 History Atorvastatin Calcium [Lipitor] 40 mg PO DAILY 04/29/18 12/24/21 History Albuterol Inhaler [Ventolin Hfa 1 - 2 puff INHALATION RT-Q4H PRN 05/27/20 12/24/21 History Inhaler] Losartan [Cozaar] 25 mg PO DAILY 05/27/20 12/24/21 History Pramipexole [Mirapex] 1 mg PO HS 03/15/21 12/24/21 History Fluticasone/Umeclidin/Vilanter 1 puff INHALATION RT-DAILY 05/11/21 12/24/21 History [Trelegy Ellipta 200-62.5-25] Nitroglycerin Sl Tabs [Nitrostat] 0.4 mg SUBLINGUAL Q5M PRN 12/24/21 12/24/21 History busPIRone HCl [Buspar] 10 mg PO BID 12/24/21 12/24/21 History Allergies Allergy/AdvReac Type Severity Reaction Status Date / Time iodine Allergy Swelling Verified 12/24/21 09:15 salmon oil Allergy Swelling Verified 12/24/21 09:15 shellfish derived [Shellfish] Allergy Swelling Verified 12/24/21 09:15 venom-honey bee Allergy Swelling Verified 12/24/21 09:15 [bee venom (honey bee)] Physical Exam Vitals: Vital Signs Temp Pulse Resp BP Pulse Ox 12/24/21 08:33 72 16 112/81 99 12/24/21 07:29 98.1 F 75 18 111/66 100 Intake and Output 12/23/21 12/24/21 12/24/21 22:59 06:59 14:59 Other: Weight 55.792 kg Results CBC & Chem 7: 12/24/21 07:46 12/24/21 07:46 Labs: Abnormal Lab Results - Last 24 Hours (Table) 12/24/21 Range/Units 07:46 BUN 22 H (9-20) mg/dL Glucose 101 H (74-99) mg/dL
[2021-12-24] MEDS: NICOTINE 21MG/24HR PATCH TRANSDERM SCH (18:46)
[2021-12-24] MEDS: SYMBICORT 80-4.5 MCG INHALER INHALATION SCH (20:13)
[2021-12-24] MEDS: HEPARIN SODIUM,PORCINE/PF 5,000 UNIT/0.5 ML SYRINGE SQ SCH (20:18)
[2021-12-24] MEDS ORDERED: PRAMIPEXOLE 1 MG TAB PO SCH (21:00)
[2021-12-24] MEDS ORDERED: ATORVASTATIN 40 MG TAB PO SCH (21:00)
[2021-12-24] MEDS ORDERED: LOSARTAN 25 MG TAB PO SCH (21:00)
[2021-12-25] MEDS: NITROGLYCERIN OINT 1 INCH/GM PACKET TOPICAL SCH ×3 (02:01→13:15)
[2021-12-25] MEDS ORDERED: REGADENOSON 0.4 MG/5 ML SYRINGE IV ONE (06:00)
[2021-12-25] MEDS: SYMBICORT 80-4.5 MCG INHALER INHALATION SCH (07:23)
[2021-12-25] MEDS: IPRATROPIUM 0.5 MG/2.5 ML NEBU INHALATION SCH ×3 (07:23→15:34)
[2021-12-25] MEDS ORDERED: ALPRAZolam 0.25 MG TAB PO STA (08:38)
[2021-12-25] MEDS: NICOTINE 21MG/24HR PATCH TRANSDERM SCH (08:51)
[2021-12-25] MEDS: HEPARIN SODIUM,PORCINE/PF 5,000 UNIT/0.5 ML SYRINGE SQ SCH (08:51)
[2021-12-25] MEDS: busPIRone HCl 10 MG TAB PO SCH (08:51)
[2021-12-25] MEDS: METOPROLOL TARTRATE 25 MG TAB PO SCH (08:51)
[2021-12-25] MEDS ORDERED: ASPIRIN 81 MG PO SCH (09:00)
[2021-12-25] MEDS ORDERED: ASPIRIN 325 MG TAB PO SCH (09:00)
--- NOTE | 2021-12-25 09:36 | CA ---
Transthoracic Echo Report Name: Jamil Rivas Age: 56 Gender: M : 1965 Exam Date: 12/24/2021 11:50 Exam Location: [place] Echo Ht (in): 66 Wt (lb): 123 Ordering Physician: Bran Mohan Attending/Referring Phys: [id number], Kimberlee Time Study Statistician Alona Kincaid, MATTHEW Procedure CPT: Indications: Chest Pain Cardiac Hx: Technical Quality: Fair Contrast 1: Total Dose (mL): Contrast 2: Total Dose (mL): MEASUREMENTS (Male / Female) Normal Values 2D ECHO LV Diastolic Diameter PLAX 4.0 cm 4.2 - 5.9 / 3.9 - 5.3 cm LV Systolic Diameter PLAX 2.9 cm IVS Diastolic Thickness 0.9 cm 0.6 - 1.0 / 0.6 - 0.9 cm LVPW Diastolic Thickness 1.1 cm 0.6 - 1.0 / 0.6 - 0.9 cm LV Relative Wall Thickness 0.5 RV Internal Dim ED PLAX 2.0 cm LA Volume 26.1 cm??? 18 - 58 / 22 - 52 cm??? M-MODE Aortic Root Diameter MM 3.1 cm LA Systolic Diameter MM 2.0 cm LA Ao Ratio MM 0.6 AV Cusp Separation MM 1.9 cm DOPPLER AV Peak Velocity 104.9 cm/s AV Peak Gradient 4.4 mmHg LVOT Peak Velocity 82.9 cm/s LVOT Peak Gradient 2.8 mmHg MV Area PHT 3.1 cm??? Mitral E Point Velocity 73.9 cm/s Mitral A Point Velocity 66.5 cm/s Mitral E to A Ratio 1.1 MV Deceleration Time 242.1 ms MV E' Velocity 7.1 cm/s Mitral E to MV E' Ratio 10.4 TR Peak Velocity 218.4 cm/s TR Peak Gradient 19.1 mmHg Right Ventricular Systolic Press 23.2 mmHg FINDINGS Left Ventricle Normal Left ventricular size, wall thickness, systolic function with no obvious regional wall motion abnormalities. Normal Left ventricular diastolic filling pattern. Left ventricular ejection fraction is estimated at 50-55 %. Right Ventricle Normal right ventricular size and function. Right ventricular systolic pressure within normal limits. Right Atrium Mild right atrial dilatation. Left Atrium Normal left atrial size. No evidence for an atrial septal defect. Mitral Valve Mild mitral regurgitation. Aortic Valve No aortic valve stenosis or regurgitation. Tricuspid Valve Trace to mild tricuspid regurgitation. Pulmonic Valve Structurally normal pulmonic valve. Trace pulmonic regurgitation. Pericardium No pericardial effusion. Aorta Normal size aortic root and proximal ascending aorta. CONCLUSIONS #1. Normal left ventricle size and function. #2. Mild mitral and trace tricuspid regurgitation Previewed by: Dr. Neal Mcrae MD (Electronically Signed) Final Date: 25 December 2021 09:36
--- NOTE | 2021-12-25 09:41 | P.PN ---
Subjective Progress Note Date: 12/25/21 HISTORY OF PRESENT ILLNESS: This is a 56-year-old male with a past medical history significant for coronary artery disease with previous stenting to the RCA and circumflex, hypertension, hyperlipidemia, COPD, and nicotine dependence. Patient follows in the office with Dr. Mcrae. We have been asked to see the patient in consultation for chest pain. Patient examined at the bedside. Patient states he woke up at 5am and was having mild chest discomfort. He also report having SOB. He decided to come to the ER for further evaluation. He received nitro paste which he states helped his pain. He currently denies chest pain at the time of examination. * EKG reveals sinus mechanism with no signs of acute ischemia * Chest xray COPD with hyperinflation. Chronic appearing interstitial changes. No definite acute process. * Laboratory data: CBC 7.7. Hemoglobin 16.2. Platelet count 204. Sodium 137. Potassium 3.9. BUN 22. Creatinine 0.97. Magnesium 1.9. Troponin negative 2. * Current home cardiac medications include aspirin 81 mg daily, Lipitor 40 mg daily, Cozaar 25 mg daily, metoprolol tartrate 25 mg twice a day * Most recent echocardiogram obtained in August 2019 revealed ejection fraction 55%, mild mitral regurgitation, [id number] tricuspid regurgitation * Patient underwent Areli scan in July 2018 which was negative for ischemia * Cardiac catheterization history: August 2015 with stenting of the mid circumflex in the setting of an acute inferior NC 12/25/2021 Reason examined this morning at the bedside. Patient denies any further episodes of chest pain or pressure. He denies shortness of breath. Echocardiogram completed revealing ejection fraction 50-55% with mild mitral regurgitation and trace to mild tricuspid regurgitation. Patient's vital signs are stable. PHYSICAL EXAM: VITAL SIGNS: Reviewed. GENERAL: Well-developed in no acute distress. HEENT: Head is normocephalic. Pupils are equal, round. Sclerae anicteric. Mucous membranes of the mouth are moist. Neck supple. No JVD or thyromegaly LUNGS: Respirations even and unlabored. Lungs essentially clear to auscultation bilaterally. HEART: Regular rate and rhythm. S1 and S2 heard. ABDOMEN: Soft. Nondistended. Nontender. EXTREMITIES: Normal range of motion. No clubbing or cyanosis. Peripheral pulses intact. No lower extremity edema NEUROLOGIC: Awake and alert. Oriented x 3. ASSESSMENT: Chest pain Coronary artery disease with previous PCI Hypertension Hyperlipidemia COPD Nicotine dependence PLAN: Continue current cardiac medications Patient to undergo Lexiscan stress test today. If negative, he may be discharged home from a cardiac standpoint Further recommendations pending patient's course Nurse practitioner note has been reviewed by physician. Signing provider agrees with the documented findings, assessment, and plan of care. Objective - Vital Signs Vital signs: Vital Signs Temp 97.6 F 12/25/21 07:00 Pulse 71 12/25/21 07:32 Resp 18 12/25/21 07:00 BP 118/75 12/25/21 07:00 Pulse Ox 99 12/25/21 07:00 FiO2 21 12/24/21 20:14 Intake & Output 12/24/21 12/25/21 12/25/21 18:59 06:59 18:59 Intake Total 240 Balance 240 Weight 55.792 kg Intake: Oral 240 Other: # Voids 2 1 - Labs CBC & Chem 7: 12/24/21 07:46 12/24/21 07:46
[2021-12-25 11:43] LABS: Chol/HDL Ratio 2.63 Ratio; LDL Cholesterol,Calculated 66.2 mg/dL (0.0-131.0); VLDL Calculation 16.84 mg/dL (5.00-40.00)
--- NOTE | 2021-12-25 12:09 | CA ---
Lexiscan Nuclear Stress Test Report Name: Jamil Rivas Exam Date: 12/25/2021 10:12 Exam Location: [place] Stress Ht (in): 66 Wt (lb): 123 BSA: 1.63 Ordering Phys: Cheyanne Lopez Referring Phys: Franklin,, Technologist: Raymond Vega Age: 56 Gender: M : 1965 Procedure CPT: Indications: Reflex order-Stress test ICD-10 Codes: Patient History: Chest Pain, Short of Breath, Palpitations, Hypertension, History of heart disease Medications: see list Meds past 24 hrs: Pretest Chest Pain: STRESS TEST Lexiscan Protocol Exercise Duration (min:sec): 02:[address] Depressions (mm): Angina Score: Bush Score: Resting HR (bpm): 61 Peak HR (bpm): 95 Resting BP (mmHg): 113 / 76 Peak BP (mmHg): 123 / 78 MPHR: 165 Target HR: 140 % MPHR: 58 METS: 1.0 Total Dose: Peak Dose: Atropine: Double Product: 36626 BP Response: Stress Termination: Medication infused Stress Symptoms: Dyspnea Stress Summary: ECG ANALYSIS Resting ECG: Sinus rhythm with normal MI interval and QRS duration Stress ECG: Sinus rhythm without any acute changes CONCLUSIONS #1. Negative Lexiscan stress test. #2. Report on the nuclear portion of the test to be provided by the radiologist Dr. Neal Mcrae MD (Electronically Signed) Final Date: 25 December 2021 12:08
--- NOTE | 2021-12-25 12:51 | NM ---
EXAMINATION TYPE: NM stress lexiscan cardiolite DATE OF EXAM: 12/25/2021 COMPARISON: 11/27/2011 HISTORY: 56-year-old male with chest pain, difficulty in breathing, high cholesterol, hypertension, p revious ME, previous catheterization, COPD. TECHNIQUE: After the intravenous administration of 9.77 mCi Tc 99m Sestamibi - Cardiolite resting SP ECT images acquired 45 minutes post injection. The patient received 0.4mg Lexiscan, 25.6 mCi Tc 99m Sestamibi - Stress images obtained [address] injection FINDINGS: Review of stress and rest SPECT images demonstrates fixed perfusion defect along the mid and apical i nferior and inferoseptal gonzalez. No discrete reversibility is seen. Gated analysis shows incomplete au gmentation along this region. Estimated left ventricular ejection fraction of 60 %. TID is calculate d at 1.02, within normal limits. IMPRESSION: Fixed defect along the mid and apical inferior and inferoseptal gonzalez could represent either diaphrag matic attenuation versus area of old infarct. The latter is somewhat favored. Clinically correlate. N o scintigraphic evidence for inducible ischemia.
--- NOTE | 2021-12-25 14:15 | P.DS ---
Providers Date of admission: 12/24/21 08:58 Expected date of discharge: 12/25/21 Attending physician: Janay Reid MD Primary care physician: Indy Allen [facility] Hospital Course: Discharge Diagnosis: Chest pain, acute coronary event ruled out History of CAD with previous stenting 2 HypertensionMonitor vital signs and continue daily medication regimen with losartan and metoprolol. HyperlipidemiaContinue daily medication regimen with atorvastatin. COPD with ongoing nicotine dependence, recommend stopping smoking Hospital Course: Patient is a very [id number] male with a past medical history of hypertension, hyperlipidemia, anxiety, COPD with ongoing tobacco dependence and CAD with previous [place] and status post 2 stents. He presented to the emergency department with a chief complaint of chest pain. Patient reports these symptoms began upon awakening this morning. Patient reports he awoke and as a typical morning that up and let his dog outside. Patient reports he was walking back to make some coffee when he suddenly felt winded and short of breath, patient states this made him feel anxious and he began having some chest pain/pressure to left anterior chest radiating into his left shoulder. Patient reports he tried to sit down thinking this would make things better, but this did not work. Patient reports taking a nitro relieving the pain. Currently patient states chest pain remains resolved and he denies having any headache, lightheadedness, dizziness, fevers, chills, palpitations, shortness of breath, dyspnea with exertion, cough or congestion, abdominal pain, nausea, vomiting, or experiencing any numbness/tingling/weakness in his extremities. Patient underwent full evaluation in the emergency department. CBC, coags, and CMP were unremarkable. Troponin negative at less than 0.012. Covid PCR negative. EKG showing normal sinus rhythm at 72 bpm with no noted T-wave or ST abnormalities showing no signs of ischemia. Chest x-ray revealing COPD with hyperinflation, chronic appearing interstitial changes with no noted acute cardiopulmonary process. Patient admitted under our services with consultation to cardiology. Patient monitored overnight. Troponins trended and remained negative at less than 0.012 3 draws. Lipid profile unremarkable. Echocardiogram revealing preserved EF of 50-55% with mild mitral and trace tricuspid regurgitation. Patient was evaluated by cardiology and taken for a stress test. Lexiscan stress test negative showing no scintigraphic evidence for inducible ischemia, revealing fixed defect along the mid and apical inferior and inferoseptal gonzalez representing either diaphragmatic potential relation versus area of old infarct. Cardiology recommending outpatient follow-up in our office and continuation of daily cardiac medication regimen. Patient's condition is stable, he reports being free from chest pain or shortness of breath at this time. Patient medically stable for discharge home and to follow up outpatient with PCP and cardiology. Patient strongly encouraged to stop smoking. Physical exam: Vital signs reviewed and stable. General: Nontoxic, no distress and appears stated age. Derm: Skin warm and dry, normal coloration for ethnicity. Head: Atraumatic, normocephalic and symmetric. Eyes: EOMs intact, no lid lag, and anicteric sclera Mouth: no lip lesions, mucus membranes moist Cardiovascular: regular rate and rhythm with normal S1S2, no murmur, positive posterior tibial pulses bilaterally, and cap refill < 2 seconds. Lungs: Respirations even, regular, and unlabored on room air. Lungs CTA bilaterally, no rhonchi, no rales, no wheezing, and no accessory muscle usage. Abdominal: soft, nontender to palpation, no guarding, no appreciable organomegaly Ext: ROM intact. No gross muscle atrophy, no edema, no contractures Neuro: Speech clear, face symmetrical and CN II-XII grossly intact with no noted focal neuro deficits Psych: Alert and oriented to person, place, time, and situation. Appropriate and pleasant affect. A total of 34 minutes of time were spent preparing this complex discharge summary. Pt was discharged on 12/25/21 at 2:15 PM I reviewed the documentation as provided by the CARLOS ENRIQUE above, who is the original author of this note. I agree with the documented assessment and plan, with the following changes: none Patient Condition at Discharge: Stable Plan - Discharge Summary Discharge Rx Participant: No New Discharge Prescriptions: Continue Metoprolol Tartrate [Lopressor] 25 mg PO BID #60 tab Aspirin [Adult Low Dose Aspirin EC] 81 mg PO HS Atorvastatin Calcium [Lipitor] 40 mg PO DAILY Losartan [Cozaar] 25 mg PO DAILY Albuterol Inhaler [Ventolin Hfa Inhaler] 1 - 2 puff INHALATION RT-Q4H PRN PRN Reason: Shortness Of Breath Pramipexole [Mirapex] 1 mg PO HS Fluticasone/Umeclidin/Vilanter [Trelegy Ellipta 200-62.5-25] 1 puff INHALATION RT-DAILY Nitroglycerin Sl Tabs [Nitrostat] 0.4 mg SUBLINGUAL Q5M PRN PRN Reason: Chest Pain busPIRone HCl [Buspar] 10 mg PO BID Discharge Medication List Metoprolol Tartrate [Lopressor] 25 mg PO BID #60 tab 08/26/15 [Rx] Aspirin [Adult Low Dose Aspirin EC] 81 mg PO HS 03/24/18 [History] Atorvastatin Calcium [Lipitor] 40 mg PO DAILY 04/29/18 [History] Albuterol Inhaler [Ventolin Hfa Inhaler] 1 - 2 puff INHALATION RT-Q4H PRN 05/27/20 [History] Losartan [Cozaar] 25 mg PO DAILY 05/27/20 [History] Pramipexole [Mirapex] 1 mg PO HS 03/15/21 [History] Fluticasone/Umeclidin/Vilanter [Trelegy Ellipta 200-62.5-25] 1 puff INHALATION RT-DAILY 05/11/21 [History] Nitroglycerin Sl Tabs [Nitrostat] 0.4 mg SUBLINGUAL Q5M PRN 12/24/21 [History] busPIRone HCl [Buspar] 10 mg PO BID 12/24/21 [History] Follow up Appointment(s)/Referral(s): Indy Allen MD [Primary Care Provider] - 1-2 days Neal Mcrae MD [STAFF PHYSICIAN] - 01/08/22 2:30 pm Patient Instructions/Handouts: Regadenoson (By injection), Chest Pain (DC), How to Stop Smoking (DC) Activity/Diet/Wound Care/Special Instructions: Activity: As tolerated. Take breaks as needed. Diet: Heart healthy and carb consistent diet. Avoid salts, or foods with hidden salts such as canned or boxed foods and frozen dinners. Extra salt makes your heart work harder and traps the fluid in your body for longer. Special Instructions: Take all of your medications as directed and remember to keep all of your doctor 's appointments and follow-up as needed. Strongly recommend smoking cessation. Thank you for allowing us to participate in your care, it was truly a pleasure having you for our patient!!! Discharge Disposition: HOME SELF-CARE
[2021-12-25 14:36] VITALS: BP 128/77; PULSE 60; RESP 16; TEMP 97.4
[2021-12-26] MEDS ORDERED: REGADENOSON 0.4 MG/5 ML SYRINGE IV PRN (05:00)
== END 2021-12-25 15:37 | disposition home or self-care (01) ==
LOC: EC 07:27 → 6NMEDSUR 08:58
PROVIDERS: ADMIT Internal Medicine; ATTEND Internal Medicine
DX: R07.89 Other chest pain (principal); J44.9 Chronic obstructive pulmonary disease, unspecified; I08.1 Rheumatic disorders of both mitral and tricuspid valves; I25.10 Atherosclerotic heart disease of native coronary artery without angina pectoris; I10 Essential (primary) hypertension; E78.5 Hyperlipidemia, unspecified; I25.2 Old myocardial infarction; K21.9 Gastro-esophageal reflux disease without esophagitis; M19.90 Unspecified osteoarthritis, unspecified site; F40.240 Claustrophobia; N40.0 Benign prostatic hyperplasia without lower urinary tract symptoms; G25.81 Restless legs syndrome; L98.9 Disorder of the skin and subcutaneous tissue, unspecified; M47.9 Spondylosis, unspecified; R91.8 Other nonspecific abnormal finding of lung field; R59.9 Enlarged lymph nodes, unspecified; M50.20 Other cervical disc displacement, unspecified cervical region; M51.26 Other intervertebral disc displacement, lumbar region; M41.9 Scoliosis, unspecified; F32.A Depression, unspecified; F41.9 Anxiety disorder, unspecified; F17.200 Nicotine dependence, unspecified, uncomplicated; Z20.822 Contact with and (suspected) exposure to COVID-19; Z79.82 Long term (current) use of aspirin; Z79.51 Long term (current) use of inhaled steroids; Z79.899 Other long term (current) drug therapy; Z91.030 Bee allergy status; Z91.013 Allergy to seafood; Z91.018 Allergy to other foods; Z91.048 Other nonmedicinal substance allergy status; Z71.6 Tobacco abuse counseling; Z87.01 Personal history of pneumonia (recurrent); Z95.5 Presence of coronary angioplasty implant and graft; Z98.890 Other specified postprocedural states; Z87.898 Personal history of other specified conditions; Z82.5 Family history of asthma and other chronic lower respiratory diseases; Z82.3 Family history of stroke; Z80.3 Family history of malignant neoplasm of breast; Z83.79 Family history of other diseases of the digestive system; Z81.1 Family history of alcohol abuse and dependence; Z81.8 Family history of other mental and behavioral disorders
CPT/HCPCS: 96372 ×2; 99285; 36415; 94640 ×3; 94760; 93005; 93017; 93306; 83880; 80061; 80053; 83735; 84484; 85025; 85610; 85730; 87635; 71046; 78452; G0378 ×2; A9500; J2785; J1644 ×2

== ENCOUNTER 2022-03-21 11:30 | Emergency (ER) | payer OTHER ==
[2022-03-21 11:36] VITALS: BP 119/75; PULSE 64; RESP 18; TEMP 97.4
[2022-03-21 12:35] LABS: Basophils # (A) 0.1 k/uL (0-0.2); Basophils % (A) 1 %; Eosinophils # (A) 0.1 k/uL (0-0.7); Eosinophils % (A) 2 %; HCT 46.3 % (39.0-53.0); Lymphocytes # (A) 2.2 k/uL (1.0-4.8); Lymphocytes % (A) 26 %; MCH 30.8 pg (25.0-35.0); MCHC 32.4 g/dL (31.0-37.0); Mean Platelet Volume 8.2; Monocytes # (A) 0.5 k/uL (0-1.0); Monocytes % (A) 6 %; Neutrophils # (A) 5.6 k/uL (1.3-7.7); Neutrophils % (A) 65 %; Platelet Count 205 k/uL (150-450); RBC 4.88 m/uL (4.30-5.90); RDW 12.6 % (11.5-15.5); WBC 8.6 k/uL (3.8-10.6)
[2022-03-21 12:45] LABS: ALT 20 U/L (4-49); AST 20 U/L (17-59); African American GFR (CKD) >90 (>60 ml/min/1.73 sqM); Alkaline Phosphatase 56 U/L (38-126); Anion Gap 7 mmol/L; Blood Urea Nitrogen 25 mg/dL (9-20); Calcium 8.6 mg/dL (8.4-10.2); Carbon Dioxide 25 mmol/L (22-30); Chloride 104 mmol/L (98-107); Glucose 97 mg/dL (74-99); Magnesium 1.8 mg/dL (1.6-2.3); Non-African American GFR(CKD) >90 (>60 ml/min/1.73 sqM); Potassium 4.2 mmol/L (3.5-5.1); Sodium 136 mmol/L (137-145); Total Protein 6.2 g/dL (6.3-8.2)
[2022-03-21 12:46] LABS: Prothrombin Time 10.5 sec (9.0-12.0)
--- NOTE | 2022-03-21 13:07 | XR ---
EXAMINATION TYPE: XR chest 2V DATE OF EXAM: 03/21/2022 COMPARISON: Chest x-ray December 24, 2021 HISTORY: Chest pain. TECHNIQUE: Frontal and lateral views of the chest are obtained. FINDINGS: There is chronic emphysematous change without suspicious new focal air space opacity, pleu ral effusion, or pneumothorax seen. The cardiac silhouette size is stable and within normal limits. The osseous structures are intact. IMPRESSION: Chronic emphysematous change without acute pulmonary process.
== END 2022-03-21 14:49 | disposition left against medical advice (07) ==
LOC: EC 11:30
DX: Z53.21 Procedure and treatment not carried out due to patient leaving prior to being seen by health care provider (principal)
CPT/HCPCS: 36415; 71046; 80053; 83735; 84484; 85025; 85610; 85730; 93005; 99499

== ENCOUNTER 2022-04-12 04:25 | Emergency (ER) | payer OTHER ==
[2022-04-12 04:31] VITALS: TEMP 100.3
[2022-04-12] MEDS ORDERED: IPRATROPIUM-ALBUTEROL 3 ML NEB INHALATION STA (04:47)
[2022-04-12] MEDS ORDERED: predniSONE 20 MG TAB PO STA (04:48)
[2022-04-12 05:09] LABS: ALT 26 U/L (4-49); African American GFR (CKD) >90 (>60 ml/min/1.73 sqM); Anion Gap 11 mmol/L; Blood Urea Nitrogen 19 mg/dL (9-20); Calcium 8.3 mg/dL (8.4-10.2); Carbon Dioxide 21 mmol/L (22-30); Chloride 98 mmol/L (98-107); Glucose 118 mg/dL (74-99); Non-African American GFR(CKD) >90 (>60 ml/min/1.73 sqM); Sodium 130 mmol/L (137-145)
[2022-04-12] MEDS ORDERED: ALBUTEROL HFA INHALER INHALATION STA (05:11)
[2022-04-12 05:12] LABS: AST 46 U/L (17-59); Albumin 3.6 g/dL (3.5-5.0); Potassium 4.9 mmol/L (3.5-5.1); Total Bilirubin 0.8 mg/dL (0.2-1.3)
[2022-04-12 05:13] LABS: Alkaline Phosphatase 32 U/L (38-126)
--- NOTE | 2022-04-12 05:14 | XR ---
EXAMINATION TYPE: XR chest 1V portable DATE OF EXAM: 04/12/2022 COMPARISON: 03/21/2022 HISTORY: Short of breath TECHNIQUE: Single view FINDINGS: Heart is normal. There is a linear density right midlung field. There are no hilar masses. Costophrenic angles are clear. Bony thorax is intact. IMPRESSION: There is some atelectasis in the right mid lung which is new compared to the old exam. No rmal heart.
[2022-04-12 05:15] LABS: INR 0.9 (<1.2); Partial Thromboplastin Time 29.4 sec (22.0-30.0); Prothrombin Time 10.3 sec (9.0-12.0)
[2022-04-12 05:22] LABS: Basophils % (A) 0 %; Eosinophils % (A) 0 %; HCT 40.9 % (39.0-53.0); HGB 14.3 gm/dL (13.0-17.5); Lymphocytes # (A) 0.6 k/uL (1.0-4.8); Lymphocytes % (A) 12 %; MCH 30.9 pg (25.0-35.0); MCV 88.2 fL (80.0-100.0); Mean Platelet Volume 10.8; Monocytes # (A) 0.3 k/uL (0-1.0); Monocytes % (A) 6 %; Neutrophils % (A) 80 %; RBC 4.64 m/uL (4.30-5.90); RDW 12.6 % (11.5-15.5)
[2022-04-12] MEDS ORDERED: ACETAMINOPHEN TAB 325 MG TAB PO STA (05:44)
[2022-04-12] MEDS ORDERED: methylPREDNISolone SOD SUCCI 125 MG/2 ML VIAL IV STA (05:45)
[2022-04-12] MEDS ORDERED: diphenhydrAMINE 50 MG/ML 1 ML VIAL IVP STA (05:45)
[2022-04-12] MEDS ORDERED: FAMOTIDINE 20 MG/2 ML VIAL IV STA (05:45)
[2022-04-12 06:00] LABS: Large Platelets Present; Platelet Count 81 k/uL (150-450)
--- NOTE | 2022-04-12 06:48 | CT ---
EXAMINATION TYPE: CT chest angio for PE DATE OF EXAM: 04/12/2022 COMPARISON: None HISTORY: Dyspnea CT DLP: 218.7 mGycm Automated exposure control for dose reduction was used. CONTRAST: Performed with IV Contrast, patient injected with 64 mL of Isovue 370. There are Three-D postprocessed images. There is diffuse bullous pulmonary emphysema. There is no mediastinal adenopathy. There are no hilar masses. There is normal contrast opacification of the pulmonary arteries. No filling defect. Thoracic aorta is atheromatous. There is irregular pleural thickening and infiltrate in this anterior right u pper lobe. No pleural effusion. The thoracic spine is intact. No compression fracture. IMPRESSION: Bullous pulmonary emphysema. No evidence of pulmonary embolism. There is some pleural thickening and infiltrate anterior right upper lobe. This appears new compared to CT scan of 05/11/2019 and likely r elates to pneumonia and atelectasis.
[2022-04-12] MEDS ORDERED: PNEUMONIA PROTOCOL UTILIZED 1 EACH MISC PO PRN (06:50)
[2022-04-12] MEDS ORDERED: ACETAMINOPHEN TAB 325 MG TAB PO PRN (06:50)
[2022-04-12] MEDS ORDERED: ALBUTEROL HFA INHALER INHALATION PRN (06:50)
[2022-04-12] MEDS ORDERED: NITROGLYCERIN SL TABS 0.4 MG TAB SUBLINGUAL PRN (06:53)
[2022-04-12] MEDS ORDERED: SODIUM CHLORIDE 0.9% 1,000 ML IV SCH (07:00)
--- NOTE | 2022-04-12 07:00 | ED ---
SOB HPI - General Chief Complaint: Shortness of Breath Stated Complaint: covid+, LOC Time Seen by Provider: 04/12/22 04:27 Source: patient, EMS Mode of arrival: EMS Limitations: no limitations - History of Present Illness Initial Comments: This patient is 56-year-old man with history of some underlying COPD who presents with complaint that he is feeling a little short of breath. He notes that he was having some upper respiratory symptoms, fevers and chills so had taken Covid test that was positive. MD Complaint: shortness of breath, cough -: days(s) Severity scale (1-10): 0 Improves With: nothing Worsens With: nothing Associated Symptoms: denies other symptoms - Related Data Home Medications Medication Instructions Recorded Confirmed Aspirin [Adult Low Dose Aspirin EC] 81 mg PO HS 03/24/18 03/28/22 Atorvastatin Calcium [Lipitor] 40 mg PO DAILY 04/29/18 03/28/22 Albuterol Inhaler [Ventolin Hfa 1 - 2 puff INHALATION RT-Q4H PRN 05/27/20 03/28/22 Inhaler] Losartan [Cozaar] 25 mg PO DAILY 05/27/20 03/28/22 Pramipexole [Mirapex] 1 mg PO HS 03/15/21 03/28/22 Fluticasone/Umeclidin/Vilanter 1 puff INHALATION RT-DAILY 05/11/21 03/28/22 [Trelegy Ellipta 200-62.5-25] Nitroglycerin Sl Tabs [Nitrostat] 0.4 mg SUBLINGUAL Q5M PRN 12/24/21 03/28/22 busPIRone HCl [Buspar] 10 mg PO BID 12/24/21 03/28/22 Naproxen [Naprosyn] 500 mg PO BID 03/28/22 03/28/22 Orphenadrine Citrate [Orphenadrine 100 mg PO BID 03/28/22 03/28/22 Citrate ER] Previous Rx's Medication Instructions Recorded Metoprolol Tartrate [Lopressor] 25 mg PO BID #60 tab 08/26/15 Azithromycin [Zithromax] 0 mg PO DIRECTED #6 tab 04/12/22 Allergies Allergy/AdvReac Type Severity Reaction Status Date / Time iodine Allergy Swelling Verified 04/12/22 04:31 salmon oil Allergy Swelling Verified 04/12/22 04:31 shellfish derived [Shellfish] Allergy Swelling Verified 04/12/22 04:31 venom-honey bee Allergy Swelling Verified 04/12/22 04:31 [bee venom (honey bee)] Review of Systems ROS Statement: Those systems with pertinent positive or pertinent negative responses have been documented in the HPI. ROS Other: All systems not noted in ROS Statement are negative. Constitutional: Reports: fever, chills. Denies: weakness Respiratory: Reports: cough, dyspnea. 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, enlarged lymph nodes in chest, pt states he has 3 masses in between lungs that were monitored for years-no change, bronchitis, DDD, spondylosis, 2 herniated cervical discs, 2 lumbar herniated discs, scoliosis, BPH, RLS Last Myocardial Infarction Date:: Aug 2015 History of Any Multi-Drug Resistant Organisms: None Reported Past Surgical History: Heart Catheterization With Stent, Hernia Repair, Orthoped ic Surgery, Tonsillectomy Additional Past Surgical History / Comment(s): ORIF L hip/pins, L tibial cyst removed/bone graft from pelvis to tibia, pain clinic procedures, rhinoplasty, colonoscopy, Past Anesthesia/Blood Transfusion Reactions: No Reported Reaction Additional Past Anesthesia/Blood Transfusion Reaction / Comment(s): claustrophobic Date of Last Stent Placement:: Aug 2015 Past Psychological History: Anxiety, Depression Smoking Status: Current some day smoker - Past Family History Father History Unknown: Yes Family Medical History: No Reported History Additional Family Medical History / Comment(s): Pt does not know his father. Mother Family Medical History: COPD, CVA/TIA Additional Family Medical History / Comment(s): Mother is 80yrs old. Pt does not have much contact with mother. Brother(s) Additional Family Medical History / Comment(s): He has 2 brothers, one has metal health issues, one is an addict on crack and other street drugs. Sister(s) Family Medical History: Cancer, Liver Disease Additional Family Medical History / Comment(s): Patient had 2 sisters, one from breast cancer, one from cirrhosis at the age of 19 with history of heavy alcohol use and Crohn's disease. General Exam Limitations: no limitations General appearance: alert, in no apparent distress Head exam: Present: atraumatic, normocephalic Eye exam: Present: normal appearance. Absent: scleral icterus, conjunctival injection Neck exam: Present: normal inspection, full ROM Respiratory exam: Present: wheezes. Absent: respiratory distress, rales, rhonchi, stridor, accessory muscle use, decreased breath sounds, prolonged expi ratory Cardiovascular Exam: Present: regular rate, normal rhythm, normal heart sounds. Absent: systolic murmur, diastolic murmur, rubs, gallop GI/Abdominal exam: Present: soft. Absent: distended, tenderness, guarding, rebound Extremities exam: Present: normal inspection, normal capillary refill. Absent: pedal edema, calf tenderness Back exam: Present: normal inspection. Absent: CVA tenderness (R), CVA tenderness (L) Neurological exam: Present: alert Skin exam: Present: warm, dry, intact, normal color. Absent: rash Course Vital Signs 04/12/22 04/12/22 04/12/22 04:26 04:40 05:31 Temperature 100.3 F H Pulse Rate 94 Respiratory 26 H 22 Rate Blood Pressure 107/77 O2 Sat by Pulse 99 Oximetry 04/12/22 04/12/22 06:00 07:48 Temperature Pulse Rate 96 95 Respiratory 24 22 Rate Blood Pressure 96/67 104/68 O2 Sat by Pulse 97 95 Oximetry Medical Decision Making - Medical Decision Making Patient's 56-year-old man here to have evaluation after positive Covid test at home. I did go to review the results with the patient and at this point he is feeling better and would like to go home. I did offer admission, given his multiple underlying comorbidities, but the patient states she feels better. He will return should he feel he is worsening in any way. - Lab Data Result diagrams: 04/12/22 04:49 04/12/22 04:49 Lab Results 04/12/22 04/12/22 04/12/22 Range/Units 04:49 04:49 04:49 WBC 5.0 (3.8-10.6) k/uL RBC 4.64 (4.30-5.90) m/uL Hgb 14.3 (13.0-17.5) gm/dL Hct 40.9 (39.0-53.0) % MCV 88.2 D (80.0-100.0) fL MCH 30.9 (25.0-35.0) pg MCHC 35.0 (31.0-37.0) g/dL RDW 12.6 (11.5-15.5) % Plt Count 81 L D (150-450) k/uL MPV 10.8 Neutrophils % 80 % Lymphocytes % 12 % Monocytes % 6 % Eosinophils % 0 % Basophils % 0 % Neutrophils # 4.0 (1.3-7.7) k/uL Lymphocytes # 0.6 L (1.0-4.8) k/uL Monocytes # 0.3 (0-1.0) k/uL Eosinophils # 0.0 (0-0.7) k/uL Basophils # 0.0 (0-0.2) k/uL Manual Slide Review Performed Large Platelets Present PT 10.3 (9.0-12.0) sec INR 0.9 (<1.2) APTT 29.4 (22.0-30.0) sec D-Dimer 0.73 H (<0.60) mg/L FEU Sodium 130 L (137-145) mmol/L Potassium 4.9 (3.5-5.1) mmol/L Chloride 98 (98-107) mmol/L Carbon Dioxide 21 L (22-30) mmol/L Anion Gap 11 mmol/L BUN 19 (9-20) mg/dL Creatinine 0.91 (0.66-1.25) mg/dL Est GFR (CKD-EPI)AfAm >90 (>60 ml/min/1.73 sqM) Est GFR (CKD-EPI)NonAf >90 (>60 ml/min/1.73 sqM) Glucose 118 H (74-99) mg/dL Plasma Lactic Acid Obdulio (0.7-2.0) mmol/L Calcium 8.3 L (8.4-10.2) mg/dL Total Bilirubin 0.8 (0.2-1.3) mg/dL AST 46 (17-59) U/L ALT 26 (4-49) U/L Alkaline Phosphatase 32 L (38-126) U/L Troponin I (0.000-0.034) ng/mL NT-Pro-B Natriuret Pep pg/mL Total Protein 6.0 L (6.3-8.2) g/dL Albumin 3.6 (3.5-5.0) g/dL 04/12/22 04/12/22 04/12/22 Range/Units 04:49 04:49 04:49 WBC (3.8-10.6) k/uL RBC (4.30-5.90) m/uL Hgb (13.0-17.5) gm/dL Hct (39.0-53.0) % MCV (80.0-100.0) fL MCH (25.0-35.0) pg MCHC (31.0-37.0) g/dL RDW (11.5-15.5) % Plt Count (150-450) k/uL MPV Neutrophils % % Lymphocytes % % Monocytes % % Eosinophils % % Basophils % % Neutrophils # (1.3-7.7) k/uL Lymphocytes # (1.0-4.8) k/uL Monocytes # (0-1.0) k/uL Eosinophils # (0-0.7) k/uL Basophils # (0-0.2) k/uL Manual Slide Review Large Platelets PT (9.0-12.0) sec INR (<1.2) APTT (22.0-30.0) sec D-Dimer (<0.60) mg/L FEU Sodium (137-145) mmol/L Potassium (3.5-5.1) mmol/L Chloride (98-107) mmol/L Carbon Dioxide (22-30) mmol/L Anion Gap mmol/L BUN (9-20) mg/dL Creatinine (0.66-1.25) mg/dL Est GFR (CKD-EPI)AfAm (>60 ml/min/1.73 sqM) Est GFR (CKD-EPI)NonAf (>60 ml/min/1.73 sqM) Glucose (74-99) mg/dL Plasma Lactic Acid Obdulio 0.7 (0.7-2.0) mmol/L Calcium (8.4-10.2) mg/dL Total Bilirubin (0.2-1.3) mg/dL AST (17-59) U/L ALT (4-49) U/L Alkaline Phosphatase (38-126) U/L Troponin I <0.012 (0.000-0.034) ng/mL NT-Pro-B Natriuret Pep 38 pg/mL Total Protein (6.3-8.2) g/dL Albumin (3.5-5.0) g/dL Disposition Clinical Impression: COVID-19, COPD (chronic obstructive pulmonary disease) Narrative: Possible pneumonia Disposition: HOME SELF-CARE Condition: Good Instructions (If sedation given, give patient instructions): COVID-19 (Coronavirus Disease 2019) (ED) Prescriptions: Azithromycin [Zithromax] 0 mg PO DIRECTED #6 tab Is patient prescribed a controlled substance at d/c from ED?: No Referrals: Indy Allen MD [Primary Care Provider] - 1-2 days
[2022-04-12 07:59] VITALS: BP 104/68; PULSE 95; RESP 22
[2022-04-12] MEDS ORDERED: FLUTICASONE INHALATION SCH (08:00)
[2022-04-12] MEDS ORDERED: UMECLIDIN INHALATION SCH (08:00)
[2022-04-12] MEDS ORDERED: IPRATROPIUM-ALBUTEROL 3 ML NEB INHALATION SCH (08:00)
[2022-04-12] MEDS ORDERED: [UNRECOGNIZED DRUG - OTHER] INHALATION SCH (08:00)
[2022-04-12] MEDS ORDERED: VILANTER INHALATION SCH (08:00)
[2022-04-12] MEDS ORDERED: METOPROLOL TARTRATE 25 MG TAB PO SCH (09:00)
[2022-04-12] MEDS ORDERED: ATORVASTATIN 40 MG TAB PO SCH (09:00)
[2022-04-12] MEDS ORDERED: LOSARTAN 25 MG TAB PO SCH (09:00)
[2022-04-12] MEDS ORDERED: busPIRone HCl 10 MG TAB PO SCH (09:00)
[2022-04-12] MEDS ORDERED: NAPROXEN 500 MG PO SCH (09:00)
[2022-04-12] MEDS ORDERED: ORPHENADRINE CITRATE 100 MG PO SCH (09:00)
[2022-04-12] MEDS ORDERED: PRAMIPEXOLE 1 MG TAB PO SCH (21:00)
[2022-04-12] MEDS ORDERED: NON FORMULARY DRUG (Aspirin [Adult Low Dose Aspirin Ec] 81 MG Tablet.Dr) PO SCH (21:00)
[2022-04-13] MEDS ORDERED: AZITHROMYCIN 500 MG TAB PO SCH (09:00)
== END 2022-04-12 07:48 | disposition home or self-care (01) ==
LOC: EC 04:25
DX: U07.1 COVID-19 (principal); J44.9 Chronic obstructive pulmonary disease, unspecified; K21.9 Gastro-esophageal reflux disease without esophagitis; E78.5 Hyperlipidemia, unspecified; I10 Essential (primary) hypertension; I25.2 Old myocardial infarction; M19.90 Unspecified osteoarthritis, unspecified site; F41.9 Anxiety disorder, unspecified; F32.A Depression, unspecified; F17.200 Nicotine dependence, unspecified, uncomplicated; Z91.041 Radiographic dye allergy status; Z91.013 Allergy to seafood; Z91.030 Bee allergy status; Z79.82 Long term (current) use of aspirin; Z79.51 Long term (current) use of inhaled steroids
CPT/HCPCS: 36415; 94640; 93005; 85379; 83880; 80053; 83605; 84484; 85025; 85610; 85730; 71045; 71275; 99285; 96365; 96375 ×3; J1200; J2930; J0696; J7512; Q9967

== ENCOUNTER 2023-04-03 10:50 | Observation (INO) | payer MEDICARE, OTHER ==
--- NOTE | 2023-04-03 11:32 | ED ---
Chest Pain HPI - General Source: patient, RN notes reviewed Mode of arrival: wheelchair Limitations: no limitations <Bran Mohan - Last Filed: 04/03/23 11:31> <Hu Lyle - Last Filed: 04/03/23 14:40> - General Chief Complaint: Chest Pain Stated Complaint: Chest pressure Time Seen by Provider: 04/03/23 11:31 - History of Present Illness Initial Comments: 57-year-old male presents emergency Department chief complaint of chest pain. Patient states she has pressure, shortness of breath. Patient states it started when he woke up this morning. He is at 2 prior cardiac stents he's had medications for hyperlipidemia hypertension and diabetes. (Bran Mohan) This is a 57-year-old male who has a past medical history significant for coronary artery disease and 2 stent placements. Patient also states he has high blood pressure high cholesterol and continues to smoke. Patient states he woke up this morning having sharp chest pain on the left side of his chest and he felt like it radiated to his right shoulder and his right arm became very heavy. Patient states she's also short of breath and diaphoretic and nauseated. Patient states that symptoms lasted about 25 minutes and they were very reminiscent of the time when he had a heart attack. Patient currently chest kulwant n-free. Patient denies any recent fever chills or cough per patient denies any lightheadedness or dizziness. (Hu Lyle) - Related Data Home Medications Medication Instructions Recorded Confirmed Aspirin [Adult Low Dose Aspirin EC] 81 mg PO HS 03/24/18 03/28/22 Atorvastatin Calcium [Lipitor] 40 mg PO DAILY 04/29/18 03/28/22 Albuterol Inhaler [Ventolin Hfa 1 - 2 puff INHALATION RT-Q4H PRN 05/27/20 03/28/22 Inhaler] Losartan [Cozaar] 25 mg PO DAILY 05/27/20 03/28/22 Pramipexole [Mirapex] 1 mg PO HS 03/15/21 03/28/22 Fluticasone/Umeclidin/Vilanter 1 puff INHALATION RT-DAILY 05/11/21 03/28/22 [Trelegy Ellipta 200-62.5-25] Nitroglycerin Sl Tabs [Nitrostat] 0.4 mg SUBLINGUAL Q5M PRN 12/24/21 03/28/22 busPIRone HCl [Buspar] 10 mg PO BID 12/24/21 03/28/22 Naproxen [Naprosyn] 500 mg PO BID 03/28/22 Orphenadrine Citrate [Orphenadrine 100 mg PO BID 03/28/22 Citrate ER] Previous Rx's Medication Instructions Recorded Metoprolol Tartrate [Lopressor] 25 mg PO BID #60 tab 08/26/15 Azithromycin [Zithromax] 0 mg PO DIRECTED #6 tab 04/12/22 Allergies Allergy/AdvReac Type Severity Reaction Status Date / Time iodine Allergy Swelling Verified 04/03/23 11:17 salmon oil Allergy Swelling Verified 04/03/23 11:17 shellfish derived [Shellfish] Allergy Swelling Verified 04/03/23 11:17 venom-honey bee Allergy Swelling Verified 04/03/23 11:17 [bee venom (honey bee)] Review of Systems ROS Other: All systems not noted in ROS Statement are negative. <Bran Mohan - Last Filed: 04/03/23 11:31> ROS Other: All systems not noted in ROS Statement are negative. <Hu Lyle - Last Filed: 04/03/23 14:40> ROS Statement: Those systems with pertinent positive or pertinent negative responses have been documented in the HPI. 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, enlarged lymph nodes in chest, pt states he has 3 masses in between lungs that were monitored for years-no change, bronchitis, DDD, spondylosis, 2 herniated cervical discs, 2 lumbar herniated discs, scoliosis, BPH, RLS Last Myocardial Infarction Date:: Aug 2015 History of Any Multi-Drug Resistant Organisms: None Reported Past Surgical History: Heart Catheterization With Stent, Hernia Repair, Orthopedic Surgery, Tonsillectomy Additional Past Surgical History / Comment(s): ORIF L hip/pins, L tibial cyst removed/bone graft from pelvis to tibia, pain clinic procedures, rhinoplasty, colonoscopy, Past Anesthesia/Blood Transfusion Reactions: No Reported Reaction Additional Past Anesthesia/Blood Transfusion Reaction / Comment(s): claustrophobic Date of Last Stent Placement:: Aug 2015 Past Psychological History: Anxiety, Depression Smoking Status: Current some day smoker - Past Family History Father History Unknown: Yes Family Medical History: No Reported History Additional Family Medical History / Comment(s): Pt does not know his father. Mother Family Medical History: COPD, CVA/TIA Additional Family Medical History / Comment(s): Mother is 80yrs old. Pt does not have much contact with mother. Brother(s) Additional Family Medical History / Comment(s): He has 2 brothers, one has metal health issues, one is an addict on crack and other street drugs. Sister(s) Family Medical History: Cancer, Liver Disease Additional Family Medical History / Comment(s): Patient had 2 sisters, one from breast cancer, one from cirrhosis at the age of 19 with history of heavy alcohol use and Crohn's disease. <Bran Mohan - Last Filed: 04/03/23 11:31> General Exam Limitations: no limitations General appearance: alert, in no apparent distress <Bran Mohan - Last Filed: 04/03/23 11:31> <Hu Lyle - Last Filed: 04/03/23 14:40> - General Exam Comments Initial Comments: Visual Physical Exam Vital signs reviewed General: Well-appearing, nontoxic, no acute distress. Head: Normocephalic, atraumatic Eyes: PERRLA, EOMI ENT: Airway patent Chest: Nonlabored breathing Skin: No visual rash, normal skin tone Neuro: Alert and oriented 3 Musculoskeletal: No gross abnormalities (Bran Mohan) GENERAL: Patient is well-developed and well-nourished. Patient is nontoxic and well- hydrated and is in no acute distress. ENT: Neck is soft and supple. No significant lymphadenopathy is noted. Oropharynx is clear. Moist mucous membranes. Neck has full range of motion without eliciting any pain. There is no thyroid enlargement and no masses were felt. EYES: The sclera were anicteric and conjunctiva were pink and moist. Extraocular movements were intact and pupils were equal round and reactive to light. Ey elids were unremarkable. PULMONARY: Unlabored respirations. Good breath sounds bilaterally. No audible rales rhonchi or wheezing was noted. CARDIOVASCULAR: There is a regular rate and rhythm without any murmurs gallops or rubs. ABDOMEN: Soft and nontender with normal bowel sounds. No palpable organomegaly was noted. There is no palpable pulsatile mass. SKIN: Skin is clear with no lesions or rashes and otherwise unremarkable. NEUROLOGIC: Patient is alert and oriented x3. Cranial nerves II through XII are grossly intact. Motor and sensory are also intact. Normal speech, volume and content. Symmetrical smile. MUSCULOSKELETAL: Normal extremities with adequate strength and full range of motion. No lower extremity swelling or edema. No calf tenderness. LYMPHATICS: No significant lymphadenopathy is noted PSYCHIATRIC: Normal psychiatric evaluation. Normal interpersonal interactions appears functionally intact in deals appropriately with others. No signs of depression. No signs of anxiety. (Hu Lyle) Course Vital Signs 04/03/23 04/03/23 04/03/23 11:19 14:00 14:15 Temperature 98.4 F 97.2 F L Pulse Rate 82 83 Respiratory 16 18 Rate Blood Pressure 134/77 126/75 O2 Sat by Pulse 100 96 Oximetry Chest Pain MDM <Bran Mohan - Last Filed: 04/03/23 11:31> <Hu Lyle - Last Filed: 04/03/23 14:40> - MDM I performed a quick note portion of this chart signed Bran Mohan PA-C (Bran Mohan) EKG was interpreted by myself. EKG shows a sinus rhythm at 83 bpm WV interval 163 QRSs 86 QT interval 360 QTC is 400. Patient's EKG shows no ST segment elevation or depression. Was pt. sent in by a medical professional or institution ([facility], EXTRA[employer] TECHNOLOGIST, urgent care, hospital, or fdc...) When possible be specific @ -No Did you speak to anyone other than the patient for history (EMS, parent, family, police, friend...)? What history was obtained from this source @ -No Did you review nursing and triage notes (agree or disagree)? Why? @ -I reviewed and agree with nursing and triage notes Were old charts reviewed (outside hosp., previous admission, EMS record, old EKG, old radiological studies, urgent care reports/EKG's, fdc records)? Report findings @ -I reviewed prior charts prior lab work on this patient Differential Diagnosis (chest pain, altered mental status, abdominal pain women, abdominal pain men, vaginal bleeding, weakness, fever, dyspnea, syncope, heada nelda, dizziness, GI bleed, back pain, seizure, CVA, palpatations, mental health, musculoskeletal)? @ -Differential Chest Pain: Stable Angina, Unstable Angina, STEMI, NSTEMI Aortic Dissection, Pneumothorax, Musculoskeletal, Esophageal Spasm GERD, Cholecystitis, Pancreatitis, Zoster, this is not meant to be an all-inclusive list. EKG interpreted by me (3pts min.). @ -As above X-rays interpreted by me (1pt min.). @ -Chest x-ray showed no acute abnormality CT interpreted by me (1pt min.). @ -None done U/S interpreted by me (1pt. min.). @ -None done What testing was considered but not performed or refused? (CT, X-rays, U/S, labs)? Why? @ -None What meds were considered but not given or refused? Why? @ -None Did you discuss the management of the patient with other professionals (professionals i.e. , PA, EXTRACTIONS TECHNOLOGIST, lab, RT, psych nurse, director of social services, cloth inspector, teacher, commissioned defence force officer, porter sample case)? Give summary @ -Local doctor Joellen and he wanted to admit the patient I agreed to write admitting orders Was smoking cessation discussed for >3mins.? @ -No Was critical care preformed (if so, how long)? @ -No Were there social determinants of health that impacted care today? How? (Homelessness, low income, unemployed, alcoholism, drug addiction, transportation, low edu. Level, literacy, decrease access to med. care, half-way, rehab)? @ -No Was there de-escalation of care discussed even if they declined (Discuss DNR or withdrawal of care, Hospice)? DNR status @ -No What co-morbidities impacted this encounter? (DM, HTN, Smoking, COPD, CAD, Cancer, CVA, ARF, Chemo, Hep., AIDS, mental health diagnosis, sleep apnea, morbid obesity)? @ -None Was patient admitted / discharged? Hospital course, mention meds given and route, prescriptions, significant lab abnormalities, going to OR and other pertinent info. @ -Chest pain-free throughout his ED course. Patient received nitroglycerin and aspirin. I spoke with Dr. Bhagat and wrote admitting orders I consulted cardiology I continue aspirin and Nitropaste on the floor Undiagnosed new problem with uncertain prognosis? @ -No Drug Therapy requiring intensive monitoring for toxicity (Heparin, Nitro, Insulin, Cardizem)? @ -No Were any procedures done? @ -No Diagnosis/symptom? @ -Chest pain Acute, or Chronic, or Acute on Chronic? @ -Acute Uncomplicated (without systemic symptoms) or Complicated (systemic symptoms)? @ -Complicated Side effects of treatment? @ -No Exacerbation, Progression, or Severe Exacerbation? @ -No Poses a threat to life or bodily function? How? (Chest pain, [place], PR, pneumonia, PE, COPD, DKA, ARF, appy, cholecystitis, CVA, Diverticulitis, Homicidal, Suicidal, threat to staff... and all critical care pts) @ -Yes this could lead to poor perfusion and end organ dysfunction (Hu Lyle) Disposition <Bran Mohan - Last Filed: 04/03/23 11:31> Time of Disposition: 14:36 <Hu Lyle - Last Filed: 04/03/23 14:40> Clinical Impression: Chest pain Disposition: ADMITTED IP TO THIS HOSP Referrals: Indy Allen MD [Primary Care Provider] - 1-2 days
[2023-04-03 11:59] LABS: Basophils % (A) 0 %; Eosinophils # (A) 0.1 k/uL (0-0.7); Eosinophils % (A) 2 %; HGB 15.9 gm/dL (13.0-17.5); Lymphocytes # (A) 1.4 k/uL (1.0-4.8); Lymphocytes % (A) 26 %; MCH 30.6 pg (25.0-35.0); MCHC 32.4 g/dL (31.0-37.0); MCV 94.3 fL (80.0-100.0); Mean Platelet Volume 8.3; Monocytes # (A) 0.4 k/uL (0-1.0); Monocytes % (A) 6 %; Neutrophils # (A) 3.6 k/uL (1.3-7.7); Neutrophils % (A) 65 %; Platelet Count 195 k/uL (150-450); RBC 5.19 m/uL (4.30-5.90); RDW 12.3 % (11.5-15.5); WBC 5.6 k/uL (3.8-10.6)
[2023-04-03 12:13] LABS: Partial Thromboplastin Time 24.6 sec (22.0-30.0); Prothrombin Time 10.2 sec (9.0-12.0)
[2023-04-03 12:14] LABS: ALT 22 U/L (4-49); AST 26 U/L (17-59); African American GFR (CKD) >90 (>60 ml/min/1.73 sqM); Albumin 4.6 g/dL (3.5-5.0); Alkaline Phosphatase 58 U/L (38-126); Anion Gap 7 mmol/L; Blood Urea Nitrogen 16 mg/dL (9-20); Calcium 9.7 mg/dL (8.4-10.2); Carbon Dioxide 30 mmol/L (22-30); Chloride 104 mmol/L (98-107); Glucose 94 mg/dL (74-99); Non-African American GFR(CKD) 89 (>60 ml/min/1.73 sqM); Potassium 4.9 mmol/L (3.5-5.1); Sodium 141 mmol/L (137-145); Total Bilirubin 0.9 mg/dL (0.2-1.3); Total Protein 7.3 g/dL (6.3-8.2)
--- NOTE | 2023-04-03 13:44 | XR ---
EXAMINATION TYPE: XR chest 2V DATE OF EXAM: 04/03/2023 COMPARISON: 04/12/2022 HISTORY: 57-year-old male with chest pain TECHNIQUE: PA and lateral views FINDINGS: Heart normal size. Aorta and pulmonary vasculature within normal limits. Hyperinflation. Mild interst itial prominence. No consolidation or pleural effusion. Improvement in aeration at the periphery of t he right midlung compared to 2021. IMPRESSION: COPD. No definite acute process.
[2023-04-03] MEDS ORDERED: NITROGLYCERIN SL TABS 0.4 MG TAB SUBLINGUAL PRN (14:42)
[2023-04-03] MEDS: NITROGLYCERIN OINT 1 INCH/GM PACKET TOPICAL SCH (14:49)
[2023-04-03] MEDS ORDERED: IPRATROPIUM-ALBUTEROL 3 ML NEB INHALATION PRN (19:40)
[2023-04-03] MEDS ORDERED: ASPIRIN 81 MG PO SCH (21:00)
[2023-04-03] MEDS ORDERED: ATORVASTATIN 40 MG TAB PO SCH (21:00)
[2023-04-03] MEDS ORDERED: LOSARTAN 25 MG TAB PO SCH (21:00)
[2023-04-03] MEDS: METOPROLOL TARTRATE 25 MG TAB PO SCH (21:20)
[2023-04-03] MEDS: HEPARIN SODIUM,PORCINE 5,000 UNIT/ML 1 ML VIAL SQ SCH (21:21)
--- NOTE | 2023-04-03 22:45 | P.HPIM ---
History of Present Illness H&P Date: 04/03/23 Chief Complaint: Chest pain Patient is a 57-year-old male with a known history of coronary artery disease with history of stent placement, hypertension, hyperlipidemia, history of HI, ongoing nicotine addiction currently everyday smoker, anxiety/depression and remote history of marijuana use presents to ER with complaints of chest pain. Patient states that around 10 to 10:30 AM this morning patient started having mid retrosternal sharp chest pain associated with nausea and shortness of breath. Patient tried to use Ventolin inhaler without much relief. Patient is felt like pressure-like sensation and radiating to the right side of the neck and right arm felt heavy. Patient states that he felt similar symptoms when he had HI previously. Pain lasted about 40 minutes. Currently denies any chest pain. No fever no chills. No cough or sputum production. Denies any palpitations no leg swelling. Denies any recent illnesses. Patient does smoke on a daily basis. Chest x-ray showed COPD. No definite acute process. EKG showed sinus rhythm. Laboratory data showed WBC 5.6 hemoglobin 15.9 and platelets 195 Sodium 141 potassium 4.9 chloride 104 bicarb is 30 BUN 16 and creatinine 0.96 and blood sugar is 94. Troponin x3 negative. Review of Systems Constitutional: Patient denies any fever or chills . no Generalized weakness. Abdomen: Patient denied any nausea or vomiting or abd. pain Cardiovascular: Patient denies any chest pain or short of breath no palpitations. Respiratory: patient denied any cough . no sputum production. No shortness of breath Neurologic: Patient denied any numbness or tingling headache. Musculoskeletal: Patient denies any complaints of joint swelling or deformity. Skin: Negative Psychiatric: Negative Endocrine: No heat or cold intolerance. No recent weight gain. Genitourinary: No dysuria or hematuria. All other 14 point ROS negative except the above Past Medical History Past Medical History: Chest Pain / Angina, COPD, GERD/Reflux, Hyperlipidemia, Hypertension, Myocardial Infarction (HI), Osteoarthritis (OA), Pneumonia, Prostate Disorder, Skin Disorder Additional Past Medical History / Comment(s): Giant cell tumor in pelviv/L femo ral head at age 13 yrs with surgery, enlarged lymph nodes in chest, pt states he has 3 masses in between lungs that were monitored for years-no change, bronchitis, DDD, spondylosis, 2 herniated cervical discs, 2 lumbar herniated discs, scoliosis, BPH, RLS Last Myocardial Infarction Date:: Aug 2015 History of Any Multi-Drug Resistant Organisms: None Reported Past Surgical History: Heart Catheterization With Stent, Hernia Repair, Orthopedic Surgery, Tonsillectomy Additional Past Surgical History / Comment(s): ORIF L hip/pins, L tibial cyst removed/bone graft from pelvis to tibia, pain clinic procedures, rhinoplasty, colonoscopy, Past Anesthesia/Blood Transfusion Reactions: No Reported Reaction Additional Past Anesthesia/Blood Transfusion Reaction / Comment(s): claustrophobic Date of Last Stent Placement:: Aug 2015 Past Psychological History: Anxiety, Depression Additional Psychological History / Comment(s): PT resides with his spouse. He is independent. He has a nebulizer. He is disabled. Smoking Status: Current some day smoker Past Alcohol Use History: None Reported Additional Past Alcohol Use History / Comment(s): Pt started smoking in 1978 and was a 2.5 ppd smoker but quit 4 months ago Past Drug Use History: None Reported Additional Drug Use History / Comment(s): in past used marijuana - 3 times. none in 32 years - Past Family History Father History Unknown: Yes Family Medical History: No Reported History Additional Family Medical History / Comment(s): Pt does not know his father. Mother Family Medical History: COPD, CVA/TIA Additional Family Medical History / Comment(s): Mother is 80yrs old. Pt does not have much contact with mother. Brother(s) Additional Family Medical History / Comment(s): He has 2 brothers, one has metal health issues, one is an addict on crack and other street drugs. Sister(s) Family Medical History: Cancer, Liver Disease Additional Family Medical History / Comment(s): Patient had 2 sisters, one from breast cancer, one from cirrhosis at the age of 19 with history of heavy alcohol use and Crohn's disease. Medications and Allergies Home Medications Medication Instructions Recorded Confirmed Type Metoprolol Tartrate [Lopressor] 25 mg PO BID #60 tab 08/26/15 04/03/23 Rx Aspirin [Adult Low Dose Aspirin EC] 81 mg PO HS 03/24/18 04/03/23 History Atorvastatin Calcium [Lipitor] 40 mg PO HS 04/29/18 04/03/23 History Albuterol Inhaler [Ventolin Hfa 1 - 2 puff INHALATION RT-Q4H PRN 05/27/20 04/03/23 History Inhaler] Losartan [Cozaar] 25 mg PO HS 05/27/20 04/03/23 History Fluticasone/Umeclidin/Vilanter 1 puff INHALATION RT-DAILY 05/11/21 04/03/23 History [Trelegy Ellipta 200-62.5-25] Nitroglycerin Sl Tabs [Nitrostat] 0.4 mg SUBLINGUAL Q5M PRN 12/24/21 04/03/23 History Ipratropium-Albuterol Nebulize 3 ml INHALATION RT-TID PRN 04/03/23 04/03/23 History [Duoneb 0.5 mg-3 mg/3 ml Soln] Allergies Allergy/AdvReac Type Severity Reaction Status Date / Time iodine Allergy Swelling Verified 04/03/23 11:17 salmon oil Allergy Swelling Verified 04/03/23 11:17 shellfish derived [Shellfish] Allergy Swelling Verified 04/03/23 11:17 venom-honey bee Allergy Swelling Verified 04/03/23 11:17 [bee venom (honey bee)] Physical Exam Vitals: Vital Signs Temp Pulse Pulse Resp BP BP Pulse Ox 04/03/23 17:45 97.6 F 79 16 113/74 04/03/23 15:03 77 18 113/70 94 L 04/03/23 14:15 96 04/03/23 14:00 97.2 F L 83 18 126/75 04/03/23 11:19 98.4 F 82 16 134/77 100 Intake and Output 04/03/23 04/03/23 04/03/23 06:59 14:59 22:59 Other: Weight 54.431 kg 54.431 kg PHYSICAL EXAMINATION: Patient is lying in the bed comfortably, no acute distress, awake alert and oriented.. HEENT: Normocephalic. Neck is supple. Pupils reactive. Nostrils clear. Oral cavity is moist. Neck reveals no JVD, carotid bruits, or thyromegaly. CHEST EXAMINATION: Trachea is central. Symmetrical expansion. Lung wang clear to auscultation and percussion. CARDIAC: Normal S1, S2 with no gallops. No murmurs ABDOMEN: Soft. Bowel sounds present. Nontender. No organomegaly. No abdominal bruits. Extremities: reveal no edema. No clubbing or cyanosis Neurologically awake, alert, oriented x3 with well-coordinated movements. No focal deficits noted Skin: No rash or skin lesions. Psychiatric: Coperative. Nonsuicidal, Musculoskeletal: No joint swelling or deformity. Normal range of motion. Results CBC & Chem 7: 04/03/23 11:23 04/03/23 11:23 Thrombosis Risk Factor Assmnt - DVT/VTE Prophylaxis DVT/VTE Prophylaxis: Pharmacologic Prophylaxis ordered - Choose All That Apply Any of the Below Risk Factors Present?: Yes Each Factor Represents 1 point: Abnormal pulmonary function (COPD), Age 41-60 years Other Risk Factors: No Other congenital or acquired thrombophilia - If yes, enter type in comment: No Thrombosis Risk Factor Assessment Total Risk Factor Score: 2 Thrombosis Risk Factor Assessment Level: Low Risk Assessment and Plan Assessment: Possible cardiac chest pain. Rule out ACS. 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 Lumbar disc disease BPH DVT prophylaxis with heparin subcu Plan: Patient will be continued on telemetry monitoring. Serial EKG and troponins ordered. Continue with DuoNebs as needed and also Trelegy Ellipta. Cardiology was consulted for evaluation. Continue aspirin statins and metoprolol and also losartan as per home regimen. Follow-up closely and smoking cessation has been counseled extensively. Time with Patient: Greater than 30
[2023-04-04] MEDS ORDERED: ACETAMINOPHEN TAB 325 MG TAB PO PRN (02:45)
[2023-04-04] MEDS: NITROGLYCERIN OINT 1 INCH/GM PACKET TOPICAL SCH ×2 (02:54→06:08)
[2023-04-04] MEDS ORDERED: SYMBICORT 80-4.5 MCG INHALER INHALATION SCH (08:00)
[2023-04-04 08:52] LABS: Blood Urea Nitrogen 20.7 mg/dL (9.0-27.0); Calcium 9.1 mg/dL (8.7-10.3); Chloride 105 mmol/L (96-109); Chol/HDL Ratio 3.04 Ratio; Glucose 101 mg/dL (70-110); LDL Cholesterol,Calculated 75.6 mg/dL (0.0-131.0); Potassium 4.5 mmol/L (3.5-5.5); Sodium 140 mmol/L (135-145); VLDL Calculation 9.62 mg/dL (5.00-40.00)
[2023-04-04] MEDS ORDERED: ASPIRIN 325 MG TAB PO SCH (09:00)
[2023-04-04 09:02] VITALS: BP 104/65; RESP 16; TEMP 97.7
[2023-04-04] MEDS: IPRATROPIUM 0.5 MG/2.5 ML NEBU INHALATION SCH ×2 (09:17→12:02)
[2023-04-04] MEDS ORDERED: CAFFEINE CITRATE 60 MG/3 ML VIAL IV PRN (11:03)
[2023-04-04] MEDS ORDERED: REGADENOSON 0.4 MG/5 ML SYRINGE IV PRN (11:03)
[2023-04-04] MEDS ORDERED: AMINOPHYLLINE 500 MG/20 ML VIAL IV PRN (11:03)
--- NOTE | 2023-04-04 11:50 | P.CRDCN ---
History of Present Illness History of present illness: HISTORY OF PRESENT ILLNESS: This is a 57-year-old male with a past medical history significant for coronary artery disease with previous stenting, hypertension, hyperlipidemia, COPD, and nicotine dependence. Patient follows in the office with Dr. Hurt. We have tonya wang asked to see the patient in consultation for chest pain. Patient examined at the bedside. patient states yesterday morning he woke up with chest discomfort. He states his pain was worse with deep inspiration. He states he frequently gets chest pain secondary to his COPD. He states he usually does a breathing treatment and the pain and shortness of breath will resolve. He states that yesterday he did a breathing treatment but did not have resolution of his symptoms. He states the pain was going into his right arm and his right jaw which felt similar to his heart attack in 2016. he states that he was feeling a lot of pressure in his chest and when he had his heart attack previously it was more of a pain. He states that he went to take a shower to see if that would help with his symptoms. He states after his shower he continued to have symptoms so he came to the emergency room for further evaluation. the patient was given sublingual nitro and then nitro paste. He denies any chest pain or pressure at the time of examination. he currently denies shortness of breath. He is a current prescription smoker and states some days he only smokes a couple cigarettes and some days he can smoke an entire pack. He states it just varies based on the day and what is going on in his life. * EKG reveals sinus mechanism with no signs of acute ischemia * Chest xray COPD. No definite acute process. * Laboratory data: WBC 5.6. Hemoglobin 15.9. Platelet count 195. Sodium 140. Potassium 4.5. BUN 20.7. Creatinine 1.0. Troponin negative 3. * Current home cardiac medications include aspirin 81 mg daily, metoprolol tartrate 25 mg twice a day, losartan 25 mg at night, and atorvastatin 40 mg at night * Most recent echocardiogram obtained in December 2021 revealed ejection fraction 50-55%, trace to mild tricuspid regurgitation and trace pulmonic regurgitation * patient underwent Lexiscan stress test in December 2021 revealing fixed defect along the mid and apical inferior and inferior septal gonzalez which could represent either diaphragmatic attenuation versus area of old infarct. No evidence for inducible ischemia * Cardiac catheterization history: 2016 with stenting of the mid circumflex coronary artery REVIEW OF SYSTEMS: At the time of my exam: CONSTITUTIONAL: Denies fever or chills. HEENT: Denies blurred vision, vision changes, or eye pain. Denies hemoptysis CARDIOVASCULAR: Denies chest pain. Denies orthopnea. Denies PND. Denies palpitations RESPIRATORY: Denies shortness of breath. GASTROINTESTINAL: Denies abdominal pain. Denies nausea or vomiting. HEMATOLOGIC: Denies bleeding disorders. GENITOURINARY: Denies any blood in urine. SKIN: Denies pruitis. Denies rash. PHYSICAL EXAM: VITAL SIGNS: Reviewed. GENERAL: Well-developed in no acute distress. HEENT: Head is normocephalic. Pupils are equal, round. Sclerae anicteric. Mucous membranes of the mouth are moist. Neck supple. No JVD or thyromegaly LUNGS: Respirations even and unlabored. Lungs essentially clear to auscultation bilaterally. HEART: Regular rate and rhythm. S1 and S2 heard. ABDOMEN: Soft. Nondistended. Nontender. EXTREMITIES: Normal range of motion. No clubbing or cyanosis. Peripheral pulses intact. No lower extremity edema NEUROLOGIC: Awake and alert. Oriented x 3. ASSESSMENT: Chest pain, troponins negative 3 Coronary artery disease with previous stenting to the mid circumflex, 2016 Hypertension Hyperlipidemia COPD Nicotine dependence PLAN: An acute coronary event has been ruled out Resume home cardiac medications Obtain 2-D echo to assess cardiac structure and function smoking cessation recommended patient to undergo Lexiscan stress test today If stress test is negative, patient may be discharged home today from a cardiac standpoint and follow up outpatient with Dr. Hurt Nurse practitioner note has been reviewed by physician. Signing provider agrees with the documented findings, assessment, and plan of care. 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, enlarged lymph nodes in chest, pt states he has 3 masses in between lungs that were monitored for years-no change, bronchitis, DDD, spondylosis, 2 herniated cervical discs, 2 lumbar herniated discs, scoliosis, BPH, RLS Last Myocardial Infarction Date:: Aug 2015 History of Any Multi-Drug Resistant Organisms: None Reported Past Surgical History: Heart Catheterization With Stent, Hernia Repair, Orthopedic Surgery, Tonsillectomy Additional Past Surgical History / Comment(s): ORIF L hip/pins, L tibial cyst removed/bone graft from pelvis to tibia, pain clinic procedures, rhinoplasty, colonoscopy, Past Anesthesia/Blood Transfusion Reactions: No Reported Reaction Additional Past Anesthesia/Blood Transfusion Reaction / Comment(s): claustrophobic Date of Last Stent Placement:: Aug 2015 Past Psychological History: Anxiety, Depression Additional Psychological History / Comment(s): PT resides with his spouse. He is independent. He has a nebulizer. He is disabled. Smoking Status: Current some day smoker Past Alcohol Use History: None Reported Additional Past Alcohol Use History / Comment(s): Pt started smoking in 1978 and was a 2.5 ppd smoker but quit 4 months ago Past Drug Use History: None Reported Additional Drug Use History / Comment(s): in past used marijuana - 3 times. none in 32 years - Past Family History Father History Unknown: Yes Family Medical History: No Reported History Additional Family Medical History / Comment(s): Pt does not know his father. Mother Family Medical History: COPD, CVA/TIA Additional Family Medical History / Comment(s): Mother is 80yrs old. Pt does not have much contact with mother. Brother(s) Additional Family Medical History / Comment(s): He has 2 brothers, one has metal health issues, one is an addict on crack and other street drugs. Sister(s) Family Medical History: Cancer, Liver Disease Additional Family Medical History / Comment(s): Patient had 2 sisters, one from breast cancer, one from cirrhosis at the age of 19 with history of heavy alcohol use and Crohn's disease. Medications and Allergies Home Medications Medication Instructions Recorded Confirmed Type Metoprolol Tartrate [Lopressor] 25 mg PO BID #60 tab 08/26/15 04/03/23 Rx Aspirin [Adult Low Dose Aspirin EC] 81 mg PO HS 03/24/18 04/03/23 History Atorvastatin Calcium [Lipitor] 40 mg PO HS 04/29/18 04/03/23 History Albuterol Inhaler [Ventolin Hfa 1 - 2 puff INHALATION RT-Q4H PRN 05/27/20 04/03/23 History Inhaler] Losartan [Cozaar] 25 mg PO HS 05/27/20 04/03/23 History Fluticasone/Umeclidin/Vilanter 1 puff INHALATION RT-DAILY 05/11/21 04/03/23 History [Trelegy Ellipta 200-62.5-25] Nitroglycerin Sl Tabs [Nitrostat] 0.4 mg SUBLINGUAL Q5M PRN 12/24/21 04/03/23 History Ipratropium-Albuterol Nebulize 3 ml INHALATION RT-TID PRN 04/03/23 04/03/23 History [Duoneb 0.5 mg-3 mg/3 ml Soln] Allergies Allergy/AdvReac Type Severity Reaction Status Date / Time iodine Allergy Swelling Verified 04/03/23 11:17 salmon oil Allergy Swelling Verified 04/03/23 11:17 shellfish derived [Shellfish] Allergy Swelling Verified 04/03/23 11:17 venom-honey bee Allergy Swelling Verified 04/03/23 11:17 [bee venom (honey bee)] Physical Exam Vitals: Vital Signs Temp Pulse Pulse Resp BP BP Pulse Ox 04/04/23 02:00 97.8 F 61 15 108/68 97 04/03/23 20:49 97.8 F 87 15 148/78 94 L 04/03/23 17:45 97.6 F 79 16 113/74 04/03/23 15:03 77 18 113/70 94 L 04/03/23 14:15 96 04/03/23 14:00 97.2 F L 83 18 126/75 04/03/23 11:19 98.4 F 82 16 134/77 100 Intake and Output 04/03/23 04/04/23 04/04/23 22:59 06:59 14:59 Other: # Voids 1 3 Weight 54.431 kg Results 04/03/23 11:23 04/04/23 05:33 Cardiac Enzymes 04/03/23 04/03/23 04/03/23 Range/Units 11:23 11:23 15:39 AST 26 (17-59) U/L Troponin I <0.012 <0.012 (0.000-0.034) ng/mL 04/03/23 Range/Units 17:26 AST (17-59) U/L Troponin I <0.012 (0.000-0.034) ng/mL Coagulation 04/03/23 Range/Units 11:23 PT 10.2 (9.0-12.0) sec APTT 24.6 (22.0-30.0) sec CBC 04/03/23 Range/Units 11:23 WBC 5.6 (3.8-10.6) k/uL RBC 5.19 (4.30-5.90) m/uL Hgb 15.9 (13.0-17.5) gm/dL Hct 49.0 (39.0-53.0) % Plt Count 195 (150-450) k/uL Comprehensive Metabolic Panel 04/03/23 Range/Units 11:23 Sodium 141 (137-145) mmol/L Potassium 4.9 (3.5-5.1) mmol/L Chloride 104 (98-107) mmol/L Carbon Dioxide 30 (22-30) mmol/L BUN 16 (9-20) mg/dL Creatinine 0.96 (0.66-1.25) mg/dL Glucose 94 (74-99) mg/dL Calcium 9.7 (8.4-10.2) mg/dL AST 26 (17-59) U/L ALT 22 (4-49) U/L Alkaline Phosphatase 58 (38-126) U/L Total Protein 7.3 (6.3-8.2) g/dL Albumin 4.6 (3.5-5.0) g/dL Current Medications Generic Name Dose Route Start Last Admin Trade Name Freq PRN Reason Stop Dose Admin Acetaminophen 650 mg 04/04/23 02:45 04/04/23 02:53 Acetaminophen Tab 325 Mg Tab PO 650 mg Q6HR PRN Administration Fever and/ or Pain Albuterol/Ipratropium 3 ml 04/03/23 19:40 Ipratropium-Albuterol 3 Ml Neb INHALATION RT-TID PRN Shortness Of Breath Aspirin 81 mg 04/03/23 21:00 04/03/23 21:20 Aspirin 81 Mg PO 81 mg HS EMILIANO Administration Atorvastatin Calcium 40 mg 04/03/23 21:00 04/03/23 21:20 Atorvastatin 40 Mg Tab PO 40 mg HS EMILIANO Administration Budesonide/Formoterol Fumarate 2 puff 04/04/23 08:00 Symbicort 80-4.5 Mcg Inhaler INHALATION RT-BID EMILIANO Heparin Sodium (Porcine) 5,000 unit 04/03/23 21:00 04/03/23 21:21 Heparin Sodium,Porcine 5,000 Unit/Ml 1 Ml Vial SQ Not Given Q12HR [facility] Ipratropium Mcclave 0.5 mg 04/04/23 08:00 Ipratropium 0.5 Mg/2.5 Ml Nebu INHALATION RT-QID [facility] Losartan Potassium 25 mg 04/03/23 21:00 04/03/23 21:20 Losartan 25 Mg Tab PO 25 mg HS EMILIANO Administration Metoprolol Tartrate 25 mg 04/03/23 21:00 04/03/23 21:20 Metoprolol Tartrate 25 Mg Tab PO 25 mg BID EMILIANO Administration Nitroglycerin 1 inch 04/03/23 18:00 04/04/23 06:08 Nitroglycerin Oint 1 Inch/Gm Packet TOPICAL Not Given Q6HR [facility] Nitroglycerin 0.4 mg 04/03/23 14:42 04/03/23 14:49 Nitroglycerin Sl Tabs 0.4 Mg Tab SUBLINGUAL 0.4 mg Q5M PRN Administration Chest Pain Intake and Output 04/03/23 04/04/23 04/04/23 22:59 06:59 14:59 Other: # Voids 1 3 Weight 54.431 kg 04/03/23 11:23 04/03/23 11:23
--- NOTE | 2023-04-04 13:16 | CA ---
Transthoracic Echo Report Name: Jamil Rivas Age: 57 Gender: M : 1965 Exam Date: 04/04/2023 11:34 Exam Location: [facility] Ht (in): 66 Wt (lb): 120 Ordering Physician: Cheyanne Lopez Attending/Referring Phys: [id number], John [employer] Machine Tender Alona Kincaid RDCS Procedure CPT: Indications: LV function, CP Cardiac Hx: Technical Quality: Fair Contrast 1: Total Dose (mL): Contrast 2: Total Dose (mL): MEASUREMENTS (Male / Female) Normal Values 2D ECHO LV Diastolic Diameter PLAX 3.9 cm 4.2 - 5.9 / 3.9 - 5.3 cm LV Systolic Diameter PLAX 2.7 cm IVS Diastolic Thickness 1.1 cm 0.6 - 1.0 / 0.6 - 0.9 cm LVPW Diastolic Thickness 1.1 cm 0.6 - 1.0 / 0.6 - 0.9 cm LV Relative Wall Thickness 0.5 RV Internal Dim ED PLAX 2.8 cm LA Volume 16.0 cm??? 18 - 58 / 22 - 52 cm??? M-MODE Aortic Root Diameter MM 2.7 cm LA Systolic Diameter MM 2.8 cm LA Ao Ratio MM 1.0 AV Cusp Separation MM 1.6 cm DOPPLER AV Peak Velocity 96.3 cm/s AV Peak Gradient 3.7 mmHg AV Mean Velocity 69.9 cm/s AV Mean Gradient 2.1 mmHg AV Velocity Time Integral 24.7 cm LVOT Peak Velocity 66.7 cm/s LVOT Peak Gradient 1.8 mmHg MV Area PHT 4.2 cm??? Mitral E Point Velocity 91.8 cm/s Mitral A Point Velocity 77.4 cm/s Mitral E to A Ratio 1.2 MV Deceleration Time 181.5 ms TR Peak Velocity 241.0 cm/s TR Peak Gradient 23.2 mmHg Right Ventricular Systolic Press 28.2 mmHg FINDINGS Left Ventricle Normal Left ventricular size, wall thickness, systolic function with no obvious regional wall motion abnormalities. Normal Left ventricular diastolic filling pattern. Left ventricular ejection fraction is estimated at 55-60 %. Right Ventricle Normal right ventricular size and function. Right ventricular systolic pressure within normal limits. Right Atrium Normal right atrial size. Left Atrium Normal left atrial size. Mitral Valve Structurally normal mitral valve. mild mitral regurgitation. Aortic Valve No aortic valve stenosis or regurgitation. Tricuspid Valve Structurally normal tricuspid valve. Mild tricuspid regurgitation. Pulmonic Valve Structurally normal pulmonic valve. Pericardium No pericardial effusion. Aorta Normal size aortic root and proximal ascending aorta. CONCLUSIONS 1. Normal left ventricle size and systolic function 2. Mild mitral and tricuspid regurgitation Previewed by: Dr. Sugar Mcmahon MD (Electronically Signed) Final Date: 04 April 2023 13:15
--- NOTE | 2023-04-04 13:20 | CA ---
Lexiscan Nuclear Stress Test Report Name: Jamil Rivas Exam Date: 04/04/2023 12:33 Exam Location: [facility] Ht (in): 66 Wt (lb): 120 BSA: 1.61 Ordering Phys: Cheyanne Lopez Referring Phys: TRUNG,, Technologist: Mario Khan Age: 57 Gender: M : 1965 Procedure CPT: Indications: Reflex order-Stress test ICD-10 Codes: Patient History: CHEST PAIN, DIFFICULTY IN BREATHING, HTN, ELEVATED CHOLESTEROL LEVELS, FAMILY HX OF HEART DISEASE, CURRENT SMOKER 1 PPD X 40 YEARS, PRIOR CA, PRIOR HEART CATH, PRIOR STENT, COPD Medications: Meds past 24 hrs: Pretest Chest Pain: STRESS TEST Lexiscan Protocol Exercise Duration (min:sec): 00:[address] Depressions (mm): Angina Score: Bush Score: Resting HR (bpm): 62 Peak HR (bpm): 97 Resting BP (mmHg): 140 / 87 Peak BP (mmHg): 140 / 85 MPHR: 164 Target HR: 139 % MPHR: 59 METS: 1.0 Total Dose: Peak Dose: Atropine: Double Product: 43779 BP Response: Stress Termination: INFUSION COMPLETE Stress Symptoms: DIFFICULTY IN BREATHING Stress Summary: ECG ANALYSIS Resting ECG: Sinus rhythm. Normal conduction. No arrhythmias. Normal repolarization. Stress ECG: No ECG changes from baseline with Lexiscan infusion. CONCLUSIONS No ECG evidence of ischemia with Lexiscan infusion. Nuclear test results to follow. Dr. Sugar Mcmahon MD (Electronically Signed) Final Date: 04 April 2023 13:19
[2023-04-04] MEDS: METOPROLOL TARTRATE 25 MG TAB PO SCH (13:46)
[2023-04-04] MEDS: HEPARIN SODIUM,PORCINE 5,000 UNIT/ML 1 ML VIAL SQ SCH (13:46)
--- NOTE | 2023-04-04 13:49 | NM ---
EXAMINATION TYPE: NM stress lexiscan cardiolite DATE OF EXAM: 04/04/2023 COMPARISON: NONE CLINICAL INDICATION: Male, 57 years old with history of CP; TECHNIQUE: After the intravenous administration of 10.1 mCi Tc 99m Sestamibi - Cardiolite resting SP ECT images acquired 45 minutes post injection. The patient received 0.4mg Lexiscan, 23.4 mCi Tc 99m Sestamibi - Stress images obtained [address] injection FINDINGS: Review of stress and rest SPECT images demonstrates fixed defect inferior wall and cardiac apex. No e vidence of stress-induced ischemia. Gated analysis shows normal wall motion with an estimated left ve ntricular ejection fraction of 69 %. IMPRESSION: No scintigraphic evidence for reversible ischemia.
[2023-04-04 15:26] VITALS: PULSE 60
--- NOTE | 2023-04-09 06:45 | P.DS ---
Providers Date of admission: 04/03/23 14:43 Expected date of discharge: 04/04/23 Attending physician: Siri Cuenca Consults: 04/03/23 14:42 Consult Physician Urgent Consulting Provider: [facility] Consult Reason/Comments: Chest pain Do you want consulting provider notified?: Yes Primary care physician: [facility] Course: Final diagnosis chest pain. Ruled out ACS. 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 Lumbar disc disease BPH DVT prophylaxis with heparin subcu Discharge disposition Patient is being discharged in a stable condition with guarded prognosis to home. Patient will follow-up with Dr. George Atwood in the outpatient setting upon discharge. Patient is to continue with current medications as mentioned below and outpatient follow-up with cardiology as scheduled. Total time taken is greater than 35 minutes. Hospital course This is a 57-year-old male who was recently admitted with chest pain. Patient reports he had an episode that lasted approximately 4o minutes and also having some shortness of breath and was admitted for cardiology evaluation. Cardiology evaluated the patient and patient underwent stress test which was negative and patient has been cleared by cardiology. Patient reports no further episodes of chest pain and ACS was ruled out. Patient has been cleared by cardiology for discharge today with close outpatient follow-up. Please refer to consultation notes for further HPI. Currently no reports of chest pain, shortness of breath, or palpitations. Patient is afebrile. No reports of nausea or vomiting and patient is tolerating diet. Patient will be discharged home today. Physical exam: Gen: This is a 57 year old male who is awake, alert and oriented 3, thin built, well-developed HEENT: Head is atraumatic, normocephalic. Pupils equal, round. Sclerae is anicteric. NECK: Supple. No JVD. No lymphadenopathy. No thyromegaly. LUNGS: Clear to auscultation. No wheezes or rhonchi. No intercostal retractions. HEART: Regular rate and rhythm. No murmur. ABDOMEN: Soft. Bowel sounds are present. No masses. No tenderness. EXTREMITIES: No pedal edema. No calf tenderness. NEUROLOGICAL: Patient is awake, alert and oriented x3. Cranial nerves 2 through 12 are grossly intact. Please refer to medication reconciliation sheet for a list of medications. The impression and plan of care has been dictated by Soledad Cortes, Nurse Practitioner as directed. Dr. Joellen MD I have performed a history and examination and MDM of this patient, discussed the same with the dictator, and agree with the dictator's assessment and plan as written ,documented as a scribe. Based on total visit time, I have performed more than 50% of the visit. Patient Condition at Discharge: Stable Plan - Discharge Summary Discharge Rx Participant: Yes New Discharge Prescriptions: New Acetaminophen Tab [Tylenol] 650 mg PO Q6HR PRN tab PRN Reason: Fever And/ Or Pain Continue Metoprolol Tartrate [Lopressor] 25 mg PO BID #60 tab Aspirin [Adult Low Dose Aspirin EC] 81 mg PO HS Atorvastatin Calcium [Lipitor] 40 mg PO HS Losartan [Cozaar] 25 mg PO HS Albuterol Inhaler [Ventolin Hfa Inhaler] 1 - 2 puff INHALATION RT-Q4H PRN PRN Reason: Shortness Of Breath Ipratropium-Albuterol Nebulize [Duoneb 0.5 mg-3 mg/3 ml Soln] 3 ml INHALATION RT-TID PRN PRN Reason: Shortness Of Breath Fluticasone/Umeclidin/Vilanter [Trelegy Ellipta 200-62.5-25] 1 puff INHALATION RT-DAILY Nitroglycerin Sl Tabs [Nitrostat] 0.4 mg SUBLINGUAL Q5M PRN PRN Reason: Chest Pain Discharge Medication List Metoprolol Tartrate [Lopressor] 25 mg PO BID #60 tab 08/26/15 [Rx] Aspirin [Adult Low Dose Aspirin EC] 81 mg PO HS 03/24/18 [History] Atorvastatin Calcium [Lipitor] 40 mg PO HS 04/29/18 [History] Albuterol Inhaler [Ventolin Hfa Inhaler] 1 - 2 puff INHALATION RT-Q4H PRN 05/27/20 [History] Losartan [Cozaar] 25 mg PO HS 05/27/20 [History] Fluticasone/Umeclidin/Vilanter [Trelegy Ellipta 200-62.5-25] 1 puff INHALATION RT-DAILY 05/11/21 [History] Nitroglycerin Sl Tabs [Nitrostat] 0.4 mg SUBLINGUAL Q5M PRN 12/24/21 [History] Ipratropium-Albuterol Nebulize [Duoneb 0.5 mg-3 mg/3 ml Soln] 3 ml INHALATION RT-TID PRN 04/03/23 [History] Acetaminophen Tab [Tylenol] 650 mg PO Q6HR PRN tab 04/04/23 [Rx] Follow up Appointment(s)/Referral(s): Indy Allen MD [Primary Care Provider] - 1-2 days Obed Hurt DO [STAFF PHYSICIAN] - 2 Weeks Activity/Diet/Wound Care/Special Instructions: Activity Limited until follow-up Follow-up with primary care provider on discharge Follow-up with cardiology in 1-2 weeks Continue taking medications as prescribed Discharge Disposition: HOME SELF-CARE
== END 2023-04-04 15:03 | disposition home or self-care (01) ==
LOC: EC 10:50 → 6NMEDSUR 14:43
PROVIDERS: ADMIT Internal Medicine; ATTEND Internal Medicine
DX: R07.89 Other chest pain (principal); J44.9 Chronic obstructive pulmonary disease, unspecified; I25.10 Atherosclerotic heart disease of native coronary artery without angina pectoris; I10 Essential (primary) hypertension; E78.00 Pure hypercholesterolemia, unspecified; E11.9 Type 2 diabetes mellitus without complications; I25.2 Old myocardial infarction; I07.1 Rheumatic tricuspid insufficiency; R11.0 Nausea; R61 Generalized hyperhidrosis; L98.9 Disorder of the skin and subcutaneous tissue, unspecified; M19.90 Unspecified osteoarthritis, unspecified site; R91.8 Other nonspecific abnormal finding of lung field; M47.9 Spondylosis, unspecified; N40.0 Benign prostatic hyperplasia without lower urinary tract symptoms; G25.81 Restless legs syndrome; M41.9 Scoliosis, unspecified; M50.20 Other cervical disc displacement, unspecified cervical region; M51.26 Other intervertebral disc displacement, lumbar region; F40.240 Claustrophobia; F32.A Depression, unspecified; F41.9 Anxiety disorder, unspecified; F17.210 Nicotine dependence, cigarettes, uncomplicated; Z79.82 Long term (current) use of aspirin; Z79.899 Other long term (current) drug therapy; Z79.51 Long term (current) use of inhaled steroids; Z91.030 Bee allergy status; Z91.013 Allergy to seafood; Z91.018 Allergy to other foods; Z91.048 Other nonmedicinal substance allergy status; Z71.6 Tobacco abuse counseling; Z87.01 Personal history of pneumonia (recurrent); Z95.5 Presence of coronary angioplasty implant and graft; Z86.018 Personal history of other benign neoplasm; Z98.890 Other specified postprocedural states; Z82.5 Family history of asthma and other chronic lower respiratory diseases; Z82.3 Family history of stroke; Z81.8 Family history of other mental and behavioral disorders; Z83.79 Family history of other diseases of the digestive system; Z80.3 Family history of malignant neoplasm of breast; Z81.1 Family history of alcohol abuse and dependence
CPT/HCPCS: 99285; 36415; 94640 ×2; 94760; 93005; 93017; 93306; 80061; 80053; 80048; 83735; 84484; 85025; 85610; 85730; 71046; 78452; G0378 ×2; A9500; J2785

== ENCOUNTER → 2023-08-29 | Outpatient (CLI) | payer MEDICARE, OTHER | END | disposition home or self-care (01) | LOC: LABWHC1 12:57 | PROVIDERS: ATTEND Internal Medicine Sleep Medicine | DX: R06.02 Shortness of breath (principal) | CPT/HCPCS: 36415; 82785; 86001; 86003; 86606; 86609 ==

== ENCOUNTER → 2023-12-19 | Outpatient (CLI) | payer MEDICARE, OTHER ==
[2023-12-19 15:10] LABS: Basophils # (A) 0.04 X 10*3/uL (0.00-0.10); Basophils % (A) 0.7 %; Eosinophils # (A) 0.15 X 10*3/uL (0.04-0.35); Eosinophils % (A) 2.5 %; HCT 51.4 % (39.6-50.0); HGB 16.8 g/dL (13.0-17.0); Lymphocytes # (A) 1.62 X 10*3/uL (0.90-5.00); Lymphocytes % (A) 27.2 %; MCH 30.5 pg (27.0-32.0); MCHC 32.7 g/dL (32.0-37.0); MCV 93.3 FL (80.0-97.0); Mean Platelet Volume 11.2 FL (9.5-12.2); Monocytes # (A) 0.51 X 10*3/uL (0.20-1.00); Monocytes % (A) 8.6 %; NRBC Per 100 WBC 0 X 10*3/uL (0.00-0.01); Neutrophils # (A) 3.62 X 10*3/uL (1.80-7.70); Neutrophils % (A) 60.8 %; Platelet Count 184 X 10*3/uL (140-440); RBC 5.51 X 10*6/uL (4.40-5.60); RDW 12.4 % (11.5-14.5); WBC 5.95 X 10*3/uL (4.50-10.00)
[2023-12-22 12:20] LABS: Alt. alternata IgE Class CLASS 0; Alternaria alternata IgE <0.10 kU/L (<0.10); Asperg. fumagatus IgE <0.10 kU/L (<0.10); Asperg. fumagatus IgE Class CLASS 0; Candida albicans IgE Class CLASS 0/1; Clad herbarum IgE <0.10 kU/L (<0.10); Clad herbarum IgE Class CLASS 0; Mucor racemosus IgE <0.10 kU/L (<0.10); Mucor racemosus IgE Class CLASS 0; Penicillium chrysogenum IgE <0.10 kU/L (<0.10); Penicillium chrysogenum IgE Cl CLASS 0
== END | disposition home or self-care (01) ==
LOC: LABWHC1 09:22
PROVIDERS: ATTEND Internal Medicine Sleep Medicine
DX: R06.02 Shortness of breath (principal)
CPT/HCPCS: 36415; 82785; 85025; 86001; 86003; 86606; 86609

== ENCOUNTER 2024-01-10 17:00 | Emergency (ER) | payer MEDICARE, OTHER ==
[2024-01-10 17:07] VITALS: TEMP 98.1
[2024-01-10 17:10] VITALS: BP 174/98
[2024-01-10] MEDS: methylPREDNISolone SOD SUCCI 125 MG/2 ML VIAL IV STA (17:25)
--- NOTE | 2024-01-10 17:26 | XR ---
EXAMINATION TYPE: XR chest 2V DATE OF EXAM: 01/10/2024 COMPARISON: 04/03/2023 HISTORY: Shortness of breath TECHNIQUE: Frontal and lateral views of the chest are obtained. FINDINGS: Scattered senescent parenchymal changes noted. Hyperinflation compatible with COPD. No evidence for infiltrate. No evidence for atelectasis. Heart size is stable. Mediastinal structures are stable and grossly unremarkable. No evidence for hilar prominence. Degenerative changes dorsal spine. IMPRESSION: 1. No evidence for acute pulmonary disease.
[2024-01-10 17:28] LABS: Basophils # (A) 0.1 k/uL (0-0.2); Basophils % (A) 1 %; Eosinophils # (A) 0.1 k/uL (0-0.7); Eosinophils % (A) 1 %; HCT 52.8 % (39.0-53.0); HGB 16.6 gm/dL (13.0-17.5); Lymphocytes # (A) 2.9 k/uL (1.0-4.8); Lymphocytes % (A) 24 %; MCH 30.1 pg (25.0-35.0); MCHC 31.4 g/dL (31.0-37.0); MCV 95.9 fL (80.0-100.0); Mean Platelet Volume 8.6; Monocytes # (A) 0.7 k/uL (0-1.0); Monocytes % (A) 6 %; Neutrophils # (A) 8.2 k/uL (1.3-7.7); Neutrophils % (A) 68 %; Platelet Count 205 k/uL (150-450); RDW 12.4 % (11.5-15.5); WBC 12.1 k/uL (3.8-10.6)
[2024-01-10 17:43] LABS: ALT 28 U/L (4-49); AST 30 U/L (17-59); African American GFR (CKD) >90 (>60 ml/min/1.73 sqM); Albumin 4.9 g/dL (3.5-5.0); Alkaline Phosphatase 59 U/L (38-126); Anion Gap 7 mmol/L; Blood Urea Nitrogen 24 mg/dL (9-20); Carbon Dioxide 27 mmol/L (22-30); Chloride 107 mmol/L (98-107); Glucose 107 mg/dL (74-99); Non-African American GFR(CKD) 79 (>60 ml/min/1.73 sqM); Potassium 4.4 mmol/L (3.5-5.1); Sodium 141 mmol/L (137-145); Total Bilirubin 1.2 mg/dL (0.2-1.3); Total Protein 7.2 g/dL (6.3-8.2)
--- NOTE | 2024-01-10 17:46 | ED ---
SOB HPI - General Chief Complaint: Shortness of Breath Stated Complaint: LOC Time Seen by Provider: 01/10/24 17:04 Source: patient, EMS Mode of arrival: EMS Limitations: no limitations - History of Present Illness Initial Comments: 58-year-old male with a history of COPD and emphysema who is still a smoker who had a sudden onset of shortness of breath about 20 minutes prior to arrival. He was working on an air conditioned house ripping up tsering inhaling the dust associated with this. He became very short of breath refractory to his home treatment EMS was called he did receive a DuoNeb and later an albuterol with some improvement upon arrival. No chest pain no fever chills sweats nausea vomiting or other symptoms. MD Complaint: shortness of breath - Related Data Home Medications Medication Instructions Recorded Confirmed Aspirin [Adult Low Dose Aspirin EC] 81 mg PO HS 03/24/18 04/03/23 Atorvastatin Calcium [Lipitor] 40 mg PO HS 04/29/18 04/03/23 Albuterol Inhaler [Ventolin Hfa 1 - 2 puff INHALATION RT-Q4H PRN 05/27/20 04/03/23 Inhaler] Losartan [Cozaar] 25 mg PO HS 05/27/20 04/03/23 Fluticasone/Umeclidin/Vilanter 1 puff INHALATION RT-DAILY 05/11/21 04/03/23 [Trelegy Ellipta 200-62.5-25] Nitroglycerin Sl Tabs [Nitrostat] 0.4 mg SUBLINGUAL Q5M PRN 12/24/21 04/03/23 Ipratropium-Albuterol Nebulize 3 ml INHALATION RT-TID PRN 04/03/23 04/03/23 [Duoneb 0.5 mg-3 mg/3 ml Soln] Previous Rx's Medication Instructions Recorded Metoprolol Tartrate [Lopressor] 25 mg PO BID #60 tab 08/26/15 Acetaminophen Tab [Tylenol] 650 mg PO Q6HR PRN tab 04/04/23 predniSONE [Deltasone] 20 mg PO BID #10 tab 01/10/24 Allergies Allergy/AdvReac Type Severity Reaction Status Date / Time iodine Allergy Swelling Verified 01/10/24 17:07 salmon oil Allergy Swelling Verified 01/10/24 17:07 shellfish derived [Shellfish] Allergy Swelling Verified 01/10/24 17:07 venom-honey bee Allergy Swelling Verified 01/10/24 17:07 [bee venom (honey bee)] Review of Systems ROS Statement: Those systems with pertinent positive or pertinent negative responses have been documented in the HPI. ROS Other: All systems not noted in ROS Statement are negative. 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, enlarged lymph nodes in chest, pt states he has 3 masses in between lungs that were monitored for years-no change, bronchitis, DDD, spondylosis, 2 herniated cervical discs, 2 lumbar herniated discs, scoliosis, BPH, RLS Last Myocardial Infarction Date:: Aug 2015 History of Any Multi-Drug Resistant Organisms: None Reported Past Surgical History: Heart Catheterization With Stent, Hernia Repair, Orthopedic Surgery, Tonsillectomy Additional Past Surgical History / Comment(s): ORIF L hip/pins, L tibial cyst removed/bone graft from pelvis to tibia, pain clinic procedures, rhinoplasty, colonoscopy, Past Anesthesia/Blood Transfusion Reactions: No Reported Reaction Additional Past Anesthesia/Blood Transfusion Reaction / Comment(s): cl austrophobic Date of Last Stent Placement:: Aug 2015 Past Psychological History: Anxiety, Depression Smoking Status: Current some day smoker Past Alcohol Use History: None Reported Past Drug Use History: None Reported - Past Family History Father History Unknown: Yes Family Medical History: No Reported History Additional Family Medical History / Comment(s): Pt does not know his father. Mother Family Medical History: COPD, CVA/TIA Additional Family Medical History / Comment(s): Mother is 80yrs old. Pt does n ot have much contact with mother. Brother(s) Additional Family Medical History / Comment(s): He has 2 brothers, one has metal health issues, one is an addict on crack and other street drugs. Sister(s) Family Medical History: Cancer, Liver Disease Additional Family Medical History / Comment(s): Patient had 2 sisters, one from breast cancer, one from cirrhosis at the age of 19 with history of heavy alcohol use and Crohn's disease. General Exam - General Exam Comments Initial Comments: This is a well-developed well-nourished awake alert oriented x 4 male he is demonstrating difficulty breathing Limitations: no limitations General appearance: alert, anxious, in distress Head exam: Present: atraumatic, normocephalic, normal inspection Eye exam: Present: normal appearance, PERRL, EOMI. Absent: scleral icterus, conjunctival injection, periorbital swelling ENT exam: Present: normal exam, mucous membranes moist Neck exam: Present: normal inspection, full ROM, other (No stridor JVD or bruits he is tachypneic). Absent: tenderness, meningismus, lymphadenopathy Respiratory exam: Present: wheezes, decreased breath sounds, other. Absent: respiratory distress, rales, rhonchi, stridor Cardiovascular Exam: Present: regular rate, normal rhythm, normal heart sounds. Absent: systolic murmur, diastolic murmur, rubs, gallop, clicks GI/Abdominal exam: Present: soft, normal bowel sounds. Absent: distended, tenderness, guarding, rebound, rigid Extremities exam: Present: normal inspection, full ROM, normal capillary refill. Absent: tenderness, pedal edema, joint swelling, calf tenderness Back exam: Present: normal inspection Neurological exam: Present: alert, oriented X3, CN II-XII intact Psychiatric exam: Present: normal affect, normal mood Skin exam: Present: warm, dry, intact, normal color. Absent: rash Course Vital Signs 01/10/24 01/10/24 17:04 17:07 Temperature 98.1 F Pulse Rate 94 Respiratory 40 H 40 H Rate Blood Pressure 174/98 O2 Sat by Pulse 94 L Oximetry Medical Decision Making - Medical Decision Making Did reevaluate the patient on 2 occasions he is feeling much improved. He does request to go home reexamination reveals good aeration no wheezes no dyspnea vital signs within normal limits. We did discuss the potential for recurrence he will be discharged with a course of oral steroids he does have all the appropriate inhalers at home. He also is going to his own home which is her condition. We did discuss the need for hydration also. Was pt. sent in by a medical professional or institution (, PA, WIRE STITCHER OPERATOR, urgent care, hospital, or [facility]...) When possible be specific @ -No Did you speak to anyone other than the patient for history (EMS, parent, family, police, friend...)? What history was obtained from this source @ -Paramedics upon arrival Did you review nursing and triage notes (agree or disagree)? Why? @ -I reviewed and agree with nursing and triage notes Were old charts reviewed (outside hosp., previous admission, EMS record, old EKG, old radiological studies, urgent care reports/EKG's, [facility] records)? Report findings @ -No old charts were reviewed Differential Diagnosis (chest pain, altered mental status, abdominal pain women, abdominal pain men, vaginal bleeding, weakness, fever, dyspnea, syncope, headache, dizziness, GI bleed, back pain, seizure, CVA, palpatations, mental health, musculoskeletal)? @ -Acute dyspnea EKG interpreted by me (3pts min.). @ -As above EKG interpreted by me sinus rhythm of 88 MT interval 148 QRS duration 88 QT/QTc 343/[address] configuration some artifact present X-rays interpreted by me (1pt min.). @ -Chest x-ray interpreted by me no acute process seen consistent with emphysema. CT interpreted by me (1pt min.). @ -None done U/S interpreted by me (1pt. min.). @ -None done What testing was considered but not performed or refused? (CT, X-rays, U/S, labs)? Why? @ -None What meds were considered but not given or refused? Why? @ -None Did you discuss the management of the patient with other professionals (professionals i.e. , PA, WIRE STITCHER OPERATOR, lab, RT, psych nurse, social worker school, welfare interviewer, teacher, cavalry officer, disability case manager)? Give summary @ -No Was smoking cessation discussed for >3mins.? @ -Yes patient does admit to need to stop smoking Was critical care preformed (if so, how long)? @ -No Were there social determinants of health that impacted care today? How? (Homelessness, low income, unemployed, alcoholism, drug addiction, transportation, low edu. Level, literacy, decrease access to med. care, correction, rehab)? @ -No Was there de-escalation of care discussed even if they declined (Discuss DNR or withdrawal of care, Hospice)? DNR status @ -No What co-morbidities impacted this encounter? (DM, HTN, Smoking, COPD, CAD, Cancer, CVA, ARF, Chemo, Hep., AIDS, mental health diagnosis, sleep apnea, morbid obesity)? @ -COPD/emphysema Was patient admitted / discharged? Hospital course, mention meds given and route, prescriptions, significant lab abnormalities, going to OR and other pertinent info. @ -Hospital course charged home Undiagnosed new problem with uncertain prognosis? @ -No Drug Therapy requiring intensive monitoring for toxicity (Heparin, Nitro, Insulin, Cardizem)? @ -No Were any procedures done? @ -No Diagnosis/symptom? @ -Acute COPD exacerbation, smoker Acute, or Chronic, or Acute on Chronic? @ -Acute on chronic Uncomplicated (without systemic symptoms) or Complicated (systemic symptoms)? @ -Default Side effects of treatment? @ -No Exacerbation, Progression, or Severe Exacerbation? @ -No Poses a threat to life or bodily function? How? (Chest pain, [place], [place], pneumonia, PE, COPD, DKA, ARF, appy, cholecystitis, CVA, Diverticulitis, Homicidal, Suicidal, threat to staff... and all critical care pts) @ -Potential - Lab Data Result diagrams: 01/10/24 17:13 01/10/24 17:13 Lab Results 01/10/24 01/10/24 01/10/24 Range/Units 17:13 17:13 17:13 WBC 12.1 H (3.8-10.6) k/uL RBC 5.50 (4.30-5.90) m/uL Hgb 16.6 (13.0-17.5) gm/dL Hct 52.8 (39.0-53.0) % MCV 95.9 (80.0-100.0) fL MCH 30.1 (25.0-35.0) pg MCHC 31.4 (31.0-37.0) g/dL RDW 12.4 (11.5-15.5) % Plt Count 205 (150-450) k/uL MPV 8.6 Neutrophils % 68 % Lymphocytes % 24 % Monocytes % 6 % Eosinophils % 1 % Basophils % 1 % Neutrophils # 8.2 H (1.3-7.7) k/uL Lymphocytes # 2.9 (1.0-4.8) k/uL Monocytes # 0.7 (0-1.0) k/uL Eosinophils # 0.1 (0-0.7) k/uL Basophils # 0.1 (0-0.2) k/uL PT 10.9 (10.0-12.5) sec INR 1.0 (<1.2) APTT 24.1 (22.0-30.0) sec D-Dimer 0.24 (<0.60) mg/L FEU Sodium 141 (137-145) mmol/L Potassium 4.4 (3.5-5.1) mmol/L Chloride 107 (98-107) mmol/L Carbon Dioxide 27 (22-30) mmol/L Anion Gap 7 mmol/L BUN 24 H (9-20) mg/dL Creatinine 1.05 (0.66-1.25) mg/dL Est GFR (CKD-EPI)AfAm >90 (>60 ml/min/1.73 sqM) Est GFR (CKD-EPI)NonAf 79 (>60 ml/min/1.73 sqM) Glucose 107 H (74-99) mg/dL Plasma Lactic Acid Obdulio (0.7-2.0) mmol/L Calcium 10.0 (8.4-10.2) mg/dL Magnesium 2.0 (1.6-2.3) mg/dL Total Bilirubin 1.2 (0.2-1.3) mg/dL AST 30 (17-59) U/L ALT 28 (4-49) U/L Alkaline Phosphatase 59 (38-126) U/L Troponin I (0.000-0.034) ng/mL NT-Pro-B Natriuret Pep 137 pg/mL Total Protein 7.2 (6.3-8.2) g/dL Albumin 4.9 (3.5-5.0) g/dL 01/10/24 01/10/24 Range/Units 17:13 17:13 WBC (3.8-10.6) k/uL RBC (4.30-5.90) m/uL Hgb (13.0-17.5) gm/dL Hct (39.0-53.0) % MCV (80.0-100.0) fL MCH (25.0-35.0) pg MCHC (31.0-37.0) g/dL RDW (11.5-15.5) % Plt Count (150-450) k/uL MPV Neutrophils % % Lymphocytes % % Monocytes % % Eosinophils % % Basophils % % Neutrophils # (1.3-7.7) k/uL Lymphocytes # (1.0-4.8) k/uL Monocytes # (0-1.0) k/uL Eosinophils # (0-0.7) k/uL Basophils # (0-0.2) k/uL PT (10.0-12.5) sec INR (<1.2) APTT (22.0-30.0) sec D-Dimer (<0.60) mg/L FEU Sodium (137-145) mmol/L Potassium (3.5-5.1) mmol/L Chloride (98-107) mmol/L Carbon Dioxide (22-30) mmol/L Anion Gap mmol/L BUN (9-20) mg/dL Creatinine (0.66-1.25) mg/dL Est GFR (CKD-EPI)AfAm (>60 ml/min/1.73 sqM) Est GFR (CKD-EPI)NonAf (>60 ml/min/1.73 sqM) Glucose (74-99) mg/dL Plasma Lactic Acid Obdulio 0.9 (0.7-2.0) mmol/L Calcium (8.4-10.2) mg/dL Magnesium (1.6-2.3) mg/dL Total Bilirubin (0.2-1.3) mg/dL AST (17-59) U/L ALT (4-49) U/L Alkaline Phosphatase (38-126) U/L Troponin I <0.012 (0.000-0.034) ng/mL NT-Pro-B Natriuret Pep pg/mL Total Protein (6.3-8.2) g/dL Albumin (3.5-5.0) g/dL Disposition Clinical Impression: Acute exacerbation of chronic obstructive pulmonary disease, Smoker Disposition: HOME SELF-CARE Condition: Good Instructions (If sedation given, give patient instructions): COPD (Chronic Obstructive Pulmonary Disease) (ED), How to Stop Smoking (ED) Prescriptions: predniSONE [Deltasone] 20 mg PO BID #10 tab Is patient prescribed a controlled substance at d/c from ED?: No Referrals: Indy Allen MD [Primary Care Provider] - 1-2 days Time of Disposition: 18:37 Decision Date: 01/10/24 Decision Time: 18:37
[2024-01-10 17:47] LABS: NT-Pro-B-Type Natriuretic Pept 137 pg/mL
[2024-01-10 17:48] LABS: Prothrombin Time 10.9 sec (10.0-12.5)
[2024-01-10 17:49] LABS: Partial Thromboplastin Time 24.1 sec (22.0-30.0)
[2024-01-10] MEDS: IPRATROPIUM-ALBUTEROL 3 ML NEB INHALATION STA (19:13)
--- NOTE | 2024-01-10 19:54 | ED ---
Medical Decision Making - Medical Decision Making The patient did develop some hypoxemia and dyspnea upon initial attempt to discharge him. He was brought back in for a DuoNeb treatment and oral hydration after this was accomplished he was observed for period of time he did ambulate around the emergency department with markedly improved pulse oximetry is he feels much better lung sounds are clear with good aeration he would like to try going ahead and go home. We did discuss the same parameters as earlier. The remainder of the MDM remains as per the earlier 1. - Lab Data Result diagrams: 01/10/24 17:13 01/10/24 17:13 Lab Results 01/10/24 01/10/24 01/10/24 Range/Units 17:13 17:13 17:13 WBC 12.1 H (3.8-10.6) k/uL RBC 5.50 (4.30-5.90) m/uL Hgb 16.6 (13.0-17.5) gm/dL Hct 52.8 (39.0-53.0) % MCV 95.9 (80.0-100.0) fL MCH 30.1 (25.0-35.0) pg MCHC 31.4 (31.0-37.0) g/dL RDW 12.4 (11.5-15.5) % Plt Count 205 (150-450) k/uL MPV 8.6 Neutrophils % 68 % Lymphocytes % 24 % Monocytes % 6 % Eosinophils % 1 % Basophils % 1 % Neutrophils # 8.2 H (1.3-7.7) k/uL Lymphocytes # 2.9 (1.0-4.8) k/uL Monocytes # 0.7 (0-1.0) k/uL Eosinophils # 0.1 (0-0.7) k/uL Basophils # 0.1 (0-0.2) k/uL PT 10.9 (10.0-12.5) sec INR 1.0 (<1.2) APTT 24.1 (22.0-30.0) sec D-Dimer 0.24 (<0.60) mg/L FEU Sodium 141 (137-145) mmol/L Potassium 4.4 (3.5-5.1) mmol/L Chloride 107 (98-107) mmol/L Carbon Dioxide 27 (22-30) mmol/L Anion Gap 7 mmol/L BUN 24 H (9-20) mg/dL Creatinine 1.05 (0.66-1.25) mg/dL Est GFR (CKD-EPI)AfAm >90 (>60 ml/min/1.73 sqM) Est GFR (CKD-EPI)NonAf 79 (>60 ml/min/1.73 sqM) Glucose 107 H (74-99) mg/dL Plasma Lactic Acid Obdulio (0.7-2.0) mmol/L Calcium 10.0 (8.4-10.2) mg/dL Magnesium 2.0 (1.6-2.3) mg/dL Total Bilirubin 1.2 (0.2-1.3) mg/dL AST 30 (17-59) U/L ALT 28 (4-49) U/L Alkaline Phosphatase 59 (38-126) U/L Troponin I (0.000-0.034) ng/mL NT-Pro-B Natriuret Pep 137 pg/mL Total Protein 7.2 (6.3-8.2) g/dL Albumin 4.9 (3.5-5.0) g/dL 01/10/24 01/10/24 Range/Units 17:13 17:13 WBC (3.8-10.6) k/uL RBC (4.30-5.90) m/uL Hgb (13.0-17.5) gm/dL Hct (39.0-53.0) % MCV (80.0-100.0) fL MCH (25.0-35.0) pg MCHC (31.0-37.0) g/dL RDW (11.5-15.5) % Plt Count (150-450) k/uL MPV Neutrophils % % Lymphocytes % % Monocytes % % Eosinophils % % Basophils % % Neutrophils # (1.3-7.7) k/uL Lymphocytes # (1.0-4.8) k/uL Monocytes # (0-1.0) k/uL Eosinophils # (0-0.7) k/uL Basophils # (0-0.2) k/uL PT (10.0-12.5) sec INR (<1.2) APTT (22.0-30.0) sec D-Dimer (<0.60) mg/L FEU Sodium (137-145) mmol/L Potassium (3.5-5.1) mmol/L Chloride (98-107) mmol/L Carbon Dioxide (22-30) mmol/L Anion Gap mmol/L BUN (9-20) mg/dL Creatinine (0.66-1.25) mg/dL Est GFR (CKD-EPI)AfAm (>60 ml/min/1.73 sqM) Est GFR (CKD-EPI)NonAf (>60 ml/min/1.73 sqM) Glucose (74-99) mg/dL Plasma Lactic Acid Obdulio 0.9 (0.7-2.0) mmol/L Calcium (8.4-10.2) mg/dL Magnesium (1.6-2.3) mg/dL Total Bilirubin (0.2-1.3) mg/dL AST (17-59) U/L ALT (4-49) U/L Alkaline Phosphatase (38-126) U/L Troponin I <0.012 (0.000-0.034) ng/mL NT-Pro-B Natriuret Pep pg/mL Total Protein (6.3-8.2) g/dL Albumin (3.5-5.0) g/dL Disposition Clinical Impression: Acute exacerbation of chronic obstructive pulmonary disease, Smoker, Hypoxemia Disposition: HOME SELF-CARE Condition: Good Instructions (If sedation given, give patient instructions): How to Stop Smoking (ED), COPD (Chronic Obstructive Pulmonary Disease) (ED), Hypoxemia (DC) Prescriptions: predniSONE [Deltasone] 20 mg PO BID #10 tab Is patient prescribed a controlled substance at d/c from ED?: No Referrals: Indy Allen MD [Primary Care Provider] - 1-2 days Time of Disposition: 19:54 Decision Date: 01/10/24 Decision Time: 19:54
[2024-01-10 20:03] VITALS: PULSE 82; RESP 22
== END 2024-01-10 20:01 | disposition home or self-care (01) ==
LOC: EC 17:00
DX: J44.1 Chronic obstructive pulmonary disease with (acute) exacerbation (principal); F17.200 Nicotine dependence, unspecified, uncomplicated; Z88.8 Allergy status to other drugs, medicaments and biological substances; Z91.030 Bee allergy status; Z91.041 Radiographic dye allergy status; Z91.013 Allergy to seafood
CPT/HCPCS: 36415; 94640; 93005; 85379; 83880; 80053; 83605; 83735; 84484; 85025; 85610; 85730; 71046; 99285; 96374; J2919

== ENCOUNTER 2024-01-23 09:26 | Emergency (ER) | payer MEDICARE, OTHER ==
--- NOTE | 2024-01-23 09:58 | ED ---
General Adult HPI - General Chief complaint: Shortness of Breath Stated complaint: LOC Time Seen by Provider: 01/23/24 09:35 Source: patient, EMS, RN notes reviewed, old records reviewed Mode of arrival: EMS Limitations: no limitations - History of Present Illness Initial comments: This is a 58-year-old male who presents to the emergency department the past medical history significant for COPD and smoking. Patient states he woke up in the middle of the night with difficulty breathing. Patient states he took a breathing treatment at home it did not seem to help so he called the ambulance and they gave him a breathing treatment and steroids he states he is feeling a little bit better now but not back to his baseline. Patient denies any chest pa in or palpitations. Patient has abdominal pain patient Nuys nausea vomiting or diarrhea. Patient Nuys any recent fever chills or cough. - Related Data Home Medications Medication Instructions Recorded Confirmed Aspirin [Adult Low Dose Aspirin EC] 81 mg PO HS 03/24/18 04/03/23 Atorvastatin Calcium [Lipitor] 40 mg PO HS 04/29/18 04/03/23 Albuterol Inhaler [Ventolin Hfa 1 - 2 puff INHALATION RT-Q4H PRN 05/27/20 04/03/23 Inhaler] Losartan [Cozaar] 25 mg PO HS 05/27/20 04/03/23 Fluticasone/Umeclidin/Vilanter 1 puff INHALATION RT-DAILY 05/11/21 04/03/23 [Trelegy Ellipta 200-62.5-25] Nitroglycerin Sl Tabs [Nitrostat] 0.4 mg SUBLINGUAL Q5M PRN 12/24/21 04/03/23 Ipratropium-Albuterol Nebulize 3 ml INHALATION RT-TID PRN 04/03/23 04/03/23 [Duoneb 0.5 mg-3 mg/3 ml Soln] Previous Rx's Medication Instructions Recorded Metoprolol Tartrate [Lopressor] 25 mg PO BID #60 tab 08/26/15 Acetaminophen Tab [Tylenol] 650 mg PO Q6HR PRN tab 04/04/23 predniSONE [Deltasone] 20 mg PO BID #10 tab 01/10/24 Azithromycin [Zithromax Tri-Jesus (3 500 mg PO DAILY 3 Days #3 tab 01/23/24 tabs)] predniSONE [Deltasone] 40 mg PO DAILY #8 tab 01/23/24 Allergies Allergy/AdvReac Type Severity Reaction Status Date / Time iodine Allergy Swelling Verified 01/23/24 09:35 salmon oil Allergy Swelling Verified 01/23/24 09:35 shellfish derived [Shellfish] Allergy Swelling Verified 01/23/24 09:35 venom-honey bee Allergy Swelling Verified 01/23/24 09:35 [bee venom (honey bee)] Review of Systems ROS Statement: Those systems with pertinent positive or pertinent negative responses have been documented in the HPI. ROS Other: All systems not noted in ROS Statement are negative. 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, enlarged lymph nodes in chest, pt s tates he has 3 masses in between lungs that were monitored for years-no change, bronchitis, DDD, spondylosis, 2 herniated cervical discs, 2 lumbar herniated discs, scoliosis, BPH, RLS Last Myocardial Infarction Date:: Aug 2015 History of Any Multi-Drug Resistant Organisms: None Reported Past Surgical History: Heart Catheterization With Stent, Hernia Repair, Orthopedic Surgery, Tonsillectomy Additional Past Surgical History / Comment(s): ORIF L hip/pins, L tibial cyst removed/bone graft from pelvis to tibia, pain clinic procedures, rhinoplasty, colonoscopy, Past Anesthesia/Blood Transfusion Reactions: No Reported Reaction Additional Past Anesthesia/Blood Transfusion Reaction / Comment(s): claustrophobic Date of Last Stent Placement:: Aug 2015 Past Psychological History: Anxiety, Depression Smoking Status: Current some day smoker Past Alcohol Use History: None Reported Past Drug Use History: None Reported - Past Family History Father History Unknown: Yes Family Medical History: No Reported History Additional Family Medical History / Comment(s): Pt does not know his father. Mother Family Medical History: COPD, CVA/TIA Additional Family Medical History / Comment(s): Mother is 80yrs old. Pt does not have much contact with mother. Brother(s) Additional Family Medical History / Comment(s): He has 2 brothers, one has metal health issues, one is an addict on crack and other street drugs. Sister(s) Family Medical History: Cancer, Liver Disease Additional Family Medical History / Comment(s): Patient had 2 sisters, one from breast cancer, one from cirrhosis at the age of 19 with history of heavy alcohol use and Crohn's disease. General Exam - General Exam Comments Initial Comments: GENERAL: Patient is well-developed and well-nourished. Patient is nontoxic and well- hydrated and is in mild distress. ENT:here i Neck is soft and supple. No significant lymphadenopathy is noted. Oropharynx is clear. Moist mucous membranes. Neck has full range of motion without eliciting any pain. EYES: The sclera were anicteric and conjunctiva were pink and moist. Extraocular movements were intact and pupils were equal round and reactive to light. Eyelids were unremarkable. PULMONARY: Diminished breath sounds CARDIOVASCULAR: There is a regular rate and rhythm without any murmurs gallops or rubs. ABDOMEN: Soft and nontender with normal bowel sounds. SKIN: Skin is clear with no lesions or rashes and otherwise unremarkable. NEUROLOGIC: Patient is alert and oriented x3. Cranial nerves II through XII are grossly intact. Motor and sensory are also intact. Normal speech, volume and content. Symmetrical smile. MUSCULOSKELETAL: Normal extremities with adequate strength and full range of motion. No lower extremity swelling or edema. No calf tenderness. LYMPHATICS: No significant lymphadenopathy is noted PSYCHIATRIC: Normal psychiatric evaluation. Limitations: no limitations Course Vital Signs 01/23/24 01/23/24 01/23/24 09:29 09:35 10:02 Temperature 98.7 F Pulse Rate 79 78 Respiratory 22 24 20 Rate Blood Pressure 126/88 129/84 O2 Sat by Pulse 100 99 Oximetry 01/23/24 01/23/24 01/23/24 10:18 10:33 11:00 Temperature 98.5 F Pulse Rate 72 75 70 Respiratory 22 Rate Blood Pressure 125/69 O2 Sat by Pulse 100 Oximetry 01/23/24 01/23/24 01/23/24 12:04 13:17 14:04 Temperature 98.5 F 98.4 F Pulse Rate 74 72 74 Respiratory 20 17 20 Rate Blood Pressure 120/79 115/75 126/83 O2 Sat by Pulse 98 99 99 Oximetry Medical Decision Making - Medical Decision Making EKG is interpreted by myself. EKG shows a sinus rhythm at 69 bpm [place] interval 167 QRS is 89 QT interval is 369 QTc is 388. Patient EKG shows no ST segment elevation or depression. Was pt. sent in by a medical professional or institution ([facility], [employer], urgent care, hospital, or shelter...) When possible be specific @ -None Did you speak to anyone other than the patient for history (EMS, parent, family, police, friend...)? What history was obtained from this source @ -No Did you review nursing and triage notes (agree or disagree)? Why? @ -I reviewed and agree with nursing and triage notes Were old charts reviewed (outside hosp., previous admission, EMS record, old EKG, old radiological studies, urgent care reports/EKG's, shelter records)? Report findings @ -No old charts were reviewed Differential Diagnosis? @ -Differential Dyspnea: Coronary syndrome, arrhythmia, tamponade, asthma, COPD, pulmonary embolism, pneumonia, pneumothorax, pulmonary effusion, anaphylaxis, diabetic ketoacidosis, flailed chest, pulmonary contusion, diaphragmatic rupture, anemia, neuromu scular, this is not meant to be an all-inclusive list. EKG interpreted by me (3pts min.). @ -As above X-rays interpreted by me (1pt min.). @ -Chest x-ray shows no acute abnormality CT interpreted by me (1pt min.). @ -None done U/S interpreted by me (1pt. min.). @ -None done What testing was considered but not performed or refused? (CT, X-rays, U/S, labs)? Why? @ -None What meds were considered but not given or refused? Why? @ -None Did you discuss the management of the patient with other professionals (professionals i.e. [facility], [employer]ILWAY TRACK WORKER, lab, RT, psych nurse, social worker delinquency prevention, drupal architect, teacher, chief legal officer, case finishing machine adjuster)? Give summary @ -No Was smoking cessation discussed for >3mins.? @ -No Was critical care preformed (if so, how long)? @ -No Were there social determinants of health that impacted care today? How? (Homelessness, low income, unemployed, alcoholism, drug addiction, transportat ion, low edu. Level, literacy, decrease access to med. care, shelter, rehab)? @ -No Was there de-escalation of care discussed even if they declined (Discuss DNR or withdrawal of care, Hospice)? DNR status @ -No What co-morbidities impacted this encounter? (DM, HTN, Smoking, COPD, CAD, Cancer, CVA, ARF, Chemo, Hep., AIDS, mental health diagnosis, sleep apnea, morbid obesity)? @ -None Was patient admitted / discharged? Hospital course, mention meds given and route, prescriptions, significant lab abnormalities, going to OR and other pertinent info. @ -Patient received breathing treatment in the emergency department x 2 and received steroids in the route to the emergency department. Patient also r eceived antibiotics in emergency department. Went back and reevaluated the patient was feeling considerably better wanted to be discharged home. Undiagnosed new problem with uncertain prognosis? @ -No Drug Therapy requiring intensive monitoring for toxicity (Heparin, Nitro, Insulin, Cardizem)? @ -No Were any procedures done? @ -No Diagnosis/symptom? @ -COPD exacerbation Acute, or Chronic, or Acute on Chronic? @ -Acute Uncomplicated (without systemic symptoms) or Complicated (systemic symptoms)? @ -Complicated Side effects of treatment? @ -No Exacerbation, Progression, or Severe Exacerbation? @ -No Poses a threat to life or bodily function? How? (Chest pain, USA, MT, pneumonia, PE, COPD, DKA, ARF, appy, cholecystitis, CVA, Diverticulitis, Homicidal, Suicidal, threat to staff... and all critical care pts) @ -No - Lab Data Result diagrams: 01/23/24 09:59 01/23/24 09:59 Lab Results 01/23/24 01/23/24 01/23/24 Range/Units 09:59 09:59 09:59 WBC 7.5 (3.8-10.6) k/uL RBC 5.25 (4.30-5.90) m/uL Hgb 15.9 (13.0-17.5) gm/dL Hct 50.5 (39.0-53.0) % MCV 96.1 (80.0-100.0) fL MCH 30.3 (25.0-35.0) pg MCHC 31.6 (31.0-37.0) g/dL RDW 12.9 (11.5-15.5) % Plt Count 150 (150-450) k/uL MPV 8.5 Neutrophils % 70 % Lymphocytes % 20 % Monocytes % 6 % Eosinophils % 2 % Basophils % 1 % Neutrophils # 5.2 (1.3-7.7) k/uL Lymphocytes # 1.5 (1.0-4.8) k/uL Monocytes # 0.4 (0-1.0) k/uL Eosinophils # 0.1 (0-0.7) k/uL Basophils # 0.0 (0-0.2) k/uL PT 10.5 (10.0-12.5) sec INR 1.0 (<1.2) APTT 23.6 (22.0-30.0) sec D-Dimer 0.21 (<0.60) mg/L FEU Sodium 137 (137-145) mmol/L Potassium 4.1 (3.5-5.1) mmol/L Chloride 103 (98-107) mmol/L Carbon Dioxide 29 (22-30) mmol/L Anion Gap 5 mmol/L BUN 21 H (9-20) mg/dL Creatinine 0.81 (0.66-1.25) mg/dL Est GFR (CKD-EPI)AfAm >90 (>60 ml/min/1.73 sqM) Est GFR (CKD-EPI)NonAf >90 (>60 ml/min/1.73 sqM) Glucose 109 H (74-99) mg/dL Plasma Lactic Acid Obdulio (0.7-2.0) mmol/L Calcium 9.0 (8.4-10.2) mg/dL Magnesium 2.0 (1.6-2.3) mg/dL Total Bilirubin 1.0 (0.2-1.3) mg/dL AST 23 (17-59) U/L ALT 25 (4-49) U/L Alkaline Phosphatase 49 (38-126) U/L Troponin I (0.000-0.034) ng/mL Total Protein 6.4 (6.3-8.2) g/dL Albumin 4.3 (3.5-5.0) g/dL 01/23/24 01/23/24 Range/Units 09:59 09:59 WBC (3.8-10.6) k/uL RBC (4.30-5.90) m/uL Hgb (13.0-17.5) gm/dL Hct (39.0-53.0) % MCV (80.0-100.0) fL MCH (25.0-35.0) pg MCHC (31.0-37.0) g/dL RDW (11.5-15.5) % Plt Count (150-450) k/uL MPV Neutrophils % % Lymphocytes % % Monocytes % % Eosinophils % % Basophils % % Neutrophils # (1.3-7.7) k/uL Lymphocytes # (1.0-4.8) k/uL Monocytes # (0-1.0) k/uL Eosinophils # (0-0.7) k/uL Basophils # (0-0.2) k/uL PT (10.0-12.5) sec INR (<1.2) APTT (22.0-30.0) sec D-Dimer (<0.60) mg/L FEU Sodium (137-145) mmol/L Potassium (3.5-5.1) mmol/L Chloride (98-107) mmol/L Carbon Dioxide (22-30) mmol/L Anion Gap mmol/L BUN (9-20) mg/dL Creatinine (0.66-1.25) mg/dL Est GFR (CKD-EPI)AfAm (>60 ml/min/1.73 sqM) Est GFR (CKD-EPI)NonAf (>60 ml/min/1.73 sqM) Glucose (74-99) mg/dL Plasma Lactic Acid Obdulio 1.2 (0.7-2.0) mmol/L Calcium (8.4-10.2) mg/dL Magnesium (1.6-2.3) mg/dL Total Bilirubin (0.2-1.3) mg/dL AST (17-59) U/L ALT (4-49) U/L Alkaline Phosphatase (38-126) U/L Troponin I <0.012 (0.000-0.034) ng/mL Total Protein (6.3-8.2) g/dL Albumin (3.5-5.0) g/dL Disposition Clinical Impression: Acute exacerbation of chronic obstructive pulmonary disease Disposition: HOME SELF-CARE Instructions (If sedation given, give patient instructions): COPD (Chronic Obstructive Pulmonary Disease) (ED) Prescriptions: predniSONE [Deltasone] 40 mg PO DAILY #8 tab Azithromycin [Zithromax Tri-Jesus (3 tabs)] 500 mg PO DAILY 3 Days #3 tab Is patient prescribed a controlled substance at d/c from ED?: No Referrals: Indy Allen MD [Primary Care Provider] - 1-2 days Time of Disposition: 14:20
[2024-01-23] MEDS: SODIUM CHLORIDE 0.9% 500 ML 500 ML IV STA (10:08)
[2024-01-23 10:10] LABS: Basophils % (A) 1 %; Eosinophils # (A) 0.1 k/uL (0-0.7); Eosinophils % (A) 2 %; HCT 50.5 % (39.0-53.0); HGB 15.9 gm/dL (13.0-17.5); Lymphocytes # (A) 1.5 k/uL (1.0-4.8); Lymphocytes % (A) 20 %; MCH 30.3 pg (25.0-35.0); MCHC 31.6 g/dL (31.0-37.0); MCV 96.1 fL (80.0-100.0); Mean Platelet Volume 8.5; Monocytes # (A) 0.4 k/uL (0-1.0); Monocytes % (A) 6 %; Neutrophils # (A) 5.2 k/uL (1.3-7.7); Neutrophils % (A) 70 %; Platelet Count 150 k/uL (150-450); RBC 5.25 m/uL (4.30-5.90); RDW 12.9 % (11.5-15.5); WBC 7.5 k/uL (3.8-10.6)
[2024-01-23] MEDS: ALBUTEROL NEBULIZED 2.5 MG/3 ML INHALATION STA (10:15)
[2024-01-23] MEDS: IPRATROPIUM 0.5 MG/2.5 ML NEBU INHALATION STA (10:16)
[2024-01-23 10:21] LABS: ALT 25 U/L (4-49); AST 23 U/L (17-59); African American GFR (CKD) >90 (>60 ml/min/1.73 sqM); Albumin 4.3 g/dL (3.5-5.0); Alkaline Phosphatase 49 U/L (38-126); Anion Gap 5 mmol/L; Blood Urea Nitrogen 21 mg/dL (9-20); Carbon Dioxide 29 mmol/L (22-30); Chloride 103 mmol/L (98-107); Glucose 109 mg/dL (74-99); Non-African American GFR(CKD) >90 (>60 ml/min/1.73 sqM); Potassium 4.1 mmol/L (3.5-5.1); Sodium 137 mmol/L (137-145); Total Protein 6.4 g/dL (6.3-8.2)
[2024-01-23 10:29] LABS: Partial Thromboplastin Time 23.6 sec (22.0-30.0); Prothrombin Time 10.5 sec (10.0-12.5)
[2024-01-23 14:05] VITALS: TEMP 98.4
[2024-01-23 15:16] VITALS: BP 129/75; PULSE 84; RESP 18
--- NOTE | 2024-01-23 15:36 | XR ---
EXAMINATION TYPE: XR chest 2V DATE OF EXAM: 01/23/2024 COMPARISON: 01/10/2024 HISTORY: 58 year-old male shortness of breath, difficulty breathing TECHNIQUE: PA and lateral views FINDINGS: The cardiomediastinal silhouette, aorta, and pulmonary vasculature are within normal limits. There is bullous emphysema. Mild patchy densities in the lower lungs could represent atelectasis or subtle un derlying interstitial infiltrates. No sizable pleural effusion. IMPRESSION: Bullous emphysema. Mild basilar densities could represent atelectasis or subtle interstitial infiltra marlen. Correlate for any infectious signs or symptoms.
== END 2024-01-23 15:16 | disposition home or self-care (01) ==
LOC: EC 09:26
DX: J44.1 Chronic obstructive pulmonary disease with (acute) exacerbation (principal); F17.200 Nicotine dependence, unspecified, uncomplicated; Z91.030 Bee allergy status; Z91.013 Allergy to seafood; Z91.041 Radiographic dye allergy status; Z91.018 Allergy to other foods
CPT/HCPCS: 99285 ×2; 96365 ×2; 36415; 94640; 93005; 85379; 80053; 83605; 83735; 84484; 85025; 85610; 85730; 87040; 71046; J0696

== ENCOUNTER 2024-03-16 15:43 | Emergency (ER) | payer MEDICARE, OTHER ==
[2024-03-16 16:00] VITALS: RESP 18; TEMP 97.8
[2024-03-16 16:46] LABS: Basophils % (A) 0 %; Eosinophils % (A) 0 %; HCT 47.1 % (39.0-53.0); HGB 15.4 gm/dL (13.0-17.5); Lymphocytes # (A) 0.6 k/uL (1.0-4.8); Lymphocytes % (A) 6 %; MCH 30.5 pg (25.0-35.0); MCHC 32.7 g/dL (31.0-37.0); MCV 93.3 fL (80.0-100.0); Monocytes # (A) 0.2 k/uL (0-1.0); Monocytes % (A) 2 %; Neutrophils # (A) 9.1 k/uL (1.3-7.7); Neutrophils % (A) 91 %; Platelet Count 227 k/uL (150-450); RBC 5.05 m/uL (4.30-5.90); RDW 12.7 % (11.5-15.5)
[2024-03-16 16:58] LABS: Partial Thromboplastin Time 23.6 sec (22.0-30.0)
[2024-03-16 16:59] LABS: ALT 24 U/L (4-49); AST 24 U/L (17-59); African American GFR (CKD) >90 (>60 ml/min/1.73 sqM); Albumin 4.4 g/dL (3.5-5.0); Alkaline Phosphatase 57 U/L (38-126); Anion Gap 9 mmol/L; Blood Urea Nitrogen 28 mg/dL (9-20); Calcium 9.4 mg/dL (8.4-10.2); Carbon Dioxide 27 mmol/L (22-30); Chloride 103 mmol/L (98-107); Glucose 148 mg/dL (74-99); Non-African American GFR(CKD) >90 (>60 ml/min/1.73 sqM); Potassium 4.1 mmol/L (3.5-5.1); Sodium 139 mmol/L (137-145); Total Bilirubin 0.7 mg/dL (0.2-1.3); Total Protein 6.4 g/dL (6.3-8.2)
--- NOTE | 2024-03-16 17:12 | ED ---
General Adult HPI - General Chief complaint: Shortness of Breath Stated complaint: SOB Time Seen by Provider: 03/16/24 16:52 Source: patient, RN notes reviewed, old records reviewed Mode of arrival: ambulatory Limitations: no limitations - History of Present Illness Initial comments: 58-year-old male with chronic cough and dyspnea presenting for evaluation of exertional dyspnea patient is a current smoker although he states he is cutting back. No fever. No productive cough. No lower extremity pain or swelling. No central chest pain. Symptoms have been present for the past 6 months. - Related Data Home Medications Medication Instructions Recorded Confirmed Aspirin [Adult Low Dose Aspirin EC] 81 mg PO HS 03/24/18 04/03/23 Atorvastatin Calcium [Lipitor] 40 mg PO HS 04/29/18 04/03/23 Albuterol Inhaler [Ventolin Hfa 1 - 2 puff INHALATION RT-Q4H PRN 05/27/20 04/03/23 Inhaler] Losartan [Cozaar] 25 mg PO HS 05/27/20 04/03/23 Fluticasone/Umeclidin/Vilanter 1 puff INHALATION RT-DAILY 05/11/21 04/03/23 [Trelegy Ellipta 200-62.5-25] Nitroglycerin Sl Tabs [Nitrostat] 0.4 mg SUBLINGUAL Q5M PRN 12/24/21 04/03/23 Ipratropium-Albuterol Nebulize 3 ml INHALATION RT-TID PRN 04/03/23 04/03/23 [Duoneb 0.5 mg-3 mg/3 ml Soln] Previous Rx's Medication Instructions Recorded Metoprolol Tartrate [Lopressor] 25 mg PO BID #60 tab 08/26/15 Acetaminophen Tab [Tylenol] 650 mg PO Q6HR PRN tab 04/04/23 predniSONE [Deltasone] 20 mg PO BID #10 tab 01/10/24 Azithromycin [Zithromax Tri-Jesus (3 500 mg PO DAILY 3 Days #3 tab 01/23/24 tabs)] predniSONE [Deltasone] 40 mg PO DAILY #8 tab 01/23/24 Albuterol Nebulized [Ventolin 2.5 mg INHALATION Q4H #75 ml 03/16/24 Nebulized] Azithromycin [Zithromax Z Pack] 1 tab PO DIRECTED #6 tab 03/16/24 predniSONE 50 mg PO DAILY #5 tab 03/16/24 Allergies Allergy/AdvReac Type Severity Reaction Status Date / Time iodine Allergy Swelling Verified 03/16/24 16:00 salmon oil Allergy Swelling Verified 03/16/24 16:00 shellfish derived [Shellfish] Allergy Swelling Verified 03/16/24 16:00 venom-honey bee Allergy Swelling Verified 03/16/24 16:00 [bee venom (honey bee)] Review of Systems ROS Statement: Those systems with pertinent positive or pertinent negative responses have been documented in the HPI. ROS Other: All systems not noted in ROS Statement are negative. 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, enlarged lymph nodes in chest, pt sta marlen he has 3 masses in between lungs that were monitored for years-no change, bronchitis, DDD, spondylosis, 2 herniated cervical discs, 2 lumbar herniated discs, scoliosis, BPH, RLS Last Myocardial Infarction Date:: Aug 2015 History of Any Multi-Drug Resistant Organisms: None Reported Past Surgical History: Heart Catheterization With Stent, Hernia Repair, Orthopedic Surgery, Tonsillectomy Additional Past Surgical History / Comment(s): ORIF L hip/pins, L tibial cyst removed/bone graft from pelvis to tibia, pain clinic procedures, rhinoplasty, colonoscopy, Past Anesthesia/Blood Transfusion Reactions: No Reported Reaction Additional Past Anesthesia/Blood Transfusion Reaction / Comment(s): claustrophobic Date of Last Stent Placement:: Aug 2015 Past Psychological History: Anxiety, Depression Smoking Status: Current some day smoker Past Alcohol Use History: None Reported Past Drug Use History: None Reported - Past Family History Father History Unknown: Yes Family Medical History: No Reported History Additional Family Medical History / Comment(s): Pt does not know his father. Mother Family Medical History: COPD, CVA/TIA Additional Family Medical History / Comment(s): Mother is 80yrs old. Pt does not have much contact with mother. Brother(s) Additional Family Medical History / Comment(s): He has 2 brothers, one has metal health issues, one is an addict on crack and other street drugs. Sister(s) Family Medical History: Cancer, Liver Disease Additional Family Medical History / Comment(s): Patient had 2 sisters, one from breast cancer, one from cirrhosis at the age of 19 with history of heavy alcohol use and Crohn's disease. General Exam Limitations: no limitations General appearance: alert, in no apparent distress, in distress (Mild respiratory distress) Head exam: Present: atraumatic Eye exam: Present: normal appearance, PERRL ENT exam: Present: normal exam Neck exam: Present: normal inspection Respiratory exam: Present: respiratory distress, wheezes, decreased breath sounds Cardiovascular Exam: Present: regular rate, normal rhythm GI/Abdominal exam: Present: soft. Absent: distended, tenderness, guarding Extremities exam: Present: normal inspection, normal capillary refill Neurological exam: Present: alert, oriented X3 Psychiatric exam: Present: normal affect, normal mood Skin exam: Present: warm, dry, intact Course Vital Signs 03/16/24 15:56 Temperature 97.8 F Pulse Rate 85 Respiratory 18 Rate Blood Pressure 124/76 O2 Sat by Pulse 96 Oximetry Medical Decision Making - Medical Decision Making Was pt. sent in by a medical professional or institution (, PA, [employer], urgent care, hospital, or [place] health [place] facility...) When possible be specific @ -No Did you speak to anyone other than the patient for history (EMS, parent, family, police, friend...)? What history was obtained from this source @ -No Did you review nursing and triage notes (agree or disagree)? Why? @ -I reviewed and agree with nursing and triage notes Were old charts reviewed (outside hosp., previous admission, EMS record, old EKG, old radiological studies, urgent care reports/EKG's, [place] health care facility records)? Report findings @ -No old charts were reviewed Differential Dyspnea: Coronary syndrome, arrhythmia, tamponade, asthma, COPD, pulmonary embolism, pneumonia, pneumothorax, pulmonary effusion, anaphylaxis, diabetic ketoacidosis, flailed chest, pulmonary contusion, diaphragmatic rupture, anemia, neuromuscular, this is not meant to be an all-inclusive list. EKG interpreted by me (3pts min.). @ -Sinus rhythm rate of 72, NC interval 170, QRS duration 82, QTc [address] segment elevation T waves are upright X-rays interpreted by me (1pt min.). @ -Chest x-ray negative for pneumothorax, normal cardiac silhouette, no focal pneumonia CT interpreted by me (1pt min.). @ -None done U/S interpreted by me (1pt. min.). @ -None done What testing was considered but not performed or refused? (CT, X-rays, U/S, labs)? Why? @ -None What meds were considered but not given or refused? Why? @ -None Did you discuss the management of the patient with other professionals (professionals i.e. , PA, [employer], lab, RT, psych nurse, social scientist, military lawyer, teacher, privacy officer, rn case manager)? Give summary @ -No Was smoking cessation discussed for >3mins.? @ -No Was critical care preformed (if so, how long)? @ -No Were there social determinants of health that impacted care today? How? (Homelessness, low income, unemployed, alcoholism, drug addiction, transportation, low edu. Level, literacy, decrease access to med. care, penitentiary, rehab)? @ -No Was there de-escalation of care discussed even if they declined (Discuss DNR or withdrawal of care, Hospice)? DNR status @ -No What co-morbidities impacted this encounter? (DM, HTN, Smoking, COPD, CAD, Cancer, CVA, ARF, Chemo, Hep., AIDS, mental health diagnosis, sleep apnea, morbid obesity)? @Current smoker, history of COPD Was patient admitted / discharged? Hospital course, mention meds given and route, prescriptions, significant lab abnormalities, going to OR and other pertinent info. @ -[58-year-old male presenting with 6 months of cough and dyspnea, history of COPD. Patient is hemodynamically stable. EKG is sinus without ischemic changes . Chest x-ray is clear consistent with COPD. Patient is wheezing bilaterally with decreased air entry and an expiratory wheeze. Given steroids and albuterol as well as Atrovent in the emergency department. He will be started on a course of steroids as well as antibiotics for COPD exacerbation. He is instructed to follow closely with his primary care provider. Undiagnosed new problem with uncertain prognosis? @ -No Drug Therapy requiring intensive monitoring for toxicity (Heparin, Nitro, In sulin, Cardizem)? @ -No Were any procedures done? @ -No Diagnosis/symptom? @ -COPD exacerbation Acute, or Chronic, or Acute on Chronic? @ -[Acute Uncomplicated (without systemic symptoms) or Complicated (systemic symptoms)? @ -Default Side effects of treatment? @ -No Exacerbation, Progression, or Severe Exacerbation? @ -No Poses a threat to life or bodily function? How? (Chest pain, USA, NC, pneumonia, PE, COPD, DKA, ARF, appy, cholecystitis, CVA, Diverticulitis, Homicidal, Suicidal, threat to staff... and all critical care pts) @ -[Moderate risk, COPD, respiratory failure - Lab Data Result diagrams: 03/16/24 16:32 03/16/24 16:32 Lab Results 03/16/24 03/16/24 03/16/24 Range/Units 16:32 16:32 16:32 WBC 10.0 (3.8-10.6) k/uL RBC 5.05 (4.30-5.90) m/uL Hgb 15.4 (13.0-17.5) gm/dL Hct 47.1 (39.0-53.0) % MCV 93.3 (80.0-100.0) fL MCH 30.5 (25.0-35.0) pg MCHC 32.7 (31.0-37.0) g/dL RDW 12.7 (11.5-15.5) % Plt Count 227 (150-450) k/uL MPV 8.0 Neutrophils % 91 % Lymphocytes % 6 % Monocytes % 2 % Eosinophils % 0 % Basophils % 0 % Neutrophils # 9.1 H (1.3-7.7) k/uL Lymphocytes # 0.6 L (1.0-4.8) k/uL Monocytes # 0.2 (0-1.0) k/uL Eosinophils # 0.0 (0-0.7) k/uL Basophils # 0.0 (0-0.2) k/uL PT 11.0 (10.0-12.5) sec INR 1.0 (<1.2) APTT 23.6 (22.0-30.0) sec Sodium 139 (137-145) mmol/L Potassium 4.1 (3.5-5.1) mmol/L Chloride 103 (98-107) mmol/L Carbon Dioxide 27 (22-30) mmol/L Anion Gap 9 mmol/L BUN 28 H (9-20) mg/dL Creatinine 0.92 (0.66-1.25) mg/dL Est GFR (CKD-EPI)AfAm >90 (>60 ml/min/1.73 sqM) Est GFR (CKD-EPI)NonAf >90 (>60 ml/min/1.73 sqM) Glucose 148 H (74-99) mg/dL Calcium 9.4 (8.4-10.2) mg/dL Total Bilirubin 0.7 (0.2-1.3) mg/dL AST 24 (17-59) U/L ALT 24 (4-49) U/L Alkaline Phosphatase 57 (38-126) U/L Troponin I (0.000-0.034) ng/mL Total Protein 6.4 (6.3-8.2) g/dL Albumin 4.4 (3.5-5.0) g/dL 03/16/24 Range/Units 16:32 WBC (3.8-10.6) k/uL RBC (4.30-5.90) m/uL Hgb (13.0-17.5) gm/dL Hct (39.0-53.0) % MCV (80.0-100.0) fL MCH (25.0-35.0) pg MCHC (31.0-37.0) g/dL RDW (11.5-15.5) % Plt Count (150-450) k/uL MPV Neutrophils % % Lymphocytes % % Monocytes % % Eosinophils % % Basophils % % Neutrophils # (1.3-7.7) k/uL Lymphocytes # (1.0-4.8) k/uL Monocytes # (0-1.0) k/uL Eosinophils # (0-0.7) k/uL Basophils # (0-0.2) k/uL PT (10.0-12.5) sec INR (<1.2) APTT (22.0-30.0) sec Sodium (137-145) mmol/L Potassium (3.5-5.1) mmol/L Chloride (98-107) mmol/L Carbon Dioxide (22-30) mmol/L Anion Gap mmol/L BUN (9-20) mg/dL Creatinine (0.66-1.25) mg/dL Est GFR (CKD-EPI)AfAm (>60 ml/min/1.73 sqM) Est GFR (CKD-EPI)NonAf (>60 ml/min/1.73 sqM) Glucose (74-99) mg/dL Calcium (8.4-10.2) mg/dL Total Bilirubin (0.2-1.3) mg/dL AST (17-59) U/L ALT (4-49) U/L Alkaline Phosphatase (38-126) U/L Troponin I <0.012 (0.000-0.034) ng/mL Total Protein (6.3-8.2) g/dL Albumin (3.5-5.0) g/dL Disposition Clinical Impression: COPD (chronic obstructive pulmonary disease) Disposition: HOME SELF-CARE Condition: Good Instructions (If sedation given, give patient instructions): COPD (Chronic Obstructive Pulmonary Disease) (ED) Prescriptions: predniSONE 50 mg PO DAILY #5 tab Albuterol Nebulized [Ventolin Nebulized] 2.5 mg INHALATION Q4H #75 ml Azithromycin [Zithromax Z Pack] 1 tab PO DIRECTED #6 tab Is patient prescribed a controlled substance at d/c from ED?: No Referrals: Indy Aleln MD [Primary Care Provider] - 1-2 days Time of Disposition: 17:54
--- NOTE | 2024-03-16 17:21 | XR ---
EXAMINATION TYPE: XR chest 2V DATE OF EXAM: 03/16/2024 COMPARISON: 01/23/2024 INDICATION: Difficulty breathing, short of breath TECHNIQUE: Frontal and lateral views of the chest are obtained. FINDINGS: The heart size is normal. The pulmonary vasculature is normal. The lungs are clear. Hyperinflation flattening the diaphragms is present compatible with COPD. IMPRESSION: 1. No acute pulmonary process. 2. COPD
[2024-03-16] MEDS: DEXAMETHASONE SOD PHOSPHATE 10 MG/ML 1 ML VIAL IM STA (17:42)
[2024-03-16] MEDS: ALBUTEROL NEBULIZED 2.5 MG/3 ML INHALATION STA (17:57)
[2024-03-16] MEDS: IPRATROPIUM-ALBUTEROL 3 ML NEB INHALATION STA (17:57)
[2024-03-16 18:31] VITALS: BP 117/75; PULSE 70
== END 2024-03-16 18:35 | disposition home or self-care (01) ==
LOC: EC 15:43
DX: R06.02 Shortness of breath
CPT/HCPCS: 36415; 71046; 80053; 84484; 85025; 85610; 85730; 93005; 94640; 96372; 99285

== ENCOUNTER 2024-04-24 05:37 | Emergency (ER) | payer MEDICARE, OTHER ==
[2024-04-24 05:42] VITALS: TEMP 97
[2024-04-24] MEDS: IPRATROPIUM-ALBUTEROL 3 ML NEB INHALATION STA (06:04)
--- NOTE | 2024-04-24 06:20 | ED ---
SOB HPI - General Chief Complaint: Shortness of Breath Stated Complaint: SOB Time Seen by Provider: 04/24/24 05:40 Source: patient Mode of arrival: EMS Limitations: no limitations - History of Present Illness Initial Comments: 58-year-old male with past medical history of COPD, tobacco abuse who presents emergency department reporting shortness of breath. States that he woke up in the middle the night with sudden onset of shortness of breath. Patient admits to a history of COPD and continues to smoke. He does not use home oxygen. He denies fevers, chills or cough. No chest pain. No history of congestive heart failure. Denies any lower extremity swelling. No history of DVT or PE. EMS did provide the patient with a DuoNeb's breathing treatment. Patient had oxygen saturations in the 90s. No other alleviating, precipitating or modifying factors - Related Data Home Medications Medication Instructions Recorded Confirmed Aspirin [Adult Low Dose Aspirin EC] 81 mg PO HS 03/24/18 04/03/23 Atorvastatin Calcium [Lipitor] 40 mg PO HS 04/29/18 04/03/23 Albuterol Inhaler [Ventolin Hfa 1 - 2 puff INHALATION RT-Q4H PRN 05/27/20 04/03/23 Inhaler] Losartan [Cozaar] 25 mg PO HS 05/27/20 04/03/23 Fluticasone/Umeclidin/Vilanter 1 puff INHALATION RT-DAILY 05/11/21 04/03/23 [Trelegy Ellipta 200-62.5-25] Nitroglycerin Sl Tabs [Nitrostat] 0.4 mg SUBLINGUAL Q5M PRN 12/24/21 04/03/23 Ipratropium-Albuterol Nebulize 3 ml INHALATION RT-TID PRN 04/03/23 04/03/23 [Duoneb 0.5 mg-3 mg/3 ml Soln] Previous Rx's Medication Instructions Recorded Metoprolol Tartrate [Lopressor] 25 mg PO BID #60 tab 08/26/15 Acetaminophen Tab [Tylenol] 650 mg PO Q6HR PRN tab 04/04/23 predniSONE [Deltasone] 20 mg PO BID #10 tab 01/10/24 Azithromycin [Zithromax Tri-Jesus (3 500 mg PO DAILY 3 Days #3 tab 01/23/24 tabs)] predniSONE [Deltasone] 40 mg PO DAILY #8 tab 01/23/24 Albuterol Nebulized [Ventolin 2.5 mg INHALATION Q4H #75 ml 03/16/24 Nebulized] Azithromycin [Zithromax Z Pack] 1 tab PO DIRECTED #6 tab 03/16/24 predniSONE 50 mg PO DAILY #5 tab 03/16/24 Azithromycin [Zithromax Z Pack] 1 tab PO DIRECTED #6 tab 04/24/24 predniSONE [Deltasone] 20 mg PO BID #10 tab 04/24/24 Allergies Allergy/AdvReac Type Severity Reaction Status Date / Time iodine Allergy Swelling Verified 04/24/24 05:42 salmon oil Allergy Swelling Verified 04/24/24 05:42 shellfish derived [Shellfish] Allergy Swelling Verified 04/24/24 05:42 venom-honey bee Allergy Swelling Verified 04/24/24 05:42 [bee venom (honey bee)] Review of Systems ROS Statement: Those systems with pertinent positive or pertinent negative responses have been documented in the HPI. ROS Other: All systems not noted in ROS Statement are negative. 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, enlarged lymph nodes in chest, pt states he has 3 masses in between lungs that were monitored for years-no change, bronchitis, DDD, spondylosis, 2 herniated cervical discs, 2 lumbar herniated discs, scoliosis, BPH, RLS Last Myocardial Infarction Date:: Aug 2015 History of Any Multi-Drug Resistant Organisms: None Reported Past Surgical History: Heart Catheterization With Stent, Hernia Repair, Orthopedic Surgery, Tonsillectomy Additional Past Surgical History / Comment(s): ORIF L hip/pins, L tibial cyst removed/bone graft from pelvis to tibia, pain clinic procedures, rhinoplasty, colonoscopy, Past Anesthesia/Blood Transfusion Reactions: No Reported Reaction Additional Past Anesthesia/Blood Transfusion Reaction / Comment(s): claustrophobic Date of Last Stent Placement:: Aug 2015 Past Psychological History: Anxiety, Depression Smoking Status: Current some day smoker Past Alcohol Use History: None Reported Past Drug Use History: None Reported - Past Family History Father History Unknown: Yes Family Medical History: No Reported History Additional Family Medical History / Comment(s): Pt does not know his father. Mother Family Medical History: COPD, CVA/TIA Additional Family Medical History / Comment(s): Mother is 80yrs old. Pt does not have much contact with mother. Brother(s) Additional Family Medical History / Comment(s): He has 2 brothers, one has metal health issues, one is an addict on crack and other street drugs. Sister(s) Family Medical History: Cancer, Liver Disease Additional Family Medical History / Comment(s): Patient had 2 sisters, one from breast cancer, one from cirrhosis at the age of 19 with history of heavy alcohol use and Crohn's disease. General Exam Limitations: no limitations General appearance: alert, in no apparent distress Head exam: Present: atraumatic, normocephalic, normal inspection Eye exam: Present: normal appearance, PERRL, EOMI. Absent: scleral icterus, conjunctival injection, periorbital swelling ENT exam: Present: normal exam, mucous membranes moist Neck exam: Present: normal inspection. Absent: tenderness, meningismus, lymphadenopathy Respiratory exam: Present: respiratory distress, accessory muscle use, decreased breath sounds. Absent: wheezes, rales, rhonchi, stridor Cardiovascular Exam: Present: regular rate, normal rhythm, normal heart sounds. Absent: systolic murmur, diastolic murmur, rubs, gallop, clicks GI/Abdominal exam: Present: soft, normal bowel sounds. Absent: distended, tenderness, guarding, rebound, rigid Extremities exam: Present: normal inspection, full ROM, normal capillary refill. Absent: tenderness, pedal edema, joint swelling, calf tenderness Back exam: Present: normal inspection Neurological exam: Present: alert, oriented X3, CN II-XII intact Psychiatric exam: Present: normal affect, normal mood Skin exam: Present: warm, dry, intact, normal color. Absent: rash Course Vital Signs 04/24/24 04/24/24 04/24/24 05:39 06:04 07:38 Temperature 97 F L Pulse Rate 85 110 H 92 Respiratory 22 18 Rate Blood Pressure 139/92 123/77 O2 Sat by Pulse 100 97 Oximetry Medical Decision Making - Medical Decision Making Was pt. sent in by a medical professional or institution ([facility], [employer], urgent care, hospital, or prison...) When possible be specific @ -No Did you speak to anyone other than the patient for history (EMS, parent, family, police, friend...)? What history was obtained from this source @ -Spoke with EMS for history Did you review nursing and triage notes (agree or disagree)? Why? @ -I reviewed and agree with nursing and triage notes Were old charts reviewed (outside hosp., previous admission, EMS record, old EKG, old radiological studies, urgent care reports/EKG's, prison records)? Report findings @ -Reviewed ER visit from March 17 Differential Diagnosis (chest pain, altered mental status, abdominal pain women, abdominal pain men, vaginal bleeding, weakness, fever, dyspnea, syncope, headache, dizziness, GI bleed, back pain, seizure, CVA, palpatations, mental health, musculoskeletal)? @ -Differential Dyspnea: Coronary syndrome, arrhythmia, tamponade, asthma, COPD, pulmonary embolism, pneumonia, pneumothorax, pulmonary effusion, anaphylaxis, diabetic ketoacidosis, flailed chest, pulmonary contusion, diaphragmatic rupture, anemia, neuromuscular, this is not meant to be an all-inclusive list. EKG interpreted by me (3pts min.). @ -Yes and demonstrates sinus rhythm with rate of 80. NJ interval 177. QRS 88. QTc of 388. No acute ST segment elevations or depressions X-rays interpreted by me (1pt min.). @ -Yes and demonstrates no acute process CT interpreted by me (1pt min.). @ -None done U/S interpreted by me (1pt. min.). @ -None done What testing was considered but not performed or refused? (CT, X-rays, U/S, labs)? Why? @ -None What meds were considered but not given or refused? Why? @ -None Did you discuss the management of the patient with other professionals (professionals i.e. [facility], [employer]ER, lab, RT, psych nurse, social worker aide, senior office assistant, teacher, credit control officer, heel caser)? Give summary @ -No Was smoking cessation discussed for >3mins.? @ -Yes the smoking cessation was discussed for greater than 2 minutes. Benefits include improvement to health and reduced cost. Patient was open to the thought of quitting smoking Was critical care preformed (if so, how long)? @ -No Were there social determinants of health that impacted care today? How? (Homelessness, low income, unemployed, alcoholism, drug addiction, transpor tation, low edu. Level, literacy, decrease access to med. care, intermediate, rehab)? @ -No Was there de-escalation of care discussed even if they declined (Discuss DNR or withdrawal of care, Hospice)? DNR status @ -No What co-morbidities impacted this encounter? (DM, HTN, Smoking, COPD, CAD, Cancer, CVA, ARF, Chemo, Hep., AIDS, mental health diagnosis, sleep apnea, morbid obesity)? @ -COPD, tobacco abuse Was patient admitted / discharged? Hospital course, mention meds given and route, prescriptions, significant lab abnormalities, going to OR and other pertinent info. @ -Arrival patient seen and evaluated in room 9. Thorough history and physical exam was performed. IV access was established. Laboratory studies were conducted. Chest x-ray was performed. Patient was given a double DuoNeb's breathing treatment and a dose of steroids. Patient is reevaluated resting comfortably. States that he would like to go home. He will be trialed on steroids for the next few days. He is to use his inhalers every 4 hours. Follow-up with his primary care doctor. If he does not have any improvement in his symptoms he must return for admission. Patient was agreeable to this plan was discharged in stable condition Undiagnosed new problem with uncertain prognosis? @ -No Drug Therapy requiring intensive monitoring for toxicity (Heparin, Nitro, Insulin, Cardizem)? @ -No Were any procedures done? @ -No Diagnosis/symptom? @ -Acute respiratory insufficiency, COPD exacerbation Acute, or Chronic, or Acute on Chronic? @ -Acute Uncomplicated (without systemic symptoms) or Complicated (systemic symptoms)? @ -Complicated Side effects of treatment? @ -No Exacerbation, Progression, or Severe Exacerbation? @ -Yes Poses a threat to life or bodily function? How? (Chest pain, USA, VT, pneumonia, PE, COPD, DKA, ARF, appy, cholecystitis, CVA, Diverticulitis, Homicidal, Suicidal, threat to staff... and all critical care pts) @ -No - Lab Data Result diagrams: 04/24/24 06:15 04/24/24 06:15 Lab Results 04/24/24 04/24/24 04/24/24 Range/Units 06:15 06:15 06:15 WBC 7.9 (3.8-10.6) k/uL RBC 5.13 (4.30-5.90) m/uL Hgb 15.8 (13.0-17.5) gm/dL Hct 49.1 (39.0-53.0) % MCV 95.8 (80.0-100.0) fL MCH 30.9 (25.0-35.0) pg MCHC 32.2 (31.0-37.0) g/dL RDW 12.7 (11.5-15.5) % Plt Count 152 (150-450) k/uL MPV 8.2 Neutrophils % 75 % Lymphocytes % 18 % Monocytes % 5 % Eosinophils % 2 % Basophils % 0 % Neutrophils # 5.9 (1.3-7.7) k/uL Lymphocytes # 1.4 (1.0-4.8) k/uL Monocytes # 0.4 (0-1.0) k/uL Eosinophils # 0.1 (0-0.7) k/uL Basophils # 0.0 (0-0.2) k/uL PT 10.4 (10.0-12.5) sec INR 0.9 (<1.2) APTT 19.1 L (22.0-30.0) sec Sodium 139 (137-145) mmol/L Potassium 4.5 (3.5-5.1) mmol/L Chloride 107 (98-107) mmol/L Carbon Dioxide 26 (22-30) mmol/L Anion Gap 6 mmol/L BUN 27 H (9-20) mg/dL Creatinine 0.82 (0.66-1.25) mg/dL Est GFR (CKD-EPI)AfAm >90 (>60 ml/min/1.73 sqM) Est GFR (CKD-EPI)NonAf >90 (>60 ml/min/1.73 sqM) Glucose 94 (74-99) mg/dL Plasma Lactic Acid Obdulio (0.7-2.0) mmol/L Calcium 9.2 (8.4-10.2) mg/dL Total Bilirubin 0.8 (0.2-1.3) mg/dL AST 29 (17-59) U/L ALT 22 (4-49) U/L Alkaline Phosphatase 44 (38-126) U/L Troponin I (0.000-0.034) ng/mL NT-Pro-B Natriuret Pep 54 pg/mL Total Protein 6.8 (6.3-8.2) g/dL Albumin 4.4 (3.5-5.0) g/dL 04/24/24 04/24/24 Range/Units 06:15 06:15 WBC (3.8-10.6) k/uL RBC (4.30-5.90) m/uL Hgb (13.0-17.5) gm/dL Hct (39.0-53.0) % MCV (80.0-100.0) fL MCH (25.0-35.0) pg MCHC (31.0-37.0) g/dL RDW (11.5-15.5) % Plt Count (150-450) k/uL MPV Neutrophils % % Lymphocytes % % Monocytes % % Eosinophils % % Basophils % % Neutrophils # (1.3-7.7) k/uL Lymphocytes # (1.0-4.8) k/uL Monocytes # (0-1.0) k/uL Eosinophils # (0-0.7) k/uL Basophils # (0-0.2) k/uL PT (10.0-12.5) sec INR (<1.2) APTT (22.0-30.0) sec Sodium (137-145) mmol/L Potassium (3.5-5.1) mmol/L Chloride (98-107) mmol/L Carbon Dioxide (22-30) mmol/L Anion Gap mmol/L BUN (9-20) mg/dL Creatinine (0.66-1.25) mg/dL Est GFR (CKD-EPI)AfAm (>60 ml/min/1.73 sqM) Est GFR (CKD-EPI)NonAf (>60 ml/min/1.73 sqM) Glucose (74-99) mg/dL Plasma Lactic Acid Obdulio 0.9 (0.7-2.0) mmol/L Calcium (8.4-10.2) mg/dL Total Bilirubin (0.2-1.3) mg/dL AST (17-59) U/L ALT (4-49) U/L Alkaline Phosphatase (38-126) U/L Troponin I <0.012 (0.000-0.034) ng/mL NT-Pro-B Natriuret Pep pg/mL Total Protein (6.3-8.2) g/dL Albumin (3.5-5.0) g/dL Disposition Clinical Impression: COPD (chronic obstructive pulmonary disease) Disposition: HOME SELF-CARE Condition: Stable Instructions (If sedation given, give patient instructions): COPD (Chronic Obstructive Pulmonary Disease) (ED) Additional Instructions: Take the steroids as directed starting tomorrow. Follow-up with your doctor in 2 to 4 days. Use your breathing treatments every 4 hours. Return for any new or worsening symptoms. Please stop smoking Prescriptions: predniSONE [Deltasone] 20 mg PO BID #10 tab Azithromycin [Zithromax Z Pack] 1 tab PO DIRECTED #6 tab Is patient prescribed a controlled substance at d/c from ED?: No Referrals: Indy Allen MD [Primary Care Provider] - 1-2 days Time of Disposition: 07:43
[2024-04-24] MEDS: methylPREDNISolone SOD SUCCI 125 MG/2 ML VIAL IV STA (06:23)
[2024-04-24 06:25] LABS: Basophils % (A) 0 %; Eosinophils # (A) 0.1 k/uL (0-0.7); Eosinophils % (A) 2 %; HCT 49.1 % (39.0-53.0); HGB 15.8 gm/dL (13.0-17.5); Lymphocytes # (A) 1.4 k/uL (1.0-4.8); Lymphocytes % (A) 18 %; MCH 30.9 pg (25.0-35.0); MCHC 32.2 g/dL (31.0-37.0); MCV 95.8 fL (80.0-100.0); Mean Platelet Volume 8.2; Monocytes # (A) 0.4 k/uL (0-1.0); Monocytes % (A) 5 %; Neutrophils # (A) 5.9 k/uL (1.3-7.7); Neutrophils % (A) 75 %; Platelet Count 152 k/uL (150-450); RBC 5.13 m/uL (4.30-5.90); RDW 12.7 % (11.5-15.5); WBC 7.9 k/uL (3.8-10.6)
[2024-04-24] MEDS: MAGNESIUM SULFATE-D5W PMX 1 GM in DEXTROSE/WATER 1 100ML.BAG IVPB STA (06:25)
[2024-04-24 06:41] LABS: INR 0.9 (<1.2); Prothrombin Time 10.4 sec (10.0-12.5)
[2024-04-24 06:45] LABS: Partial Thromboplastin Time 19.1 sec (22.0-30.0)
[2024-04-24 07:19] LABS: ALT 22 U/L (4-49); African American GFR (CKD) >90 (>60 ml/min/1.73 sqM); Albumin 4.4 g/dL (3.5-5.0); Anion Gap 6 mmol/L; Blood Urea Nitrogen 27 mg/dL (9-20); Calcium 9.2 mg/dL (8.4-10.2); Carbon Dioxide 26 mmol/L (22-30); Chloride 107 mmol/L (98-107); Glucose 94 mg/dL (74-99); Non-African American GFR(CKD) >90 (>60 ml/min/1.73 sqM); Sodium 139 mmol/L (137-145); Total Bilirubin 0.8 mg/dL (0.2-1.3); Total Protein 6.8 g/dL (6.3-8.2)
[2024-04-24 07:26] LABS: AST 29 U/L (17-59); Alkaline Phosphatase 44 U/L (38-126); Potassium 4.5 mmol/L (3.5-5.1)
[2024-04-24 07:27] LABS: NT-Pro-B-Type Natriuretic Pept 54 pg/mL
[2024-04-24 07:40] VITALS: BP 123/77; PULSE 92; RESP 18
--- NOTE | 2024-04-24 07:44 | XR ---
EXAMINATION TYPE: XR chest 2V DATE OF EXAM: 04/24/2024 COMPARISON: 03/16/2024 INDICATION: Difficulty breathing TECHNIQUE: Frontal and lateral views of the chest are obtained. FINDINGS: The heart size is normal. The pulmonary vasculature is normal. There are mild bibasilar nonspecific infiltrates present. There is blunting of costophrenic angle. Mi nimal left effusion may present. There is hyperinflation findings the diaphragms compatible with COPD . IMPRESSION: 1. Minimal by basilar infiltrates slightly greater on the left. 2. Small left pleural effusion. 3. [facility], Workstation: [email or web address], 04/24/2024 7:41 AM
== END 2024-04-24 08:11 | disposition home or self-care (01) ==
LOC: EC 05:37
CPT/HCPCS: 36415; 71046; 80053; 83605; 83880; 84484; 85025; 85610; 85730; 93005; 94640; 96365; 96375; 99285

== ENCOUNTER → 2024-04-27 | Outpatient (CLI) | payer MEDICARE ==
--- NOTE | 2024-04-27 18:23 | CT ---
EXAMINATION TYPE: CT chest wo con DATE OF EXAM: 04/27/2024 COMPARISON: 05/11/2019 HISTORY: COPD CT DLP: 156.7 mGycm, Automated exposure control for dose reduction was used. CONTRAST: Performed injected with 0 mL of Isovue 300. TECHNIQUE: Axial images were obtained at 5 mm thick sections. Reconstructed images are reviewed on edelight computer in the coronal plane. FINDINGS: Portion of the thyroid visualized is normal. There is a 0.8 cm nodule within the right upper lung field. Series 4 image 28. This is new. PET/CT re commended for additional evaluation. Advanced emphysematous changes are present. No enlarged mediastinal or hilar adenopathy is evident. There is a 0.9 cm nodule within the mediasti num pretracheal space. No enlarged mediastinal or hilar adenopathy is evident. The ascending aorta di ameter at the level of the main pulmonary artery is 3.6 cm. The main pulmonary artery diameter at th e bifurcation is 1.[address] sections are obtained through the upper abdomen. Abdomen is essentially unremarkable. IMPRESSION: 1. New 0.8 cm nodule anterior right midlung. CT recommended for additional evaluation. 2. [facility], , 04/27/2024 6:21 PM
== END | disposition home or self-care (01) ==
LOC: RADCTMAIN 15:36
PROVIDERS: ATTEND Internal Medicine Sleep Medicine
DX: J44.1 Chronic obstructive pulmonary disease with (acute) exacerbation (principal); R91.1 Solitary pulmonary nodule
CPT/HCPCS: 71250

== ENCOUNTER → 2024-05-20 | Outpatient (CLI) | payer MEDICARE | END | disposition home or self-care (01) | LOC: RADPETMAIN 12:46 | PROVIDERS: ATTEND Internal Medicine Sleep Medicine ==

== ENCOUNTER 2024-07-01 00:54 | Emergency (ER) | payer MEDICARE ==
--- NOTE | 2024-07-01 01:03 | ED ---
General Adult HPI - General Chief complaint: Shortness of Breath Stated complaint: Difficulty Breathing Time Seen by Provider: 07/01/24 00:56 Source: patient, EMS Mode of arrival: EMS Limitations: no limitations - History of Present Illness Initial comments: Dictation was produced using [employer] dictation software. please excuse any grammatical, word or spelling errors. Chief Complaint: 59-year-old male with a history of COPD presents to the emergency department for shortness of breath History of Present Illness: Patient is a 59-year-old male presents from home by EMS. Patient brought in for couple days of shortness of breath. He was at home with that he was perhaps having a panic attack. He has history of PAD emphysema. He follows up with pump and blower operator, Dr. Jasso. EMS provided patient with DuoNeb. Patient [place] any fever or chest pain. The ROS documented in this emergency department record has been reviewed and confirmed by me. Those systems with pertinent positive or negative responses have been documented in the HPI. All other systems are other negative and/or noncontributory. - Related Data Home Medications Medication Instructions Recorded Confirmed Aspirin [Adult Low Dose Aspirin EC] 81 mg PO HS 03/24/18 04/03/23 Atorvastatin Calcium [Lipitor] 40 mg PO HS 04/29/18 04/03/23 Albuterol Inhaler [Ventolin Hfa 1 - 2 puff INHALATION RT-Q4H PRN 05/27/20 04/03/23 Inhaler] Losartan [Cozaar] 25 mg PO HS 05/27/20 04/03/23 Fluticasone/Umeclidin/Vilanter 1 puff INHALATION RT-DAILY 05/11/21 04/03/23 [Trelegy Ellipta 200-62.5-25] Nitroglycerin Sl Tabs [Nitrostat] 0.4 mg SUBLINGUAL Q5M PRN 12/24/21 04/03/23 Ipratropium-Albuterol Nebulize 3 ml INHALATION RT-TID PRN 04/03/23 04/03/23 [Duoneb 0.5 mg-3 mg/3 ml Soln] Previous Rx's Medication Instructions Recorded Metoprolol Tartrate [Lopressor] 25 mg PO BID #60 tab 08/26/15 Acetaminophen Tab [Tylenol] 650 mg PO Q6HR PRN tab 04/04/23 predniSONE [Deltasone] 20 mg PO BID #10 tab 01/10/24 Azithromycin [Zithromax Tri-Jesus (3 500 mg PO DAILY 3 Days #3 tab 01/23/24 tabs)] predniSONE [Deltasone] 40 mg PO DAILY #8 tab 01/23/24 Albuterol Nebulized [Ventolin 2.5 mg INHALATION Q4H #75 ml 03/16/24 Nebulized] Azithromycin [Zithromax Z Pack] 1 tab PO DIRECTED #6 tab 03/16/24 predniSONE 50 mg PO DAILY #5 tab 03/16/24 Azithromycin [Zithromax Z Pack] 1 tab PO DIRECTED #6 tab 04/24/24 predniSONE [Deltasone] 20 mg PO BID #10 tab 04/24/24 Allergies Allergy/AdvReac Type Severity Reaction Status Date / Time iodine Allergy Swelling Verified 04/24/24 05:42 salmon oil Allergy Swelling Verified 04/24/24 05:42 shellfish derived [Shellfish] Allergy Swelling Verified 04/24/24 05:42 venom-honey bee Allergy Swelling Verified 04/24/24 05:42 [bee venom (honey bee)] Review of Systems ROS Statement: Those systems with pertinent positive or pertinent negative responses have been documented in the HPI. ROS Other: All systems not noted in ROS Statement are negative. 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, enlarged lymph nodes in chest, pt states he has 3 masses in between lungs that were monitored for years-no change, bronchitis, DDD, spondylosis, 2 herniated cervical discs, 2 lumbar herniated discs, scoliosis, BPH, RLS Last Myocardial Infarction Date:: Aug 2015 History of Any Multi-Drug Resistant Organisms: None Reported Past Surgical History: Heart Catheterization With Stent, Hernia Repair, Orthopedic Surgery, Tonsillectomy Additional Past Surgical History / Comment(s): ORIF L hip/pins, L tibial cyst removed/bone graft from pelvis to tibia, pain clinic procedures, rhinoplasty, colonoscopy, Past Anesthesia/Blood Transfusion Reactions: No Reported Reaction Additional Past Anesthesia/Blood Transfusion Reaction / Comment(s): claustrophobic Date of Last Stent Placement:: Aug 2015 Past Psychological History: Anxiety, Depression Smoking Status: Former smoker Past Alcohol Use History: None Reported Past Drug Use History: None Reported - Past Family History Father History Unknown: Yes Family Medical History: No Reported History Additional Family Medical History / Comment(s): Pt does not know his father. Mother Family Medical History: COPD, CVA/TIA Additional Family Medical History / Comment(s): Mother is 80yrs old. Pt does not have much contact with mother. Brother(s) Additional Family Medical History / Comment(s): He has 2 brothers, one has metal health issues, one is an addict on crack and other street drugs. Sister(s) Family Medical History: Cancer, Liver Disease Additional Family Medical History / Comment(s): Patient had 2 sisters, one from breast cancer, one from cirrhosis at the age of 19 with history of heavy alcohol use and Crohn's disease. General Exam - General Exam Comments Initial Comments: PHYSICAL EXAM: General Impression: Alert and oriented x3, dyspneic HEENT: Normocephalic atraumatic, extra-ocular movements intact, pupils equal and reactive to light bilaterally, mucous membranes moist. Cardiovascular: Heart regular rate and rhythm Chest: Poor air exchange, dyspneic, retracting Abdomen: abdomen soft, non-tender, non-distended, no organomegaly Musculoskeletal: Pulses present and equal in all extremities, no peripheral edema Motor: no focal deficits noted Neurological: CN II-XII grossly intact, no focal motor or sensory deficits noted Skin: Intact with no visualized rashes Psych: Normal affect and mood Limitations: no limitations Course Vital Signs 07/01/24 07/01/24 07/01/24 00:54 00:56 01:08 Temperature 97.7 F Pulse Rate 78 79 Respiratory 28 H 28 H 22 Rate Blood Pressure 138/90 O2 Sat by Pulse 100 Oximetry 07/01/24 07/01/24 07/01/24 01:14 01:15 01:21 Temperature Pulse Rate 73 73 76 Respiratory 20 20 20 Rate Blood Pressure O2 Sat by Pulse Oximetry 07/01/24 07/01/24 01:40 02:00 Temperature Pulse Rate 82 76 Respiratory 23 19 Rate Blood Pressure 138/83 128/86 O2 Sat by Pulse 99 97 Oximetry EKG Findings - EKG Comments: EKG Findings:: My EKG interpretation: Ventricular rate 79, sinus rhythm,. 174, cures 92, QTc 4 7. No ID prolongation, no QTC prolongation, no ST or T-wave changes noted. Overall, this EKG is unremarkable Medical Decision Making - Medical Decision Making Was pt. sent in by a medical professional or institution (, [facility], GAS PLANT OPERATOR, urgent care, hospital, or long term...) When possible be specific @ -No Did you speak to anyone other than the patient for history (EMS, parent, family, police, friend...)? What history was obtained from this source @ -No Did you review nursing and triage notes (agree or disagree)? Why? @ -I reviewed and agree with nursing and triage notes Were old charts reviewed (outside hosp., previous admission, EMS record, old EKG, old radiological studies, urgent care reports/EKG's, long term records)? Report findings @ -No old charts were reviewed Differential Diagnosis (chest pain, altered mental status, abdominal pain women, abdominal pain men, vaginal bleeding, musculoskeletal, weakness, fever, dyspnea, syncope, headache, dizziness, GI bleed, back pain, seizure, CVA, palpatations, mental health)? @ -Differential Dyspnea: Coronary syndrome, arrhythmia, tamponade, asthma, COPD, pulmonary embolism, pneumonia, pneumothorax, pulmonary effusion, anaphylaxis, diabetic ketoacidosis, flailed chest, pulmonary contusion, diaphragmatic rupture, anemia, neuromuscular, this is not meant to be an all-inclusive list. EKG interpreted by me (3pts min.). @ -See above X-rays interpreted by me (1pt min.). @ -Chest x-ray shows no acute processes CT interpreted by me (1pt min.). @ -None done U/S interpreted by me (1pt. min.). @ -None done What testing was considered but not performed or refused? (CT, X-rays, U/S, labs)? Why? @ -None What meds were considered but not given or refused? Why? @ -None Was smoking cessation discussed for >3mins.? @ -No Were there social determinants of health that impacted care today? How? (Homelessness, low income, unemployed, alcoholism, drug addiction, transp ortation, low edu. Level, literacy, decrease access to med. care, long term, rehab)? @ -No Was there de-escalation of care discussed even if they declined (Discuss DNR or withdrawal of care, Hospice)? DNR status @ -No What co-morbidities impacted this encounter? (DM, HTN, Smoking, COPD, CAD, Cancer, CVA, ARF, Chemo, Hep., AIDS, mental health diagnosis, sleep apnea, morbid obesity)? @ -Emphysema Was patient admitted / discharged? Hospital course, mention meds given and route, prescriptions, significant lab abnormalities, going to OR and other pertinent info. @ -51-year-old male presents to the emergency department with acute COPD exacerbation. Vital signs upon arrival showed tachypnea however nonhypoxic. Patient given breathing treatment along with Decadron. Laboratory evaluation is unremarkable. Imaging studies are negative. Viral testing is negative. Patient observed emergency department for approximately 2 hours. Reevaluated bedside 2:50 AM with complete resolution of his symptoms. Patient states he feels well and would like to be discharged. Patient no acute distress. Patient has improved air exchange with repeat auscultation of the lungs. Did you discuss the management of the patient with other professionals (professionals i.e. , PA, GAS PLANT OPERATOR, lab, RT, psych nurse, social sciences instructor, sanitation worker cleaning machinery, teacher, president and chief commercial officer, corrections caseworker)? Give summary @ -No Was critical care preformed (if so, how long)? @ -Yes, 33 minutes for initial presentation of respiratory failure Undiagnosed new problem with uncertain prognosis? @ -No Drug Therapy requiring intensive monitoring for toxicity (Heparin, Nitro, Insulin, Cardizem)? @ -No Were any procedures done? @ -No Diagnosis/symptom? Acute, or Chronic, or Acute on Chronic? Uncomplicated (without systemic symptoms) or Complicated (systemic symptoms)? @ -COPD exacerbation Side effects of treatment? @ -No Exacerbation, Progression, or Severe Exacerbation? @ -No Poses a threat to life or bodily function? How? (Chest pain, [place], [place], pneumonia, PE, COPD, DKA, ARF, appy, cholecystitis, CVA, Diverticulitis, Homicidal, Suicidal, threat to staff... and all critical care pts) @ -yes - Lab Data Result diagrams: 07/01/24 01:04 07/01/24 01:04 Lab Results 12/12/24 12/12/24 12/12/24 Range/Units 01:04 01:04 01:04 WBC 7.3 (3.8-10.6) k/uL RBC 5.06 (4.30-5.90) m/uL Hgb 16.1 (13.0-17.5) gm/dL Hct 48.2 (39.0-53.0) % MCV 95.3 (80.0-100.0) fL MCH 31.8 (25.0-35.0) pg MCHC 33.3 (31.0-37.0) g/dL RDW 12.7 (11.5-15.5) % Plt Count 182 (150-450) k/uL MPV 8.3 Neutrophils % 57 % Lymphocytes % 31 % Monocytes % 6 % Eosinophils % 2 % Basophils % 1 % Neutrophils # 4.2 (1.3-7.7) k/uL Lymphocytes # 2.3 (1.0-4.8) k/uL Monocytes # 0.5 (0-1.0) k/uL Eosinophils # 0.2 (0-0.7) k/uL Basophils # 0.0 (0-0.2) k/uL PT 10.7 (10.0-12.5) sec INR 1.0 (<1.2) APTT 23.8 (22.0-30.0) sec VBG pH (7.31-7.41) VBG pCO2 (37-51) mmHg VBG HCO3 (24-28) mmol/L Sodium 138 (137-145) mmol/L Potassium 3.9 (3.5-5.1) mmol/L Chloride 107 (98-107) mmol/L Carbon Dioxide 31 H (22-30) mmol/L Anion Gap 0 mmol/L BUN 21 H (9-20) mg/dL Creatinine 0.90 (0.66-1.25) mg/dL Est GFR (CKD-EPI)AfAm >90 (>60 ml/min/1.73 sqM) Est GFR (CKD-EPI)NonAf >90 (>60 ml/min/1.73 sqM) Glucose 140 H (74-99) mg/dL Plasma Lactic Acid Obdulio (0.7-2.0) mmol/L Calcium 9.5 (8.4-10.2) mg/dL Magnesium 2.2 (1.6-2.3) mg/dL Total Bilirubin 0.6 (0.2-1.3) mg/dL AST 24 (17-59) U/L ALT 23 (4-49) U/L Alkaline Phosphatase 54 (38-126) U/L Troponin I (0.000-0.034) ng/mL NT-Pro-B Natriuret Pep 48 pg/mL Total Protein 6.8 (6.3-8.2) g/dL Albumin 4.6 (3.5-5.0) g/dL Influenza Type A (PCR) (Not Detectd) Influenza Type B (PCR) (Not Detectd) RSV (PCR) (Not Detectd) SARS-CoV-2 (PCR) (Not Detectd) 07/01/24 07/01/24 07/01/24 Range/Units 01:04 01:04 01:04 WBC (3.8-10.6) k/uL RBC (4.30-5.90) m/uL Hgb (13.0-17.5) gm/dL Hct (39.0-53.0) % MCV (80.0-100.0) fL MCH (25.0-35.0) pg MCHC (31.0-37.0) g/dL RDW (11.5-15.5) % Plt Count (150-450) k/uL MPV Neutrophils % % Lymphocytes % % Monocytes % % Eosinophils % % Basophils % % Neutrophils # (1.3-7.7) k/uL Lymphocytes # (1.0-4.8) k/uL Monocytes # (0-1.0) k/uL Eosinophils # (0-0.7) k/uL Basophils # (0-0.2) k/uL PT (10.0-12.5) sec INR (<1.2) APTT (22.0-30.0) sec VBG pH (7.31-7.41) VBG pCO2 (37-51) mmHg VBG HCO3 (24-28) mmol/L Sodium (137-145) mmol/L Potassium (3.5-5.1) mmol/L Chloride (98-107) mmol/L Carbon Dioxide (22-30) mmol/L Anion Gap mmol/L BUN (9-20) mg/dL Creatinine (0.66-1.25) mg/dL Est GFR (CKD-EPI)AfAm (>60 ml/min/1.73 sqM) Est GFR (CKD-EPI)NonAf (>60 ml/min/1.73 sqM) Glucose (74-99) mg/dL Plasma Lactic Acid Obdulio 0.9 (0.7-2.0) mmol/L Calcium (8.4-10.2) mg/dL Magnesium (1.6-2.3) mg/dL Total Bilirubin (0.2-1.3) mg/dL AST (17-59) U/L ALT (4-49) U/L Alkaline Phosphatase (38-126) U/L Troponin I <0.012 (0.000-0.034) ng/mL NT-Pro-B Natriuret Pep pg/mL Total Protein (6.3-8.2) g/dL Albumin (3.5-5.0) g/dL Influenza Type A (PCR) Not Detected (Not Detectd) Influenza Type B (PCR) Not Detected (Not Detectd) RSV (PCR) Not Detected (Not Detectd) SARS-CoV-2 (PCR) Not Detected (Not Detectd) 07/01/24 Range/Units 01:04 WBC (3.8-10.6) k/uL RBC (4.30-5.90) m/uL Hgb (13.0-17.5) gm/dL Hct (39.0-53.0) % MCV (80.0-100.0) fL MCH (25.0-35.0) pg MCHC (31.0-37.0) g/dL RDW (11.5-15.5) % Plt Count (150-450) k/uL MPV Neutrophils % % Lymphocytes % % Monocytes % % Eosinophils % % Basophils % % Neutrophils # (1.3-7.7) k/uL Lymphocytes # (1.0-4.8) k/uL Monocytes # (0-1.0) k/uL Eosinophils # (0-0.7) k/uL Basophils # (0-0.2) k/uL PT (10.0-12.5) sec INR (<1.2) APTT (22.0-30.0) sec VBG pH 7.30 L (7.31-7.41) VBG pCO2 62 H (37-51) mmHg VBG HCO3 30 H (24-28) mmol/L Sodium (137-145) mmol/L Potassium (3.5-5.1) mmol/L Chloride (98-107) mmol/L Carbon Dioxide (22-30) mmol/L Anion Gap mmol/L BUN (9-20) mg/dL Creatinine (0.66-1.25) mg/dL Est GFR (CKD-EPI)AfAm (>60 ml/min/1.73 sqM) Est GFR (CKD-EPI)NonAf (>60 ml/min/1.73 sqM) Glucose (74-99) mg/dL Plasma Lactic Acid Obdulio (0.7-2.0) mmol/L Calcium (8.4-10.2) mg/dL Magnesium (1.6-2.3) mg/dL Total Bilirubin (0.2-1.3) mg/dL AST (17-59) U/L ALT (4-49) U/L Alkaline Phosphatase (38-126) U/L Troponin I (0.000-0.034) ng/mL NT-Pro-B Natriuret Pep pg/mL Total Protein (6.3-8.2) g/dL Albumin (3.5-5.0) g/dL Influenza Type A (PCR) (Not Detectd) Influenza Type B (PCR) (Not Detectd) RSV (PCR) (Not Detectd) SARS-CoV-2 (PCR) (Not Detectd) Disposition Clinical Impression: COPD exacerbation Disposition: HOME SELF-CARE Condition: Fair Instructions (If sedation given, give patient instructions): COPD (Chronic Obstructive Pulmonary Disease) (ED) Is patient prescribed a controlled substance at d/c from ED?: No Referrals: Indy Allen MD [Primary Care Provider] - 1-2 days Fazal Jasso [STAFF PHYSICIAN] - 1-2 days Time of Disposition: 02:52
[2024-07-01] MEDS: IPRATROPIUM 0.5 MG/2.5 ML NEBU INHALATION STA (01:07)
[2024-07-01] MEDS: ALBUTEROL NEBULIZED 2.5 MG/3 ML INHALATION STA (01:07)
[2024-07-01 01:25] LABS: Basophils % (A) 1 %; Eosinophils # (A) 0.2 k/uL (0-0.7); Eosinophils % (A) 2 %; HCT 48.2 % (39.0-53.0); HGB 16.1 gm/dL (13.0-17.5); Lymphocytes # (A) 2.3 k/uL (1.0-4.8); Lymphocytes % (A) 31 %; MCH 31.8 pg (25.0-35.0); MCHC 33.3 g/dL (31.0-37.0); MCV 95.3 fL (80.0-100.0); Mean Platelet Volume 8.3; Monocytes # (A) 0.5 k/uL (0-1.0); Monocytes % (A) 6 %; Neutrophils # (A) 4.2 k/uL (1.3-7.7); Neutrophils % (A) 57 %; Platelet Count 182 k/uL (150-450); RBC 5.06 m/uL (4.30-5.90); RDW 12.7 % (11.5-15.5); WBC 7.3 k/uL (3.8-10.6)
[2024-07-01 01:27] LABS: VBG PH 7.3 (7.31-7.41)
[2024-07-01] MEDS: DEXAMETHASONE SOD PHOSPHATE 10 MG/ML 1 ML VIAL IV STA (01:34)
[2024-07-01 01:35] LABS: Sodium 138 mmol/L (137-145)
[2024-07-01 01:38] LABS: ALT 23 U/L (4-49); AST 24 U/L (17-59); African American GFR (CKD) >90 (>60 ml/min/1.73 sqM); Albumin 4.6 g/dL (3.5-5.0); Alkaline Phosphatase 54 U/L (38-126); Anion Gap 0 mmol/L; Blood Urea Nitrogen 21 mg/dL (9-20); Calcium 9.5 mg/dL (8.4-10.2); Carbon Dioxide 31 mmol/L (22-30); Chloride 107 mmol/L (98-107); Glucose 140 mg/dL (74-99); Magnesium 2.2 mg/dL (1.6-2.3); Non-African American GFR(CKD) >90 (>60 ml/min/1.73 sqM); Potassium 3.9 mmol/L (3.5-5.1); Total Bilirubin 0.6 mg/dL (0.2-1.3); Total Protein 6.8 g/dL (6.3-8.2)
[2024-07-01 01:40] LABS: Partial Thromboplastin Time 23.8 sec (22.0-30.0); Prothrombin Time 10.7 sec (10.0-12.5)
[2024-07-01 01:46] LABS: NT-Pro-B-Type Natriuretic Pept 48 pg/mL
--- NOTE | 2024-07-01 01:46 | XR ---
EXAMINATION TYPE: XR chest 1V portable DATE OF EXAM: 07/01/2024 COMPARISON: CT chest April 27, 2024 CLINICAL INDICATION: Male, 59 years old with history of dyspnea; TECHNIQUE: Single frontal view of the chest is obtained. FINDINGS: Underlying emphysematous change is redemonstrated. There is no focal air space opacity, pl eural effusion, or pneumothorax seen. The cardiac silhouette size remains within normal limits. Th e osseous structures are intact. IMPRESSION: Chronic emphysematous change without acute pulmonary process. [facility], , 07/01/2024 1:44 AM
[2024-07-01 03:11] VITALS: BP 120/84; PULSE 75; RESP 20; TEMP 97.8
== END 2024-07-01 03:18 | disposition home or self-care (01) ==
LOC: EC 00:54
DX: J44.1 Chronic obstructive pulmonary disease with (acute) exacerbation (principal); J43.9 Emphysema, unspecified; Z87.891 Personal history of nicotine dependence; Z91.013 Allergy to seafood; Z91.030 Bee allergy status; Z88.5 Allergy status to narcotic agent
CPT/HCPCS: 36415; 94640 ×2; 83880; 80053; 82803; 83605; 83735; 84484; 85025; 85610; 85730; 87636; 71045; 99291; 96374; J1100

== ENCOUNTER 2024-07-06 21:49 | Emergency (ER) | payer MEDICARE, OTHER ==
[2024-07-06 23:36] LABS: Basophils % (A) 0 %; Eosinophils # (A) 0.2 k/uL (0-0.7); Eosinophils % (A) 1 %; HCT 46.9 % (39.0-53.0); HGB 15.4 gm/dL (13.0-17.5); Lymphocytes # (A) 1.5 k/uL (1.0-4.8); Lymphocytes % (A) 12 %; MCH 30.7 pg (25.0-35.0); MCHC 32.8 g/dL (31.0-37.0); MCV 93.4 fL (80.0-100.0); Mean Platelet Volume 7.8; Monocytes # (A) 0.6 k/uL (0-1.0); Monocytes % (A) 5 %; Neutrophils # (A) 9.4 k/uL (1.3-7.7); Neutrophils % (A) 80 %; Platelet Count 182 k/uL (150-450); RBC 5.02 m/uL (4.30-5.90); RDW 12.7 % (11.5-15.5); WBC 11.7 k/uL (3.8-10.6)
[2024-07-06] MEDS: LORazepam 1 MG TAB PO STA (23:41)
[2024-07-06] MEDS: NYSTATIN 100,000 UNIT/ML SUSP 500,000 UNIT/5 ML CUP PO STA (23:42)
[2024-07-06] MEDS: LIDOCAINE VISCOUS 2% 15 ML CUP MUCOUS MEM ONE (23:43)
[2024-07-06 23:47] LABS: ALT 25 U/L (4-49); AST 24 U/L (17-59); African American GFR (CKD) >90 (>60 ml/min/1.73 sqM); Albumin 4.6 g/dL (3.5-5.0); Alkaline Phosphatase 50 U/L (38-126); Anion Gap 4 mmol/L; Blood Urea Nitrogen 15 mg/dL (9-20); Calcium 9.4 mg/dL (8.4-10.2); Carbon Dioxide 28 mmol/L (22-30); Chloride 104 mmol/L (98-107); Glucose 102 mg/dL (74-99); Non-African American GFR(CKD) 85 (>60 ml/min/1.73 sqM); Sodium 136 mmol/L (137-145); Total Bilirubin 0.8 mg/dL (0.2-1.3); Total Protein 6.6 g/dL (6.3-8.2)
[2024-07-06 23:51] LABS: INR 0.9 (<1.2); Partial Thromboplastin Time 22.7 sec (22.0-30.0); Prothrombin Time 10.6 sec (10.0-12.5)
--- NOTE | 2024-07-07 00:09 | ED ---
General Adult HPI - General Chief complaint: ENT Stated complaint: Dizziness,Throat issues Time Seen by Provider: 07/06/24 22:22 Source: patient, RN notes reviewed Mode of arrival: ambulatory Limitations: no limitations - History of Present Illness Initial comments: 59-year-old female presents to the emergency department for evaluation of multiple complaints. Patient states that he was recently seen here for episodes of shortness of breath. He states that he was diagnosed with a COPD exacerbation at that time and was provided IV steroids. He states that he has been utilizing his breathing treatments more frequently since then. Patient reports that he has been waking up in the middle of the night short of breath. He finds that it is difficult to sleep because of this. He notes that today he has had sore throat. He denies recent fever, chills. - Related Data Home Medications Medication Instructions Recorded Confirmed Aspirin [Adult Low Dose Aspirin EC] 81 mg PO HS 03/24/18 04/03/23 Atorvastatin Calcium [Lipitor] 40 mg PO HS 04/29/18 04/03/23 Albuterol Inhaler [Ventolin Hfa 1 - 2 puff INHALATION RT-Q4H PRN 05/27/20 04/03/23 Inhaler] Losartan [Cozaar] 25 mg PO HS 05/27/20 04/03/23 Fluticasone/Umeclidin/Vilanter 1 puff INHALATION RT-DAILY 05/11/21 04/03/23 [Trelegy Ellipta 200-62.5-25] Nitroglycerin Sl Tabs [Nitrostat] 0.4 mg SUBLINGUAL Q5M PRN 12/24/21 04/03/23 Ipratropium-Albuterol Nebulize 3 ml INHALATION RT-TID PRN 04/03/23 04/03/23 [Duoneb 0.5 mg-3 mg/3 ml Soln] Previous Rx's Medication Instructions Recorded Metoprolol Tartrate [Lopressor] 25 mg PO BID #60 tab 08/26/15 Acetaminophen Tab [Tylenol] 650 mg PO Q6HR PRN tab 04/04/23 predniSONE [Deltasone] 20 mg PO BID #10 tab 01/10/24 Azithromycin [Zithromax Tri-Jesus (3 500 mg PO DAILY 3 Days #3 tab 01/23/24 tabs)] predniSONE [Deltasone] 40 mg PO DAILY #8 tab 01/23/24 Albuterol Nebulized [Ventolin 2.5 mg INHALATION Q4H #75 ml 03/16/24 Nebulized] Azithromycin [Zithromax Z Pack] 1 tab PO DIRECTED #6 tab 03/16/24 predniSONE 50 mg PO DAILY #5 tab 03/16/24 Azithromycin [Zithromax Z Pack] 1 tab PO DIRECTED #6 tab 04/24/24 predniSONE [Deltasone] 20 mg PO BID #10 tab 04/24/24 Azithromycin [Zithromax Z Pack] 0 tab PO DIRECTED #6 tab 07/07/24 predniSONE 50 mg PO DAILY #5 tab 07/07/24 Allergies Allergy/AdvReac Type Severity Reaction Status Date / Time iodine Allergy Swelling Verified 07/06/24 22:19 salmon oil Allergy Swelling Verified 07/06/24 22:19 shellfish derived [Shellfish] Allergy Swelling Verified 07/06/24 22:19 venom-honey bee Allergy Swelling Verified 07/06/24 22:19 [bee venom (honey bee)] Review of Systems ROS Statement: Those systems with pertinent positive or pertinent negative responses have been documented in the HPI. ROS Other: All systems not noted in ROS Statement are negative. 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, enlarged lymph nodes in chest, pt states he has 3 masses in between lungs that were monitored for years-no change, bronchitis, DDD, spondylosis, 2 herniated cervical discs, 2 lumbar herniated discs, scoliosis, BPH, RLS Last Myocardial Infarction Date:: Aug 2015 History of Any Multi-Drug Resistant Organisms: None Reported Past Surgical History: Heart Catheterization With Stent, Hernia Repair, Orthopedic Surgery, Tonsillectomy Additional Past Surgical History / Comment(s): ORIF L hip/pins, L tibial cyst removed/bone graft from pelvis to tibia, pain clinic procedures, rhinoplasty, colonoscopy, Past Anesthesia/Blood Transfusion Reactions: No Reported Reaction Additional Past Anesthesia/Blood Transfusion Reaction / Comment(s): claustrophobic Date of Last Stent Placement:: Aug 2015 Past Psychological History: Anxiety, Depression Smoking Status: Former smoker Past Alcohol Use History: None Reported Past Drug Use History: None Reported - Past Family History Father History Unknown: Yes Family Medical History: No Reported History Additional Family Medical History / Comment(s): Pt does not know his father. Mother Family Medical History: COPD, CVA/TIA Additional Family Medical History / Comment(s): Mother is 80yrs old. Pt does not have much contact with mother. Brother(s) Additional Family Medical History / Comment(s): He has 2 brothers, one has metal health issues, one is an addict on crack and other street drugs. Sister(s) Family Medical History: Cancer, Liver Disease Additional Family Medical History / Comment(s): Patient had 2 sisters, one from breast cancer, one from cirrhosis at the age of 19 with history of heavy alcohol use and Crohn's disease. General Exam Limitations: no limitations General appearance: alert, in no apparent distress Head exam: Present: atraumatic, normocephalic, normal inspection Eye exam: Present: normal appearance, PERRL, EOMI. Absent: scleral icterus, conjunctival injection, periorbital swelling ENT exam: Present: mucous membranes moist. Absent: normal oropharynx (Mild oral candidiasis) Neck exam: Present: normal inspection. Absent: tenderness, meningismus, lymphadenopathy Respiratory exam: Present: normal lung sounds bilaterally. Absent: respiratory distress, wheezes, rales, rhonchi, stridor Cardiovascular Exam: Present: regular rate, normal rhythm, normal heart sounds. Absent: systolic murmur, diastolic murmur, rubs, gallop, clicks GI/Abdominal exam: Present: soft. Absent: distended, tenderness, guarding, rebound, rigid Extremities exam: Present: normal inspection, full ROM, normal capillary refill. Absent: tenderness, pedal edema, joint swelling, calf tenderness Neurological exam: Present: alert, oriented X3 Psychiatric exam: Present: normal affect, normal mood Skin exam: Present: warm, dry, intact, normal color. Absent: rash Course Vital Signs 07/06/24 07/06/24 07/07/24 22:15 23:13 01:22 Temperature 97.6 F 97.8 F Pulse Rate 97 94 96 Respiratory 18 20 21 Rate Blood Pressure 127/76 124/82 126/80 O2 Sat by Pulse 97 97 97 Oximetry Medical Decision Making - Medical Decision Making Was pt. sent in by a medical professional or institution ([facility], INSTRUMENT[employer] MUSIC TEACHER, urgent care, hospital, or halfway...) When possible be specific @ -No Did you speak to anyone other than the patient for history (EMS, parent, family, police, friend...)? What history was obtained from this source @ -No Did you review nursing and triage notes (agree or disagree)? Why? @ -I reviewed and agree with nursing and triage notes Were old charts reviewed (outside hosp., previous admission, EMS record, old EKG, old radiological studies, urgent care reports/EKG's, halfway records)? Report findings @ -No old charts were reviewed Differential Diagnosis (chest pain, altered mental status, abdominal pain women, abdominal pain men, vaginal bleeding, weakness, fever, dyspnea, syncope, head ache, dizziness, GI bleed, back pain, seizure, CVA, palpatations, mental health, musculoskeletal)? @ -Differential Dyspnea: Coronary syndrome, arrhythmia, tamponade, asthma, COPD, pulmonary embolism, pneumonia, pneumothorax, pulmonary effusion, anaphylaxis, diabetic ketoacidosis, flailed chest, pulmonary contusion, diaphragmatic rupture, anemia, neuromuscular, this is not meant to be an all-inclusive list. EKG interpreted by me (3pts min.). @ -EKG at 2324 shows sinus rhythm rate 82, SD 158, QRS 89, QTQTc 3 26170 X-rays interpreted by me (1pt min.). @ -Chest x-ray shows no acute process CT interpreted by me (1pt min.). @ -None done U/S interpreted by me (1pt. min.). @ -None done What testing was considered but not performed or refused? (CT, X-rays, U/S, labs)? Why? @ -None What meds were considered but not given or refused? Why? @ -None Did you discuss the management of the patient with other professionals (professionals i.e. [facility], INSTRUMENTAL MUSIC TEACHER, lab, RT, psych nurse, elementary school social worker, weblogic developer, teacher, army officer, shoe caser)? Give summary @ -No Was smoking cessation discussed for >3mins.? @ -No Was critical care preformed (if so, how long)? @ -No Were there social determinants of health that impacted care today? How? (Homelessness, low income, unemployed, alcoholism, drug addiction, transportation, low edu. Level, literacy, decrease access to med. care, [place] [facility], rehab)? @ -No Was there de-escalation of care discussed even if they declined (Discuss DNR or withdrawal of care, Hospice)? DNR status @ -No What co-morbidities impacted this encounter? (DM, HTN, Smoking, COPD, CAD, Cancer, CVA, ARF, Chemo, Hep., AIDS, mental health diagnosis, sleep apnea, morbid obesity)? @ -None Was patient admitted / discharged? Hospital course, mention meds given and route, prescriptions, significant lab abnormalities, going to OR and other pertinent info. @ -Discharge. Patient presented to the emergency department for evaluation of shortness of breath. Laboratory studies obtained significant for mild leukocytosis of 11.7 likely from recent steroid use. Normal coagulation s tudies; CMP essentially unremarkable, negative troponin, negative for COVID, influenza, RSV. Chest x-ray shows no acute process. Patient was provided viscous lidocaine and nystatin swish and swallow while in the ED. He was also given 1 mg p.o. Ativan. Upon reevaluation patient reports significant improvement in his symptoms. He will be discharged home with steroids and antibiotics for COPD exacerbation. He is understanding agreeable with plan. Patient stable for discharge. Consulted with Dr. Rios. Undiagnosed new problem with uncertain prognosis? @ -No Drug Therapy requiring intensive monitoring for toxicity (Heparin, Nitro, Insulin, Cardizem)? @ -No Were any procedures done? @ -No Diagnosis/symptom? @ -COPD exacerbation, anxiety Acute, or Chronic, or Acute on Chronic? @ -Acute Uncomplicated (without systemic symptoms) or Complicated (systemic symptoms)? @ -Uncomplicated Side effects of treatment? @ -No Exacerbation, Progression, or Severe Exacerbation? @ -No Poses a threat to life or bodily function? How? (Chest pain, USA, AR, pneumonia, PE, COPD, DKA, ARF, appy, cholecystitis, CVA, Diverticulitis, Homicidal, Suicidal, threat to staff... and all critical care pts) @ -No - Lab Data Result diagrams: 07/06/24 23:18 07/06/24 23:18 Lab Results 07/06/24 07/06/24 07/06/24 Range/Units 23:18 23:18 23:18 WBC 11.7 H (3.8-10.6) k/uL RBC 5.02 (4.30-5.90) m/uL Hgb 15.4 (13.0-17.5) gm/dL Hct 46.9 (39.0-53.0) % MCV 93.4 (80.0-100.0) fL MCH 30.7 (25.0-35.0) pg MCHC 32.8 (31.0-37.0) g/dL RDW 12.7 (11.5-15.5) % Plt Count 182 (150-450) k/uL MPV 7.8 Neutrophils % 80 % Lymphocytes % 12 % Monocytes % 5 % Eosinophils % 1 % Basophils % 0 % Neutrophils # 9.4 H (1.3-7.7) k/uL Lymphocytes # 1.5 (1.0-4.8) k/uL Monocytes # 0.6 (0-1.0) k/uL Eosinophils # 0.2 (0-0.7) k/uL Basophils # 0.0 (0-0.2) k/uL PT 10.6 (10.0-12.5) sec INR 0.9 (<1.2) APTT 22.7 (22.0-30.0) sec Sodium 136 L (137-145) mmol/L Potassium 4.0 (3.5-5.1) mmol/L Chloride 104 (98-107) mmol/L Carbon Dioxide 28 (22-30) mmol/L Anion Gap 4 mmol/L BUN 15 (9-20) mg/dL Creatinine 0.98 (0.66-1.25) mg/dL Est GFR (CKD-EPI)AfAm >90 (>60 ml/min/1.73 sqM) Est GFR (CKD-EPI)NonAf 85 (>60 ml/min/1.73 sqM) Glucose 102 H (74-99) mg/dL Plasma Lactic Acid Obdulio (0.7-2.0) mmol/L Calcium 9.4 (8.4-10.2) mg/dL Total Bilirubin 0.8 (0.2-1.3) mg/dL AST 24 (17-59) U/L ALT 25 (4-49) U/L Alkaline Phosphatase 50 (38-126) U/L Troponin I (0.000-0.034) ng/mL Total Protein 6.6 (6.3-8.2) g/dL Albumin 4.6 (3.5-5.0) g/dL Influenza Type A (PCR) (Not Detectd) Influenza Type B (PCR) (Not Detectd) RSV (PCR) (Not Detectd) SARS-CoV-2 (PCR) (Not Detectd) 07/06/24 07/06/24 07/06/24 Range/Units 23:18 23:18 23:40 WBC (3.8-10.6) k/uL RBC (4.30-5.90) m/uL Hgb (13.0-17.5) gm/dL Hct (39.0-53.0) % MCV (80.0-100.0) fL MCH (25.0-35.0) pg MCHC (31.0-37.0) g/dL RDW (11.5-15.5) % Plt Count (150-450) k/uL MPV Neutrophils % % Lymphocytes % % Monocytes % % Eosinophils % % Basophils % % Neutrophils # (1.3-7.7) k/uL Lymphocytes # (1.0-4.8) k/uL Monocytes # (0-1.0) k/uL Eosinophils # (0-0.7) k/uL Basophils # (0-0.2) k/uL PT (10.0-12.5) sec INR (<1.2) APTT (22.0-30.0) sec Sodium (137-145) mmol/L Potassium (3.5-5.1) mmol/L Chloride (98-107) mmol/L Carbon Dioxide (22-30) mmol/L Anion Gap mmol/L BUN (9-20) mg/dL Creatinine (0.66-1.25) mg/dL Est GFR (CKD-EPI)AfAm (>60 ml/min/1.73 sqM) Est GFR (CKD-EPI)NonAf (>60 ml/min/1.73 sqM) Glucose (74-99) mg/dL Plasma Lactic Acid Obdulio 1.1 (0.7-2.0) mmol/L Calcium (8.4-10.2) mg/dL Total Bilirubin (0.2-1.3) mg/dL AST (17-59) U/L ALT (4-49) U/L Alkaline Phosphatase (38-126) U/L Troponin I <0.012 (0.000-0.034) ng/mL Total Protein (6.3-8.2) g/dL Albumin (3.5-5.0) g/dL Influenza Type A (PCR) Not Detected (Not Detectd) Influenza Type B (PCR) Not Detected (Not Detectd) RSV (PCR) Not Detected (Not Detectd) SARS-CoV-2 (PCR) Not Detected (Not Detectd) Disposition Clinical Impression: COPD exacerbation Disposition: HOME SELF-CARE Condition: Stable Instructions (If sedation given, give patient instructions): COPD (Chronic Obstructive Pulmonary Disease) (ED) Additional Instructions: Please follow up with your primary care provider. Return to the emergency department for new or worsening symptoms. Prescriptions: predniSONE 50 mg PO DAILY #5 tab Azithromycin [Zithromax Z Pack] 0 tab PO DIRECTED #6 tab Is patient prescribed a controlled substance at d/c from ED?: No Referrals: Indy Allen MD [Primary Care Provider] - 1-2 days
[2024-07-07 01:23] VITALS: BP 126/80; PULSE 96; RESP 21; TEMP 97.8
--- NOTE | 2024-07-07 07:37 | XR ---
EXAMINATION TYPE: XR chest 2V DATE OF EXAM: 07/06/2024 11:28 PM COMPARISON: 07/01/2024 CLINICAL INDICATION: Male, 59 years old with history of difficulty breathing, TECHNIQUE: Frontal and lateral views of the chest are obtained. FINDINGS: Hyperinflation compatible with COPD. There is no focal air space opacity, pleural effusion, or pneumothorax seen. The cardiac silhouette size is within normal limits. The osseous structures are intact. IMPRESSION: No acute cardiopulmonary process. [facility], , 07/07/2024 7:33 AM
== END 2024-07-07 01:23 | disposition home or self-care (01) ==
LOC: EC 21:49
DX: J44.1 Chronic obstructive pulmonary disease with (acute) exacerbation (principal); Z91.041 Radiographic dye allergy status; Z91.030 Bee allergy status; Z91.013 Allergy to seafood; Z87.891 Personal history of nicotine dependence
CPT/HCPCS: 36415; 71046; 80053; 83605; 84484; 85025; 85610; 85730; 87636; 93005; 99284

== ENCOUNTER 2024-07-08 22:14 | Observation (INO) | payer MEDICARE, OTHER ==
[2024-07-08 23:31] LABS: Basophils % (A) 0 %; Eosinophils % (A) 0 %; HCT 44.2 % (39.0-53.0); HGB 14.5 gm/dL (13.0-17.5); Lymphocytes # (A) 1.2 k/uL (1.0-4.8); Lymphocytes % (A) 15 %; MCH 30.7 pg (25.0-35.0); MCHC 32.9 g/dL (31.0-37.0); MCV 93.3 fL (80.0-100.0); Mean Platelet Volume 8.1; Monocytes # (A) 0.9 k/uL (0-1.0); Monocytes % (A) 11 %; Neutrophils # (A) 5.9 k/uL (1.3-7.7); Neutrophils % (A) 72 %; Platelet Count 156 k/uL (150-450); RBC 4.74 m/uL (4.30-5.90); RDW 12.5 % (11.5-15.5); WBC 8.1 k/uL (3.8-10.6)
[2024-07-08 23:44] LABS: ALT 22 U/L (4-49); AST 21 U/L (17-59); African American GFR (CKD) >90 (>60 ml/min/1.73 sqM); Albumin 4.4 g/dL (3.5-5.0); Alkaline Phosphatase 46 U/L (38-126); Anion Gap 5 mmol/L; Blood Urea Nitrogen 27 mg/dL (9-20); Calcium 9.1 mg/dL (8.4-10.2); Carbon Dioxide 24 mmol/L (22-30); Chloride 103 mmol/L (98-107); Glucose 103 mg/dL (74-99); Non-African American GFR(CKD) >90 (>60 ml/min/1.73 sqM); Potassium 3.9 mmol/L (3.5-5.1); Sodium 132 mmol/L (137-145); Total Bilirubin 0.8 mg/dL (0.2-1.3); Total Protein 6.4 g/dL (6.3-8.2)
[2024-07-08 23:50] LABS: Partial Thromboplastin Time 23.6 sec (22.0-30.0); Prothrombin Time 11.1 sec (10.0-12.5)
[2024-07-09] MEDS ORDERED: NALOXONE 0.4 MG/ML 1 ML VIAL IV PRN ×2 (00:41→00:43)
--- NOTE | 2024-07-09 00:41 | ED ---
SOB HPI - General Chief Complaint: Shortness of Breath Stated Complaint: LOC Time Seen by Provider: 07/08/24 22:30 Source: patient Mode of arrival: ambulatory Limitations: no limitations - History of Present Illness Initial Comments: 59-year-old male with past medical history of COPD who presents to the emergency department having difficulty breathing. Patient was seen in the emergency department for same complaint yesterday. He was placed on steroids and has been doing breathing treatments. States that his pain continues. The breathing noise gets worse at night because the patient feels like he is going to . He does admit to a chronic cough. No fevers or chills. Denies chest pain. He does not wear oxygen at home. No other alleviating, precipitating or modifying factors - Related Data Home Medications Medication Instructions Recorded Confirmed Aspirin [Adult Low Dose Aspirin EC] 81 mg PO DAILY 03/24/18 07/09/24 Atorvastatin Calcium [Lipitor] 40 mg PO DAILY 04/29/18 07/09/24 Albuterol Inhaler [Ventolin Hfa 2 puff INHALATION RT-Q4H PRN 05/27/20 07/09/24 Inhaler] Losartan [Cozaar] 25 mg PO DAILY 05/27/20 07/09/24 Fluticasone/Umeclidin/Vilanter 1 puff INHALATION RT-DAILY 05/11/21 07/09/24 [Trelegy Ellipta 200-62.5-25] Ipratropium-Albuterol Nebulize 3 ml INHALATION RT-BID 04/03/23 07/09/24 [Duoneb 0.5 mg-3 mg/3 ml Soln] Azithromycin [Zithromax Z Pack] See Taper PO DIRECTED 07/09/24 07/09/24 Previous Rx's Medication Instructions Recorded Metoprolol Tartrate [Lopressor] 25 mg PO BID #60 tab 08/26/15 predniSONE 50 mg PO DAILY #5 tab 07/07/24 Allergies Allergy/AdvReac Type Severity Reaction Status Date / Time iodine Allergy Swelling Verified 07/09/24 18:24 salmon oil Allergy Swelling Verified 07/09/24 18:24 shellfish derived [Shellfish] Allergy Swelling Verified 07/09/24 18:24 venom-honey bee Allergy Swelling Verified 07/09/24 18:24 [bee venom (honey bee)] Review of Systems ROS Statement: Those systems with pertinent positive or pertinent negative responses have been documented in the HPI. ROS Other: All systems not noted in ROS Statement are negative. 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, enlarged lymph nodes in chest, pt states he has 3 masses in between lungs that were monitored for years-no change, bronchitis, DDD, spondylosis, 2 herniated cervical discs, 2 lumbar herniated discs, scoliosis, BPH, RLS Last Myocardial Infarction Date:: Aug 2015 History of Any Multi-Drug Resistant Organisms: None Reported Past Surgical History: Heart Catheterization With Stent, Hernia Repair, Orthopedic Surgery, Tonsillectomy Additional Past Surgical History / Comment(s): ORIF L hip/pins, L tibial cyst removed/bone graft from pelvis to tibia, pain clinic procedures, rhinoplasty, colonoscopy, Past Anesthesia/Blood Transfusion Reactions: No Reported Reaction Additional Past Anesthesia/Blood Transfusion Reaction / Comment(s): claustrophobic Date of Last Stent Placement:: Aug 2015 Past Psychological History: Anxiety, Depression Smoking Status: Former smoker Past Alcohol Use History: None Reported Past Drug Use History: None Reported - Past Family History Father History Unknown: Yes Family Medical History: No Reported History Additional Family Medical History / Comment(s): Pt does not know his father. Mother Family Medical History: COPD, CVA/TIA Additional Family Medical History / Comment(s): Mother is 80yrs old. Pt does not have much contact with mother. Brother(s) Additional Family Medical History / Comment(s): He has 2 brothers, one has metal health issues, one is an addict on crack and other street drugs. Sister(s) Family Medical History: Cancer, Liver Disease Additional Family Medical History / Comment(s): Patient had 2 sisters, one from breast cancer, one from cirrhosis at the age of 19 with history of heavy alcohol use and Crohn's disease. General Exam Limitations: no limitations General appearance: alert, in no apparent distress Head exam: Present: atraumatic, normocephalic, normal inspection Eye exam: Present: normal appearance, PERRL, EOMI. Absent: scleral icterus, conjunctival injection, periorbital swelling ENT exam: Present: normal exam, mucous membranes moist Neck exam: Present: normal inspection. Absent: tenderness, meningismus, lymphadenopathy Respiratory exam: Present: wheezes, accessory muscle use, decreased breath sounds. Absent: respiratory distress, rales, rhonchi, stridor Cardiovascular Exam: Present: regular rate, normal rhythm, normal heart sounds. Absent: systolic murmur, diastolic murmur, rubs, gallop, clicks GI/Abdominal exam: Present: soft, normal bowel sounds. Absent: distended, tenderness, guarding, rebound, rigid Extremities exam: Present: normal inspection, full ROM, normal capillary refill. Absent: tenderness, pedal edema, joint swelling, calf tenderness Back exam: Present: normal inspection Neurological exam: Present: alert, oriented X3, CN II-XII intact Psychiatric exam: Present: normal affect, normal mood Skin exam: Present: warm, dry, intact, normal color. Absent: rash Course Vital Signs 07/08/24 07/09/24 07/09/24 22:21 02:16 02:26 Temperature 97.4 F L Pulse Rate 68 70 76 Pulse Rate [ Agents' Records Clerk ] Respiratory 24 18 Rate Blood Pressure 143/91 138/84 Blood Pressure [Left Arm] O2 Sat by Pulse 96 98 Oximetry 07/09/24 07/09/24 07/09/24 02:42 06:00 08:05 Temperature 98.3 F Pulse Rate 81 80 72 Pulse Rate [ Agents' Records Clerk ] Respiratory 20 Rate Blood Pressure 124/71 Blood Pressure [Left Arm] O2 Sat by Pulse 96 Oximetry 07/09/24 07/09/24 07/09/24 08:19 08:30 12:29 Temperature 98.4 F Pulse Rate 74 88 Pulse Rate [ 81 Agents' Records Clerk ] Respiratory 20 Rate Blood Pressure Blood Pressure 120/89 [Left Arm] O2 Sat by Pulse 98 Oximetry 07/09/24 07/09/24 07/09/24 12:43 15:17 15:47 Temperature 98.5 F Pulse Rate 90 70 Pulse Rate [ 84 Agents' Records Clerk ] Respiratory 20 Rate Blood Pressure Blood Pressure 113/71 [Left Arm] O2 Sat by Pulse 97 Oximetry 07/09/24 15:57 Temperature Pulse Rate 74 Pulse Rate [ Agents' Records Clerk ] Respiratory Rate Blood Pressure Blood Pressure [Left Arm] O2 Sat by Pulse Oximetry Medical Decision Making - Medical Decision Making Was pt. sent in by a medical professional or institution ([facility] [employer], BOX SEALING MACHINE CATCHER, urgent care, hospital, or halfway...) When possible be specific @ -No Did you speak to anyone other than the patient for history (EMS, parent, family, police, friend...)? What history was obtained from this source @ -I spoke with significant other for history Did you review nursing and triage notes (agree or disagree)? Why? @ -I reviewed and agree with nursing and triage notes Were old charts reviewed (outside hosp., previous admission, EMS record, old EKG, old radiological studies, urgent care reports/EKG's, halfway records)? Report findings @ -I reviewed the ED note from yesterday when patient was seen for same complaint Differential Diagnosis (chest pain, altered mental status, abdominal pain women, abdominal pain men, vaginal bleeding, weakness, fever, dyspnea, syncope, headache, dizziness, GI bleed, back pain, seizure, CVA, palpatations, mental health, musculoskeletal)? @ -Differential Dyspnea: Coronary syndrome, arrhythmia, tamponade, asthma, COPD, pulmonary embolism, pneumonia, pneumothorax, pulmonary effusion, anaphylaxis, diabetic ketoacidosis, flailed chest, pulmonary contusion, diaphragmatic rupture, anemia, neuromuscular, this is not meant to be an all-inclusive list. EKG interpreted by me (3pts min.). @ -yes and demonstrates sinus rhythm with rate of 64. KS interval 171. QRS 90. QTc of 390. No acute ST segment elevations or depressions X-rays interpreted by me (1pt min.). @ -Yes and demonstrates no acute process CT interpreted by me (1pt min.). @ -None done U/S interpreted by me (1pt. min.). @ -None done What testing was considered but not performed or refused? (CT, X-rays, U/S, labs)? Why? @ -None What meds were considered but not given or refused? Why? @ -None Did you discuss the management of the patient with other professionals (professionals i.e. [facility], BOX SEALING MACHINE CATCHER, lab, RT, psych nurse, social sciences chair, machine hose cutter, teacher, occupational medicine officer, hospice case manager)? Give summary @ -Spoke with Susana from [facility] for admission Was smoking cessation discussed for >3mins.? @ -No Was critical care preformed (if so, how long)? @ -No Were there social determinants of health that impacted care today? How? (Homelessness, low income, unemployed, alcoholism, drug addiction, transportation, low edu. Level, literacy, decrease access to med. care, group home, rehab)? @ -No Was there de-escalation of care discussed even if they declined (Discuss DNR or withdrawal of care, Hospice)? DNR status @ -No What co-morbidities impacted this encounter? (DM, HTN, Smoking, COPD, CAD, Cancer, CVA, ARF, Chemo, Hep., AIDS, mental health diagnosis, sleep apnea, morbid obesity)? @ -COPD Was patient admitted / discharged? Hospital course, mention meds given and route, prescriptions, significant lab abnormalities, going to OR and other perti nent info. @ -Upon arrival patient seen and evaluated in bed 21. Thorough history and physical exam was performed. Patient has extremely diminished lung sounds. He is using accessory muscles. Patient is refusing BiPAP. He is given a breathing treatment. Laboratory studies are conducted. Patient is additionally given magnesium and Solu-Medrol. He is failing outpatient treatment with prednisone and breathing treatments therefore I did recommend admission for which the patient was agreeable to. Spoke with Susana for admission. Breathing treatments and steroids are ordered Undiagnosed new problem with uncertain prognosis? @ -Yes Drug Therapy requiring intensive monitoring for toxicity (Heparin, Nitro, Insulin, Cardizem)? @ -No Were any procedures done? @ -No Diagnosis/symptom? @ -Acute on chronic respiratory failure, acute exacerbation of COPD, failing outpatient treatment Acute, or Chronic, or Acute on Chronic? @ -Acute Uncomplicated (without systemic symptoms) or Complicated (systemic symptoms)? @ -Complicated Side effects of treatment? @ -No Exacerbation, Progression, or Severe Exacerbation? @ -Yes Poses a threat to life or bodily function? How? (Chest pain, USA, CT, pneumonia, PE, COPD, DKA, ARF, appy, cholecystitis, CVA, Diverticulitis, Homicidal, Suicidal, threat to staff... and all critical care pts) @ -No - Lab Data Result diagrams: 07/10/24 05:55 07/08/24 23:04 Lab Results 07/08/24 07/08/24 07/08/24 Range/Units 23:04 23:04 23:04 WBC 8.1 (3.8-10.6) k/uL RBC 4.74 (4.30-5.90) m/uL Hgb 14.5 (13.0-17.5) gm/dL Hct 44.2 (39.0-53.0) % MCV 93.3 (80.0-100.0) fL MCH 30.7 (25.0-35.0) pg MCHC 32.9 (31.0-37.0) g/dL RDW 12.5 (11.5-15.5) % Plt Count 156 (150-450) k/uL MPV 8.1 Neutrophils % 72 % Lymphocytes % 15 % Monocytes % 11 % Eosinophils % 0 % Basophils % 0 % Neutrophils # 5.9 (1.3-7.7) k/uL Lymphocytes # 1.2 (1.0-4.8) k/uL Monocytes # 0.9 (0-1.0) k/uL Eosinophils # 0.0 (0-0.7) k/uL Basophils # 0.0 (0-0.2) k/uL PT 11.1 (10.0-12.5) sec INR 1.0 (<1.2) APTT 23.6 (22.0-30.0) sec Sodium 132 L (137-145) mmol/L Potassium 3.9 (3.5-5.1) mmol/L Chloride 103 (98-107) mmol/L Carbon Dioxide 24 (22-30) mmol/L Anion Gap 5 mmol/L BUN 27 H (9-20) mg/dL Creatinine 0.85 (0.66-1.25) mg/dL Est GFR (CKD-EPI)AfAm >90 (>60 ml/min/1.73 sqM) Est GFR (CKD-EPI)NonAf >90 (>60 ml/min/1.73 sqM) Glucose 103 H (74-99) mg/dL Plasma Lactic Acid Obdulio (0.7-2.0) mmol/L Calcium 9.1 (8.4-10.2) mg/dL Total Bilirubin 0.8 (0.2-1.3) mg/dL AST 21 (17-59) U/L ALT 22 (4-49) U/L Alkaline Phosphatase 46 (38-126) U/L Troponin I (0.000-0.034) ng/mL Total Protein 6.4 (6.3-8.2) g/dL Albumin 4.4 (3.5-5.0) g/dL 07/08/24 07/08/24 Range/Units 23:04 23:04 WBC (3.8-10.6) k/uL RBC (4.30-5.90) m/uL Hgb (13.0-17.5) gm/dL Hct (39.0-53.0) % MCV (80.0-100.0) fL MCH (25.0-35.0) pg MCHC (31.0-37.0) g/dL RDW (11.5-15.5) % Plt Count (150-450) k/uL MPV Neutrophils % % Lymphocytes % % Monocytes % % Eosinophils % % Basophils % % Neutrophils # (1.3-7.7) k/uL Lymphocytes # (1.0-4.8) k/uL Monocytes # (0-1.0) k/uL Eosinophils # (0-0.7) k/uL Basophils # (0-0.2) k/uL PT (10.0-12.5) sec INR (<1.2) APTT (22.0-30.0) sec Sodium (137-145) mmol/L Potassium (3.5-5.1) mmol/L Chloride (98-107) mmol/L Carbon Dioxide (22-30) mmol/L Anion Gap mmol/L BUN (9-20) mg/dL Creatinine (0.66-1.25) mg/dL Est GFR (CKD-EPI)AfAm (>60 ml/min/1.73 sqM) Est GFR (CKD-EPI)NonAf (>60 ml/min/1.73 sqM) Glucose (74-99) mg/dL Plasma Lactic Acid Obdulio 0.9 (0.7-2.0) mmol/L Calcium (8.4-10.2) mg/dL Total Bilirubin (0.2-1.3) mg/dL AST (17-59) U/L ALT (4-49) U/L Alkaline Phosphatase (38-126) U/L Troponin I <0.012 (0.000-0.034) ng/mL Total Protein (6.3-8.2) g/dL Albumin (3.5-5.0) g/dL Disposition Clinical Impression: COPD exacerbation Disposition: ADMITTED IP TO THIS HOSP Condition: Stable Is patient prescribed a controlled substance at d/c from ED?: No Time of Disposition: 00:40 Decision to Admit Reason: Admit from EC Decision Date: 07/09/24 Decision Time: 00:40
[2024-07-09] MEDS ORDERED: IPRATROPIUM-ALBUTEROL 3 ML NEB INHALATION PRN (01:11)
[2024-07-09] MEDS: MAGNESIUM SULFATE-D5W PMX 1 GM in DEXTROSE/WATER 1 100ML.BAG IVPB ONE (01:37)
[2024-07-09] MEDS: methylPREDNISolone SOD SUCCI 125 MG/2 ML VIAL IV STA (01:40)
[2024-07-09] MEDS: IPRATROPIUM-ALBUTEROL 3 ML NEB INHALATION STA (02:26)
[2024-07-09] MEDS ORDERED: IPRATROPIUM-ALBUTEROL 3 ML NEB INHALATION SCH (04:00)
--- NOTE | 2024-07-09 04:37 | P.CNPUL ---
History of Present Illness Consult date: 07/09/24 Requesting physician: Coral Martino Reason for consult: COPD Chief complaint: Shortness of breath History of present illness: Is a 59-year-old male with past medical history significant for COPD, chronic ongoing tobacco dependence, hypertension, hyperlipidemia, CAD with previous PCI/stenting, anxiety. His PCP is Dr. Lyons. His pulmonolgist is Dr. Jasso. Patient presented to the emergency department late last night with a chief complaint of severe shortness of breath and wheezing. He has had frequent "panic attacks" lately with severe shortness of breath. Becomes lightheaded with minimal exertion such as walking to the bathroom. Denies falls/syncope. He does have a chronic cough, mostly nonproductive, and unchanged from usual. Denies any recent sick contacts. Denies fevers or chills. Denies any significant sputum production, chest pain, hemoptysis. Continues to smoke cigarettes, down to 5-7 cigarettes per week. He has had several ER visits so far this month for similar presentation. He does have history of COPD, as well as, significant smoking history. Normally uses combination of Trelegy inhaler and albuterol nebs. It appears the patient had a recent CAT scan of the chest done April 27, 2024 demonstrating a new 0.8 cm pulmonary nodule in the right midlung. No significant large mediastinal or hilar adenopathy. He said to reschedule his PET scan multiple times due to anxiety attacks. Patient is currently being evaluated in the emergency department. He is currently sitting at the edge of the bed, tachypneic, speaking in short phrases. Chest x-ray showing hyper inflation, and flattening of the diaphragm consistent with COPD. No focal consolidations or pneumonia. CBC unremarkable for leukocytosis. CMP also unremarkable. Electrolytes WDL. LFTs unremarkable. Troponin less than 0.012. EKG: Normal sinus rhythm, rate 64 bpm, no obvious acute ischemic changes. Current vitals: Temperature 97.4 F, heart rate 70 bpm, blood pressure 138/84 mmHg, SpO2 98% on room air. . Review of Systems Constitutional: Reports fatigue, Denies chills, Denies fever, Denies poor appetite, Denies weight gain, Denies weight loss Ears, nose, mouth and throat: Denies headache, Denies nasal congestion, Denies nasal discharge, Denies post-nasal drip, Denies sinus pain, Denies sinus pressure, Denies sore throat Cardiovascular: Denies chest pain, Denies leg edema, Denies lightheadedness, Denies orthopnea, Denies palpitations, Denies paroxysmal nocturnal dyspnea, Denies syncope Respiratory: Reports cough, Reports wheezing, Denies congestion, Denies cough with sputum, Denies hemoptysis, Denies pain on inspiration, Denies respiratory infections Gastrointestinal: Denies abdominal pain, Denies diarrhea, Denies nausea, Denies vomiting Musculoskeletal: Denies limitation of motion Integumentary: Denies rash Neurological: Denies seizures, Denies syncope Psychiatric: Reports anxiety, Reports anxiety attacks, Denies depression Past Medical History Past Medical History: Chest Pain / Angina, COPD, GERD/Reflux, Hyperlipidemia, Hypertension, Myocardial Infarction (NE), Osteoarthritis (OA), Pneumonia, Skin Disorder Additional Past Medical History / Comment(s): 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, enlarged lymph nodes in chest, pt states he has 3 masses in between lungs that were monitored for years-no change, bronchitis, DDD, spondylosis, 2 herniated cervical discs, 2 lumbar herniated discs, scoliosis, BPH, RLS Last Myocardial Infarction Date:: Aug 2015 History of Any Multi-Drug Resistant Organisms: None Reported Past Surgical History: Heart Catheterization With Stent, Hernia Repair, Orthopedic Surgery, Tonsillectomy Additional Past Surgical History / Comment(s): ORIF L hip/pins, L tibial cyst removed/bone graft from pelvis to tibia, pain clinic procedures, rhinoplasty, colonoscopy, Past Anesthesia/Blood Transfusion Reactions: No Reported Reaction Additional Past Anesthesia/Blood Transfusion Reaction / Comment(s): claustrophobic Date of Last Stent Placement:: Aug 2015 Past Psychological History: Anxiety, Depression Smoking Status: Former smoker Past Alcohol Use History: None Reported Past Drug Use History: None Reported - Past Family History Father History Unknown: Yes Family Medical History: No Reported History Additional Family Medical History / Comment(s): Pt does not know his father. Mother Family Medical History: COPD, CVA/TIA Additional Family Medical History / Comment(s): Mother is 80yrs old. Pt does not have much contact with mother. Brother(s) Additional Family Medical History / Comment(s): He has 2 brothers, one has metal health issues, one is an addict on crack and other street drugs. Sister(s) Family Medical History: Cancer, Liver Disease Additional Family Medical History / Comment(s): Patient had 2 sisters, one from breast cancer, one from cirrhosis at the age of 19 with history of heavy alcohol use and Crohn's disease. Medications and Allergies Home Medications Medication Instructions Recorded Confirmed Type Metoprolol Tartrate [Lopressor] 25 mg PO BID #60 tab 08/26/15 04/03/23 Rx Aspirin [Adult Low Dose Aspirin EC] 81 mg PO HS 03/24/18 04/03/23 History Atorvastatin Calcium [Lipitor] 40 mg PO HS 04/29/18 04/03/23 History Albuterol Inhaler [Ventolin Hfa 1 - 2 puff INHALATION RT-Q4H PRN 05/27/20 04/03/23 History Inhaler] Losartan [Cozaar] 25 mg PO HS 05/27/20 04/03/23 History Fluticasone/Umeclidin/Vilanter 1 puff INHALATION RT-DAILY 05/11/21 04/03/23 History [Trelegy Ellipta 200-62.5-25] Nitroglycerin Sl Tabs [Nitrostat] 0.4 mg SUBLINGUAL Q5M PRN 12/24/21 04/03/23 History Ipratropium-Albuterol Nebulize 3 ml INHALATION RT-TID PRN 04/03/23 04/03/23 History [Duoneb 0.5 mg-3 mg/3 ml Soln] Acetaminophen Tab [Tylenol] 650 mg PO Q6HR PRN tab 04/04/23 Rx predniSONE [Deltasone] 20 mg PO BID #10 tab 01/10/24 Rx Azithromycin [Zithromax Tri-Jesus (3 500 mg PO DAILY 3 Days #3 tab 01/23/24 Rx tabs)] predniSONE [Deltasone] 40 mg PO DAILY #8 tab 01/23/24 Rx Albuterol Nebulized [Ventolin 2.5 mg INHALATION Q4H #75 ml 03/16/24 Rx Nebulized] Azithromycin [Zithromax Z Pack] 1 tab PO DIRECTED #6 tab 03/16/24 Rx predniSONE 50 mg PO DAILY #5 tab 03/16/24 Rx Azithromycin [Zithromax Z Pack] 1 tab PO DIRECTED #6 tab 04/24/24 Rx predniSONE [Deltasone] 20 mg PO BID #10 tab 04/24/24 Rx Azithromycin [Zithromax Z Pack] 0 tab PO DIRECTED #6 tab 07/07/24 Rx predniSONE 50 mg PO DAILY #5 tab 07/07/24 Rx Allergies Allergy/AdvReac Type Severity Reaction Status Date / Time iodine Allergy Swelling Verified 07/08/24 22:26 salmon oil Allergy Swelling Verified 07/08/24 22:26 shellfish derived [Shellfish] Allergy Swelling Verified 07/08/24 22:26 venom-honey bee Allergy Swelling Verified 07/08/24 22:26 [bee venom (honey bee)] Physical Exam Vitals: Vital Signs Temp Pulse Resp BP Pulse Ox 07/09/24 02:42 81 07/09/24 02:26 76 07/09/24 02:16 70 18 138/84 98 07/08/24 22:21 97.4 F L 68 24 143/91 96 Intake and Output 07/08/24 07/08/24 07/09/24 14:59 22:59 06:59 Other: Weight 53.977 kg GENERAL EXAM: Alert, 59-year-old male, sitting at the edge of the bed, speaking in short phrases, tachypneic HEAD: Normocephalic and atraumatic EYES: Normal reaction of pupils, equal size. NOSE: Clear with pink turbinates. THROAT: No erythema or exudates. NECK: No masses, no JVD. CHEST: No chest wall deformity. LUNGS: Equal air entry with markedly diminished lung sounds throughout. On room air. SpO2 96%. CVS: S1 and S2 normal with no audible murmur, regular rhythm. No extra heart sounds ABDOMEN: No hepatosplenomegaly, active bowel sounds, no guarding or rigidity. SPINE: No scoliosis or deformity SKIN: No rashes CENTRAL NERVOUS SYSTEM: No focal deficits, tone is normal in all 4 extremities. EXTREMITIES: There is no peripheral edema, clubbing, or cyanosis. Peripheral pulses are intact. Results - Laboratory Findings CBC and BMP: 07/08/24 23:04 07/08/24 23:04 PT/INR, D-dimer PT 11.1 sec (10.0-12.5) 07/08/24 23:04 INR 1.0 (<1.2) 07/08/24 23:04 Abnormal lab findings: Abnormal Labs 07/08/24 23:04 Sodium 132 L BUN 27 H Glucose 103 H - Diagnostic Findings Chest x-ray: image reviewed Assessment and Plan Assessment: Acute COPD exacerbation Acute dyspnea, secondary to above Current ongoing tobacco dependence, previous heavy tobacco use, down to 5 to 7 cigarettes/week. Pulmonary nodule, per CT of the chest, there is a new 0.8 cm pulmonary nodule in the right midlung. No significant large mediastinal or hilar adenopathy. Patient states that he had reschedule his outpatient PET scan several times due to anxiety attacks. History of hypertension History of hyperlipidemia History of coronary artery disease with previous PCI/stenting Anxiety Plan: Patient's medications, labs, chest x-ray reviewed No evidence of infectious process or pneumonia Negative for COVID, RSV, Influenza Continue combination of bronchodilators, Symbicort inhaler, and IV Solu-Medrol. Smoking cessation counseling performed greater than 10 minutes, nicotine patch offered. Patient plans to follow-up with his established padder on discharge I have personally seen and examined the patient, performed the documentation and the assessment and plan as written. Number of minutes spent on the visit:20 On 07/09/2024, the patient is being seen in joint evaluation along with the nurse practitioner. This patient is hospitalized for an acute COPD exacerbation. The patient is not in his last COPD and he continues to smoke cigarettes. He also has a pulm nodule measuring 8 mm in size in the right midlung that needs to be followed up on outpatient basis. His presentation is typical for COPD exacerbation. Chest x-ray was reviewed and shows no evidence of any acute abnormalities. The patient's white cell count is nonelevated. Viral screen has been negative. Troponins are negative. He is currently on DuoNeb updrafts, Symbicort as maintenance and IV Solu-Medrol 40 mg every 8 hours. He typically follows up with Dr. Jasso on an outpatient basis. He is also quite anxious. He will be started on BuSpar 15 mg twice a day and Xanax as- needed basis for any panic attacks. Afebrile. Hemodynamically stable. Time with Patient: Greater than 30
--- NOTE | 2024-07-09 08:03 | XR ---
EXAMINATION TYPE: XR chest 2V DATE OF EXAM: 07/09/2024 12:00 AM COMPARISON: 09/06/2023 CLINICAL INDICATION: Male, 59 years old with history of difficulty breathing, TECHNIQUE: Frontal and lateral views of the chest are obtained. FINDINGS: There is no focal air space opacity, pleural effusion, or pneumothorax seen. The cardiac silhouette size is within normal limits. The osseous structures are intact. IMPRESSION: No acute cardiopulmonary process. [facility], , 07/09/2024 8:00 AM
[2024-07-09] MEDS: IPRATROPIUM-ALBUTEROL 3 ML NEB INHALATION SCH (08:04)
[2024-07-09] MEDS: SYMBICORT 160-4.5 MCG INHALER INHALATION SCH (08:05)
[2024-07-09] MEDS: methylPREDNISolone SOD SUCCI 40 MG/ML 1 ML VIAL IV SCH (08:28)
[2024-07-09] MEDS: NICOTINE 14MG/24HR PATCH TRANSDERM SCH (09:04)
[2024-07-09] MEDS: busPIRone HCl 5 MG TAB PO SCH (12:48)
[2024-07-09] MEDS: ALPRAZolam 0.5 MG TAB PO PRN (16:30)
--- NOTE | 2024-07-09 19:11 | P.HPIM ---
History of Present Illness H&P Date: 07/09/24 Chief Complaint: Difficulty in breathing and anxiety Patient is a 59-year-old male with a known history of COPD, hypertension, hyperlipidemia, history of HI, coronary artery disease status post stent placement, osteoarthritis, anxiety/depression prior history of smoking. Patient presents to ER with complaints of anxiety and shortness of breath. Patient states that he was found to have pulmonary nodules in the right lung. He has been getting anxious and having panic attacks about the diagnosis and postpone his due to severe anxiety recently due to severe anxiety. He started having worsening shortness of breath last night and came to ER. Otherwise denied any complaints of chest pain. No fever no chills. Cough without any sputum production. Otherwise patient continues to smoke 5 to 7 cigarettes/week. Next Chest x-ray showed no acute cardiopulmonary process. EKG showed sinus rhythm with heart rate 64. Laboratory data showed WBC 8.1 hemoglobin 14.5 and platelets 156 sodium 132 potassium 3.9 chloride 103 bicarb is 24 BUN 27 creatinine 0.81 blood sugar 103. Liver enzymes are not elevated. Albumin 4.4. Review of Systems Constitutional: Patient denies any fever or chills . No generalized weakness or weight loss. Abdomen: Patient denied nausea vomiting and diarrhea and abdominal pain. Cardiovascular: Patient denies any chest pain. Positive short of breath no palpitations. No leg swelling Respiratory: patient cough without sputum production. Worsening shortness of breath Neurologic: Patient denied any numbness or tingling. no headache. Musculoskeletal: Patient denies any complaints of joint swelling or deformity. Skin: Negative Psychiatric: Anxiety Endocrine: No heat or cold intolerance. No recent weight gain. Genitourinary: No dysuria or hematuria. 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, enlarged lymph nodes in chest, pt states he has 3 masses in between lungs that were monitored for years-no change, bronchitis, DDD, spondylosis, 2 herniated cervical discs, 2 lumbar herniated discs, scoliosis, BPH, RLS Last Myocardial Infarction Date:: Aug 2015 History of Any Multi-Drug Resistant Organisms: None Reported Past Surgical History: Heart Catheterization With Stent, Hernia Repair, Orthopedic Surgery, Tonsillectomy Additional Past Surgical History / Comment(s): ORIF L hip/pins, L tibial cyst removed/bone graft from pelvis to tibia, pain clinic procedures, rhinoplasty, colonoscopy, Past Anesthesia/Blood Transfusion Reactions: No Reported Reaction Additional Past Anesthesia/Blood Transfusion Reaction / Comment(s): claustrophobic Date of Last Stent Placement:: Aug 2015 Past Psychological History: Anxiety, Depression Smoking Status: Former smoker Past Alcohol Use History: None Reported Past Drug Use History: None Reported - Past Family History Father History Unknown: Yes Family Medical History: No Reported History Additional Family Medical History / Comment(s): Pt does not know his father. Mother Family Medical History: COPD, CVA/TIA Additional Family Medical History / Comment(s): Mother is 80yrs old. Pt does not have much contact with mother. Brother(s) Additional Family Medical History / Comment(s): He has 2 brothers, one has metal health issues, one is an addict on crack and other street drugs. Sister(s) Family Medical History: Cancer, Liver Disease Additional Family Medical History / Comment(s): Patient had 2 sisters, one from breast cancer, one from cirrhosis at the age of 19 with history of heavy alcohol use and Crohn's disease. Medications and Allergies Home Medications Medication Instructions Recorded Confirmed Type Metoprolol Tartrate [Lopressor] 25 mg PO BID #60 tab 08/26/15 07/09/24 Rx Aspirin [Adult Low Dose Aspirin EC] 81 mg PO DAILY 03/24/18 07/09/24 History Atorvastatin Calcium [Lipitor] 40 mg PO DAILY 04/29/18 07/09/24 History Albuterol Inhaler [Ventolin Hfa 2 puff INHALATION RT-Q4H PRN 05/27/20 07/09/24 History Inhaler] Losartan [Cozaar] 25 mg PO DAILY 05/27/20 07/09/24 History Fluticasone/Umeclidin/Vilanter 1 puff INHALATION RT-DAILY 05/11/21 07/09/24 History [Trelebrynn Ellipta 200-62.5-25] Ipratropium-Albuterol Nebulize 3 ml INHALATION RT-BID 04/03/23 07/09/24 History [Duoneb 0.5 mg-3 mg/3 ml Soln] predniSONE 50 mg PO DAILY #5 tab 07/07/24 07/09/24 Rx Azithromycin [Zithromax Z Pack] See Taper PO DIRECTED 07/09/24 07/09/24 History Allergies Allergy/AdvReac Type Severity Reaction Status Date / Time iodine Allergy Swelling Verified 07/09/24 18:24 salmon oil Allergy Swelling Verified 07/09/24 18:24 shellfish derived [Shellfish] Allergy Swelling Verified 07/09/24 18:24 venom-honey bee Allergy Swelling Verified 07/09/24 18:24 [bee venom (honey bee)] Physical Exam Vitals: Vital Signs Temp Pulse Pulse Resp BP BP Pulse Ox 07/09/24 08:30 98.4 F 81 20 120/89 98 07/09/24 08:19 74 07/09/24 08:05 72 07/09/24 06:00 98.3 F 80 20 124/71 96 07/09/24 02:42 81 07/09/24 02:26 76 07/09/24 02:16 70 18 138/84 98 07/08/24 22:21 97.4 F L 68 24 143/91 96 Intake and Output 07/08/24 07/09/24 07/09/24 22:59 06:59 14:59 Other: Weight 53.977 kg PHYSICAL EXAMINATION: Patient is lying in the bed comfortably, no acute distress, awake alert and o riented.. HEENT: Normocephalic. Neck is supple. Pupils reactive. Nostrils clear. Oral cavity is moist. Neck reveals no JVD, carotid bruits, or thyromegaly. CHEST EXAMINATION: Trachea is central. Symmetrical expansion. Bilateral diminished air entry and wheezing. Nonlabored breathing.. CARDIAC: Normal S1, S2 with no gallops. No murmurs ABDOMEN: Soft. Bowel sounds normal. No organomegaly. No abdominal bruits. Extremities: reveal no edema. No clubbing or cyanosis Neurologically awake, alert, oriented x3 with well-coordinated movements. No focal deficits noted Skin: No rash or skin lesions. Psychiatric: Coperative. Nonsuicidal Musculoskeletal: No joint swelling or deformity. Normal range of motion. Results CBC & Chem 7: 07/08/24 23:04 07/08/24 23:04 Labs: Abnormal Lab Results - Last 24 Hours (Table) 07/08/24 Range/Units 23:04 Sodium 132 L (137-145) mmol/L BUN 27 H (9-20) mg/dL Glucose 103 H (74-99) mg/dL Thrombosis Risk Factor Assmnt - DVT/VTE Prophylaxis DVT/VTE Prophylaxis: Pharmacologic Prophylaxis ordered Assessment and Plan Assessment: Shortness of breath secondary to acute COPD exacerbation Pulmonary nodule patient was found to have 0.8 cm pulmonary nodule in the right midlung. No significant enlarged mediastinal or hilar adenopathy. Patient rescheduled his PET scan due to severe anxiety. Ongoing nicotine addiction cutting down to 5 to 6 cigarettes/day Claustrophobic Hypertension Hyperlipidemia Coronary arteries history of stent placement Anxiety/depression GI DVT prophylaxis with Pepcid and heparin subcu Plan: Patient will be continued on IV Solu-Medrol. Changed to 60 mg every 6 hourly. Continue with DuoNebs and Symbicort inhalation.Continue with home blood pressure medications and aspirin and statins. GI and DVT prophylaxis. Pulmonary is on board. Continue to follow closely. Time with Patient: Greater than 30
[2024-07-09] MEDS: ASPIRIN 81 MG PO SCH (20:07)
[2024-07-09] MEDS: HEPARIN SODIUM,PORCINE 5,000 UNIT/ML 1 ML VIAL SQ SCH (20:07)
[2024-07-09] MEDS: METOPROLOL TARTRATE 25 MG TAB PO SCH (20:07)
[2024-07-09] MEDS: ATORVASTATIN 40 MG TAB PO SCH (20:07)
[2024-07-09] MEDS: methylPREDNISolone SOD SUCCI 125 MG/2 ML VIAL IV SCH (20:08)
[2024-07-10 10:40] LABS: Basophils # (A) 0.01 X 10*3/uL (0.00-0.10); Basophils % (A) 0.1 %; Eosinophils # (A) 0 X 10*3/uL (0.04-0.35); Eosinophils % (A) 0 %; HCT 44.7 % (39.6-50.0); HGB 14.9 g/dL (13.0-17.0); Lymphocytes # (A) 0.68 X 10*3/uL (0.90-5.00); Lymphocytes % (A) 5.9 %; MCH 30.8 pg (27.0-32.0); MCHC 33.3 g/dL (32.0-37.0); MCV 92.4 FL (80.0-97.0); Mean Platelet Volume 10.9 FL (9.5-12.2); Monocytes # (A) 0.55 X 10*3/uL (0.20-1.00); Monocytes % (A) 4.8 %; NRBC Per 100 WBC 0 X 10*3/uL (0.00-0.01); Neutrophils # (A) 10.24 X 10*3/uL (1.80-7.70); Neutrophils % (A) 88.4 %; Platelet Count 185 X 10*3/uL (140-440); RBC 4.84 X 10*6/uL (4.40-5.60); RDW 12.8 % (11.5-14.5); WBC 11.57 X 10*3/uL (4.50-10.00)
[2024-07-10 10:58] LABS: Blood Urea Nitrogen 21.6 mg/dL (9.0-27.0); Calcium 9.2 mg/dL (8.7-10.3); Carbon Dioxide 28.1 mmol/L (21.6-31.8); Chloride 101 mmol/L (96-109); Glucose 114 mg/dL (70-110); Potassium 4.4 mmol/L (3.5-5.5); Sodium 140 mmol/L (135-145)
[2024-07-10] MEDS: LOSARTAN 25 MG TAB PO SCH (14:27)
--- NOTE | 2024-07-10 14:47 | P.PN ---
Subjective Progress Note Date: 07/10/24 Is a 59-year-old male with past medical history significant for COPD, chronic ongoing tobacco dependence, hypertension, hyperlipidemia, CAD with previous PCI/stenting, anxiety. His PCP is Dr. Lyons. His pulmonolgist is Dr. Jasso. Patient presented to the emergency department late last night with a chief c omplaint of severe shortness of breath and wheezing. He has had frequent "panic attacks" lately with severe shortness of breath. Becomes lightheaded with minimal exertion such as walking to the bathroom. Denies falls/syncope. He does have a chronic cough, mostly nonproductive, and unchanged from usual. Denies any recent sick contacts. Denies fevers or chills. Denies any significant sputum production, chest pain, hemoptysis. Continues to smoke cigarettes, down to 5-7 cigarettes per week. He has had several ER visits so far this month for similar presentation. He does have history of COPD, as well as, significant smoking history. Normally uses combination of Trelegy inhaler and albuterol nebs. It appears the patient had a recent CAT scan of the chest done April 27, 2024 demonstrating a new 0.8 cm pulmonary nodule in the right midlung. No significant large mediastinal or hilar adenopathy. He said to reschedule his PET scan multiple times due to anxiety attacks. Patient is currently being evaluated in the emergency department. He is currently sitting at the edge of the bed, tachypneic, speaking in short phrases. Chest x-ray showing hyperinflation, and flattening of the diaphragm consistent with COPD. No focal consolidations or pneumonia. CBC unremarkable for leukocytosis. CMP also unremarkable. Electrolytes WDL. LFTs unremarkable. Troponin less than 0.012. EKG: Normal sinus rhythm, rate 64 bpm, no obvious acute ischemic changes. Current vitals: Temperature 97.4 F, heart rate 70 bpm, blood pressure 138/84 mmHg, SpO2 98% on room air. . On today's evaluation of 07/10/2024, the patient is feeling better, less bronchospastic and wheezy. Responding well to the combination of bronchodilators and steroids. He is also on Symbicort. Has a nicotine patch. He remains on IV Solu-Medrol 60 mg every 6 hours. Labs show a white cell count of 11 hemoglobin 14.9 and a platelet count of 185. Electrolytes are all within normal limits. No altered mentation. No chest pain. He is currently on room air oxygen. Objective - Vital Signs Vital signs: Vital Signs Temp 98 F 07/10/24 07:20 Pulse 72 07/10/24 08:40 Resp 17 07/10/24 07:20 BP 107/64 07/10/24 07:20 Pulse Ox 97 07/10/24 07:20 FiO2 Intake & Output 07/09/24 07/10/24 07/10/24 18:59 06:59 18:59 Intake Total 725 Balance 725 Weight 53.977 kg Intake: Oral 725 Other: Voiding Method Toilet Urinal # Voids 2 5 # Bowel Movements 0 - Exam GENERAL EXAM: Alert, 59-year-old male, sitting at the edge of the bed, speaking in short phrases, tachypneic HEAD: Normocephalic and atraumatic EYES: Normal reaction of pupils, equal size. NOSE: Clear with pink turbinates. THROAT: No erythema or exudates. NECK: No masses, no JVD. CHEST: No chest wall deformity. LUNGS: Equal air entry with markedly diminished lung sounds throughout. On room air. SpO2 96%. CVS: S1 and S2 normal with no audible murmur, regular rhythm. No extra heart sounds ABDOMEN: No hepatosplenomegaly, active bowel sounds, no guarding or rigidity. SPINE: No scoliosis or deformity SKIN: No rashes CENTRAL NERVOUS SYSTEM: No focal deficits, tone is normal in all 4 extremities. EXTREMITIES: There is no peripheral edema, clubbing, or cyanosis. Peripheral p ulses are intact. - Labs CBC & Chem 7: 07/10/24 05:55 07/10/24 05:55 Labs: Abnormal Lab Results - Last 24 Hours (Table) 07/10/24 07/10/24 Range/Units 05:55 05:55 WBC 11.57 H (4.50-10.00) X 10*3/uL Immature Gran # 0.09 H (0.00-0.04) X 10*3/uL Neutrophils # 10.24 H (1.80-7.70) X 10*3/uL Lymphocytes # 0.68 L (0.90-5.00) X 10*3/uL Eosinophils # 0 L (0.04-0.35) X 10*3/uL BUN/Creatinine Ratio 27.00 H (12.00-20.00) Ratio Glucose 114 H (70-110) mg/dL Assessment and Plan Assessment: Acute COPD exacerbation, Improving Acute dyspnea, secondary to above Current ongoing tobacco dependence, previous heavy tobacco use, down to 5 to 7 cigarettes/week. Pulmonary nodule, per CT of the chest, there is a new 0.8 cm pulmonary nodule in the right midlung. No significant large mediastinal or hilar adenopathy. Patient states that he had reschedule his outpatient PET scan several times due to anxiety attacks. History of hypertension History of hyperlipidemia History of coronary artery disease with previous PCI/stenting Anxiety Plan: Clinically improving as the patient is being treated for an acute COPD exacerbation No evidence of infectious process or pneumonia Negative for COVID, RSV, Influenza Continue combination of bronchodilators, Symbicort inhaler, and IV Solu-Medrol. Smoking cessation counseling performed greater than 10 minutes, nicotine patch offered. Patient plans to follow-up with his established handicapped teacher on discharge
[2024-07-11 01:53] VITALS: RESP 16
--- NOTE | 2024-07-11 07:43 | P.PN ---
Subjective Progress Note Date: 07/10/24 Patient is a 59-year-old male with a known history of COPD, hypertension, hyperlipidemia, history of HI, coronary artery disease status post stent placement, osteoarthritis, anxiety/depression prior history of smoking. Patient presents to ER with complaints of anxiety and shortness of breath. Patient states that he was found to have pulmonary nodules in the right lung. He has been getting anxious and having panic attacks about the diagnosis and postpone his due to severe anxiety recently due to severe anxiety. He started having worsening shortness of breath last night and came to ER. Otherwise denied any complaints of chest pain. No fever no chills. Cough without any sputum production. Otherwise patient continues to smoke 5 to 7 cigarettes/week. Next Chest x-ray showed no acute cardiopulmonary process. EKG showed sinus rhythm with heart rate 64. Laboratory data showed WBC 8.1 hemoglobin 14.5 and platelets 156 sodium 132 potassium 3.9 chloride 103 bicarb is 24 BUN 27 creatinine 0.81 blood sugar 103. Liver enzymes are not elevated. Albumin 4.4. 07/10/2024 Patient is seen in follow-up for COPD exacerbation with pulmonary following. Patient is maintained on room air although when getting up patient feels more short of breath with minimal exertion. Patient does have some improvements in irrigation although continues to significantly wheeze. Will continue with current regimen with [id number] DuoNebs along with IV steroids. Encouraged increase activity as tolerated. Will await input and recommendations from pulmonary. Review of systems: Constitutional: No reports of fatigue, fever, or chills Cardiovascular: No reports of chest pain or palpitations Respiratory: No reports of shortness of breath or cough GI: No reports of nausea, vomiting, or diarrhea : No reports of dysuria or retention Neurovascular: No reports of weakness or numbness All medications have been reviewed Physical exam: Gen: This is a 59-year-old male who is awake, alert and oriented x 3, well- developed, appears older than stated age HEENT: Head is atraumatic, normocephalic. Pupils equal, round. Sclerae is anicteric. NECK: Supple. No JVD. No lymphadenopathy. No thyromegaly. LUNGS: Diminished breath sounds bilaterally with some expiratory wheezes and coarse rhonchi. No intercostal retractions. HEART: Regular rate and rhythm. No murmur. ABDOMEN: Soft. Bowel sounds are present. No masses. No tenderness. EXTREMITIES: No pedal edema. No calf tenderness. NEUROLOGICAL: Patient is awake, alert and oriented x3. Cranial nerves 2 through 12 are grossly intact. Assessment: Shortness of breath secondary to acute COPD exacerbation Pulmonary nodule patient was found to have 0.8 cm pulmonary nodule in the right midlung. No significant enlarged mediastinal or hilar adenopathy. Patient rescheduled his PET scan due to severe anxiety. Ongoing nicotine addiction, cutting down to 5 to 6 cigarettes/day Claustrophobic history Hypertension Hyperlipidemia Coronary arteries history of stent placement Anxiety/depression GI DVT prophylaxis with Pepcid and heparin subcu Full code Plan: Patient will be continued on IV Solu-Medrol and [id number] DuoNebs with pulmonary following. Patient continues to have significant wheezing and shortness of breath with exertion, minimally improving and will continue on IV steroids with significant wheezing. Patient will likely transition to oral prednisone taper on discharge Encouraged increase activity as tolerated Other home medications reviewed and resumed as appropriate Will discuss further with pulmonary regarding discharge planning possibly in the next 24 to 48 hours Overall prognosis is guarded The impression and plan of care has been dictated by Soledad Cortes, Nurse Practitioner as directed. Dr. Joellen MD I have performed a history and examination and MDM of this patient, discussed the same with the dictator, and agree with the dictator's assessment and plan as written ,documented as a scribe. Based on total visit time, I have performed more than 50% of the visit. Objective - Vital Signs Vital signs: Vital Signs Temp 98 F 07/10/24 07:20 Pulse 72 07/10/24 08:40 Resp 17 07/10/24 07:20 BP 107/64 07/10/24 07:20 Pulse Ox 97 07/10/24 07:20 FiO2 Intake & Output 07/09/24 07/10/24 07/10/24 18:59 06:59 18:59 Intake Total 725 Balance 725 Weight 53.977 kg Intake: Oral 725 Other: Voiding Method Toilet Urinal # Voids 2 5 # Bowel Movements 0 - Labs CBC & Chem 7: 07/10/24 05:55 07/10/24 05:55 Labs: Abnormal Lab Results - Last 24 Hours (Table) 07/10/24 Range/Units 05:55 WBC 11.57 H (4.50-10.00) X 10*3/uL Immature Gran # 0.09 H (0.00-0.04) X 10*3/uL Neutrophils # 10.24 H (1.80-7.70) X 10*3/uL Lymphocytes # 0.68 L (0.90-5.00) X 10*3/uL Eosinophils # 0 L (0.04-0.35) X 10*3/uL
[2024-07-11 07:47] VITALS: BP 149/83; TEMP 97.7
[2024-07-11 08:21] VITALS: PULSE 74
--- NOTE | 2024-07-11 13:09 | P.PN ---
Subjective Progress Note Date: 07/11/24 Is a 59-year-old male with past medical history significant for COPD, chronic ongoing tobacco dependence, hypertension, hyperlipidemia, CAD with previous PCI/stenting, anxiety. His PCP is Dr. Lyons. His pulmonolgist is Dr. Jasso. Patient presented to the emergency department late last night with a chief c omplaint of severe shortness of breath and wheezing. He has had frequent "panic attacks" lately with severe shortness of breath. Becomes lightheaded with minimal exertion such as walking to the bathroom. Denies falls/syncope. He does have a chronic cough, mostly nonproductive, and unchanged from usual. Denies any recent sick contacts. Denies fevers or chills. Denies any significant sputum production, chest pain, hemoptysis. Continues to smoke cigarettes, down to 5-7 cigarettes per week. He has had several ER visits so far this month for similar presentation. He does have history of COPD, as well as, significant smoking history. Normally uses combination of Trelegy inhaler and albuterol nebs. It appears the patient had a recent CAT scan of the chest done April 27, 2024 demonstrating a new 0.8 cm pulmonary nodule in the right midlung. No significant large mediastinal or hilar adenopathy. He said to reschedule his PET scan multiple times due to anxiety attacks. Patient is currently being evaluated in the emergency department. He is currently sitting at the edge of the bed, tachypneic, speaking in short phrases. Chest x-ray showing hyperinflation, and flattening of the diaphragm consistent with COPD. No focal consolidations or pneumonia. CBC unremarkable for leukocytosis. CMP also unremarkable. Electrolytes WDL. LFTs unremarkable. Troponin less than 0.012. EKG: Normal sinus rhythm, rate 64 bpm, no obvious acute ischemic changes. Current vitals: Temperature 97.4 F, heart rate 70 bpm, blood pressure 138/84 mmHg, SpO2 98% on room air. . On today's evaluation of 07/10/2024, the patient is feeling better, less bronchospastic and wheezy. Responding well to the combination of bronchodilators and steroids. He is also on Symbicort. Has a nicotine patch. He remains on IV Solu-Medrol 60 mg every 6 hours. Labs show a white cell count of 11 hemoglobin 14.9 and a platelet count of 185. Electrolytes are all within normal limits. No altered mentation. No chest pain. He is currently on room air oxygen. On 07/11/2024, the patient is feeling well. He is on room air oxygen. No respiratory distress. No cough sputum production. Minimal amount of wheezing still present. His pulse ox on room air is in the order of 96%. He uses Trelegy Ellipta at home. He also uses DuoNeb nebulized treatments at home. He was discharged home on a prednisone burst taper. No other new complaints otherwise for now. Objective - Vital Signs Vital signs: Vital Signs Temp 97.7 F 07/11/24 07:10 Pulse 74 07/11/24 08:21 Resp 16 07/11/24 07:10 BP 149/83 07/11/24 07:10 Pulse Ox 96 07/11/24 07:10 FiO2 Intake & Output 07/10/24 07/11/24 07/11/24 18:59 06:59 18:59 Intake Total 118 Balance 118 Intake: Oral 118 Other: Voiding Method Toilet Toilet Toilet Urinal # Voids 6 2 # Bowel Movements 0 1 - Exam GENERAL EXAM: Alert, 59-year-old male, sitting at the edge of the bed, speaking in short phrases, tachypneic HEAD: Normocephalic and atraumatic EYES: Normal reaction of pupils, equal size. NOSE: Clear with pink turbinates. THROAT: No erythema or exudates. NECK: No masses, no JVD. CHEST: No chest wall deformity. LUNGS: Equal air entry with markedly diminished lung sounds throughout. On room air. SpO2 96%. CVS: S1 and S2 normal with no audible murmur, regular rhythm. No extra heart sounds ABDOMEN: No hepatosplenomegaly, active bowel sounds, no guarding or rigidity. SPINE: No scoliosis or deformity SKIN: No rashes CENTRAL NERVOUS SYSTEM: No focal deficits, tone is normal in all 4 extremities. EXTREMITIES: There is no peripheral edema, clubbing, or cyanosis. Peripheral pulses are intact. - Labs CBC & Chem 7: 07/10/24 05:55 07/10/24 05:55 Labs: Abnormal Lab Results - Last 24 Hours (Table) 07/10/24 07/10/24 Range/Units 05:55 05:55 WBC 11.57 H (4.50-10.00) X 10*3/uL Immature Gran # 0.09 H (0.00-0.04) X 10*3/uL Neutrophils # 10.24 H (1.80-7.70) X 10*3/uL Lymphocytes # 0.68 L (0.90-5.00) X 10*3/uL Eosinophils # 0 L (0.04-0.35) X 10*3/uL BUN/Creatinine Ratio 27.00 H (12.00-20.00) Ratio Glucose 114 H (70-110) mg/dL Assessment and Plan Assessment: Acute COPD exacerbation, Improving Acute dyspnea, secondary to above Current ongoing tobacco dependence, previous heavy tobacco use, down to 5 to 7 cigarettes/week. Pulmonary nodule, per CT of the chest, there is a new 0.8 cm pulmonary nodule in the right midlung. No significant large mediastinal or hilar adenopathy. Patient states that he had reschedule his outpatient PET scan several times due to anxiety attacks. History of hypertension History of hyperlipidemia History of coronary artery disease with previous PCI/stenting Anxiety Plan: Clinically improved No evidence of infectious process or pneumonia Negative for COVID, RSV, Influenza Will discharge the patient home on a prednisone burst taper, Trelegy Ellipta 1 puff a day, DuoNeb updrafts on as-needed basis. No need for home O2. Smoking cessation counseling performed greater than 10 minutes, nicotine patch offered. Patient plans to follow-up with his established helix coil winder on discharge
== END 2024-07-11 13:37 | disposition home or self-care (01) ==
LOC: EC 22:14 → 6NMEDSUR 07-09 00:43
PROVIDERS: ADMIT Hospitalist; ATTEND Hospitalist
DX: J44.1 Chronic obstructive pulmonary disease with (acute) exacerbation (principal); K21.9 Gastro-esophageal reflux disease without esophagitis; I10 Essential (primary) hypertension; E78.5 Hyperlipidemia, unspecified; N40.0 Benign prostatic hyperplasia without lower urinary tract symptoms; F32.A Depression, unspecified; F41.9 Anxiety disorder, unspecified; I25.10 Atherosclerotic heart disease of native coronary artery without angina pectoris; R91.1 Solitary pulmonary nodule; F40.240 Claustrophobia; I25.2 Old myocardial infarction; F17.210 Nicotine dependence, cigarettes, uncomplicated; Z95.5 Presence of coronary angioplasty implant and graft; Z79.51 Long term (current) use of inhaled steroids; Z79.52 Long term (current) use of systemic steroids; Z79.82 Long term (current) use of aspirin; Z79.899 Other long term (current) drug therapy
CPT/HCPCS: 96376 ×4; 96372 ×3; 96365; 96375; 99285; 36415; 94640 ×4; 93005; 80053; 80048; 83605; 84484; 85025 ×2; 85610; 85730; 71046; G0378 ×3; J1644 ×3; J3475; J2919 ×4

== ENCOUNTER 2024-07-12 11:28 | Observation (INO) | payer MEDICARE, OTHER ==
[2024-07-12] MEDS: ALBUTEROL NEBULIZED 2.5 MG/3 ML INHALATION STA (11:55)
[2024-07-12] MEDS: IPRATROPIUM 0.5 MG/2.5 ML NEBU INHALATION STA (11:55)
--- NOTE | 2024-07-12 11:58 | XR ---
EXAMINATION TYPE: XR chest 1V portable DATE OF EXAM: 07/12/2024 11:49 AM COMPARISON: Chest radiographs from 07/09/2024 CLINICAL INDICATION: Male, 59 years old with history of virgil; [facility] TECHNIQUE: XR chest 1V portable Frontal view of the chest. FINDINGS: Lungs/Pleura: Scattered subtle reticular and hazy opacities. No evidence of pneumothorax, focal conso lidation or pleural effusion. Pulmonary vascularity: Unremarkable. Heart/mediastinum: Cardiomediastinal silhouette is unremarkable. Musculoskeletal: No acute osseous pathology. IMPRESSION: Subtle scattered opacities which may represent an atypical pneumonia. Correlate for covid 19. [facility], , 07/12/2024 11:55 AM
[2024-07-12] MEDS: methylPREDNISolone SOD SUCCI 125 MG/2 ML VIAL IV STA (12:03)
--- NOTE | 2024-07-12 12:10 | ED ---
General Adult HPI - General Chief complaint: Shortness of Breath Stated complaint: sob,anxiety Time Seen by Provider: 07/12/24 11:35 Source: patient, EMS, RN notes reviewed, old records reviewed Mode of arrival: EMS Limitations: no limitations - History of Present Illness Initial comments: 59-year-old male history of COPD presenting with increased cough and dyspnea. Patient denies central chest pain. Denies fever. Denies lower extremity pain or swelling. Patient has history of COPD with recent admission. Patient was placed on supplemental oxygen during transport. He reports a recent discharge 2 days prior and has had worsening symptoms since discharge. - Related Data Home Medications Medication Instructions Recorded Confirmed Aspirin [Adult Low Dose Aspirin EC] 81 mg PO DAILY 03/24/18 07/12/24 Atorvastatin Calcium [Lipitor] 40 mg PO DAILY 04/29/18 07/12/24 Albuterol Inhaler [Ventolin Hfa 2 puff INHALATION RT-Q4H PRN 05/27/20 07/12/24 Inhaler] Losartan [Cozaar] 25 mg PO DAILY 05/27/20 07/12/24 Fluticasone/Umeclidin/Vilanter 1 puff INHALATION RT-DAILY 05/11/21 07/12/24 [Trelegy Ellipta 200-62.5-25] Ipratropium-Albuterol Nebulize 3 ml INHALATION RT-TID 07/12/24 07/12/24 [Duoneb 0.5 mg-3 mg/3 ml Soln] Previous Rx's Medication Instructions Recorded Metoprolol Tartrate [Lopressor] 25 mg PO BID #60 tab 08/26/15 Ipratropium-Albuterol Nebulize 3 ml INHALATION RT-Q2H PRN each 07/11/24 [Duoneb 0.5 mg-3 mg/3 ml Soln] Nicotine 14Mg/24Hr Patch [Habitrol] 1 patch TRANSDERM DAILY #30 patch 07/11/24 busPIRone HCl [Buspar] 15 mg PO BID #180 tab 07/11/24 predniSONE See Taper PO DIRECTED #30 tab 07/11/24 Allergies Allergy/AdvReac Type Severity Reaction Status Date / Time iodine Allergy Swelling Verified 07/12/24 12:46 salmon oil Allergy Swelling Verified 07/12/24 12:46 shellfish derived [Shellfish] Allergy Swelling Verified 07/12/24 12:46 venom-honey bee Allergy Swelling Verified 07/12/24 12:46 [bee venom (honey bee)] Review of Systems ROS Statement: Those systems with pertinent positive or pertinent negative responses have been documented in the HPI. ROS Other: All systems not noted in ROS Statement are negative. 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, enlarged lymph nodes in chest, pt states he has 3 masses in between lungs that were monitored for years-no change, bronchitis, DDD, spondylosis, 2 herniated cervical discs, 2 lumbar herniated discs, scoliosis, BPH, RLS Last Myocardial Infarction Date:: Aug 2015 History of Any Multi-Drug Resistant Organisms: None Reported Past Surgical History: Heart Catheterization With Stent, Hernia Repair, Orthopedic Surgery, Tonsillectomy Additional Past Surgical History / Comment(s): ORIF L hip/pins, L tibial cyst removed/bone graft from pelvis to tibia, pain clinic procedures, rhinoplasty, colonoscopy, Past Anesthesia/Blood Transfusion Reactions: No Reported Reaction Additional Past Anesthesia/Blood Transfusion Reaction / Comment(s): claustrophobic Date of Last Stent Placement:: Aug 2015 Past Psychological History: Anxiety, Depression Smoking Status: Former smoker Past Alcohol Use History: None Reported Past Drug Use History: None Reported - Past Family History Father History Unknown: Yes Family Medical History: No Reported History Additional Family Medical History / Comment(s): Pt does not know his father. Mother Family Medical History: COPD, CVA/TIA Additional Family Medical History / Comment(s): Mother is 80yrs old. Pt does not have much contact with mother. Brother(s) Additional Family Medical History / Comment(s): He has 2 brothers, one has metal health issues, one is an addict on crack and other street drugs. Sister(s) Family Medical History: Cancer, Liver Disease Additional Family Medical History / Comment(s): Patient had 2 sisters, one from breast cancer, one from cirrhosis at the age of 19 with history of heavy alcohol use and Crohn's disease. General Exam Limitations: no limitations General appearance: alert, in distress Head exam: Present: atraumatic, normocephalic Eye exam: Present: normal appearance, PERRL ENT exam: Present: normal exam Neck exam: Present: normal inspection Respiratory exam: Present: respiratory distress, wheezes, accessory muscle use, decreased breath sounds, prolonged expiratory Cardiovascular Exam: Present: regular rate, normal rhythm GI/Abdominal exam: Present: soft. Absent: distended, tenderness, guarding Extremities exam: Present: normal inspection, normal capillary refill. Absent: pedal edema, calf tenderness Neurological exam: Present: alert, oriented X3 Psychiatric exam: Present: normal affect, normal mood Course Vital Signs 07/12/24 07/12/24 07/12/24 11:32 11:36 11:50 Temperature 98.7 F Pulse Rate 93 Respiratory 24 24 Rate Blood Pressure 143/91 O2 Sat by Pulse 98 Oximetry Fraction of 40 Inspired Oxygen (FIO2) 07/12/24 07/12/24 07/12/24 11:53 12:00 12:14 Temperature Pulse Rate 75 78 Respiratory Rate Blood Pressure O2 Sat by Pulse Oximetry Fraction of 40 Inspired Oxygen (FIO2) 07/12/24 12:15 Temperature Pulse Rate 71 Respiratory 30 H Rate Blood Pressure 121/93 O2 Sat by Pulse 100 Oximetry Fraction of Inspired Oxygen (FIO2) Medical Decision Making - Medical Decision Making Was pt. sent in by a medical professional or institution ([facility], [facility], urgent care, hospital, or penitentiary...) When possible be specific @ -No Did you speak to anyone other than the patient for history (EMS, parent, family, police, friend...)? What history was obtained from this source @ -No Did you review nursing and triage notes (agree or disagree)? Why? @ -I reviewed and agree with nursing and triage notes Were old charts reviewed (outside hosp., previous admission, EMS record, old EKG, old radiological studies, urgent care reports/EKG's, penitentiary records)? Report findings @ -No old charts were reviewed Differential Dyspnea: Coronary syndrome, arrhythmia, tamponade, asthma, COPD, pulmonary embolism, pneumonia, pneumothorax, pulmonary effusion, anaphylaxis, diabetic ketoacidosis, flailed chest, pulmonary contusion, diaphragmatic rupture, anemia, neuromuscular, this is not meant to be an all-inclusive list. EKG interpreted by me (3pts min.). @ -Sinus rhythm rate of 68, VA interval 151, QRS duration 90, QTc [address] segment elevation, respiratory artifact. X-rays interpreted by me (1pt min.). @Chest x-ray concerning for multifocal pneumonia CT interpreted by me (1pt min.). @ -None done U/S interpreted by me (1pt. min.). @ -None done What testing was considered but not performed or refused? (CT, X-rays, U/S, labs)? Why? @ -None What meds were considered but not given or refused? Why? @ -None Did you discuss the management of the patient with other professionals (professionals i.e. , PA, WELDER, lab, RT, psych nurse, child protective services social worker, rod filler, teacher, financial officer, home health care case manager)? Give summary @ -No Was smoking cessation discussed for >3mins.? @ -No Was critical care preformed (if so, how long)? @ -yes 35 minutes. Were there social determinants of health that impacted care today? How? (Homelessness, low income, unemployed, alcoholism, drug addiction, transportation, low edu. Level, literacy, decrease access to med. care, detention, rehab)? @ -No Was there de-escalation of care discussed even if they declined (Discuss DNR or withdrawal of care, Hospice)? DNR status @ -No What co-morbidities impacted this encounter? (DM, HTN, Smoking, COPD, CAD, Cancer, CVA, ARF, Chemo, Hep., AIDS, mental health diagnosis, sleep apnea, morbid obesity)? @ -COPD Was patient admitted / discharged? Hospital course, mention meds given and route, prescriptions, significant lab abnormalities, going to OR and other pertinent info. @51-year-old male with worsening cough and dyspnea. Patient afebrile. He is tachypneic with increased work of breathing. He is placed on BiPAP for work of breathing. He is given albuterol, Atrovent, steroids. He started on antibiotics after a viral panel results are negative. Patient admitted for COPD with pneumonia. Case discussed with Dr. Gotti who will admit. Undiagnosed new problem with uncertain prognosis? @ -No Drug Therapy requiring intensive monitoring for toxicity (Heparin, Nitro, Insulin, Cardizem)? @ -No Were any procedures done? @ -No Diagnosis/symptom? @COPD, pneumonia Acute, or Chronic, or Acute on Chronic? @Acute on chronic Uncomplicated (without systemic symptoms) or Complicated (systemic symptoms)? @ -Default Side effects of treatment? @ -No Exacerbation, Progression, or Severe Exacerbation? @ -No Poses a threat to life or bodily function? How? (Chest pain, [place], [place], pneumonia, PE, COPD, DKA, ARF, appy, cholecystitis, CVA, Diverticulitis, Homicidal, Suicidal, threat to staff... and all critical care pts) @ -Yes, respiratory failure COPD, hypoxia - Lab Data Result diagrams: 07/12/24 12:02 07/12/24 12: Lab Results 07/12/24 07/12/24 07/12/24 Range/Units 12: 12: 12:02 WBC 11.9 H (3.8-10.6) k/uL RBC 4.88 (4.30-5.90) m/uL Hgb 15.1 (13.0-17.5) gm/dL Hct 47.1 (39.0-53.0) % MCV 96.6 (80.0-100.0) fL MCH 30.9 (25.0-35.0) pg MCHC 32.0 (31.0-37.0) g/dL RDW 12.7 (11.5-15.5) % Plt Count 154 (150-450) k/uL MPV 8.2 Neutrophils % 76 % Lymphocytes % 14 % Monocytes % 8 % Eosinophils % 0 % Basophils % 0 % Neutrophils # 9.0 H (1.3-7.7) k/uL Lymphocytes # 1.7 (1.0-4.8) k/uL Monocytes # 1.0 (0-1.0) k/uL Eosinophils # 0.0 (0-0.7) k/uL Basophils # 0.0 (0-0.2) k/uL PT 10.6 (10.0-12.5) sec INR 0.9 (<1.2) APTT 20.2 L (22.0-30.0) sec Sodium 140 (137-145) mmol/L Potassium 4.6 (3.5-5.1) mmol/L Chloride 103 (98-107) mmol/L Carbon Dioxide 32 H (22-30) mmol/L Anion Gap 5 mmol/L BUN 33 H (9-20) mg/dL Creatinine 0.93 (0.66-1.25) mg/dL Est GFR (CKD-EPI)AfAm >90 (>60 ml/min/1.73 sqM) Est GFR (CKD-EPI)NonAf >90 (>60 ml/min/1.73 sqM) Glucose 87 (74-99) mg/dL Plasma Lactic Acid Obdulio (0.7-2.0) mmol/L Calcium 8.5 (8.4-10.2) mg/dL Magnesium 1.8 (1.6-2.3) mg/dL Total Bilirubin 0.7 (0.2-1.3) mg/dL AST 29 (17-59) U/L ALT 32 (4-49) U/L Alkaline Phosphatase 33 L (38-126) U/L Total Protein 6.2 L (6.3-8.2) g/dL Albumin 4.2 (3.5-5.0) g/dL Influenza Type A (PCR) (Not Detectd) Influenza Type B (PCR) (Not Detectd) RSV (PCR) (Not Detectd) SARS-CoV-2 (PCR) (Not Detectd) 07/12/24 07/12/24 Range/Units 12:02 12:15 WBC (3.8-10.6) k/uL RBC (4.30-5.90) m/uL Hgb (13.0-17.5) gm/dL Hct (39.0-53.0) % MCV (80.0-100.0) fL MCH (25.0-35.0) pg MCHC (31.0-37.0) g/dL RDW (11.5-15.5) % Plt Count (150-450) k/uL MPV Neutrophils % % Lymphocytes % % Monocytes % % Eosinophils % % Basophils % % Neutrophils # (1.3-7.7) k/uL Lymphocytes # (1.0-4.8) k/uL Monocytes # (0-1.0) k/uL Eosinophils # (0-0.7) k/uL Basophils # (0-0.2) k/uL PT (10.0-12.5) sec INR (<1.2) APTT (22.0-30.0) sec Sodium (137-145) mmol/L Potassium (3.5-5.1) mmol/L Chloride (98-107) mmol/L Carbon Dioxide (22-30) mmol/L Anion Gap mmol/L BUN (9-20) mg/dL Creatinine (0.66-1.25) mg/dL Est GFR (CKD-EPI)AfAm (>60 ml/min/1.73 sqM) Est GFR (CKD-EPI)NonAf (>60 ml/min/1.73 sqM) Glucose (74-99) mg/dL Plasma Lactic Acid Obdulio 0.7 (0.7-2.0) mmol/L Calcium (8.4-10.2) mg/dL Magnesium (1.6-2.3) mg/dL Total Bilirubin (0.2-1.3) mg/dL AST (17-59) U/L ALT (4-49) U/L Alkaline Phosphatase (38-126) U/L Total Protein (6.3-8.2) g/dL Albumin (3.5-5.0) g/dL Influenza Type A (PCR) Not Detected (Not Detectd) Influenza Type B (PCR) Not Detected (Not Detectd) RSV (PCR) Not Detected (Not Detectd) SARS-CoV-2 (PCR) Not Detected (Not Detectd) Critical Care Time Critical Care Time: Yes Total Critical Care Time: 35 Disposition Clinical Impression: COPD (chronic obstructive pulmonary disease), Community acquired pneumonia Disposition: ADMITTED IP TO THIS [facility] Condition: Stable Is patient prescribed a controlled substance at d/c from ED?: No Referrals: Indy Allen MD [Primary Care Provider] - 1-2 days Time of Disposition: 13:30
[2024-07-12 12:22] LABS: Basophils % (A) 0 %; Eosinophils % (A) 0 %; HCT 47.1 % (39.0-53.0); HGB 15.1 gm/dL (13.0-17.5); Lymphocytes # (A) 1.7 k/uL (1.0-4.8); Lymphocytes % (A) 14 %; MCH 30.9 pg (25.0-35.0); MCV 96.6 fL (80.0-100.0); Mean Platelet Volume 8.2; Monocytes % (A) 8 %; Neutrophils % (A) 76 %; Platelet Count 154 k/uL (150-450); RBC 4.88 m/uL (4.30-5.90); RDW 12.7 % (11.5-15.5); WBC 11.9 k/uL (3.8-10.6)
[2024-07-12 12:33] LABS: INR 0.9 (<1.2); Prothrombin Time 10.6 sec (10.0-12.5)
[2024-07-12 12:36] LABS: ALT 32 U/L (4-49); African American GFR (CKD) >90 (>60 ml/min/1.73 sqM); Albumin 4.2 g/dL (3.5-5.0); Anion Gap 5 mmol/L; Blood Urea Nitrogen 33 mg/dL (9-20); Calcium 8.5 mg/dL (8.4-10.2); Carbon Dioxide 32 mmol/L (22-30); Chloride 103 mmol/L (98-107); Glucose 87 mg/dL (74-99); Non-African American GFR(CKD) >90 (>60 ml/min/1.73 sqM); Sodium 140 mmol/L (137-145); Total Bilirubin 0.7 mg/dL (0.2-1.3); Total Protein 6.2 g/dL (6.3-8.2)
[2024-07-12 12:38] LABS: Partial Thromboplastin Time 20.2 sec (22.0-30.0)
[2024-07-12 12:55] LABS: AST 29 U/L (17-59); Alkaline Phosphatase 33 U/L (38-126); Magnesium 1.8 mg/dL (1.6-2.3); Potassium 4.6 mmol/L (3.5-5.1)
[2024-07-12] MEDS ORDERED: NALOXONE 0.4 MG/ML 1 ML VIAL IVP PRN (13:27)
[2024-07-12] MEDS ORDERED: IPRATROPIUM-ALBUTEROL 3 ML NEB INHALATION PRN (13:27)
[2024-07-12] MEDS: LORazepam 2 MG/ML INJ IV PRN (14:09)
[2024-07-12] MEDS: cefTRIAXone IN SWFI 1,000 MG/10 ML SYRINGE IVP STA (14:43)
[2024-07-12] MEDS: AZITHROMYCIN 500 MG in SODIUM CHLORIDE 0.9% 250 ML IVPB STA (14:43)
[2024-07-12] MEDS: FORMOTEROL FUMARATE 20 MCG/2 ML NEBU INHALATION SCH (14:44)
[2024-07-12] MEDS: BUDESONIDE 1 MG/2 ML NEBU INHALATION SCH (14:44)
[2024-07-12] MEDS: IPRATROPIUM-ALBUTEROL 3 ML NEB INHALATION SCH (14:44)
[2024-07-12] MEDS: methylPREDNISolone SOD SUCCI 125 MG/2 ML VIAL IV SCH (17:16)
[2024-07-12 18:42] VITALS: TEMP 97.1
[2024-07-12 20:32] LABS: Glucose,Whole Blood 135 mg/dL (70-110)
[2024-07-12] MEDS: busPIRone HCl 5 MG TAB PO SCH (21:03)
[2024-07-12] MEDS: METOPROLOL TARTRATE 25 MG TAB PO SCH (21:03)
--- NOTE | 2024-07-13 00:07 | HP ---
HISTORY AND PHYSICAL CHIEF COMPLAINT: Shortness of breath. HISTORY OF PRESENT ILLNESS: This is a 59-year-old gentleman with a past medical history of multiple medical problems including COPD, was recently admitted with severe COPD exacerbation. The patient was discharged. Because of recurrent symptoms, the patient came to [facility], admitted for further evaluation. The patient had apparently a panic attack also. There is no history of any fever, rigors, or chills. Chest x-ray showed increased bronchovascular markings. PAST MEDICAL HISTORY: Reviewed include COPD, hypertension, hyperlipidemia. Rest of the history and rest of the chart is also reviewed. HOME MEDICATIONS: Reviewed include prednisone. Doses and rest of medications reviewed. ALLERGIES: Iodine. Rest of allergies reviewed. FAMILY HISTORY: No history of any heart disease, or strokes in the family. SOCIAL HISTORY: Previous history of smoking. REVIEW OF SYSTEMS: A 14-point review of systems is negative except as mentioned earlier. PHYSICAL EXAMINATION: VITAL SIGNS: Pulse is 71, blood pressure 120/90, respirations 30. HEENT: Conjunctivae normal. NECK: No JVD. CARDIOVASCULAR: S1, S2. RESPIRATIONS: Breath sounds diminished at the bases. A few scattered rhonchi and crackles. ABDOMEN: Soft, nontender. LEGS: No edema. NERVOUS SYSTEM: Nonfocal. LABORATORY DATA: Reviewed. ASSESSMENT: 1. Chronic obstructive pulmonary disease acute exacerbation with acute purulent tracheobronchitis with failure of outpatient treatment. 2. History of nicotine dependence. 3. Panic attacks. 4. Pulmonary nodules 0.8 cm right mid lung. 5. Elevated WBC. 6. Hypertension. 7. Hyperlipidemia. 8. 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 9. History of coronary artery disease stent. 10.Anxiety, depression. RECOMMENDATIONS AND DISCUSSION: This is a 59-year-old gentleman presented with multiple complex medical issues, we will monitor the patient closely. I would recommend intravenous steroids, Ativan p.r.n., intensive bronchodilator treatment, pulmonary consultation. Guarded prognosis because of multiple complex medical issues. Further recommendations to follow. BiPAP has been initiated. MMODL / IJN: [id number] /
--- NOTE | 2024-07-13 05:36 | P.CNPUL ---
History of Present Illness Consult date: 07/13/24 Requesting physician: Siri Cuenca Reason for consult: COPD Chief complaint: "Panic attacks" History of present illness: Patient is a 59-year-old male with past medical history significant for COPD, chronic ongoing tobacco dependence, solitary pulmonary nodule, hypertension, hyperlipidemia, coronary artery disease with previous PCI/stenting, and anxiety. His PCP is Dr. Lyons. He was just recently discharged from the hospital 2 days ago, he was admitted with an acute COPD exacerbation. Unfortunately, he was not able to get his medications on discharge. Shortly after became severely short of breath and anxious at home. Continues to have a cough, which is congested but nonproductive. Denies any fevers, chills, chest pain, sputum production, hemoptysis. He does continue to smoke cigarettes, down to 5 to 7 cigarettes/week. Uses a combination of Trelegy inhaler and albuterol nebs. He did have a recent CT of the chest done April 27, 2024 demonstrating a new 0.8 cm pulmonary nodule in the right midlung. No significant mediastinal or hilar adenopathy. He has been unable to complete PET scan at this time due to multiple anxiety attacks. On his most recent hospitalization he was started on BuSpar, but as stated, he was unable to pick these up from pharmacy on [facility] [address]. He is currently resting comfortably on 2 L/min nasal cannula. BiPAP is on standby in the room. He is nondistressed. SpO2 is 92%. Chest x-ray done arrival showing scattered subtle reticular and hazy opacities. No focal consolidations, pneumothoraces, pleural effusions. Negative for influenza, RSV, COVID. Procalcitonin level low. CBC: WBC count 11.9, hemoglobin 15.1, hematocrit 47.1, platelets 154. CMP is unremarkable. Lactic 0.7. Most recent vital signs include a temperature of 97.1 F, heart rate 61 bpm, blood pressure 116/69 mmHg, respiratory rate in the mid 20s, SpO2 92% on 2 L/min nasal cannula. Review of Systems Constitutional: Denies chills, Denies fatigue, Denies fever, Denies poor appetite, Denies weight gain, Denies weight loss Ears, nose, mouth and throat: Denies headache, Denies nasal congestion, Denies nasal discharge, Denies post-nasal drip, Denies sinus pain, Denies sinus pressure, Denies sore throat Cardiovascular: Reports dyspnea on exertion, Denies chest pain, Denies irregular heart beat, Denies leg edema, Denies lightheadedness, Denies orthopnea, Denies palpitations, Denies paroxysmal nocturnal dyspnea, Denies rapid heart beat, Denies syncope Respiratory: Reports congestion, Reports cough, Reports dyspnea, Reports wheezing, Denies excessive sputum, Denies home oxygen Gastrointestinal: Denies abdominal pain, Denies change in bowel habits, Denies diarrhea, Denies nausea, Denies vomiting Genitourinary: Reports urinary hesitancy, Denies dysuria, Denies flank pain, Denies hematuria Musculoskeletal: Denies leg numbness/tingling Integumentary: Denies rash Neurological: Denies seizures, Denies syncope Psychiatric: Reports anxiety, Reports anxiety attacks, Denies depression Past Medical History Past Medical History: Chest Pain / Angina, COPD, GERD/Reflux, Hyperlipidemia, Hypertension, Myocardial Infarction (VT), Osteoarthritis (OA), Pneumonia, Skin Disorder Additional Past Medical History / Comment(s): 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, enlarged lymph nodes in chest, pt states he has 3 masses in between lungs that were monitored for years-no change, bronchitis, DDD, spondylosis, 2 herniated cervical discs, 2 lumbar herniated discs, scoliosis, BPH, RLS Last Myocardial Infarction Date:: Aug 2015 History of Any Multi-Drug Resistant Organisms: None Reported Past Surgical History: Heart Catheterization With Stent, Hernia Repair, Orthopedic Surgery, Tonsillectomy Additional Past Surgical History / Comment(s): ORIF L hip/pins, L tibial cyst removed/bone graft from pelvis to tibia, pain clinic procedures, rhinoplasty, colonoscopy, Past Anesthesia/Blood Transfusion Reactions: No Reported Reaction Additional Past Anesthesia/Blood Transfusion Reaction / Comment(s): claustrophobic Date of Last Stent Placement:: Aug 2015 Past Psychological History: Anxiety, Depression Additional Psychological History / Comment(s): PT resides with his spouse. He is independent. He has a nebulizer. He is disabled. Smoking Status: Former smoker Past Alcohol Use History: None Reported Additional Past Alcohol Use History / Comment(s): Pt started smoking in 1978 and was a 2.5 ppd smoker but quit 4 months ago Past Drug Use History: None Reported Additional Drug Use History / Comment(s): in past used marijuana - 3 times. none in 32 years - Past Family History Father History Unknown: Yes Family Medical History: No Reported History Additional Family Medical History / Comment(s): Pt does not know his father. Mother Family Medical History: COPD, CVA/TIA Additional Family Medical History / Comment(s): Mother is 80yrs old. Pt does not have much contact with mother. Brother(s) Additional Family Medical History / Comment(s): He has 2 brothers, one has metal health issues, one is an addict on crack and other street drugs. Sister(s) Family Medical History: Cancer, Liver Disease Additional Family Medical History / Comment(s): Patient had 2 sisters, one from breast cancer, one from cirrhosis at the age of 19 with history of heavy alcohol use and Crohn's disease. Medications and Allergies Home Medications Medication Instructions Recorded Confirmed Type Metoprolol Tartrate [Lopressor] 25 mg PO BID #60 tab 08/26/15 07/12/24 Rx Aspirin [Adult Low Dose Aspirin EC] 81 mg PO DAILY 03/24/18 07/12/24 History Atorvastatin Calcium [Lipitor] 40 mg PO DAILY 04/29/18 07/12/24 History Albuterol Inhaler [Ventolin Hfa 2 puff INHALATION RT-Q4H PRN 05/27/20 07/12/24 History Inhaler] Losartan [Cozaar] 25 mg PO DAILY 05/27/20 07/12/24 History Fluticasone/Umeclidin/Vilanter 1 puff INHALATION RT-DAILY 05/11/21 07/12/24 H istory [Trelegy Ellipta 200-62.5-25] Ipratropium-Albuterol Nebulize 3 ml INHALATION RT-Q2H PRN each 07/11/24 07/12/24 Rx [Duoneb 0.5 mg-3 mg/3 ml Soln] Nicotine 14Mg/24Hr Patch [Habitrol] 1 patch TRANSDERM DAILY #30 patch 07/11/24 07/12/24 Rx busPIRone HCl [Buspar] 15 mg PO BID #180 tab 07/11/24 07/12/24 Rx predniSONE See Taper PO DIRECTED #30 tab 07/11/24 07/12/24 Rx Ipratropium-Albuterol Nebulize 3 ml INHALATION RT-TID 07/12/24 07/12/24 History [Duoneb 0.5 mg-3 mg/3 ml Soln] Allergies Allergy/AdvReac Type Severity Reaction Status Date / Time iodine Allergy Swelling Verified 07/12/24 12:46 salmon oil Allergy Swelling Verified 07/12/24 12:46 shellfish derived [Shellfish] Allergy Swelling Verified 07/12/24 12:46 venom-honey bee Allergy Swelling Verified 07/12/24 12:46 [bee venom (honey bee)] Physical Exam Vitals: Vital Signs Temp Pulse Pulse Resp BP BP Pulse Ox 07/13/24 01:06 100 07/13/24 00:45 61 17 116/69 100 07/13/24 00:23 07/12/24 21:26 84 22 07/12/24 21:19 81 24 07/12/24 21:11 77 24 07/12/24 18:44 74 21 07/12/24 17:25 97.1 F L 74 21 126/88 99 07/12/24 17:11 98 F 70 22 127/80 100 07/12/24 15:19 73 34 H 108/87 100 07/12/24 15:07 74 07/12/24 14:44 71 07/12/24 13:56 67 21 114/79 100 07/12/24 12:15 71 30 H 121/93 100 07/12/24 12:14 78 07/12/24 12:00 75 07/12/24 11:53 07/12/24 11:50 07/12/24 11:36 24 07/12/24 11:32 98.7 F 93 30 H 143/91 98 FiO2 07/13/24 01:06 07/13/24 00:45 40 07/13/24 00:23 40 07/12/24 21:26 07/12/24 21:19 07/12/24 21:11 07/12/24 18:44 07/12/24 17:25 40 07/12/24 17:11 07/12/24 15:19 07/12/24 15:07 07/12/24 14:44 40 07/12/24 13:56 07/12/24 12:15 07/12/24 12:14 07/12/24 12:00 07/12/24 11:53 40 07/12/24 11:50 40 07/12/24 11:36 07/12/24 11:32 Intake and Output 07/12/24 07/12/24 07/13/24 14:59 22:59 06:59 Output Total 200 Balance -200 Output: Urine 200 Other: Weight 54.431 kg 54.431 kg GENERAL EXAM: Alert, sitting erect in bed, 2 L/min nasal cannula abdominal, comfortable in no apparent distress. HEAD: Normocephalic and atraumatic EYES: Normal reaction of pupils, equal size. NOSE: Clear with pink turbinates. THROAT: No erythema or exudates. NECK: No masses, no JVD. CHEST: Barrel chest. LUNGS: Equal air entry with markedly diminished lung sounds throughout. No crackles, wheeze, rhonchi or dullness. SpO2 92% on 2 L/min nasal cannula. No conversational dyspnea or accessory muscle use.. CVS: S1 and S2 normal with no audible murmur, regular rhythm. No extra heart diamond nds ABDOMEN: No hepatosplenomegaly, active bowel sounds, no guarding or rigidity. SPINE: No scoliosis or deformity SKIN: No rashes CENTRAL NERVOUS SYSTEM: No focal deficits, tone is normal in all 4 extremities. EXTREMITIES: There is no peripheral edema, clubbing, or cyanosis. Peripheral pulses are intact. Results - Laboratory Findings CBC and BMP: 07/12/24 12:02 07/12/24 12:02 PT/INR, D-dimer PT 10.6 sec (10.0-12.5) 07/12/24 12:02 INR 0.9 (<1.2) 07/12/24 12:02 Abnormal lab findings: Abnormal Labs 07/12/24 07/12/24 07/12/24 12:02 12:02 12:02 WBC 11.9 H Neutrophils # 9.0 H APTT 20.2 L Carbon Dioxide 32 H BUN 33 H POC Glucose (mg/dL) Alkaline Phosphatase 33 L Total Protein 6.2 L 07/12/24 20:30 WBC Neutrophils # APTT Carbon Dioxide BUN POC Glucose (mg/dL) 135 H Alkaline Phosphatase Total Protein - Diagnostic Findings Chest x-ray: image reviewed Assessment and Plan Assessment: Acute COPD exacerbation, patient was recently discharged back on 07/11, and returns to the hospital approximately 24 hours later. Apparently, could not get his medications at his established pharmacy. Chest x-ray done arrival showing scattered subtle reticular and hazy opacities. No focal consolidations, pneumothoraces, pleural effusions. Negative for influenza, RSV, COVID. Procalcitonin level low. Acute hypoxemic respiratory failure, secondary to above Current ongoing tobacco dependence, previous heavy tobacco use, down to 5 to 7 cigarettes/week. Pulmonary nodule, per CT of the chest, there is a new 0.8 cm pulmonary nodule in the right midlung. No significant large mediastinal or hilar adenopathy. Patient states that he had reschedule his outpatient PET scan several times due to anxiety attacks. History of hypertension History of hyperlipidemia History of coronary artery disease with previous PCI/stenting Anxiety, patient was started on BuSpar Plan: Patient's medications, labs, chest x-ray reviewed No evidence of infectious process or pneumonia Negative for COVID, RSV, Influenza Procalcitonin level low Continue combination of bronchodilators, formoterol and budesonide inhalations, and IV Solu-Medrol. May substitute Trelegy inhaler if available Smoking cessation counseling performed greater than 10 minutes, nicotine patch offered. Patient wishes to follow-up in the office with Dr. Cohen at discharge. Reinforced the importance for outpatient follow-up PET scan. We will continue to follow I have personally seen and examined the patient, performed the documentation and the assessment and plan as written. Number of minutes spent on the visit:20 Time with Patient: Greater than 30
[2024-07-13 06:10] LABS: Glucose,Whole Blood 134 mg/dL (70-110)
[2024-07-13 07:18] LABS: African American GFR (CKD) >90 (>60 ml/min/1.73 sqM); Anion Gap 2 mmol/L; Blood Urea Nitrogen 28 mg/dL (9-20); Calcium 8.5 mg/dL (8.4-10.2); Carbon Dioxide 32 mmol/L (22-30); Chloride 101 mmol/L (98-107); Glucose 121 mg/dL (74-99); Non-African American GFR(CKD) >90 (>60 ml/min/1.73 sqM); Potassium 4.2 mmol/L (3.5-5.1); Sodium 135 mmol/L (137-145)
[2024-07-13 07:37] LABS: Basophils % (A) 0 %; Eosinophils % (A) 0 %; HCT 41.9 % (39.0-53.0); HGB 13.9 gm/dL (13.0-17.5); Lymphocytes # (A) 0.6 k/uL (1.0-4.8); Lymphocytes % (A) 8 %; MCH 31.1 pg (25.0-35.0); MCHC 33.2 g/dL (31.0-37.0); MCV 93.8 fL (80.0-100.0); Mean Platelet Volume 9.2; Monocytes # (A) 0.2 k/uL (0-1.0); Monocytes % (A) 3 %; Neutrophils # (A) 6.4 k/uL (1.3-7.7); Neutrophils % (A) 89 %; Platelet Count 142 k/uL (150-450); RBC 4.47 m/uL (4.30-5.90); RDW 12.8 % (11.5-15.5); WBC 7.2 k/uL (3.8-10.6)
[2024-07-13] MEDS: LOSARTAN 25 MG TAB PO SCH (09:17)
[2024-07-13] MEDS: ATORVASTATIN 40 MG TAB PO SCH (09:17)
[2024-07-13] MEDS: ASPIRIN 81 MG PO SCH (09:17)
[2024-07-13] MEDS: NICOTINE 14MG/24HR PATCH TRANSDERM SCH (09:18)
[2024-07-13 10:49] VITALS: RESP 18
[2024-07-13 11:56] LABS: Glucose,Whole Blood 125 mg/dL (70-110)
[2024-07-13 13:40] VITALS: BP 131/91; PULSE 68
--- NOTE | 2024-07-13 18:58 | DS ---
DISCHARGE SUMMARY FINAL DIAGNOSES: 1. Chronic obstructive pulmonary disease acute exacerbation with acute purulent tracheobronchitis with failure of outpatient treatment. 2. Panic attacks. 3. History of nicotine dependence. 4. Pulmonary nodule 0.8 cm right mid lung. 5. Multiple medical issues. DISCHARGE DISPOSITION: The patient will be discharged in stable condition and guarded prognosis. HISTORY OF PRESENT ILLNESS: This is a 59-year-old gentleman, who was admitted with COPD and as well as panic attack, treated symptomatically, improved significantly. Dr. Boykin recommended outpatient followup. PHYSICAL EXAMINATION: VITAL SIGNS: Stable. RESPIRATORY: A few scattered rhonchi. Recommend to continue with breathing treatments q.i.d. and Symbicort, tapered prednisone. Follow up with Dr. Indy Allen and Dr. Cohen. The patient will be discharged in stable condition and guarded prognosis. MMKEEL / IJN: [id number] /
== END 2024-07-13 14:52 | disposition home or self-care (01) ==
LOC: EC 11:28 → INTOOBSV 13:28 → 3SCARD 13:28 → UNDODISIN 07-13 14:52
PROVIDERS: ADMIT Internal Medicine; ATTEND Internal Medicine
DX: J44.1 Chronic obstructive pulmonary disease with (acute) exacerbation (principal); J96.01 Acute respiratory failure with hypoxia; K21.9 Gastro-esophageal reflux disease without esophagitis; E78.5 Hyperlipidemia, unspecified; I10 Essential (primary) hypertension; N40.0 Benign prostatic hyperplasia without lower urinary tract symptoms; F32.A Depression, unspecified; I25.10 Atherosclerotic heart disease of native coronary artery without angina pectoris; F41.0 Panic disorder [episodic paroxysmal anxiety]; D72.829 Elevated white blood cell count, unspecified; R91.8 Other nonspecific abnormal finding of lung field; I25.2 Old myocardial infarction; F17.200 Nicotine dependence, unspecified, uncomplicated; Z95.5 Presence of coronary angioplasty implant and graft; Z79.51 Long term (current) use of inhaled steroids; Z79.82 Long term (current) use of aspirin; Z79.899 Other long term (current) drug therapy
CPT/HCPCS: 96376 ×2; 96365; 96366; 96374; 96375; 99291; 36415; 94660; 94640 ×4; 94760; 93005; 80053; 80048; 83605; 83735; 85025 ×2; 85610; 85730; 87040; 84145; 87636; 71045; G0378 ×2; S4990; J2060; J0456; J0696; J2919 ×2

== ENCOUNTER 2024-07-22 21:42 | Emergency (ER) | payer MEDICARE, OTHER ==
[2024-07-22 22:20] LABS: Basophils % (A) 0 %; Eosinophils # (A) 0.1 k/uL (0-0.7); Eosinophils % (A) 1 %; HCT 49.9 % (39.0-53.0); HGB 16.7 gm/dL (13.0-17.5); Lymphocytes # (A) 2.2 k/uL (1.0-4.8); Lymphocytes % (A) 13 %; MCH 31.1 pg (25.0-35.0); MCHC 33.5 g/dL (31.0-37.0); Mean Platelet Volume 7.7; Monocytes # (A) 0.7 k/uL (0-1.0); Monocytes % (A) 4 %; Neutrophils # (A) 13.5 k/uL (1.3-7.7); Neutrophils % (A) 81 %; Platelet Count 174 k/uL (150-450); RBC 5.36 m/uL (4.30-5.90); RDW 12.4 % (11.5-15.5); WBC 16.7 k/uL (3.8-10.6)
[2024-07-22 22:29] LABS: Prothrombin Time 10.8 sec (10.0-12.5)
[2024-07-22 22:30] LABS: ALT 32 U/L (4-49); AST 25 U/L (17-59); African American GFR (CKD) 83 (>60 ml/min/1.73 sqM); Albumin 4.4 g/dL (3.5-5.0); Alkaline Phosphatase 44 U/L (38-126); Anion Gap 6 mmol/L; Blood Urea Nitrogen 26 mg/dL (9-20); Calcium 9.4 mg/dL (8.4-10.2); Carbon Dioxide 30 mmol/L (22-30); Chloride 99 mmol/L (98-107); Glucose 126 mg/dL (74-99); Magnesium 2.1 mg/dL (1.6-2.3); Non-African American GFR(CKD) 72 (>60 ml/min/1.73 sqM); Potassium 3.7 mmol/L (3.5-5.1); Sodium 135 mmol/L (137-145); Total Protein 6.4 g/dL (6.3-8.2)
[2024-07-22] MEDS: LORazepam 2 MG/ML INJ IV STA (22:38)
[2024-07-22] MEDS: SODIUM CHLORIDE 0.9% 500 ML 500 ML IV ONE (23:39)
[2024-07-22 23:52] VITALS: RESP 18
--- NOTE | 2024-07-22 23:59 | XR ---
EXAMINATION TYPE: XR chest 2V DATE OF EXAM: 07/22/2024 10:05 PM COMPARISON: Chest radiographs from 07/12/2024 CLINICAL INDICATION: Male, 59 years old with history of difficulty breathing; [facility] TECHNIQUE: XR chest 2V Frontal and lateral views of the chest. FINDINGS: Lungs/Pleura: There is flattening of the diaphragm with increased lucency of the lungs. No evidence o f pneumothorax, pleural effusion or focal consolidation. Pulmonary vascularity: Unremarkable. Heart/mediastinum: Cardiomediastinal silhouette is unremarkable. Musculoskeletal: No acute osseous pathology. IMPRESSION: 1. No acute cardiopulmonary disease process. 2. COPD changes. [facility], , 07/22/2024 11:56 PM
--- NOTE | 2024-07-23 00:31 | ED ---
General Adult HPI - General Source: patient Mode of arrival: wheelchair Limitations: no limitations <Sree Corrigan - Last Filed: 07/23/24 00:27> <Jovana Bonds - Last Filed: 07/23/24 02:16> - General Chief complaint: Shortness of Breath Stated complaint: LOC Time Seen by Provider: 07/22/24 22:08 - History of Present Illness Initial comments: 59-year-old male presenting with chief complaint of difficulty breathing. Patient has history of COPD, states that he smokes a few cigarettes daily. He has recently been admitted to our facility for COPD exacerbation. He is currently on prednisone and albuterol nebulizers at home. States that he is having shortness of breath that worsens when he is out in the cold. Feels similar to previous panic attacks. He is taking BuSpar which helps somewhat but not completely. He has been coughing but this does not seem much different than usual. No lower extremity swelling. No chest pain. (Sree Corrigan) - Related Data Home Medications Medication Instructions Recorded Confirmed Aspirin [Adult Low Dose Aspirin EC] 81 mg PO DAILY 03/24/18 07/12/24 Atorvastatin Calcium [Lipitor] 40 mg PO DAILY 04/29/18 07/12/24 Albuterol Inhaler [Ventolin Hfa 2 puff INHALATION RT-Q4H PRN 05/27/20 07/12/24 Inhaler] Losartan [Cozaar] 25 mg PO DAILY 05/27/20 07/12/24 Fluticasone/Umeclidin/Vilanter 1 puff INHALATION RT-DAILY 05/11/21 07/12/24 [Trelebrynn Ellipta 200-62.5-25] Previous Rx's Medication Instructions Recorded Metoprolol Tartrate [Lopressor] 25 mg PO BID #60 tab 08/26/15 Ipratropium-Albuterol Nebulize 3 ml INHALATION RT-Q2H PRN each 07/11/24 [Duoneb 0.5 mg-3 mg/3 ml Soln] Nicotine 14Mg/24Hr Patch [Habitrol] 1 patch TRANSDERM DAILY #30 patch 07/11/24 busPIRone HCl [Buspar] 15 mg PO BID #180 tab 07/11/24 predniSONE See Taper PO DIRECTED #30 tab 07/11/24 Ipratropium-Albuterol Nebulize 3 ml INHALATION RT-QID #0 07/13/24 [Duoneb 0.5 mg-3 mg/3 ml Soln] hydrOXYzine HCL [Atarax] 25 mg PO TID PRN #12 tab 07/23/24 Allergies Allergy/AdvReac Type Severity Reaction Status Date / Time iodine Allergy Swelling Verified 07/22/24 21:47 salmon oil Allergy Swelling Verified 07/22/24 21:47 shellfish derived [Shellfish] Allergy Swelling Verified 07/22/24 21:47 venom-honey bee Allergy Swelling Verified 07/22/24 21:47 [bee venom (honey bee)] lorazepam [From Ativan] AdvReac Hallucinati Verified 07/22/24 23:41 ons Review of Systems ROS Other: All systems not noted in ROS Statement are negative. <Sree Corrigan - Last Filed: 07/23/24 00:27> ROS Other: All systems not noted in ROS Statement are negative. <Jovana Bonds - Last Filed: 07/23/24 02:16> ROS Statement: Those systems with pertinent positive or pertinent negative responses have been documented in the HPI. 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, enlarged lymph nodes in chest, pt states he has 3 masses in between lungs that were monitored for years-no change, bronchitis, DDD, spondylosis, 2 herniated cervical discs, 2 lumbar herniated discs, scoliosis, BPH, RLS Last Myocardial Infarction Date:: Aug 2015 History of Any Multi-Drug Resistant Organisms: None Reported Past Surgical History: Heart Catheterization With Stent, Hernia Repair, Orthopedic Surgery, Tonsillectomy Additional Past Surgical History / Comment(s): ORIF L hip/pins, L tibial cyst removed/bone graft from pelvis to tibia, pain clinic procedures, rhinoplasty, colonoscopy, Past Anesthesia/Blood Transfusion Reactions: No Reported Reaction Additional Past Anesthesia/Blood Transfusion Reaction / Comment(s): claustrophobic Date of Last Stent Placement:: Aug 2015 Past Psychological History: Anxiety, Depression Smoking Status: Former smoker Past Alcohol Use History: None Reported Past Drug Use History: None Reported - Past Family History Father History Unknown: Yes Family Medical History: No Reported History Additional Family Medical History / Comment(s): Pt does not know his father. Mother Family Medical History: COPD, CVA/TIA Additional Family Medical History / Comment(s): Mother is 80yrs old. Pt does not have much contact with mother. Brother(s) Additional Family Medical History / Comment(s): He has 2 brothers, one has metal health issues, one is an addict on crack and other street drugs. Sister(s) Family Medical History: Cancer, Liver Disease Additional Family Medical History / Comment(s): Patient had 2 sisters, one from breast cancer, one from cirrhosis at the age of 19 with history of heavy alcohol use and Crohn's disease. <Sree Corrigan - Last Filed: 07/23/24 00:27> General Exam Limitations: no limitations General appearance: alert, in no apparent distress Head exam: Present: atraumatic, normocephalic, normal inspection Eye exam: Present: normal appearance, EOMI Neck exam: Present: normal inspection. Absent: meningismus Respiratory exam: Present: normal lung sounds bilaterally. Absent: respiratory distress, wheezes, rales, rhonchi, stridor Cardiovascular Exam: Present: regular rate, normal rhythm, normal heart sounds. Absent: systolic murmur, diastolic murmur, rubs, gallop, clicks Extremities exam: Absent: pedal edema Neurological exam: Present: alert, oriented X3 Psychiatric exam: Present: normal affect, normal mood Skin exam: Present: warm, dry <Sree Corrigan - Last Filed: 07/23/24 00:27> Course Vital Signs 07/22/24 07/22/24 07/23/24 21:44 23:51 01:16 Temperature 97.4 F L 98.9 F Pulse Rate 77 86 95 Respiratory 22 18 18 Rate Blood Pressure 126/74 125/76 122/79 O2 Sat by Pulse 97 96 95 Oximetry 07/23/24 07/23/24 01:18 01:23 Temperature Pulse Rate 95 84 Respiratory Rate Blood Pressure O2 Sat by Pulse Oximetry Medical Decision Making - Lab Data Result diagrams: 07/22/24 22:12 07/22/24 22:12 <Sree Corrigan - Last Filed: 07/23/24 00:27> - Lab Data Result diagrams: 07/22/24 22:12 07/22/24 22:12 <SlovenianJovana - Last Filed: 07/23/24 02:16> - Medical Decision Making Was pt. sent in by a medical professional or institution ([facility], [employer], urgent care, hospital, or longterm...) When possible be specific @ -[No] Did you speak to anyone other than the patient for history (EMS, parent, family, police, friend...)? What history was obtained from this source @ -[No] Did you review nursing and triage notes (agree or disagree)? Why? @ -[I reviewed and agree with nursing and triage notes] Were old charts reviewed (outside hosp., previous admission, EMS record, old EKG, old radiological studies, urgent care reports/EKG's, longterm records)? Report findings @ -Reviewed recent admission Differential Diagnosis (chest pain, altered mental status, abdominal pain women, abdominal pain men, vaginal bleeding, weakness, fever, dyspnea, syncope, headache, dizziness, GI bleed, back pain, seizure, CVA, palpatations, mental health, musculoskeletal)? @ -MDM Differential Dyspnea: Coronary syndrome, arrhythmia, tamponade, asthma, COPD, pulmonary embolism, pneumonia, pneumothorax, pulmonary effusion, anaphylaxis, diabetic ketoacidosis, flailed chest, pulmonary contusion, diaphragmatic rupture, anemia, neuromuscular this is not meant to be an all-inclusive list. EKG interpreted by me (3pts min.). @ -EKG shows sinus rhythm ventricular rate 76. TN interval 159. QRS 89. QT 346. QTc 377. X-rays interpreted by me (1pt min.). @ -Chest x-ray shows no acute process. COPD changes. CT interpreted by me (1pt min.). @ -[None done] U/S interpreted by me (1pt. min.). @ -[None done] What testing was considered but not performed or refused? (CT, X-rays, U/S, labs)? Why? @ -[None] What meds were considered but not given or refused? Why? @ -[None] Did you discuss the management of the patient with other professionals (professionals i.e. [employer], [employer], lab, RT, psych nurse, social media job titles, diver pumper, teacher, special service officer, casework supervisor)? Give summary @ -[No] Was smoking cessation discussed for >3mins.? @ -[No] Was critical care preformed (if so, how long)? @ -[No] Were there social determinants of health that impacted care today? How? (Homelessness, low income, unemployed, alcoholism, drug addiction, transportation, low edu. Level, literacy, decrease access to med. care, fpc, rehab)? @ -[No] Was there de-escalation of care discussed even if they declined (Discuss DNR or withdrawal of care, Hospice)? DNR status @ -[No] What co-morbidities impacted this encounter? (DM, HTN, Smoking, COPD, CAD, Cancer, CVA, ARF, Chemo, Hep., AIDS, mental health diagnosis, sleep apnea, morbid obesity)? @ -[None] Was patient admitted / discharged? Hospital course, mention meds given and route, prescriptions, significant lab abnormalities, going to OR and other pertinent info. @ -59-year-old male presenting with chief complaint of dyspnea. History of COPD. Believes that it is due to his anxiety. History and physical examination are conducted. Vital signs are stable. WBC 16.7, patient is currently on steroids. Negative troponin. Chest x-ray shows no acute changes. EKG shows sinus rhythm with some artifact, no acute ischemic findings. Patient was given vancomycin and reports that he did have some hallucinations. On reassessment he is resting and feeling much better. He is awaiting a DuoNeb breathing treatment. Patient is signed out to my attending Dr. Bonds. Undiagnosed new problem with uncertain prognosis? @ -[No] Drug Therapy requiring intensive monitoring for toxicity (Heparin, Nitro, Insulin, Cardizem)? @ -[No] Were any procedures done? @ -[No] Diagnosis/symptom? @ -[default] Acute, or Chronic, or Acute on Chronic? @ -[default] Uncomplicated (without systemic symptoms) or Complicated (systemic symptoms)? @ -[default] Side effects of treatment? @ -[No] Exacerbation, Progression, or Severe Exacerbation? @ -[No] Poses a threat to life or bodily function? How? (Chest pain, USA, NM, pneumonia, PE, COPD, DKA, ARF, appy, cholecystitis, CVA, Diverticulitis, Homicidal, Suicidal, threat to staff... and all critical care pts) @ -[No] (Sree Corrigan) Patient was signed out to myself by CARLOS ENRIQUE, pending nebulizer treatment. He is a 59-year-old gentleman with a past medical history of panic attacks, COPD presenting for shortness of breath. The patient himself states it feels more like a panic attack. On my assessment patient is comfortable appearing in no acute distress. Very scant wheezes in the bilateral lung bases. Pending ambulance for treatment. He states he is taking his BuSpar 30 mg twice daily but is hoping to have something to get him through the middle of the day as needed. Discussed trialing hydroxizine, pt will receive a dose here in the ED. Will send him home with a short course of hydroxyzine until he get into see his primary care provider for further management of his anxiety. Status post nebulized treatment patient appears much more comfortable as well. (Jovana Bonds) - Lab Data Lab Results 07/22/24 07/22/24 07/22/24 Range/Units 22:12 22:12 22:12 WBC 16.7 H (3.8-10.6) k/uL RBC 5.36 (4.30-5.90) m/uL Hgb 16.7 (13.0-17.5) gm/dL Hct 49.9 (39.0-53.0) % MCV 93.0 (80.0-100.0) fL MCH 31.1 (25.0-35.0) pg MCHC 33.5 (31.0-37.0) g/dL RDW 12.4 (11.5-15.5) % Plt Count 174 (150-450) k/uL MPV 7.7 Neutrophils % 81 % Lymphocytes % 13 % Monocytes % 4 % Eosinophils % 1 % Basophils % 0 % Neutrophils # 13.5 H (1.3-7.7) k/uL Lymphocytes # 2.2 (1.0-4.8) k/uL Monocytes # 0.7 (0-1.0) k/uL Eosinophils # 0.1 (0-0.7) k/uL Basophils # 0.0 (0-0.2) k/uL PT 10.8 (10.0-12.5) sec INR 1.0 (<1.2) APTT 23.0 (22.0-30.0) sec Sodium 135 L (137-145) mmol/L Potassium 3.7 (3.5-5.1) mmol/L Chloride 99 (98-107) mmol/L Carbon Dioxide 30 (22-30) mmol/L Anion Gap 6 mmol/L BUN 26 H (9-20) mg/dL Creatinine 1.13 (0.66-1.25) mg/dL Est GFR (CKD-EPI)AfAm 83 (>60 ml/min/1.73 sqM) Est GFR (CKD-EPI)NonAf 72 (>60 ml/min/1.73 sqM) Glucose 126 H (74-99) mg/dL Plasma Lactic Acid Obdulio (0.7-2.0) mmol/L Calcium 9.4 (8.4-10.2) mg/dL Magnesium 2.1 (1.6-2.3) mg/dL Total Bilirubin 1.0 (0.2-1.3) mg/dL AST 25 (17-59) U/L ALT 32 (4-49) U/L Alkaline Phosphatase 44 (38-126) U/L Troponin I (0.000-0.034) ng/mL Total Protein 6.4 (6.3-8.2) g/dL Albumin 4.4 (3.5-5.0) g/dL 07/22/24 07/22/24 Range/Units 22:12 22:12 WBC (3.8-10.6) k/uL RBC (4.30-5.90) m/uL Hgb (13.0-17.5) gm/dL Hct (39.0-53.0) % MCV (80.0-100.0) fL MCH (25.0-35.0) pg MCHC (31.0-37.0) g/dL RDW (11.5-15.5) % Plt Count (150-450) k/uL MPV Neutrophils % % Lymphocytes % % Monocytes % % Eosinophils % % Basophils % % Neutrophils # (1.3-7.7) k/uL Lymphocytes # (1.0-4.8) k/uL Monocytes # (0-1.0) k/uL Eosinophils # (0-0.7) k/uL Basophils # (0-0.2) k/uL PT (10.0-12.5) sec INR (<1.2) APTT (22.0-30.0) sec Sodium (137-145) mmol/L Potassium (3.5-5.1) mmol/L Chloride (98-107) mmol/L Carbon Dioxide (22-30) mmol/L Anion Gap mmol/L BUN (9-20) mg/dL Creatinine (0.66-1.25) mg/dL Est GFR (CKD-EPI)AfAm (>60 ml/min/1.73 sqM) Est GFR (CKD-EPI)NonAf (>60 ml/min/1.73 sqM) Glucose (74-99) mg/dL Plasma Lactic Acid Obdulio 0.8 (0.7-2.0) mmol/L Calcium (8.4-10.2) mg/dL Magnesium (1.6-2.3) mg/dL Total Bilirubin (0.2-1.3) mg/dL AST (17-59) U/L ALT (4-49) U/L Alkaline Phosphatase (38-126) U/L Troponin I <0.012 (0.000-0.034) ng/mL Total Protein (6.3-8.2) g/dL Albumin (3.5-5.0) g/dL Disposition <Sree Corrigan - Last Filed: 07/23/24 00:27> Is patient prescribed a controlled substance at d/c from ED?: No <Jovana Bonds - Last Filed: 07/23/24 02:16> Clinical Impression: Anxiety, COPD (chronic obstructive pulmonary disease) Disposition: HOME SELF-CARE Condition: Good Additional Instructions: Every disease is a spectrum and a small chance still exists that a serious condition could develop, for this reason, please monitor yourself closely for new, changing or worsening symptoms, symptoms that persist beyond 48 hours, coughing up blood, swelling in your legs, chest pain, difficulty in breathing fever, inability to tolerate/keep down fluids or your medications, inability to follow up with outpatient providers as instructed and should you experience these symptoms or should you have any further concerns for your wellbeing please return to the ED or call 911 immediately. PLEASE call your primary care physician as soon as possible to arrange / discuss plan for followup appointment. Appointment in the next 1-3 days is strongly encouraged if possible. PLEASE let us know here before you leave if there is anything further we can do to be of any assistance. Take care and feel Better! Prescriptions: hydrOXYzine HCL [Atarax] 25 mg PO TID PRN #12 tab PRN Reason: Anxiety Referrals: Indy Allen MD [Primary Care Provider] - 1-2 days
[2024-07-23] MEDS: IPRATROPIUM-ALBUTEROL 3 ML NEB INHALATION STA (01:16)
[2024-07-23 01:17] VITALS: BP 122/79; TEMP 98.9
[2024-07-23 01:23] VITALS: PULSE 84
[2024-07-23] MEDS: hydrOXYzine HCL 25 MG TAB PO STA (01:56)
== END 2024-07-23 02:16 | disposition home or self-care (01) ==
LOC: EC 21:42
DX: F41.9 Anxiety disorder, unspecified (principal); J44.9 Chronic obstructive pulmonary disease, unspecified; Z87.891 Personal history of nicotine dependence; Z88.5 Allergy status to narcotic agent; Z91.013 Allergy to seafood; Z88.8 Allergy status to other drugs, medicaments and biological substances; Z91.030 Bee allergy status
CPT/HCPCS: 36415; 93005; 80053; 83605; 83735; 84484; 85025; 85610; 85730; 71046; 99285; 96374; 96361; J2060; 94640

== ENCOUNTER 2024-10-26 10:38 | Inpatient (IN) | payer MEDICARE ==
--- NOTE | 2024-10-26 11:28 | ED ---
General Adult HPI - General Chief complaint: Shortness of Breath Stated complaint: LOC,weak Time Seen by Provider: 10/26/24 10:49 Source: patient Mode of arrival: ambulatory Limitations: no limitations - History of Present Illness Initial comments: Dictation was produced using [employer] dictation software. please excuse any grammatical, word or spelling errors. Chief Complaint: 59-year-old male presents with dyspnea History of Present Illness: Patient is a 59-year-old male presents with dyspnea just discharged from [facility]. His pulper operator is Dr. Esquivel. States that he feels like he was discharged prematurely. States he was recently jonas gnosed with pneumonia. Denies any chest pain The ROS documented in this emergency department record has been reviewed and confirmed by me. Those systems with pertinent positive or negative responses have been documented in the HPI. All other systems are other negative and/or noncontributory. - Related Data Home Medications Medication Instructions Recorded Confirmed Aspirin [Adult Low Dose Aspirin EC] 81 mg PO DAILY 03/24/18 07/12/24 Atorvastatin Calcium [Lipitor] 40 mg PO DAILY 04/29/18 07/12/24 Albuterol Inhaler [Ventolin Hfa 2 puff INHALATION RT-Q4H PRN 05/27/20 07/12/24 Inhaler] Losartan [Cozaar] 25 mg PO DAILY 05/27/20 07/12/24 Fluticasone/Umeclidin/Vilanter 1 puff INHALATION RT-DAILY 05/11/21 07/12/24 [Trelegy Ellipta 200-62.5-25] Previous Rx's Medication Instructions Recorded Metoprolol Tartrate [Lopressor] 25 mg PO BID #60 tab 08/26/15 Ipratropium-Albuterol Nebulize 3 ml INHALATION RT-Q2H PRN each 07/11/24 [Duoneb 0.5 mg-3 mg/3 ml Soln] Nicotine 14Mg/24Hr Patch [Habitrol] 1 patch TRANSDERM DAILY #30 patch 07/11/24 busPIRone HCl [Buspar] 15 mg PO BID #180 tab 07/11/24 predniSONE See Taper PO DIRECTED #30 tab 07/11/24 Ipratropium-Albuterol Nebulize 3 ml INHALATION RT-QID #0 07/13/24 [Duoneb 0.5 mg-3 mg/3 ml Soln] hydrOXYzine HCL [Atarax] 25 mg PO TID PRN #12 tab 07/23/24 Allergies Allergy/AdvReac Type Severity Reaction Status Date / Time iodine Allergy Swelling Verified 07/22/24 21:47 salmon oil Allergy Swelling Verified 07/22/24 21:47 shellfish derived [Shellfish] Allergy Swelling Verified 07/22/24 21:47 venom-honey bee Allergy Swelling Verified 07/22/24 21:47 [bee venom (honey bee)] lorazepam [From Ativan] AdvReac Hallucinati Verified 07/22/24 23:41 ons Review of Systems ROS Statement: Those systems with pertinent positive or pertinent negative responses have been documented in the HPI. ROS Other: All systems not noted in ROS Statement are negative. 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, enlarged lymph nodes in chest, pt states he has 3 masses in between lungs that were monitored for years-no change, bronchitis, DDD, spondylosis, 2 herniated cervical discs, 2 lumbar herniated discs, scoliosis, BPH, RLS Last Myocardial Infarction Date:: Aug 2015 History of Any Multi-Drug Resistant Organisms: None Reported Past Surgical History: Heart Catheterization With Stent, Hernia Repair, Orthopedic Surgery, Tonsillectomy Additional Past Surgical History / Comment(s): ORIF L hip/pins, L tibial cyst removed/bone graft from pelvis to tibia, pain clinic procedures, rhinoplasty, colonoscopy, Past Anesthesia/Blood Transfusion Reactions: No Reported Reaction Additional Past Anesthesia/Blood Transfusion Reaction / Comment(s): claustrophobic Date of Last Stent Placement:: Aug 2015 Past Psychological History: Anxiety, Depression Smoking Status: Former smoker Past Alcohol Use History: None Reported Past Drug Use History: None Reported - Past Family History Father History Unknown: Yes Family Medical History: No Reported History Additional Family Medical History / Comment(s): Pt does not know his father. Mother Family Medical History: COPD, CVA/TIA Additional Family Medical History / Comment(s): Mother is 80yrs old. Pt does not have much contact with mother. Brother(s) Additional Family Medical History / Comment(s): He has 2 brothers, one has metal health issues, one is an addict on crack and other street drugs. Sister(s) Family Medical History: Cancer, Liver Disease Additional Family Medical History / Comment(s): Patient had 2 sisters, one from breast cancer, one from cirrhosis at the age of 19 with history of heavy alcohol use and Crohn's disease. General Exam - General Exam Comments Initial Comments: PHYSICAL EXAM: General Impression: Alert and oriented x3, dyspneic HEENT: Normocephalic atraumatic, extra-ocular movements intact, pupils equal and reactive to light bilaterally, mucous membranes moist. Cardiovascular: Heart regular rate and rhythm Chest: 3 word sentences, poor air exchange Abdomen: abdomen soft, non-tender, non-distended, no organomegaly Musculoskeletal: Pulses present and equal in all extremities, no peripheral edema Motor: no focal deficits noted Neurological: CN II-XII grossly intact, no focal motor or sensory deficits noted Skin: Intact with no visualized rashes Psych: Normal affect and mood Limitations: no limitations Course Vital Signs 10/26/24 10/26/24 10/26/24 10:46 11:36 11:51 Temperature 97.7 F Pulse Rate 73 78 68 Respiratory 20 40 H 22 Rate Blood Pressure 145/82 143/86 O2 Sat by Pulse 94 L 94 L Oximetry 10/26/24 10/26/24 10/26/24 12:32 12:37 13:19 Temperature Pulse Rate 74 71 80 Respiratory 22 20 22 Rate Blood Pressure 140/87 O2 Sat by Pulse 100 Oximetry 10/26/24 10/26/24 10/26/24 13:45 13:48 13:53 Temperature Pulse Rate 79 94 89 Respiratory 17 28 H 30 H Rate Blood Pressure 136/97 136/97 O2 Sat by Pulse 100 87 L Oximetry Medical Decision Making - Medical Decision Making Was pt. sent in by a medical professional or institution (, PA, FAMILY WELFARE SOCIAL WORK PROFESSOR, urgent care, hospital, or retirement...) When possible be specific @ -No Did you speak to anyone other than the patient for history (EMS, parent, family, police, friend...)? What history was obtained from this source @ -No Did you review nursing and triage notes (agree or disagree)? Why? @ -I reviewed and agree with nursing and triage notes Were old charts reviewed (outside hosp., previous admission, EMS record, old EKG, old radiological studies, urgent care reports/EKG's, retirement records)? Report findings @ -No old charts were reviewed Differential Diagnosis (chest pain, altered mental status, abdominal pain women, abdominal pain men, vaginal bleeding, musculoskeletal, weakness, fever, dyspnea, syncope, headache, dizziness, GI bleed, back pain, seizure, CVA, palpatations, mental health)? @ -Differential Dyspnea: Coronary syndrome, arrhythmia, tamponade, asthma, COPD, pulmonary embolism, pneumonia, pneumothorax, pulmonary effusion, anaphylaxis, diabetic ketoacidosis, flailed chest, pulmonary contusion, diaphragmatic rupture, anemia, neuromuscular, this is not meant to be an all-inclusive list. EKG interpreted by me (3pts min.). @ -As above X-rays interpreted by me (1pt min.). @ -Chest x-ray is nonacute CT interpreted by me (1pt min.). @ -None done U/S interpreted by me (1pt. min.). @ -None done What testing was considered but not performed or refused? (CT, X-rays, U/S, labs)? Why? @ -None What meds were considered but not given or refused? Why? @ -None Was smoking cessation discussed for >3mins.? @ -No Were there social determinants of health that impacted care today? How? (Homelessness, low income, unemployed, alcoholism, drug addiction, transportation, low edu. Level, literacy, decrease access to med. care, nursing home, rehab)? @ -No Was there de-escalation of care discussed even if they declined (Discuss DNR or withdrawal of care, Hospice)? DNR status @ -No What co-morbidities impacted this encounter? (DM, HTN, Smoking, COPD, CAD, Cancer, CVA, ARF, Chemo, Hep., AIDS, mental health diagnosis, sleep apnea, morbid obesity)? @ -COPD Was patient admitted / discharged? Hospital course, mention meds given and route, prescriptions, significant lab abnormalities, going to OR and other pert inent info. @ -59-year-old male presents to the emergency department with COPD exacerbation. Patient clinical presentation complicated by respiratory failure. Patient acutely dyspneic at the bedside. Vital signs otherwise within acceptable limits. Laboratory evaluation is within acceptable limits. Patient given multiple breathing treatments still symptomatic placed on BiPAP. Will be admitted with consultation to pulmonology. Did you discuss the management of the patient with other professionals (professionals i.e. , PA, FAMILY WELFARE SOCIAL WORK PROFESSOR, lab, RT, psych nurse, social media marketing specialist, radio engineering teacher, teacher, product safety officer, watch case polisher)? Give summary @ -Case discussed with hospitalist for admission Was critical care preformed (if so, how long)? @ -yes, 33 minutes for management of acute respiratory failure Undiagnosed new problem with uncertain prognosis? @ -No Drug Therapy requiring intensive monitoring for toxicity (Heparin, Nitro, Insulin, Cardizem)? @ -No Were any procedures done? @ -No Diagnosis/symptom? Acute, or Chronic, or Acute on Chronic? Uncomplicated (without systemic symptoms) or Complicated (systemic symptoms)? @ -Respiratory failure secondary to COPD exacerbation Side effects of treatment? @ -No Exacerbation, Progression, or Severe Exacerbation? @ -No Poses a threat to life or bodily function? How? (Chest pain, [place], [place], pneumonia, PE, COPD, DKA, ARF, appy, cholecystitis, CVA, Diverticulitis, Homicidal, Suicidal, threat to staff... and all critical care pts) @ -yes - Lab Data Result diagrams: 10/26/24 11:31 10/26/24 11:31 Lab Results 10/26/24 10/26/24 Range/Units 11:31 11:31 WBC 9.98 (4.50-10.00) 10*3/uL RBC 5.01 (4.40-5.60) 10*6/uL Hgb 15.5 (13.0-17.0) g/dL Hct 44.3 (39.6-50.0) % MCV 88.4 (80.0-97.0) fL MCH 30.9 (27.0-32.0) pg MCHC 35.0 (32.0-37.0) g/dL Plt Count 144 (140-440) 10*3/uL MPV 10.3 (9.5-12.2) fL Immature Gran % (Auto) 0.5 % Neutrophils % 78.4 % Lymphocytes % 12.0 % Monocytes % 8.9 % Eosinophils % 0.1 % Basophils % 0.1 % Immature Gran # 0.05 H (0.00-0.04) 10*3/uL Neutrophils # 7.82 H (1.80-7.70) 10*3/uL Lymphocytes # 1.20 (0.90-5.00) 10*3/uL Monocytes # 0.89 (0.20-1.00) 10*3/uL Eosinophils # 0.01 L (0.04-0.35) 10*3/uL Basophils # 0.01 (0.00-0.10) 10*3/uL Immature Plt Fraction 7.2 H (1.1-6.1) % Sodium 135 L (137-145) mmol/L Potassium 3.4 L (3.5-5.1) mmol/L Chloride 98 (98-107) mmol/L Carbon Dioxide 29 (22-30) mmol/L Anion Gap 8 mmol/L BUN 29 H (9-20) mg/dL Creatinine 0.67 (0.66-1.25) mg/dL Est GFR (CKD-EPI)AfAm >90 (>60 ml/min/1.73 sqM) Est GFR (CKD-EPI)NonAf >90 (>60 ml/min/1.73 sqM) Glucose 119 H (74-99) mg/dL Calcium 8.7 (8.4-10.2) mg/dL Disposition Clinical Impression: COPD exacerbation Disposition: ADMITTED IP TO THIS HOSP Condition: Critical Referrals: Indy Allen MD [Primary Care Provider] - 1-2 days Decision Time: 14:08
[2024-10-26] MEDS: ALBUTEROL NEBULIZED 2.5 MG/3 ML INHALATION STA ×2 (11:51→13:16)
[2024-10-26] MEDS: IPRATROPIUM 0.5 MG/2.5 ML NEBU INHALATION STA ×2 (11:51→13:16)
--- NOTE | 2024-10-26 11:55 | XR ---
EXAMINATION TYPE: XR chest 2V DATE OF EXAM: 10/26/2024 CLINICAL INDICATION: Male, 59 years old with history of dyspnea, TECHNIQUE: Frontal and lateral views of the chest are obtained. COMPARISON: Chest x-ray August 27, 2024 FINDINGS: Background chronic emphysematous and pulmonary fibrotic change bilaterally is redemonstrate d. There is no suspicious new focal air space opacity, pleural effusion, or pneumothorax seen. The cardiac silhouette size remains within normal limits. The osseous structures are intact. IMPRESSION: Chronic changes without acute pulmonary process. [facility], , 10/26/2024 11:53 AM
[2024-10-26 12:44] LABS: Basophils # (A) 0.01 10*3/uL (0.00-0.10); Basophils % (A) 0.1 %; Eosinophils # (A) 0.01 10*3/uL (0.04-0.35); Eosinophils % (A) 0.1 %; HCT 44.3 % (39.6-50.0); HGB 15.5 g/dL (13.0-17.0); Immature Platelet Fraction 7.2 % (1.1-6.1); MCH 30.9 pg (27.0-32.0); MCV 88.4 fL (80.0-97.0); Mean Platelet Volume 10.3 fL (9.5-12.2); Monocytes # (A) 0.89 10*3/uL (0.20-1.00); Monocytes % (A) 8.9 %; Neutrophils # (A) 7.82 10*3/uL (1.80-7.70); Neutrophils % (A) 78.4 %; Platelet Count 144 10*3/uL (140-440); RBC 5.01 10*6/uL (4.40-5.60); RDW 12.3 % (11.5-14.5); WBC 9.98 10*3/uL (4.50-10.00)
[2024-10-26 13:01] LABS: African American GFR (CKD) >90 (>60 ml/min/1.73 sqM); Anion Gap 8 mmol/L; Blood Urea Nitrogen 29 mg/dL (9-20); Calcium 8.7 mg/dL (8.4-10.2); Carbon Dioxide 29 mmol/L (22-30); Chloride 98 mmol/L (98-107); Glucose 119 mg/dL (74-99); Non-African American GFR(CKD) >90 (>60 ml/min/1.73 sqM); Potassium 3.4 mmol/L (3.5-5.1); Sodium 135 mmol/L (137-145)
[2024-10-26] MEDS: MAGNESIUM SULFATE-D5W PMX 1 GM in DEXTROSE/WATER 1 100ML.BAG IVPB SCH (13:31)
[2024-10-26] MEDS ORDERED: ACETAMINOPHEN TAB 325 MG TAB PO PRN (14:01)
[2024-10-26] MEDS ORDERED: NALOXONE 0.4 MG/ML 1 ML VIAL IVP PRN (14:01)
[2024-10-26] MEDS: LORazepam 2 MG/ML INJ IV STA (14:02)
[2024-10-26] MEDS: DEXAMETHASONE SOD PHOSPHATE 10 MG/ML 1 ML VIAL IV STA (14:08)
[2024-10-26 14:09] LABS: VBG PH 7.4 (7.31-7.41)
[2024-10-26] MEDS: IPRATROPIUM-ALBUTEROL 3 ML NEB INHALATION SCH (15:21)
[2024-10-26] MEDS ORDERED: RX INFO: IV CONTRAST WAS GIVEN 1 EACH MISC MISCELLANE PRN (16:36)
--- NOTE | 2024-10-26 16:41 | P.CNPUL ---
History of Present Illness Consult date: 10/26/24 Requesting physician: Judah Jefferson Reason for consult: dyspnea, COPD, hypoxemia Chief complaint: Shortness of breath History of present illness: This is a pleasant 59-year-old male patient with a known history of chronic and ongoing tobacco dependence of greater than 30 years, stating he quit 1 month ago, solitary pulmonary nodule he follows with Dr. Boykin in our office. His FEV1 value is 20% of predicted. He is not oxygen dependent. He also has a history of hypertension, hyperlipidemia, coronary artery disease with previous stent placement, anxiety. He has had several admissions to the hospital for COPD exacerbations. Last time in June 2024. He presented here today with a 3-day history of increasing shortness of breath cough and congestion. Chest x- ray revealed evidence of emphysema and pulmonary fibrotic changes but no acute pulmonary process. EKG revealed sinus rhythm with no significant ST and T wave abnormalities. White count 9.9. Hemoglobin 15.5. Platelets 144. Sodium 135. Potassium 3.4. Bicarb 29. BUN 29. Creatinine 0.67. Glucose 119. He is seen today in consultation in the emergency department. He is currently on BiPAP 12/6 and 30% FiO2 with O2 saturations up to 100%. He is feeling better this afternoon. He denied any fever or chills. No productive cough. Review of Systems REVIEW OF SYSTEMS: CONSTITUTIONAL: Denies any recent significant weight loss or weight gain. EYES: Denies change in vision. EARS, NOSE, MOUTH, THROAT: Denies headaches, denies sore throat. CARDIOVASCULAR: Denies chest pain, palpitations or syncopal episodes. RESPIRATORY: Positive for shortness of breath, cough, congestion no hemoptysis. GASTROINTESTINAL: Denies change in appetite, denies abdominal pain GENITOURINARY: Denies hematuria, denies infections. MUSKULOSKELETAL: Denies pain, denies swelling. INTEGUMENTARY: Denies rash, denies eczema. NEUROLOGICAL: Denies recent memory loss, no recent seizure activity. PSYCHIATRIC: Denies anxiety, denies depression. HEMATOLOGIC/LYMPHATIC: Denies anemia, denies enlarged lymph nodes. 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, enlarged lymph nodes in chest, pt states he has 3 masses in between lungs that were monitored for years-no change, bronchitis, DDD, spondylosis, 2 herniated cervical discs, 2 lumbar herniated discs, scoliosis, BPH, RLS Last Myocardial Infarction Date:: Aug 2015 History of Any Multi-Drug Resistant Organisms: None Reported Past Surgical History: Heart Catheterization With Stent, Hernia Repair, Orthopedic Surgery, Tonsillectomy Additional Past Surgical History / Comment(s): ORIF L hip/pins, L tibial cyst removed/bone graft from pelvis to tibia, pain clinic procedures, rhinoplasty, colonoscopy, Past Anesthesia/Blood Transfusion Reactions: No Reported Reaction Additional Past Anesthesia/Blood Transfusion Reaction / Comment(s): claustrophobic Date of Last Stent Placement:: Aug 2015 Past Psychological History: Anxiety, Depression Smoking Status: Former smoker Past Alcohol Use History: None Reported Past Drug Use History: None Reported - Past Family History Father History Unknown: Yes Family Medical History: No Reported History Additional Family Medical History / Comment(s): Pt does not know his father. Mother Family Medical History: COPD, CVA/TIA Additional Family Medical History / Comment(s): Mother is 80yrs old. Pt does not have much contact with mother. Brother(s) Additional Family Medical History / Comment(s): He has 2 brothers, one has metal health issues, one is an addict on crack and other street drugs. Sister(s) Family Medical History: Cancer, Liver Disease Additional Family Medical History / Comment(s): Patient had 2 sisters, one from breast cancer, one from cirrhosis at the age of 19 with history of heavy alcohol use and Crohn's disease. Medications and Allergies Home Medications Medication Instructions Recorded Confirmed Type Aspirin [Adult Low Dose Aspirin EC] 81 mg PO DAILY 03/24/18 10/26/24 History Atorvastatin Calcium [Lipitor] 40 mg PO DAILY 04/29/18 10/26/24 History Albuterol Inhaler [Ventolin Hfa 2 puff INHALATION RT-Q4H PRN 05/27/20 10/26/24 History Inhaler] Losartan [Cozaar] 25 mg PO DAILY 05/27/20 10/26/24 History Fluticasone/Umeclidin/Vilanter 1 puff INHALATION RT-DAILY 05/11/21 10/26/24 History [Trelegy Ellipta 200-62.5-25] predniSONE See Taper PO DIRECTED #30 tab 07/11/24 10/26/24 Rx hydrOXYzine HCL [Atarax] 25 mg PO TID PRN #12 tab 07/23/24 10/26/24 Rx ALPRAZolam [Xanax] 0.5 mg PO TID PRN 10/26/24 10/26/24 History Acetaminophen Tab [Tylenol Tab] 1,000 mg PO Q6HR PRN 10/26/24 10/26/24 History Escitalopram [Lexapro] 5 mg PO DAILY 10/26/24 10/26/24 History Ipratropium-Albuterol Nebulize 3 ml INHALATION RT-QID PRN 10/26/24 10/26/24 History [Duoneb 0.5 mg-3 mg/3 ml Soln] Metoprolol Tartrate [Lopressor] 50 mg PO BID 10/26/24 10/26/24 History Pantoprazole [Protonix] 40 mg PO AC-BRKFST 10/26/24 10/26/24 History cefuroxime axetiL [Ceftin] 500 mg PO BID 10/26/24 10/26/24 History Allergies Allergy/AdvReac Type Severity Reaction Status Date / Time iodine Allergy Swelling Verified 10/26/24 14:54 salmon oil Allergy Swelling Verified 10/26/24 14:54 shellfish derived [Shellfish] Allergy Swelling Verified 10/26/24 14:54 venom-honey bee Allergy Swelling Verified 10/26/24 14:54 [bee venom (honey bee)] lorazepam [From Ativan] AdvReac Hallucinati Verified 10/26/24 14:54 ons Physical Exam Vitals: Vital Signs Temp Pulse Resp BP Pulse Ox FiO2 10/26/24 15:33 30 10/26/24 14:41 90 22 120/101 95 10/26/24 14:10 97 26 H 111/86 97 40 10/26/24 13:53 89 30 H 136/97 87 L 10/26/24 13:48 94 28 H 10/26/24 13:45 79 17 136/97 100 10/26/24 13:19 80 22 10/26/24 12:37 71 20 140/87 100 10/26/24 12:32 74 22 10/26/24 11:51 68 22 10/26/24 11:36 78 40 H 143/86 94 L 10/26/24 10:46 97.7 F 73 20 145/82 94 L Intake and Output 10/26/24 10/26/24 10/26/24 06:59 14:59 22:59 Other: Weight 55.792 kg GENERAL EXAM: Alert, thin, pleasant 59-year-old male, appearing older than his stated age, on BiPAP 12/6 and 30% FiO2, fairly comfortable in no apparent distress. HEAD: Normocephalic. EYES: Normal reaction of pupils, equal size. NOSE: Clear with pink turbinates. THROAT: No erythema or exudates. NECK: No masses, no JVD. CHEST: No chest wall deformity. LUNGS: Equal air entry with end expiratory wheeze, diminished throughout. CVS: S1 and S2 normal with no audible murmur, regular rhythm. ABDOMEN: No hepatosplenomegaly, normal bowel sounds, no guarding or rigidity. SPINE: No scoliosis or deformity SKIN: No rashes CENTRAL NERVOUS SYSTEM: No focal deficits, tone is normal in all 4 extremities. EXTREMITIES: There is no peripheral edema. No clubbing, no cyanosis. Peripheral pulses are intact. Results - Laboratory Findings CBC and BMP: 10/26/24 11:31 10/26/24 11:31 Abnormal lab findings: Abnormal Labs 10/26/24 10/26/24 10/26/24 11:31 11:31 13:45 Immature Gran # 0.05 H Neutrophils # 7.82 H Eosinophils # 0.01 L Immature Plt Fraction 7.2 H VBG HCO3 30 H Sodium 135 L Potassium 3.4 L BUN 29 H Glucose 119 H - Diagnostic Findings Chest x-ray: image reviewed Assessment and Plan Assessment: Acute hypoxemic respiratory failure secondary to an acute exacerbation of chronic obstructive pulmonary disease requiring BiPAP support History of chronic obstructive pulmonary disease with an FEV1 value 20% of predicted, not oxygen dependent Chronic and ongoing tobacco dependence of greater than 30 years, states quit 1 month ago History of a 0.8 cm nodule anterior right midlung being followed in the outpatient setting, PET scan pending Emil artery disease with previous stent placement Hypertension Hyperlipidemia History of anxiety Plan: The patient was seen and evaluated Chest x-ray, labs and medications reviewed Initiated on DuoNeb and elations Initiated on Pulmicort and Perforomist inhalations Initiated on IV Solu-Medrol Educated regarding continued complete smoking cessation Continue BiPAP support for now Transition to nasal cannula as tolerated Obtain a CT scan of the chest regarding pulmonary nodule We will continue to follow and make further recommendations based on his clinical status I have personally seen and examined the patient, performed the documentation and the assessment and plan as written. Number of minutes spent on the visit: 20 Dictation was produced using [employer] dictation software. Please excuse any grammatical, word or spelling errors. Time with Patient: Greater than 30
[2024-10-26] MEDS: methylPREDNISolone SOD SUCCI 125 MG/2 ML VIAL IV SCH (17:25)
[2024-10-26] MEDS: AZITHROMYCIN 500 MG TAB PO SCH (17:26)
[2024-10-26] MEDS: FORMOTEROL FUMARATE 20 MCG/2 ML NEBU INHALATION SCH (19:45)
[2024-10-26] MEDS: BUDESONIDE 1 MG/2 ML NEBU INHALATION SCH (19:45)
[2024-10-26] MEDS: FAMOTIDINE 20 MG/2 ML VIAL IV SCH (20:08)
[2024-10-26] MEDS: HEPARIN SODIUM,PORCINE 5,000 UNIT/ML 1 ML VIAL SQ SCH (20:08)
--- NOTE | 2024-10-26 22:19 | CT ---
EXAMINATION TYPE: CT chest wo con CT DLP: 207.1 mGycm, Automated exposure control for dose reduction was used. DATE OF EXAM: 10/26/2024 9:54 PM COMPARISON: Multiple chest radiographs most recent 10/26/2024, CT chest 04/27/2024, CTA chest 04/12/2022 CLINICAL INDICATION:Male, 59 years old with history of Right lung pulmonary nodule; PHH, Right lung p ulmonary nodule. TECHNIQUE: Multiple axial images were obtained through the chest without IV contrast. Lack of IV or o ral contrast limits evaluation of solid and hollow organ viscera. . Coronal and sagittal reformats re viewed. FINDINGS: LUNGS/ PLEURA: No pleural effusion, pneumothorax, focal consolidation. Advanced centrilobular emphyse matous changes. Stable right upper lobe 7 mm solid pulmonary nodule (series 205, image 33). No new o r enlarging pulmonary nodules. AIRWAY: Patent and unremarkable.. HEART: Size within normal limits.Trace pericardial effusion. Mild coronary artery calcifications pres ent within the circumflex artery. MEDIASTINUM: No gross evidence of adenopathy. VASCULATURE: No aortic aneurysm. Mild atelectatic calcification of the aorta and its branches. MUSCULOSKELETAL: No acute osseous abnormalities SOFT TISSUES/LYMPH NODES: Unremarkable. LOWER NECK: No significant findings. UPPER ABDOMEN: Nonobstructive right renal 2 mm calculus. IMPRESSION: 1. Stable right upper lobe [address] 04/27/2024. No new or enlarging pulmonary nodules . According to Fleischner criteria, recommend follow-up CT chest in 12 months. 2. Advanced emphysematous changes. 3. Nonobstructive right renal calculus. [facility], , 10/26/2024 10:17 PM
[2024-10-26] MEDS ORDERED: ALPRAZolam 0.5 MG TAB PO PRN (22:30)
[2024-10-26] MEDS ORDERED: hydrOXYzine HCL 25 MG TAB PO PRN (22:30)
--- NOTE | 2024-10-26 22:34 | P.HPIM ---
History of Present Illness This is a pleasant 59 years old male with past medical history of multiple medical problems including COPD. He presents because of dyspnea for 3 days duration patient with no chest pain with no coughing or phlegm No specific GI/ symptom. No headache dizziness weakness numbness Patient is complaining however from dysuria. He has diarrhea for 2 days. He is currently on BiPAP with a settings of 12/9 with FiO2 of 30%. Review of Systems Review of systems CONSTITUTIONAL: No fever, no malaise, no fatigue. HEENT: No recent visual problems or hearing problems. Denied any sore throat. CARDIOVASCULAR: No orthopnea, PND, no palpitations, no syncope. PULMONARY: No chest wall tenderness, no hemoptysis. GASTROINTESTINAL: No diarrhea, no nausea, no vomiting, no abdominal pain. Normoactive bowel sounds. NEUROLOGICAL: No headaches, no weakness, no numbness. HEMATOLOGICAL: Denies any bleeding or petechiae. GENITOURINARY: Denies any burning micturition, frequency, or urgency. MUSCULOSKELETAL/RHEUMATOLOGICAL: Denies any joint pain, swelling, or any muscle pain. ENDOCRINE: Denies any polyuria or polydipsia. 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, enlarged lymph nodes in chest, pt states he has 3 masses in between lungs that were monitored for years-no change, bronchitis, DDD, spondylosis, 2 herniated cervical discs, 2 lumbar herniated discs, scoliosis, BPH, RLS Last Myocardial Infarction Date:: Aug 2015 History of Any Multi-Drug Resistant Organisms: None Reported Past Surgical History: Heart Catheterization With Stent, Hernia Repair, Orthopedic Surgery, Tonsillectomy Additional Past Surgical History / Comment(s): ORIF L hip/pins, L tibial cyst removed/bone graft from pelvis to tibia, pain clinic procedures, rhinoplasty, colonoscopy, Past Anesthesia/Blood Transfusion Reactions: No Reported Reaction Additional Past Anesthesia/Blood Transfusion Reaction / Comment(s): claustrophobic Date of Last Stent Placement:: Aug 2015 Past Psychological History: Anxiety, Depression Smoking Status: Former smoker Past Alcohol Use History: None Reported Past Drug Use History: None Reported - Past Family History Father History Unknown: Yes Family Medical History: No Reported History Additional Family Medical History / Comment(s): Pt does not know his father. Mother Family Medical History: COPD, CVA/TIA Additional Family Medical History / Comment(s): Mother is 80yrs old. Pt does not have much contact with mother. Brother(s) Additional Family Medical History / Comment(s): He has 2 brothers, one has metal health issues, one is an addict on crack and other street drugs. Sister(s) Family Medical History: Cancer, Liver Disease Additional Family Medical History / Comment(s): Patient had 2 sisters, one from breast cancer, one from cirrhosis at the age of 19 with history of heavy alcohol use and Crohn's disease. Medications and Allergies Home Medications Medication Instructions Recorded Confirmed Type Aspirin [Adult Low Dose Aspirin EC] 81 mg PO DAILY 03/24/18 10/26/24 History Atorvastatin Calcium [Lipitor] 40 mg PO DAILY 04/29/18 10/26/24 History Albuterol Inhaler [Ventolin Hfa 2 puff INHALATION RT-Q4H PRN 05/27/20 10/26/24 History Inhaler] Losartan [Cozaar] 25 mg PO DAILY 05/27/20 10/26/24 History Fluticasone/Umeclidin/Vilanter 1 puff INHALATION RT-DAILY 05/11/21 10/26/24 History [Trelegy Ellipta 200-62.5-25] predniSONE See Taper PO DIRECTED #30 tab 07/11/24 10/26/24 Rx hydrOXYzine HCL [Atarax] 25 mg PO TID PRN #12 tab 07/23/24 10/26/24 Rx ALPRAZolam [Xanax] 0.5 mg PO TID PRN 10/26/24 10/26/24 History Acetaminophen Tab [Tylenol Tab] 1,000 mg PO Q6HR PRN 10/26/24 10/26/24 History Escitalopram [Lexapro] 5 mg PO DAILY 10/26/24 10/26/24 History Ipratropium-Albuterol Nebulize 3 ml INHALATION RT-QID PRN 10/26/24 10/26/24 His tory [Duoneb 0.5 mg-3 mg/3 ml Soln] Metoprolol Tartrate [Lopressor] 50 mg PO BID 10/26/24 10/26/24 History Pantoprazole [Protonix] 40 mg PO AC-BRKFST 10/26/24 10/26/24 History cefuroxime axetiL [Ceftin] 500 mg PO BID 10/26/24 10/26/24 History Allergies Allergy/AdvReac Type Severity Reaction Status Date / Time iodine Allergy Swelling Verified 10/26/24 14:54 salmon oil Allergy Swelling Verified 10/26/24 14:54 shellfish derived [Shellfish] Allergy Swelling Verified 10/26/24 14:54 venom-honey bee Allergy Swelling Verified 10/26/24 14:54 [bee venom (honey bee)] lorazepam [From Ativan] AdvReac Hallucinati Verified 10/26/24 14:54 ons Physical Exam Vitals: Vital Signs Temp Pulse Resp BP Pulse Ox FiO2 10/26/24 16:00 83 28 H 100/71 99 10/26/24 15:33 30 10/26/24 14:41 90 22 120/101 95 10/26/24 14:10 97 26 H 111/86 97 40 10/26/24 13:53 89 30 H 136/97 87 L 10/26/24 13:48 94 28 H 10/26/24 13:45 79 17 136/97 100 10/26/24 13:19 80 22 10/26/24 12:37 71 20 140/87 100 10/26/24 12:32 74 22 10/26/24 11:51 68 22 10/26/24 11:36 78 40 H 143/86 94 L 10/26/24 10:46 97.7 F 73 20 145/82 94 L Intake and Output 10/26/24 10/26/24 10/26/24 06:59 14:59 22:59 Other: Weight 55.792 kg GENERAL: The patient is alert and oriented x3, not in any acute distress. Well developed, well nourished. HEENT: Pupils are round and equally reacting to light. EOMI. No scleral icterus. No conjunctival pallor. Normocephalic, atraumatic. No pharyngeal erythema. No thyromegaly. CARDIOVASCULAR: S1 and S2 present. No murmurs, rubs, or gallops. -PULMONARY: Chest is clear to auscultation, bilateral expiratory wheezing , no crackles. ABDOMEN: Soft, nontender, nondistended, normoactive bowel sounds. No palpable organomegaly. MUSCULOSKELETAL: No joint swelling or deformity. EXTREMITIES: No cyanosis, clubbing, or pedal edema. NEUROLOGICAL: Gross neurological examination did not reveal any focal deficits. SKIN: No rashes. no petechiae. Results CBC & Chem 7: 10/26/24 11:31 10/26/24 11:31 Labs: Abnormal Lab Results - Last 24 Hours (Table) 10/26/24 10/26/24 10/26/24 Range/Units 11:31 11:31 13:45 Immature Gran # 0.05 H (0.00-0.04) 10*3/uL Neutrophils # 7.82 H (1.80-7.70) 10*3/uL Eosinophils # 0.01 L (0.04-0.35) 10*3/uL Immature Plt Fraction 7.2 H (1.1-6.1) % VBG HCO3 30 H (24-28) mmol/L Sodium 135 L (137-145) mmol/L Potassium 3.4 L (3.5-5.1) mmol/L BUN 29 H (9-20) mg/dL Glucose 119 H (74-99) mg/dL Assessment and Plan Assessment: Acute COPD exacerbation Acute hypoxic respiratory failure Stable left upper lobe lung nodule 7 mm, follow-up repeat CT in 12 months Dysuria, rule out UTI. Hypertension Hyperlipidemia Coronary artery disease Osteoarthritis GERD Plan: Continue with IV Solu-Medrol Change antibiotic to doxycycline Continue with BiPAP as needed Pulmonary team consult Bronchodilator Labs and medication were reviewed.. Continue same treatment. Continue with symptomatic treatment. Resume home medication. Monitor labs and vitals. DVT and GI prophylaxis. Further recommendations as per clinical course of the patient DVT prophylaxis: Subcutaneous heparin GI Prophylaxis: P Protonix Prognosis is guarded
[2024-10-27 05:55] LABS: Appearance,Urine Clear (Clear); Bilirubin,Urine Negative (Negative); Blood,Urine Negative (Negative); Color,Urine Yellow; Glucose,Urine (UA) 3+ (Negative); Ketones,Urine Negative (Negative); Leukocyte Esterase,Urine Negative (Negative); Nitrite,Urine Negative (Negative); PH, Urine 6.5 (5.0-8.0); Protein,Urine Negative (Negative); Specific Gravity,Urine 1.026 (1.001-1.035); Urobilinogen,Urine <2.0 mg/dL (<2.0)
[2024-10-27] MEDS: PANTOPRAZOLE 40 MG TABLET PO SCH (06:26)
[2024-10-27] MEDS: ESCITALOPRAM 5 MG TAB PO SCH (08:46)
[2024-10-27] MEDS: DOXYCYCLINE 100 MG TABLET PO SCH (08:46)
[2024-10-27] MEDS: LOSARTAN 25 MG TAB PO SCH (08:46)
[2024-10-27] MEDS: ATORVASTATIN 40 MG TAB PO SCH (08:46)
[2024-10-27] MEDS: ASPIRIN 81 MG PO SCH (08:46)
[2024-10-27] MEDS: METOPROLOL TARTRATE 50 MG TAB PO SCH (08:46)
--- NOTE | 2024-10-27 10:10 | P.PN ---
Subjective This is a pleasant 59 years old male with past medical history of multiple medical problems including COPD. He presents because of dyspnea for 3 days duration patient with no chest pain with no coughing or phlegm No specific GI/ symptom. No headache dizziness weakness numbness Patient is complaining however from dysuria. He has diarrhea for 2 days. He is currently on BiPAP with a settings of 06/28 with FiO2 of 30%. 10/27 Patient feels much improved today although he still mildly tachypneic Currently saturating 97% on 2 L oxygen via nasal cannula He was complaining from dysuria yesterday but urinalysis was negative. He is complaining from diarrhea and C. difficile requested. Other than that he remains on Solu-Medrol 60 mg and doxycycline Possible discharge 24 to 48 hours if he keeps improving and cleared by pulmonary service. Objective - Vital Signs Vital signs: Vital Signs Temp 97.8 F 10/27/24 04:00 Pulse 92 10/27/24 07:53 Resp 20 10/27/24 04:00 BP 136/76 10/27/24 04:00 Pulse Ox 97 10/27/24 04:00 FiO2 30 10/26/24 15:33 Intake & Output 10/26/24 10/27/24 10/27/24 18:59 06:59 18:59 Weight 55.792 kg 50.6 kg Other: Voiding Method Urinal - Exam -GENERAL: The patient is alert and oriented x3, not in any acute distress. Well developed, well nourished. Thin built HEENT: Pupils are round and equally reacting to light. EOMI. No scleral icterus. No conjunctival pallor. Normocephalic, atraumatic. No pharyngeal erythema. No thyromegaly. CARDIOVASCULAR: S1 and S2 present. No murmurs, rubs, or gallops. -PULMONARY: Chest is clear to auscultation, very mild bilateral scattered whee zing , no crackles. ABDOMEN: Soft, nontender, nondistended, normoactive bowel sounds. No palpable o rganomegaly. MUSCULOSKELETAL: No joint swelling or deformity. EXTREMITIES: No cyanosis, clubbing, or pedal edema. NEUROLOGICAL: Gross neurological examination did not reveal any focal deficits. SKIN: No rashes. no petechiae. - Labs CBC & Chem 7: 10/26/24 11:31 10/26/24 11:31 Labs: Abnormal Lab Results - Last 24 Hours (Table) 10/26/24 10/26/24 10/26/24 Range/Units 11:31 11:31 13:45 Immature Gran # 0.05 H (0.00-0.04) 10*3/uL Neutrophils # 7.82 H (1.80-7.70) 10*3/uL Eosinophils # 0.01 L (0.04-0.35) 10*3/uL Immature Plt Fraction 7.2 H (1.1-6.1) % VBG HCO3 30 H (24-28) mmol/L Sodium 135 L (137-145) mmol/L Potassium 3.4 L (3.5-5.1) mmol/L BUN 29 H (9-20) mg/dL Glucose 119 H (74-99) mg/dL Urine Glucose (UA) (Negative) 10/27/24 Range/Units 05:21 Immature Gran # (0.00-0.04) 10*3/uL Neutrophils # (1.80-7.70) 10*3/uL Eosinophils # (0.04-0.35) 10*3/uL Immature Plt Fraction (1.1-6.1) % VBG HCO3 (24-28) mmol/L Sodium (137-145) mmol/L Potassium (3.5-5.1) mmol/L BUN (9-20) mg/dL Glucose (74-99) mg/dL Urine Glucose (UA) 3+ H (Negative) Assessment and Plan Assessment: Acute COPD exacerbation Acute hypoxic respiratory failure Stable left upper lobe lung nodule 7 mm, follow-up repeat CT in 12 months Dysuria, rule out UTI. Hypertension Hyperlipidemia Coronary artery disease Osteoarthritis GERD Plan: Continue with IV Solu-Medrol, Switch her to prednisone per senior office assistant Change antibiotic to doxycycline Continue with oxygen as needed Pulmonary team consult Bronchodilator Labs and medication were reviewed.. Continue same treatment. Continue with symptomatic treatment. Resume home medication. Monitor labs and vitals. DVT and GI prophylaxis. Further recommendations as per clinical course of the patient DVT prophylaxis: Subcutaneous heparin GI Prophylaxis: P Protonix Prognosis is guarded
--- NOTE | 2024-10-27 16:09 | P.PN ---
Subjective Progress Note Date: 10/27/24 Principal diagnosis: Acute hypoxic respiratory failure secondary to acute COPD exacerbation This is a pleasant 59-year-old male patient with a known history of chronic and ongoing tobacco dependence of greater than 30 years, stating he quit 1 month ago, solitary pulmonary nodule he follows with Dr. Boykin in our office. His FEV1 value is 20% of predicted. He is not oxygen dependent. He also has a history of hypertension, hyperlipidemia, coronary artery disease with previous stent placement, anxiety. He has had several admissions to the hospital for COPD exacerbations. Last time in June 2024. He presented here today with a 3-day history of increasing shortness of breath cough and congestion. Chest x- ray revealed evidence of emphysema and pulmonary fibrotic changes but no acute pulmonary process. EKG revealed sinus rhythm with no significant ST and T wave abnormalities. White count 9.9. Hemoglobin 15.5. Platelets 144. Sodium 135. Potassium 3.4. Bicarb 29. BUN 29. Creatinine 0.67. Glucose 119. He is seen today in consultation in the emergency department. He is currently on BiPAP 06/25 and 30% FiO2 with O2 saturations up to 100%. He is feeling better this afternoon. He denied any fever or chills. No productive cough. Patient was seen today on10/27/24,, patient is feeling a bit better from the pulmonary perspective however he feels generally weak. Less cough less wheezing less shortness of breath, but he has profound weakness, labs were unremarkable CT of the chest showed no change in the size of his right lung nodule patient remains tachypneic, on nasal cannula, on maximal therapy for COPD including Solu-Medrol, he is also on doxycycline and on multiple bronchodilators. Objective - Vital Signs Vital signs: Vital Signs Temp 98.2 F 10/27/24 12:00 Pulse 88 10/27/24 15:23 Resp 18 10/27/24 14:00 BP 119/71 10/27/24 12:00 Pulse Ox 95 10/27/24 12:00 FiO2 30 10/26/24 15:33 Intake & Output 10/26/24 10/27/24 10/27/24 18:59 06:59 18:59 Intake Total 480 Balance 480 Weight 55.792 kg 50.6 kg 50.6 kg Intake: Oral 480 Other: Voiding Method Urinal Urinal - Exam GENERAL EXAM: Revealed 59-year-old white male in no distress, on 2 L nasal cannula, O2 sat is 95% HEAD: Normocephalic. EYES: Normal reaction of pupils, equal size. NOSE: Clear with pink turbinates. THROAT: No erythema or exudates. NECK: No masses, no JVD. CHEST: No chest wall deformity. LUNGS: Equal air entry with end expiratory wheeze, diminished throughout. CVS: S1 and S2 normal with no audible murmur, regular rhythm. ABDOMEN: No hepatosplenomegaly, normal bowel sounds, no guarding or rigidity. SKIN: No rashes CENTRAL NERVOUS SYSTEM: Alert oriented x 3 no focal deficit EXTREMITIES: No clubbing, no edema, no cyanosis - Labs CBC & Chem 7: 10/26/24 11:31 10/26/24 11:31 Labs: Abnormal Lab Results - Last 24 Hours (Table) 10/27/24 Range/Units 05:21 Urine Glucose (UA) 3+ H (Negative) Assessment and Plan Assessment: Impression: Acute hypoxemic respiratory failure secondary to an acute exacerbation of chronic obstructive pulmonary disease requiring BiPAP support History of chronic obstructive pulmonary disease with an FEV1 value 20% of predicted, not oxygen dependent Chronic and ongoing tobacco dependence of greater than 30 years, states quit 1 month ago History of a 0.7 cm nodule anterior right midlung unchanged based on CT of the chest done on this admission next CT will be done in 6 months Coronary artery disease with previous stent placement Hypertension Hyperlipidemia History of anxiety Recommendation: Continue oxygen and titrate accordingly Continue bronchodilators including DuoNeb Pulmicort Perforomist Continue Solu-Medrol Continue antibiotics for COPD exacerbation/tracheobronchitis Reviewed the results of the CT of the chest and updated the patient on his nodule Not ready for any discharge, will continue to follow Prognosis remains relatively guarded Time with Patient: Less than 30
[2024-10-27] MEDS: FAMOTIDINE 20 MG TAB PO SCH (21:15)
--- NOTE | 2024-10-28 10:18 | P.PN ---
Subjective This is a pleasant 59 years old male with past medical history of multiple medical problems including COPD. He presents because of dyspnea for 3 days duration patient with no chest pain with no coughing or phlegm No specific GI/ symptom. No headache dizziness weakness numbness Patient is complaining however from dysuria. He has diarrhea for 2 days. He is currently on BiPAP with a settings of 06/28 with FiO2 of 30%. 10/27 Patient feels much improved today although he still mildly tachypneic Currently saturating 97% on 2 L oxygen via nasal cannula He was complaining from dysuria yesterday but urinalysis was negative. He is complaining from diarrhea and C. difficile requested. Other than that he remains on Solu-Medrol 60 mg and doxycycline Possible discharge 24 to 48 hours if he keeps improving and cleared by pulmonary service. 10/28 Patient is still tachypneic and short of breath requiring oxygen supplementation No significant wheezing, D-dimer is ordered. Also will check labs. No chest pain. No other new complaints. Patient did not use the BiPAP machine overnight Remains on IV Solu-Medrol 60 mg and doxycycline. Objective - Vital Signs Vital signs: Vital Signs Temp 97.8 F 10/28/24 09:37 Pulse 71 10/28/24 09:37 Resp 18 10/28/24 09:37 BP 129/76 10/28/24 09:37 Pulse Ox 99 10/28/24 09:37 FiO2 30 10/26/24 15:33 Intake & Output 10/27/24 10/28/24 10/28/24 18:59 06:59 18:59 Intake Total 720 1000 Balance 720 1000 Weight 50.6 kg 50 kg Intake: Oral 720 1000 Other: Voiding Method Urinal Urinal # Voids 2 1 # Bowel Movements 0 - Exam -GENERAL: The patient is alert and oriented x3, not in any acute distress. Well developed, well nourished. Thin built HEENT: Pupils are round and equally reacting to light. EOMI. No scleral icterus. No conjunctival pallor. Normocephalic, atraumatic. No pharyngeal erythema. No thyromegaly. CARDIOVASCULAR: S1 and S2 present. No murmurs, rubs, or gallops. -PULMONARY: Chest is clear to auscultation, very mild bilateral scattered wheezing , no crackles. ABDOMEN: Soft, nontender, nondistended, normoactive bowel sounds. No palpable organomegaly. MUSCULOSKELETAL: No joint swelling or deformity. EXTREMITIES: No cyanosis, clubbing, or pedal edema. NEUROLOGICAL: Gross neurological examination did not reveal any focal deficits. SKIN: No rashes. no petechiae. - Labs CBC & Chem 7: 10/26/24 11:31 10/26/24 11:31 Assessment and Plan Assessment: Acute COPD exacerbation Acute hypoxic respiratory failure Stable left upper lobe lung nodule 7 mm, follow-up repeat CT in 12 months Dysuria, rule out UTI. Hypertension Hyperlipidemia Coronary artery disease Osteoarthritis GERD Plan: Check D-dimer Continue with IV Solu-Medrol, Switch her to prednisone per group work program aide Change antibiotic to doxycycline Continue with oxygen as needed Pulmonary team consult Bronchodilator Labs and medication were reviewed.. Continue same treatment. Continue with symptomatic treatment. Resume home medication. Monitor labs and vitals. DVT and GI prophylaxis. Further recommendations as per clinical course of the patient DVT prophylaxis: Subcutaneous heparin GI Prophylaxis: P Protonix Prognosis is guarded
[2024-10-28 11:23] LABS: Basophils # (A) 0.01 10*3/uL (0.00-0.10); Basophils % (A) 0.1 %; HCT 41.8 % (39.6-50.0); Lymphocytes # (A) 0.38 10*3/uL (0.90-5.00); Lymphocytes % (A) 3.2 %; MCH 30.5 pg (27.0-32.0); MCHC 33.5 g/dL (32.0-37.0); MCV 91.1 fL (80.0-97.0); Mean Platelet Volume 10.6 fL (9.5-12.2); Monocytes # (A) 0.57 10*3/uL (0.20-1.00); Monocytes % (A) 4.8 %; Neutrophils # (A) 10.82 10*3/uL (1.80-7.70); Neutrophils % (A) 91.6 %; Platelet Count 198 10*3/uL (140-440); RBC 4.59 10*6/uL (4.40-5.60); RDW 12.1 % (11.5-14.5); WBC 11.82 10*3/uL (4.50-10.00)
[2024-10-28 11:50] LABS: African American GFR (CKD) >90 (>60 ml/min/1.73 sqM); Anion Gap 2 mmol/L; Blood Urea Nitrogen 30 mg/dL (9-20); Calcium 8.6 mg/dL (8.4-10.2); Carbon Dioxide 31 mmol/L (22-30); Chloride 101 mmol/L (98-107); Glucose 114 mg/dL (74-99); Non-African American GFR(CKD) >90 (>60 ml/min/1.73 sqM); Potassium 4.3 mmol/L (3.5-5.1); Sodium 134 mmol/L (137-145)
--- NOTE | 2024-10-28 13:20 | P.PN ---
Subjective Progress Note Date: 10/28/24 Principal diagnosis: Acute hypoxic respiratory failure secondary to acute COPD exacerbation This is a pleasant 59-year-old male patient with a known history of chronic and ongoing tobacco dependence of greater than 30 years, stating he quit 1 month ago, solitary pulmonary nodule he follows with Dr. Boykin in our office. His FEV1 value is 20% of predicted. He is not oxygen dependent. He also has a history of hypertension, hyperlipidemia, coronary artery disease with previous stent placement, anxiety. He has had several admissions to the hospital for COPD exacerbations. Last time in June 2024. He presented here today with a 3-day history of increasing shortness of breath cough and congestion. Chest x- ray revealed evidence of emphysema and pulmonary fibrotic changes but no acute pulmonary process. EKG revealed sinus rhythm with no significant ST and T wave abnormalities. White count 9.9. Hemoglobin 15.5. Platelets 144. Sodium 135. Potassium 3.4. Bicarb 29. BUN 29. Creatinine 0.67. Glucose 119. He is seen today in consultation in the emergency department. He is currently on BiPAP 06/25 and 30% FiO2 with O2 saturations up to 100%. He is feeling better this afternoon. He denied any fever or chills. No productive cough. Patient was seen today on10/27/24,, patient is feeling a bit better from the pulmonary perspective however he feels generally weak. Less cough less wheezing less shortness of breath, but he has profound weakness, labs were unremarkable CT of the chest showed no change in the size of his right lung nodule patient remains tachypneic, on nasal cannula, on maximal therapy for COPD including Solu-Medrol, he is also on doxycycline and on multiple bronchodilators. Patient was seen today on 10/28/2024, slight improvement but remains generally weak, and extremely short of breath with any activity. Patient had a D-dimer today that came back normal, hence that virtually ruled out pulmonary embolism, and I have no plans to arrange for CT angiogram of the chest. Patient does have severe underlying COPD and that is basically the cause of his shortness of breath on exertion. WBC count today is 11.8 hemoglobin is 14.0 electrolytes are normal renal profile is normal Objective - Vital Signs Vital signs: Vital Signs Temp 97.6 F 10/28/24 11:42 Pulse 68 10/28/24 12:00 Resp 18 10/28/24 11:42 BP 134/75 10/28/24 11:42 Pulse Ox 99 10/28/24 11:42 FiO2 30 10/26/24 15:33 Intake & Output 10/27/24 10/28/24 10/28/24 18:59 06:59 18:59 Intake Total 720 1000 Balance 720 1000 Weight 50.6 kg 50 kg Intake: Oral 720 1000 Other: Voiding Method Urinal Urinal Urinal # Voids 2 1 # Bowel Movements 0 - Exam GENERAL EXAM: Revealed 59-year-old white male in no distress, on 2 L nasal cannula, O2 sat is 95% HEAD: Normocephalic. EYES: Normal reaction of pupils, equal size. NOSE: Clear with pink turbinates. THROAT: No erythema or exudates. NECK: No masses, no JVD. CHEST: No chest wall deformity. LUNGS: Diminished breath sound bilaterally some wheezing on forced expiratory maneuver only CVS: S1 and S2 normal with no audible murmur, regular rhythm. ABDOMEN: No hepatosplenomegaly, normal bowel sounds, no guarding or rigidity. SKIN: No rashes CENTRAL NERVOUS SYSTEM: Alert oriented x 3 no focal deficit EXTREMITIES: No clubbing, no edema, no cyanosis - Labs CBC & Chem 7: 10/28/24 10:23 10/28/24 10:23 Labs: Abnormal Lab Results - Last 24 Hours (Table) 10/28/24 10/28/24 Range/Units 10:23 10:23 WBC 11.82 H (4.50-10.00) 10*3/uL Neutrophils # 10.82 H (1.80-7.70) 10*3/uL Lymphocytes # 0.38 L (0.90-5.00) 10*3/uL Eosinophils # 0.00 L (0.04-0.35) 10*3/uL Sodium 134 L (137-145) mmol/L Carbon Dioxide 31 H (22-30) mmol/L BUN 30 H (9-20) mg/dL Creatinine 0.62 L (0.66-1.25) mg/dL Glucose 114 H (74-99) mg/dL Assessment and Plan Assessment: Impression: Acute hypoxemic respiratory failure secondary to an acute exacerbation of chronic obstructive pulmonary disease requiring BiPAP support initially on his initial presentation History of chronic obstructive pulmonary disease with an FEV1 value 20% of predicted, not oxygen dependent Chronic and ongoing tobacco dependence of greater than 30 years, states quit 1 month ago History of a 0.7 cm nodule anterior right midlung unchanged based on CT of the chest done on this admission next CT will be done in 6 months Coronary artery disease with previous stent placement Hypertension Hyperlipidemia History of anxiety Recommendation: Continue oxygen and titrate accordingly Continue bronchodilators including DuoNeb Pulmicort Perforomist Continue Solu-Medrol Continue antibiotics for COPD exacerbation/tracheobronchitis Reviewed the results of the CT of the chest and updated the patient on his nodule, no need for CT angiogram of the chest since his D-dimer is normal Not ready for any discharge Prognosis remains relatively guarded We will continue to follow most likely the patient will need to be on home O2. Time with Patient: Less than 30
[2024-10-28 16:30] LABS: Glucose,Whole Blood 141 mg/dL (70-110)
[2024-10-28 19:59] LABS: Glucose,Whole Blood 169 mg/dL (70-110)
[2024-10-29 05:49] LABS: Glucose,Whole Blood 137 mg/dL (70-110)
[2024-10-29 06:12] LABS: Basophils # (A) 0.01 10*3/uL (0.00-0.10); Basophils % (A) 0.1 %; Lymphocytes # (A) 0.38 10*3/uL (0.90-5.00); Lymphocytes % (A) 3.4 %; MCH 30.6 pg (27.0-32.0); MCHC 33.3 g/dL (32.0-37.0); MCV 91.7 fL (80.0-97.0); Mean Platelet Volume 10.2 fL (9.5-12.2); Monocytes % (A) 5.3 %; Neutrophils # (A) 10.26 10*3/uL (1.80-7.70); Neutrophils % (A) 90.7 %; Platelet Count 208 10*3/uL (140-440); RBC 4.58 10*6/uL (4.40-5.60); RDW 12.3 % (11.5-14.5); WBC 11.31 10*3/uL (4.50-10.00)
[2024-10-29 06:29] LABS: Potassium 4.4 mmol/L (3.5-5.1)
[2024-10-29 06:30] LABS: Chloride 100 mmol/L (98-107); Glucose 128 mg/dL (74-99); Sodium 136 mmol/L (137-145)
[2024-10-29 06:31] LABS: African American GFR (CKD) >90 (>60 ml/min/1.73 sqM); Anion Gap 1 mmol/L; Blood Urea Nitrogen 31 mg/dL (9-20); Carbon Dioxide 35 mmol/L (22-30); Non-African American GFR(CKD) >90 (>60 ml/min/1.73 sqM)
[2024-10-29 11:22] LABS: Glucose,Whole Blood 117 mg/dL (70-110)
--- NOTE | 2024-10-29 14:16 | P.PN ---
Subjective Progress Note Date: 10/29/24 Principal diagnosis: Acute hypoxic respiratory failure secondary to acute COPD exacerbation This is a pleasant 59-year-old male patient with a known history of chronic and ongoing tobacco dependence of greater than 30 years, stating he quit 1 month ago, solitary pulmonary nodule he follows with Dr. Boykin in our office. His FEV1 value is 20% of predicted. He is not oxygen dependent. He also has a history of hypertension, hyperlipidemia, coronary artery disease with previous stent placement, anxiety. He has had several admissions to the hospital for COPD exacerbations. Last time in June 2024. He presented here today with a 3-day history of increasing shortness of breath cough and congestion. Chest x- ray revealed evidence of emphysema and pulmonary fibrotic changes but no acute pulmonary process. EKG revealed sinus rhythm with no significant ST and T wave abnormalities. White count 9.9. Hemoglobin 15.5. Platelets 144. Sodium 135. Potassium 3.4. Bicarb 29. BUN 29. Creatinine 0.67. Glucose 119. He is seen today in consultation in the emergency department. He is currently on BiPAP 06/25 and 30% FiO2 with O2 saturations up to 100%. He is feeling better this afternoon. He denied any fever or chills. No productive cough. Patient was seen today on10/27/24,, patient is feeling a bit better from the pulmonary perspective however he feels generally weak. Less cough less wheezing less shortness of breath, but he has profound weakness, labs were unremarkable CT of the chest showed no change in the size of his right lung nodule patient remains tachypneic, on nasal cannula, on maximal therapy for COPD including Solu-Medrol, he is also on doxycycline and on multiple bronchodilators. Patient was seen today on 10/28/2024, slight improvement but remains generally weak, and extremely short of breath with any activity. Patient had a D-dimer today that came back normal, hence that virtually ruled out pulmonary embolism, and I have no plans to arrange for CT angiogram of the chest. Patient does have severe underlying COPD and that is basically the cause of his shortness of breath on exertion. WBC count today is 11.8 hemoglobin is 14.0 electrolytes are normal renal profile is normal Seen today on 10/29/2024, patient is feeling better breathing easier, remains generally weak, today I had a chance to review his PFT from my office, also reviewed his last alpha-1 antitrypsin screening, patient was updated on the numbers, he has an FEV1 of 23%, patient has not been on oxygen apparently I tested him for O2 at the office and he did not qualify at the time. Patient may need to be reevaluated again, and if he qualifies for home O2 needs to be discharged home today on home O2. I will clear the patient for discharge, patient should be discharged on home O2 most likely, prednisone burst and taper 40 mg tapered over 2 weeks, he already has albuterol, DuoNeb, and Trelegy at home. Objective - Vital Signs Vital signs: Vital Signs Temp 97.8 F 10/29/24 11:27 Pulse 71 10/29/24 12:54 Resp 16 10/29/24 11:27 BP 144/79 10/29/24 11:27 Pulse Ox 96 10/29/24 11:27 FiO2 30 10/26/24 15:33 Intake & Output 10/28/24 10/29/24 10/29/24 18:59 06:59 18:59 Intake Total 1120 118 Output Total 2 Balance 1120 -2 118 Weight 50.1 kg Intake: Oral 1120 118 Output: Urine 2 Other: Voiding Method Urinal Urinal Urinal # Voids 1 # Bowel Movements 0 1 - Exam GENERAL EXAM: Revealed 59-year-old white male in no distress, on 2 L nasal cannula, O2 sat is 95% HEAD: Normocephalic. EYES: Normal reaction of pupils, equal size. NOSE: Clear with pink turbinates. THROAT: No erythema or exudates. NECK: No masses, no JVD. CHEST: No chest wall deformity. LUNGS: Diminished breath sound bilaterally no wheezing noted. CVS: S1 and S2 normal with no audible murmur, regular rhythm. ABDOMEN: No hepatosplenomegaly, normal bowel sounds, no guarding or rigidity. SKIN: No rashes CENTRAL NERVOUS SYSTEM: Alert oriented x 3 no focal deficit EXTREMITIES: No clubbing, no edema, no cyanosis - Labs CBC & Chem 7: 10/29/24 05:13 10/29/24 05:13 Labs: Abnormal Lab Results - Last 24 Hours (Table) 10/28/24 10/28/24 10/29/24 Range/Units 16:29 19:57 05:13 WBC 11.31 H (4.50-10.00) 10*3/uL Immature Gran # 0.06 H (0.00-0.04) 10*3/uL Neutrophils # 10.26 H (1.80-7.70) 10*3/uL Lymphocytes # 0.38 L (0.90-5.00) 10*3/uL Eosinophils # 0.00 L (0.04-0.35) 10*3/uL Sodium (137-145) mmol/L Carbon Dioxide (22-30) mmol/L BUN (9-20) mg/dL Glucose (74-99) mg/dL POC Glucose (mg/dL) 141 H 169 H (70-110) mg/dL 10/29/24 10/29/24 10/29/24 Range/Units 05:13 05:47 11:20 WBC (4.50-10.00) 10*3/uL Immature Gran # (0.00-0.04) 10*3/uL Neutrophils # (1.80-7.70) 10*3/uL Lymphocytes # (0.90-5.00) 10*3/uL Eosinophils # (0.04-0.35) 10*3/uL Sodium 136 L (137-145) mmol/L Carbon Dioxide 35 H (22-30) mmol/L BUN 31 H (9-20) mg/dL Glucose 128 H (74-99) mg/dL POC Glucose (mg/dL) 137 H 117 H (70-110) mg/dL Assessment and Plan Assessment: Impression: Acute hypoxemic respiratory failure secondary to an acute exacerbation of chronic obstructive pulmonary disease requiring BiPAP support initially on his initial presentation History of chronic obstructive pulmonary disease with an FEV1 value 20% of predicted, not oxygen dependent Chronic and ongoing tobacco dependence of greater than 30 years, states quit 1 month ago History of a 0.7 cm nodule anterior right midlung unchanged based on CT of the chest done on this admission next CT will be done in 6 months Coronary artery disease with previous stent placement Hypertension Hyperlipidemia History of anxiety Recommendation: Will clear the patient for discharge home today Evaluate patient for possible home O2 Transition to prednisone burst and taper Patient to resume his home meds including DuoNeb, albuterol, Trelegy Ellipta Patient to see me in the office in 1 week postdischarge Reviewed the results of the CT of the chest and updated the patient on his nodule, no need for CT angiogram of the chest since his D-dimer is normal Time with Patient: Less than 30
[2024-10-30 07:14] VITALS: BP 129/77; RESP 16; TEMP 98.1
[2024-10-30] MEDS: predniSONE 20 MG TAB PO SCH (08:53)
[2024-10-30 10:12] VITALS: BMI 17.9
[2024-10-30 12:59] VITALS: PULSE 76
--- NOTE | 2024-10-30 12:59 | P.PN ---
Subjective Progress Note Date: 10/30/24 This is a pleasant 59-year-old male patient with a known history of chronic and ongoing tobacco dependence of greater than 30 years, stating he quit 1 month ago, solitary pulmonary nodule he follows with Dr. Boykin in our office. His FEV1 value is 20% of predicted. He is not oxygen dependent. He also has a history of hypertension, hyperlipidemia, coronary artery disease with previous stent placement, anxiety. He has had several admissions to the hospital for COPD exacerbations. Last time in June 2024. He presented here today with a 3-day history of increasing shortness of breath cough and congestion. Chest x- ray revealed evidence of emphysema and pulmonary fibrotic changes but no acute pulmonary process. EKG revealed sinus rhythm with no significant ST and T wave abnormalities. White count 9.9. Hemoglobin 15.5. Platelets 144. Sodium 135. Potassium 3.4. Bicarb 29. BUN 29. Creatinine 0.67. Glucose 119. He is seen today in consultation in the emergency department. He is currently on BiPAP 06/25 and 30% FiO2 with O2 saturations up to 100%. He is feeling better this afternoon. He denied any fever or chills. No productive cough. Patient was seen today on10/27/24,, patient is feeling a bit better from the pulmonary perspective however he feels generally weak. Less cough less wheezing less shortness of breath, but he has profound weakness, labs were unremarkable CT of the chest showed no change in the size of his right lung nodule patient remains tachypneic, on nasal cannula, on maximal therapy for COPD including Solu-Medrol, he is also on doxycycline and on multiple bronchodilators. Patient was seen today on 10/28/2024, slight improvement but remains generally weak, and extremely short of breath with any activity. Patient had a D-dimer today that came back normal, hence that virtually ruled out pulmonary embolism, and I have no plans to arrange for CT angiogram of the chest. Patient does have severe underlying COPD and that is basically the cause of his shortness of breath on exertion. WBC count today is 11.8 hemoglobin is 14.0 electrolytes are normal renal profile is normal Seen today on 10/29/2024, patient is feeling better breathing easier, remains generally weak, today I had a chance to review his PFT from my office, also reviewed his last alpha-1 antitrypsin screening, patient was updated on the numbers, he has an FEV1 of 23%, patient has not been on oxygen apparently I tested him for O2 at the office and he did not qualify at the time. Patient may need to be reevaluated again, and if he qualifies for home O2 needs to be discharged home today on home O2. I will clear the patient for discharge, patient should be discharged on home O2 most likely, prednisone burst and taper 40 mg tapered over 2 weeks, he already has albuterol, DuoNeb, and Trelegy at home. The patient is seen today October 30, 2024 in follow-up on the regular medical floor. He is sitting up in bed. Awake and alert in no acute distress. Denies any worsening shortness of breath, cough or congestion. He is maintaining O2 saturations in the 90s on room air oxygen. He has been afebrile. Hemodynamically stable. White count 11.3. Hemoglobin 14.0. Platelets 208. Sodium 136. Potassium 4.4. Bicarb 35. BUN 31. Creatinine 0.72. Glucose 128. He remains on DuoNeb inhalations, Pulmicort and performance inhalations, prednisone taper. Objective - Vital Signs Vital signs: Vital Signs Temp 98.1 F 10/30/24 07:12 Pulse 68 10/30/24 12:49 Resp 16 10/30/24 07:12 BP 129/77 10/30/24 07:12 Pulse Ox 96 10/30/24 09:11 FiO2 30 10/26/24 15:33 Intake & Output 10/29/24 10/30/24 10/30/24 18:59 06:59 18:59 Intake Total 776 Balance 776 Weight 50.3 kg 50.3 kg Intake: Oral 776 Other: Voiding Method Urinal Urinal Urinal # Voids 3 - Exam GENERAL EXAM: Alert, active, thin, 59-year-old male, appears older than stated age, on room air oxygen, comfortable in no apparent distress. HEAD: Normocephalic. EYES: Normal reaction of pupils, equal size. NOSE: Clear with pink turbinates. THROAT: No erythema or exudates. NECK: No masses, no JVD. CHEST: No chest wall deformity. LUNGS: Equal air entry with no crackles, wheeze, rhonchi or dullness. Diminished. CVS: S1 and S2 normal with no audible murmur, regular rhythm. ABDOMEN: No hepatosplenomegaly, normal bowel sounds, no guarding or rigidity. SPINE: No scoliosis or deformity SKIN: No rashes CENTRAL NERVOUS SYSTEM: No focal deficits, tone is normal in all 4 extremities. EXTREMITIES: There is no peripheral edema. No clubbing, no cyanosis. Pe ripheral pulses are intact. - Labs CBC & Chem 7: 10/29/24 05:13 10/29/24 05:13 Assessment and Plan Assessment: Acute hypoxemic respiratory failure secondary to an acute exacerbation of chronic obstructive pulmonary disease requiring BiPAP support History of chronic obstructive pulmonary disease with an FEV1 value 20% of predicted, not oxygen dependent Chronic and ongoing tobacco dependence of greater than 30 years, states quit 1 month ago History of a 0.8 cm nodule anterior right midlung being followed in the outpatient setting. CT of the chest done this admission showing no change in pulmonary nodule Emil artery disease with previous stent placement Hypertension Hyperlipidemia History of anxiety Plan: The patient was seen and evaluated Medications reviewed Stable and on room air Cleared for discharge Continue his home pulmonary medications Complete a prednisone taper Follow-up with Dr. Boykin in our office in 1 week I have personally seen and examined the patient, performed the documentation and the assessment and plan as written. Number of minutes spent on the visit: 10 Dictation was produced using [employer] dictation software. Please excuse any grammatical, word or spelling errors.
== END 2024-10-30 14:52 | disposition home or self-care (01) | DRG 189 ==
LOC: EC 10:38 → 3SCARD 14:04 → 4SSUR 10-29 21:30
PROVIDERS: ADMIT Internal Medicine; ATTEND Internal Medicine
PROC: 5A09457 Assistance with Respiratory Ventilation, 24-96 Consecutive Hours, Continuous Positive Airway Pressure (ICD-10-PCS; principal; 2024-10-26)
DX: J96.01 Acute respiratory failure with hypoxia (principal); J44.1 Chronic obstructive pulmonary disease with (acute) exacerbation; I10 Essential (primary) hypertension; F17.200 Nicotine dependence, unspecified, uncomplicated; E78.5 Hyperlipidemia, unspecified; R19.7 Diarrhea, unspecified; I25.10 Atherosclerotic heart disease of native coronary artery without angina pectoris; M19.90 Unspecified osteoarthritis, unspecified site; K21.9 Gastro-esophageal reflux disease without esophagitis; Z79.82 Long term (current) use of aspirin; Z88.8 Allergy status to other drugs, medicaments and biological substances; Z91.030 Bee allergy status; Z91.041 Radiographic dye allergy status; Z91.013 Allergy to seafood; Z79.899 Other long term (current) drug therapy; I25.2 Old myocardial infarction; Z95.5 Presence of coronary angioplasty implant and graft
CPT/HCPCS: 36415; 71046; 71250; 80048; 81003; 82803; 83735; 85025; 85379; 93005; 94640; 94644; 94645; 94660; 94760; 96365; 96366; 96372; 96375; 99291